=== PATIENT | female | born 1960 | race Caucasian/White ===

== ENCOUNTER → 2017-01-21 | Outpatient (CLI) | payer OTHER, BC ==
[~2017-01-21] MED LIST: ALPR1TAB3 PO; BUPR200T2 PO; CHOL1000 PO; DIME1CAP2 PO; ESCI1TAB10 PO; GABA800T PO; HYDR-4079 PO; LRS20 PO; MECL1TAB42 PO; MELO7.5T5 PO; METH4PAK PO; OXYC-106 PO; TOPI100T20 PO; VALA1TAB2 PO; ZNF/4 PO
[2017-01-21 10:14] LABS: BASO ABS # 0.04 K/uL (0-0.2); COMPLETE YES; EOS % 1.7 %; HEMATOCRIT 39.1 % (37-47); IG% 0.2 %; LYMPH % 22.1 %; LYMPH ABS # 0.89 K/uL (1.2-3.4); MEAN CELL VOLUME 90.1 fL (80-100); MEAN CORPUSCULAR HEMOGLOBIN 31.3 pg (25-34); MEAN CORPUSCULAR HGB CONC 34.8 g/dl (32-36); MEAN PLATELET VOLUME 8.8 fL (7.4-10.4); MONO % 17.2 %; NEUT % 57.8 %; PLATELET COUNT 318 K/uL (130-400); RED BLOOD COUNT 4.34 M/uL (4.2-5.4); WHITE BLOOD COUNT 4.02 K/uL (4.8-10.8)
[2017-01-21 10:42] LABS: ALT/SGPT 21 U/L (12-78); AST/SGOT 15 U/L (15-37); BLOOD UREA NITROGEN 5 mg/dl (7-18); BUN/CREATININE RATIO 7.4 (10-20); CALCIUM 9.2 mg/dl (8.5-10.1); CARBON DIOXIDE 27 mmol/L (21-32); CHLORIDE 97 mmol/L (98-107); CREATININE 0.62 mg/dl (0.60-1.20); GLUCOSE 75 mg/dl (70-99); POTASSIUM 3.6 mmol/L (3.5-5.1); SODIUM 130 mmol/L (136-145)
[2017-01-21 10:52] LABS: ALB/GLOB RATIO 1.1 (0.9-2); ALKALINE PHOSPHATASE 98 U/L (45-117)
[2017-01-21 11:26] LABS: LYME DISEASE AB IGG NEG (NEG); LYME DISEASE AB IGM NEG (NEG)
== END | disposition home or self-care (01) ==
LOC: C.LAB1850 09:21
PROVIDERS: ATTEND Physician Assistant
DX: G35 Multiple sclerosis (principal); E55.9 Vitamin D deficiency, unspecified

== ENCOUNTER → 2017-10-01 | Outpatient (CLI) | payer OTHER ==
[~2017-10-01] MED LIST changes: -DIME1CAP2 PO; -METH4PAK PO; -OXYC-106 PO; -VALA1TAB2 PO
[2017-10-01 13:15] LABS: ALBUMIN 3.7 gm/dl (3.4-5.0); ALT/SGPT 17 U/L (12-78); BLOOD UREA NITROGEN 6 mg/dl (7-18); CALCIUM 8.8 mg/dl (8.5-10.1); CARBON DIOXIDE 26 mmol/L (21-32); CREATININE 0.68 mg/dl (0.60-1.20); GLUCOSE 76 mg/dl (70-99); POTASSIUM 3.6 mmol/L (3.5-5.1); SODIUM 128 mmol/L (136-145)
[2017-10-01 13:18] LABS: BASO % 0.6 %; BASO ABS # 0.03 K/uL (0-0.2); EOS % 1.3 %; EOS ABS # 0.06 K/uL (0-0.5); HEMATOCRIT 39.2 % (37-47); HEMOGLOBIN 13.5 g/dL (12.0-16.0); IG# 0.02 K/uL (0.00-0.02); LYMPH % 20.8 %; LYMPH ABS # 0.97 K/uL (1.2-3.4); MEAN CELL VOLUME 92.5 fL (80-100); MEAN CORPUSCULAR HEMOGLOBIN 31.8 pg (25-34); MEAN CORPUSCULAR HGB CONC 34.4 g/dl (32-36); MEAN PLATELET VOLUME 9.4 fL (7.4-10.4); MONO % 12.4 %; MONO ABS # 0.58 K/uL (0.11-0.59); NEUT % 64.5 %; NEUT ABS # 3.01 K/uL (1.4-6.5); PLATELET COUNT 276 K/uL (130-400); RED CELL DISTRIBUTION WIDTH SD 44.1 fL (36.4-46.3); WHITE BLOOD COUNT 4.67 K/uL (4.8-10.8)
[2017-10-01 13:26] LABS: ALKALINE PHOSPHATASE 89 U/L (45-117); AST/SGOT 13 U/L (15-37)
[2017-10-02 00:58] LABS: RAPID PLASMA REAGIN REACTIVE (NONREACT)
[2017-10-02 00:59] LABS: RAPID PLASMA REAGIN TITRE 8 DILS (NR)
== END | disposition home or self-care (01) ==
LOC: C.LAB1850 10:07
PROVIDERS: ATTEND Psychiatry & Neurology Neurology
DX: G35 Multiple sclerosis (principal); E55.9 Vitamin D deficiency, unspecified; R53.83 Other fatigue; R41.89 Other symptoms and signs involving cognitive functions and awareness; H54.7 Unspecified visual loss

== ENCOUNTER → 2017-10-13 | Outpatient (CLI) | payer OTHER ==
[~2017-10-13] MED LIST changes: +ANAS1TAB19 PO; +GADAVIST IV PRN
--- NOTE | 2017-10-13 15:34 | DIAGNOSTIC IMAGING REPORT ---
MRI OF THE BRAIN COMBO CLINICAL HISTORY: Multiple sclerosis. Breast cancer. COMPARISON STUDY: CT of the brain dated 06/17/2016. MRI of the brain dated 01/29/2017. TECHNIQUE: MRI of the brain was performed utilizing various T1 and T2-weighted sequences in the axial, sagittal, and coronal planes. Contrast-enhanced sequences were acquired following the administration of 6.5 cc of Gadavist. The examination is performed using the multiple sclerosis protocol. FINDINGS: Brain parenchyma: There are numerous foci of T2 signal abnormality scattered throughout the subcortical and periventricular white matter. The appearance is consistent with the reported clinical history of multiple sclerosis. No abnormal enhancement is identified on the postcontrast sequences to suggest active demyelination. There is no hemorrhage or mass effect. There is no restricted diffusion to suggest acute ischemia. No enhancing mass lesion is identified on the postcontrast images. Noe-white matter differentiation is preserved. No extra-axial fluid collection is seen. The cerebellar tonsils are normal in configuration. Ventricles, sulci, and cisterns: Normal in configuration. Pituitary and sella: Unremarkable. Intracranial vasculature: Normal flow voids are maintained at the skull base. Orbits: The bony orbits are grossly intact. Orbital contents are normal in appearance. Sinuses and mastoids: The paranasal sinuses and mastoid air cells are clear. 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 Calvarium: Unremarkable. Cervical cord: Partially visualized cervical spinal cord is normal in morphology and signal intensity. IMPRESSION: 1. There is no hemorrhage, enhancing mass, or evidence of acute ischemia. 2. Numerous T2 hyperintense plaques identified throughout the subcortical and periventricular white matter consistent with the reported history of multiple sclerosis. This has not significantly changed from the 01/29/2017 examination when differences in technique are taken into consideration. 3. There is no abnormal enhancement to suggest active demyelination. Electronically signed by: Kishore Nolan M.D. 10/13/2017 3:32 PM Dictated Date/Time: 10/13/2017 3:24 PM
--- NOTE | 2017-10-13 15:46 | DIAGNOSTIC IMAGING REPORT ---
CERVICAL SPINE COMBO CLINICAL HISTORY: 57 years-old Female presenting with diagnosed with multiple sclerosis in 2001, history of breast cancer, now with increased gait difficulty and memory problems. TECHNIQUE: Multisequence, multiplanar MR imaging of the cervical spine was performed before and after the administration of intravenous contrast. IV contrast: 6.5 mL of Gadavist. COMPARISON: None. FINDINGS: Localizer images: Unremarkable. Normal cervical lordosis. Verbal bodies maintain normal height, alignment, and bone marrow signal intensity. Diffuse intervertebral disc desiccation without height loss. Mild disc osteophyte complex noted at C3-4 with left paracentral osteophytosis resulting in effacement of the left lateral recess and minimal contouring of the left anterior aspect of the spinal cord at this level (series 17 image 10). Mild ligamentum flavum thickening at C5 effaces the dorsal thecal sac. Similar findings noted at C6. No contouring of the spinal cord. No significant neural foraminal narrowing. Cervical spinal cord maintains normal morphology and signal intensity throughout apart from minimal contouring at C3-4 as mentioned above. Craniocervical junction is normal. Abnormal white matter signal intensity noted in the delisa and midbrain. This is a evaluated on separately dictated MR brain. Postcontrast imaging demonstrates no abnormal enhancement of the spinal cord or surrounding soft tissues. No epidural collection. IMPRESSION: 1. No abnormal spinal cord signal intensity to suggest demyelinating disease. No abnormal enhancement. 2. Mild degenerative changes as detailed above. Electronically signed by: Hector Baer M.D. 10/13/2017 3:45 PM Dictated Date/Time: 10/13/2017 3:40 PM
== END | disposition home or self-care (01) ==
LOC: C.MRI 13:31
PROVIDERS: ATTEND Psychiatry & Neurology Neurology
DX: G35 Multiple sclerosis (principal)

== ENCOUNTER → 2017-10-16 | Outpatient (CLI) | payer OTHER ==
[~2017-10-16] MED LIST changes: -GADAVIST IV PRN
[2017-10-16 09:00] VITALS: BP 108/70; PULSE 76; TEMP 36.7; O2SAT 96
--- NOTE | 2017-10-16 10:12 | Radiation Oncology Follow-Up ---
Radiation Oncology Follow-Up Date of Visit Oct 16, 2017. Reason For Visit One-month follow-up in cancer survivorship care plan Radiation Completion Date finished 08-21-2017 Diagnosis (1) Breast cancer of upper-inner quadrant of left female breast Status: Acute Onset Date: 05/12/2017 Histology Subtype: Ductal Stage: l (A) Permanent Comment: Abnormal left breast mammogram Status post ultrasound-guided core needle biopsy 05/12/2017 Invasive ductal carcinoma grade 2 Estrogen receptor positive, progesterone receptor positive and HER-2/elizabeth negative Status post lumpectomy and sentinel lymph node biopsy 06/17/2017 Stage pT1b [id number] Prosigna score 36 Status post completion of radiation therapy August 21, 2017. She received 5130 cGy utilizing hypo-fractionation Last Edited By: Leti Jarrett on Aug 28, 2017 09:13 History of Present Illness Ms. Hernandes has multiple sclerosis who recently presented with an abnormal mammogram on April 24 which revealed a 1.2 cm focal asymmetry in the left breast. The patient underwent a diagnostic left mammogram on 05/07/2017 with ultrasonography which confirmed a persistent nodule in the left breast at the 11 o'clock position measuring 10 mm in the greatest dimension. The patient underwent a ultrasound-guided core biopsy of the left breast mass on 05/12/2017 which revealed invasive ductal carcinoma that was grade 2 and was estrogen receptor positive, progesterone receptor weakly positive and HER-2 negative. The patient underwent a left breast lumpectomy and sentinel lymph node biopsy on 06/17/[address] Mariela Wheeler which revealed invasive ductal carcinoma that measure 10 mm in greatest dimension and was grade 2 with lymphovascular space invasion present. 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 The margins were negative for both DCIS and invasive carcinoma. 3 sentinel lymph nodes were excised and they were all negative for metastatic carcinoma. The patient was staged as pathologic [id number](sn), stage IA. The patient did have a Prosigna score sent for her pathology specimen which was 36 which placed in the low risk category. The patient was seen by Dr. Noe from medical oncology (complete note still pending ) and, according to the patient, she advised against chemotherapy and recommended hormonal therapy. We are now seeing the patient in consultation discuss the role of radiation therapy. She underwent a CT simulation and was found to be a candidate for hypo- fractionation. She completed radiation therapy August 21, 2017. She received 5130 cGy utilizing hypo-fractionation. Interim History She has been doing well over the past month. Skin irritation that occurred towards the end of treatment resolved. She denies any discomfort in her breast. She has noticed no swelling. She is noted no masses and no tenderness. She has noted no change of the axilla. She has no swelling of her arm. She has been seen in follow-up by medical oncology. She is now on antiestrogen therapy. She is tolerating this well. She denies any side effects. She has no complaints of joint pain or discomfort. She has had a follow-up visit and studies for her MS. Allergies Coded Allergies: Penicillins (Verified Allergy, Unknown, my mother told me I had anaphylactic reaction, 07/14/17) Sulfa Drugs (Verified Allergy, Unknown, my mother told me I had an anaphylactic reaction, 07/14/17) Home Medications Scheduled Alprazolam (Xanax), 1.5 MG PO TID Anastrozole (Arimidex), 1 TAB PO DAILY Baclofen (Baclofen), 20 MG PO TID Bupropion (Wellbutrin Sr), 200 MG PO BID Cholecalciferol (Vitamin D3), 5 TAB PO HS Escitalopram Oxalate (Lexapro), 10 MG PO DAILY Gabapentin (Neurontin), 800 MG PO TID Meloxicam (Mobic), 7.5 MG PO DAILY Tizanidine (Tizanidine HCl), 4 MG PO BID Topiramate (Topamax), 100 MG PO BID Scheduled PRN Hydrocodone/Acetaminophen 10MG/325MG ([place] 10MG/325MG), 1 TAB PO Q6 PRN for Pain Meclizine Hcl (Meclizine Hcl), 1 TAB PO TID PRN for Dizziness or Vertigo Review of Systems Gastrointestinal: Symptoms: WNL Oral: Symptoms: No Problems Respiratory: Symptoms: WNL Urinary: Symptoms: Nocturia, Frequency Comments: "nocturia times 2 , and urgency from her MS " Skin: Symptoms: No Problems Other Skin Symptoms: " dry " Breast: Right Upper Arm Measurement: 28.0 Right Mid Arm Measurement: 23.5 Right Wrist Measurement: 16.0 Left Upper Arm Measurement: 29.0 Left Mid Arm Measurement: 23.7 Left Wrist Measurement: 16.8 Arm Dominence: Right Patient Cosmetic Evaluation: Excellent Staff Cosmetic Evalaluation: Excellent Additional Notes: She completed a distress management report and answered "no" to all questions. Physical Exam Vital Signs Date Time Temp Pulse Resp B/P (MAP) Pulse Ox O2 Delivery O2 Flow Rate FiO2 10/16/17 09:00 36.7 76 16 108/70 96 ECOG Performance Status: 0 Fatigue: None General Appearance: no apparent distress Eyes: normal inspection, EOMI ENT: normal ENT inspection, hearing grossly normal Neck: no adenopathy, thyroid normal Respiratory/Chest: lungs clear, no respiratory distress, no accessory muscle use Breast: Breast examination reveals well-healed incisions of the left breast. There are no masses or tenderness and no axillary adenopathy. She has no skin retractions or nipple changes. Very minimal hyperpigmentation. Using the Baudette score cosmesis she has a good outcome. The right breast showed no masses or tenderness and no axillary adenopathy. Cardiovascular: regular rate, rhythm, no gallop, no murmur Extremities: no pedal edema Neurologic/Psychiatric: no motor/sensory deficits, alert, normal mood/affect Skin: warm/dry Pain Management Patient Reports Pain: No Side: Bilateral Patient Preferred Pain Scale: 0 - 10 Initial Pain Intensity: 0.0 Pain Management Plan She denies pain therefore requires no pain management. Laboratory Laboratory Results: not applicable Pathology Pathology Results: were reviewed, and pertinent findings noted in HPI Imaging Imaging Studies: were reviewed, and pertinent findings noted in HPI Assessment & Plan Plan: Continue follow-up with medical oncology. She will be seeing Dr. Noe February 11, 2018. She continues on the antiestrogen therapy. She is scheduled for mammography December 09, 2017. She has a follow-up appointment with Dr. Wheeler on December 15, 2017. We asked her to return to our office in 6 months. Today we completed a cancer survivorship care plan. A copy of the document was given to the patient. She was given a survivorship booklet. We again discussed smoke cessation. We have previously discussed weaning off of cigarettes. She was given literature about the available programs for smoke cessation. We also discussed today low-dose CT for lung cancer screening. She is over 55, she is a smoker greater than 30 packs year history. She currently continues to smoke 1 pack per day. She does have occupational exposure with dust in the past. Literature was given in regards to the program that is available. I have asked her to contact April D[place] if she is interested in participating in this program. She may call our office if she has any questions or concerns. Total Time In Follow-Up I spent 20 minutes speaking to the patient in performing examination. I spent 20 minutes reviewing information, preparing the survivorship document, and completing this note. Copy To Mariela Wheeler MD; Krystian Noe MD; Maria Shipman D.O. Problem Qualifiers (1) Breast cancer of upper-inner quadrant of left female breast: Estrogen receptor status: positive Qualified Codes: C50.212 - Malignant neoplasm of upper-inner quadrant of left female breast; Z17.0 - Estrogen receptor positive status [ER+]
== END | disposition home or self-care (01) ==
LOC: C.ONC 08:54
PROVIDERS: ATTEND Physician Assistant Medical
DX: Z08 Encounter for follow-up examination after completed treatment for malignant neoplasm (principal); Z92.3 Personal history of irradiation; Z85.3 Personal history of malignant neoplasm of breast

== ENCOUNTER 2021-04-29 09:42 | Inpatient (IN) ==
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
[2021-04-29] MEDS ORDERED: SODIUM CHLORIDE 0.9% 1000ML 1,000 ML IV STA (10:26)
[2021-04-29] MEDS ORDERED: SODIUM CHLORIDE 0.9% 1000ML 500 ML IV ONE (10:26)
[2021-04-29] MEDS ORDERED: ONDANSETRON INJ 2 MG/ML 2 ML VIAL IV STA (10:26)
[2021-04-29 10:30] LABS: Hematocrit (blood only) 36.5 % (37-47); Hemoglobin 12.6 g/dL (12.0-16.0); Mean Corpuscular Hemoglobin 30.1 pg (25-34); Mean Corpuscular Hgb Conc 34.5 g/dL (32-36); Mean Corpuscular Volume 87.3 fL (80-100); Mean Platelet Volume 8.5 fL (7.4-10.4); Platelet Count 453 K/uL (130-400); RDW Coefficient of Variation 12.8 % (11.5-14.5); RDW Standard Deviation 41.3 fL (36.4-46.3); Red Blood Count 4.18 M/uL (4.2-5.4); White Blood Count 8.01 K/uL (4.8-10.8)
[2021-04-29 10:48] LABS: Alanine Aminotransferase 12 U/L (12-78); Albumin Level 2.7 gm/dl (3.4-5.0); Aspartate Aminotransferase 40 U/L (15-37); BUN Creatinine Ratio 14.6 (10-20); Blood Urea Nitrogen 9 mg/dl (7-18); Calcium 9.7 mg/dl (8.5-10.1); Carbon Dioxide 22 mmol/L (21-32); Chloride 90 mmol/L (98-107); Est GFR (African American) 113.2 ml/min; Est GFR (Non-African American) 97.7 ml/min; Glucose 97 mg/dl (70-99); Lipase 74 U/L (73-393); Potassium 2.7 mmol/L (3.5-5.1); Sodium 130 mmol/L (136-145)
[2021-04-29 10:51] LABS: Albumin Globulin Ratio 0.6 (0.9-2); Alkaline Phosphatase 105 U/L (45-117); Bilirubin,Total 0.6 mg/dl (0.2-1); Globulin 4.4 gm/dl (2.5-4.0); Total Protein 7.1 gm/dl (6.4-8.2)
[2021-04-29 11:03] LABS: Basophils # (auto) 0.02 K/uL (0-0.2); Basophils % (auto) 0.2 %; Echinocytes 1+; Eosinophils # (auto) 0.01 K/uL (0-0.5); Eosinophils % (auto) 0.1 %; Immature Granulocytes # (auto) 0.02 K/uL (0.00-0.02); Immature Granulocytes % (auto) 0.2 %; Lymphocytes # (auto) 2.05 K/uL (1.2-3.4); Lymphocytes % (auto) 25.6 %; Monocytes # (auto) 0.85 K/uL (0.11-0.59); Monocytes % (auto) 10.6 %; Neutrophils # (auto) 5.06 K/uL (1.4-6.5); Neutrophils % (auto) 63.3 %; Polychromasia 1+
--- NOTE | 2021-04-29 11:41 | CT Scan Report ---
CT abd pelvis wo con CLINICAL HISTORY: nausea, right sided pain gas, diarrhea, loss of appetite TECHNIQUE: Helical axial images of the abdomen and pelvis were obtained. Automated dose lowering tech niques and/or adjustment according to patient size were utilized for this exam. This exam was perfor med without intravenous contrast. COMPARISON: None available at the time of this dictation. FINDINGS: Lower chest: There is a right pleural effusion. A 16 mm solid nodule is seen in the anterior right t horacic cavity. Liver: Focal fatty changes are noted about the falciform ligament. Gallbladder and biliary tree: Cholelithiasis is seen without evidence of cholecystitis. No intra- or extrahepatic biliary ductal dilation. Pancreas: Unremarkable, no focal lesions. Spleen: Unremarkable. Adrenals: Unremarkable. Kidneys and ureters: Nonobstructive nephrolithiasis is seen. Bladder: Diffuse bladder wall thickening is seen. Reproductive organs: Unremarkable. Bowel: Unremarkable. Lymph nodes Retroperitoneal: A large right retroperitoneal mass measures 66 x 41 mm. Additional smaller retroperi toneal lymph nodes are seen measuring up to 29 x 36 mm. A large mass with heterogeneous density is se en in the right upper quadrant measuring approximately 74 x 69 mm, with extension outside the abdomin al cavity. Additional smaller right upper quadrant nodules are seen to bridge the diaphragm. Mesenteric: Unremarkable. Pelvic: Unremarkable. Peritoneum: Normal Vessels: Atherosclerotic calcifications are seen. Abdominal wall: A fat-containing umbilical hernia is seen. There is a fat-containing right inguinal h ernia. Bones: Degenerative changes in the visualized spine. Posterior fixation hardware is seen spanning L4 S1. IMPRESSION: 1. Multiple large soft tissue masses in the retroperitoneum and right upper quadrant, with invasion of the chest wall and thoracic cavity. Right pleural effusion with partially visualized pleural-based nodule. These findings are suspicious for malignancy in this patient with history of loss of appetit e. 2. Cholelithiasis. 3. Bladder wall thickening is likely secondary to chronic obstruction in this patient prostatomegaly . 4. Additional findings as above. ACT 112: Negative or not required by law. Electronically signed by: Hua Lewis M.D. 04/29/2021 11:40 AM
[2021-04-29] MEDS ORDERED: POTASSIUM CHLORIDE / WTR 10 MEQ/100 ML PLCT IV ONE (12:26)
[2021-04-29] MEDS: POTASSIUM CHLORIDE CRTAB 20 MEQ TABCR PO SCH ×2 (14:33→20:24)
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
[2021-04-29 16:35] LABS: Magnesium 1.6 mg/dl (1.8-2.4); Thyroid Stimulating Hormone 2.05 uIu/ml (0.300-4.500)
[2021-04-29 16:52] LABS: Appearance Urine Clear (Clear); Bacteria Urine Automated 4+ (Negative); Bilirubin Urine Negative (Negative); Blood Urine 2+ (Negative); Color Urine Yellow; Epithelial Cell Urine Auto >30 /lpf (0-5); Glucose Urine UA Negative (Negative); Ketones Urine 4+ (Negative); Leukocyte Esterase Urine 1+ (Negative); Nitrite Urine Positive (Negative); Protein Urine 1+ (Negative); Specific Gravity Urine 1.016 (1.000-1.030); Urobilinogen Urine Negative (Negative); pH Urine 5.5 (4.5-7.5)
[2021-04-29] MEDS: MAGNESIUM SULFATE / D5W 1 GM/100 ML BAG IV SCH ×2 (17:48→19:57)
[2021-04-29] MEDS ORDERED: PROMETHAZINE HCL 12.5 MG/10 ML UDP PO PRN (17:57)
[2021-04-29] MEDS: SODIUM CHLORIDE 0.9% 1000ML 1,000 ML IV SCH (18:32)
[2021-04-29] MEDS: CIPROFLOXACIN / D5W 400 MG/200 ML BAG IV SCH (20:17)
[2021-04-29] MEDS: BACLOFEN 20 MG TAB PO SCH (20:19)
[2021-04-29] MEDS: ESCITALOPRAM OXALATE 10 MG TAB PO SCH (20:20)
[2021-04-29] MEDS: buPROPion SR 100 MG TABCR PO SCH (20:20)
[2021-04-29] MEDS: TOPIRAMATE 100 MG TAB PO SCH (20:21)
[2021-04-29] MEDS: GABAPENTIN 800 MG TAB PO SCH (20:21)
[2021-04-29] MEDS: ALPRAZolam 0.5 MG TABLET PO SCH (20:24)
[2021-04-29] MEDS ORDERED: MELATONIN 3 MG TAB PO PRN (23:36)
[2021-04-30] MEDS: SODIUM CHLORIDE 0.9% 1000ML 1,000 ML IV SCH ×2 (03:20→12:56)
[2021-04-30] MEDS: CIPROFLOXACIN / D5W 400 MG/200 ML BAG IV SCH ×2 (06:20→18:05)
[2021-04-30] MEDS ORDERED: MoRPHine SULFATE 4 MG/ML 1 ML CARP\\VIAL IV PRN (06:49)
[2021-04-30 07:37] LABS: Hematocrit (blood only) 32.1 % (37-47); Hemoglobin 10.8 g/dL (12.0-16.0); Mean Corpuscular Hemoglobin 29.7 pg (25-34); Mean Corpuscular Hgb Conc 33.6 g/dL (32-36); Mean Corpuscular Volume 88.2 fL (80-100); Mean Platelet Volume 8.6 fL (7.4-10.4); Platelet Count 432 K/uL (130-400); RDW Standard Deviation 42.1 fL (36.4-46.3); Red Blood Count 3.64 M/uL (4.2-5.4); White Blood Count 7.65 K/uL (4.8-10.8)
[2021-04-30 08:14] LABS: BUN Creatinine Ratio 13.5 (10-20); Calcium 8.3 mg/dl (8.5-10.1); Creatinine Clr Calc Pharmacy 102.9 ml/min; Est GFR (African American) 121.8 ml/min; Est GFR (Non-African American) 105.1 ml/min; Magnesium 1.9 mg/dl (1.8-2.4); Potassium 3.6 mmol/L (3.5-5.1)
[2021-04-30 09:14] LABS: INR 1.1 (0.9-1.1); Prothrombin Time 11.2 Seconds (9.0-12.0)
[2021-04-30] MEDS: NICOTINE 21 MG/24 HR TDSY TD SCH (10:10)
[2021-04-30] MEDS: GABAPENTIN 800 MG TAB PO SCH ×2 (10:11→20:27)
[2021-04-30] MEDS: BACLOFEN 20 MG TAB PO SCH ×2 (10:11→20:26)
[2021-04-30] MEDS: buPROPion SR 100 MG TABCR PO SCH ×2 (10:11→20:26)
[2021-04-30] MEDS: TOPIRAMATE 100 MG TAB PO SCH ×2 (10:11→20:28)
[2021-04-30] MEDS: ANASTROZOLE 1 MG TAB PO SCH (10:11)
[2021-04-30] MEDS: ESCITALOPRAM OXALATE 10 MG TAB PO SCH ×2 (10:11→20:27)
[2021-04-30] MEDS: MAGNESIUM OXIDE 400 MG TAB PO SCH ×2 (10:17→20:28)
[2021-04-30] MEDS: ALPRAZolam 0.5 MG TABLET PO SCH ×3 (10:17→20:26)
[2021-04-30] MEDS: GABAPENTIN 400 MG CAP PO SCH (12:56)
--- NOTE | 2021-04-30 14:13 | Ultrasound Report ---
ULTRASOUND GUIDED FINE NEEDLE ASPIRATION AND CORE BIOPSY OF RIGHT LATERAL ABDOMINAL MASS CLINICAL HISTORY: RUQ mass biopsy COMPARISON STUDY: CT of the abdomen and pelvis April 29, 2021. PROCEDURE: Sonography of the abdomen demonstrate multiple right abdominal wall masses. Index lesion w as targeted for biopsy. The procedure, risks and benefits were discussed with the patient and informe d written consent was obtained. The procedure was performed by Dr. Sousa following a timeout. Ski n of the right abdomen was prepped and draped in sterile fashion and local anesthesia was achieved wi th 1% lidocaine. Under direct ultrasound guidance, 2 22-gauge fine needle aspirations were performed utilizing Stewart needles. Samples were deemed preliminarily adequate. 2 18-gauge 2 cm core samples were then obtained. Patient tolerated the procedure well and no immediate complications were evident. IMPRESSION: Successful ultrasound guided core biopsy and fine-needle aspiration of right abdominal w all mass. ACT 112: Negative or not required by law. Electronically signed by: Mark Sousa M.D. 04/30/2021 2:11 PM
[2021-04-30] MEDS: ACETAMINOPHEN 325 MG TAB PO PRN (16:29)
[2021-04-30] MEDS ORDERED: tiZANidine HCL 4 MG TABLET PO PRN (19:04)
--- NOTE | 2021-04-30 19:06 | Hospitalist Progress Note ---
Date of Service April 30, 2021 Assessment & Plan (1) Intraabdominal mass: (2) History of breast cancer: Plan: 60-year-old female with PMH breast cancer s/p lumpectomy and radiation in 2018, tobacco abuse (since age 10, 1PPD), MS, anxiety, presented to ED 04/29 for evaluation of nausea and poor appetite. Per patient, her GI issues started with constipation transitioning to diarrhea from stool softener use, poor appetite but after eating cinnamon bun her nausea worsened that made her to come to the hospital. She is poor historian. No dark tarry stool or bright red blood in the stool. CTAP at presentation revealed multiple large soft tissue masses in the r etroperitoneum and right upper quadrant, with invasion of chest wall and thoracis cavity. Hematology oncology consulted, no further recommendation Patient found to have low sodium, mild hyponatremia, will follow up with labs, monitor BMP daily. We will put her on as needed nausea medication. #. Abdominal mass, right upper quadrant: -Patient presenting from home with reports of worsening nausea and poor appetite x 3 weeks. -Admitting CTAP - Multiple large soft tissue masses in the retroperitoneum and right upper quadrant, with invasion of the chest wall and thoracic cavity. Right pleural effusion with partially visualized pleural-based nodule. -US guided biopsy of the mass -Patient with history of breast cancer, follows with Dr. Solis Goetz. He has been notified of CT findings. No further recommendation. -For pleural eff a/w nodule, Pulm consulted. -Heparin Px, Reg diet, continue to monitor, might need discussion regarding palliative care once we have evidence of metastatic disease. #. UTI UA s/o UTI UCx - pending on Cipro 04/29 #. Hypokalemia: #. Hyponatremia: - Admitting K+ 2.7, Na+ 130 -Likely due to poor p.o. intake -Replace, follow BMP -Improving #. History of breast cancer: -In 2018, s/p radiation and lumpectomy -Continue anastrozole #. Multiple sclerosis: -Continue home meds #. Tobacco abuse: -Patient counseled regarding tobacco cessation -Nicotine patch ordered #. DVT prophylaxis: -SCDs, will put her on Hep Px. Admission and Anticipated Discharge Date Admission Date: April 29, 2021 Subjective Patient was lying in bed, on room air, NAD, looking sad. No acute events overnight. Patient reports improvement in her nausea and belly pain. Patient moving flatus but no bowel movement. Patient currently n.p.o. at bedside exam awaiting biopsy. Patient denies headache/dizziness/chest pain/palpitation/other review of symptoms. Physical Exam Physical Exam: GENERAL: Alert and oriented x3. NAD, on RA. Appears sad. HEENT: No pallor, no icterus. Pupils equal, round and reactive to light. Oral mucosa moist. NECK: No JVD, no neck masses. HEART: S1 and S2 heard. Regular rate and rhythm. Systolic murmur over aortic and pulmonic area, no gallop. RESPIRATORY SYSTEM: Normal AP diameter. No accessory muscle use. No wheezing, no crackles. Right greater than left basilar decreased breath sounds. ABDOMEN: Soft, bowel sounds present, nontender, no distention. CENTRAL NERVOUS SYSTEM: No facial droop. Speech is clear. Obeys simple commands. Moves extremities. EXTREMITIES: No edema, no erythema seen. Results & Data Results & Data ([facility]) Vital Signs (Past 12 Hours) Vital Signs Temp Pulse Resp BP Pulse Ox 04/30/21 13:59 37.0 C 87 18 124/74 90 04/30/21 07:02 37.1 C 83 18 131/76 90
[2021-04-30] MEDS: HEPARIN SOD 5,000 UNIT/0.5 ML VIAL SQ SCH (20:52)
[2021-05-01] MEDS: oxyCODONE HCL IR 5 MG TAB (IMMEDIATE RELEASE) PO PRN ×2 (03:16→11:01)
[2021-05-01 06:06] LABS: Hematocrit (blood only) 33.2 % (37-47); Mean Corpuscular Hemoglobin 29.4 pg (25-34); Mean Corpuscular Hgb Conc 33.1 g/dL (32-36); Mean Corpuscular Volume 88.8 fL (80-100); Mean Platelet Volume 8.4 fL (7.4-10.4); Platelet Count 355 K/uL (130-400); RDW Coefficient of Variation 13.3 % (11.5-14.5); RDW Standard Deviation 43.2 fL (36.4-46.3); Red Blood Count 3.74 M/uL (4.2-5.4); White Blood Count 6.89 K/uL (4.8-10.8)
[2021-05-01 06:47] LABS: BUN Creatinine Ratio 12.5 (10-20); Calcium 8.4 mg/dl (8.5-10.1); Creatinine Clr Calc Pharmacy 98.7 ml/min; Est GFR (African American) 120.2 ml/min; Est GFR (Non-African American) 103.7 ml/min; Potassium 3.2 mmol/L (3.5-5.1)
[2021-05-01] MEDS: CIPROFLOXACIN / D5W 400 MG/200 ML BAG IV SCH ×2 (08:37→18:09)
[2021-05-01] MEDS: NICOTINE 21 MG/24 HR TDSY TD SCH (08:42)
[2021-05-01] MEDS: ALPRAZolam 0.5 MG TABLET PO SCH ×3 (08:42→20:00)
[2021-05-01] MEDS: GABAPENTIN 800 MG TAB PO SCH ×2 (08:43→20:02)
[2021-05-01] MEDS: TOPIRAMATE 100 MG TAB PO SCH ×2 (08:43→20:03)
[2021-05-01] MEDS: MAGNESIUM OXIDE 400 MG TAB PO SCH ×2 (08:43→20:03)
[2021-05-01] MEDS: BACLOFEN 20 MG TAB PO SCH ×2 (08:43→20:01)
[2021-05-01] MEDS: buPROPion SR 100 MG TABCR PO SCH ×2 (08:43→20:01)
[2021-05-01] MEDS: ESCITALOPRAM OXALATE 10 MG TAB PO SCH ×2 (08:43→20:02)
[2021-05-01] MEDS: HEPARIN SOD 5,000 UNIT/0.5 ML VIAL SQ SCH ×2 (08:44→20:02)
[2021-05-01] MEDS: ANASTROZOLE 1 MG TAB PO SCH (08:44)
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
[2021-05-01] MEDS: GABAPENTIN 400 MG CAP PO SCH (11:03)
[2021-05-01] MEDS ORDERED: POTASSIUM CHLORIDE CRTAB 20 MEQ TABCR PO STA (14:11)
--- NOTE | 2021-05-01 14:12 | Hospitalist Progress Note ---
Date of Service May 01, 2021 Assessment & Plan (1) Intraabdominal mass: (2) History of breast cancer: Plan: 60-year-old female with PMH breast cancer s/p lumpectomy and radiation in 2018, tobacco abuse (since age 10, 1PPD), MS, anxiety, presented to ED 04/29 for evaluation of nausea and poor appetite. Per patient, her GI issues started with constipation transitioning to diarrhea from stool softener use, poor appetite but after eating cinnamon bun her nausea worsened that made her to come to the hospital. She is poor historian. No dark tarry stool or bright red blood in the stool. CTAP at presentation revealed multiple large soft tissue masses in the retroperitoneum and right upper quadrant, with invasion of chest wall and thoracis cavity. Hematology oncology consulted, no further recommendation Patient found to have low sodium, mild hyponatremia, will follow up with labs, monitor BMP daily. We will put her on as needed nausea medication. 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 Abdominal mass, right upper quadrant: -Patient presenting from home with reports of worsening nausea and poor appetite x 3 weeks. -Admitting CTAP - Multiple large soft tissue masses in the retroperitoneum and right upper quadrant, with invasion of the chest wall and thoracic cavity. Right pleural effusion with partially visualized pleural-based nodule. -US guided biopsy of the abdominal wall mass -Biopsy results - pending -Patient with history of breast cancer, follows with Dr. Solis Goetz. He has been notified of CT findings. No further recommendation. -For pleural effusion a/w nodule, Pulmonary consulted. -advance diet as tolerated, continue to monitor, might need discussion regarding palliative care once we have evidence of metastatic disease. #. UTI UA s/o UTI UCx - multiple bacteria ? skin walter, will repeat UA on Cipro 04/29 #. Hypokalemia: #. Hyponatremia: - Admitting K+ 2.7, Na+ 130 -Likely due to poor p.o. intake -Replace, follow BMP -Improving #. History of breast cancer: -In 2018, s/p radiation and lumpectomy -Continue anastrozole #. Multiple sclerosis: -Continue home meds #. Tobacco abuse: -Patient counseled regarding tobacco cessation -Nicotine patch ordered #. DVT prophylaxis: -SCDs, switch heparin to lovenox Admission and Anticipated Discharge Date Admission Date: May 01, 2021 Subjective Patient seen in follow-up of nausea vomiting, new abdominal mass, pleural effusion, concern for malignancy Currently patient is lying in bed, appears very fatigued, but she is able to answer questions appropriately Says that she was nauseous after trying to eat earlier Denies chest pain shortness of breath, fevers or chills, only mild abdominal discomfort noted Patient's at the bedside updated patient seen by pulmonary medicine today as well for pleural effusion Review of Systems Review of Systems: All systems reviewed & are unremarkable except as noted in Subjective Physical Exam Physical Exam: GENERAL: Alert and oriented x3. appe ars very fatigued but in NAD, on 2L HEENT: NC/AT, EOM I, PERRL NECK: No JVD, no neck mass es. HEART: S1 and S2 heard. Regula r rate and rhythm. +systolic murmur RESPIRATORY : No rmal AP diameter. No accessory musc le use. No wheezi ng. Right > left b asilar decreased b reath sounds. ABDO MEN: Soft, bowel sounds present, mi ldly tender to pal p at lower abdomen /suprapubic, no di stention. NEURO:A wake and alert how ever appears very fatigued, no facia l droop. Speech i s clear. Moves ext remities. EXTREMIT IES: No edema, no erythema seen. Results & Data Results & Data ([facility]) Vital Signs (Past 12 Hours) Vital Signs Temp Pulse Resp BP Pulse Ox 05/01/21 07:11 37.1 C 74 20 148/75 H 94 Laboratory Results 05/01/21 05/01/21 04/30/21 Range/Units 05:48 05:48 13:20 WBC 6.89 (4.8-10.8) K/uL RBC 3.74 L (4.2-5.4) M/uL Hgb 11.0 L (12.0-16.0) g/dL Hct 33.2 L (37-47) % MCV 88.8 (80-100) fL MCH 29.4 (25-34) pg MCHC 33.1 (32-36) g/dL RDW Std Deviation 43.2 (36.4-46.3) fL RDW Coeff of Lico 13.3 (11.5-14.5) % Plt Count 355 (130-400) K/uL MPV 8.4 (7.4-10.4) fL Sodium 132 L (136-145) mmol/L Potassium 3.2 L (3.5-5.1) mmol/L Chloride 98 (98-107) mmol/L Carbon Dioxide 26 (21-32) mmol/L Anion Gap 8.0 (3-11) BUN 6 L (7-18) mg/dl Creatinine 0.50 L (0.6-1.2) mg/dl Est Cr Clr Drug Dosing 98.7 ml/min Est GFR ( Amer) 120.2 ml/min Est GFR (Non-Af Amer) 103.7 ml/min BUN/Creatinine Ratio 12.5 (10-20) Glucose 113 H (70-99) mg/dl Calcium 8.4 L (8.5-10.1) mg/dl Flow Cytometry Comment Pending Medications Administered Current Inpatient Medications Acetaminophen (Acetaminophen 325 Mg Tab) 650 mg PO Q4H PRN PRN Reason: pain/fever Stop: 05/29/21 15:41 Last Admin: 04/30/21 16:29 Dose: 650 mg Documented by: Alprazolam (Alprazolam 0.5 Mg Tablet) 1 mg PO TID PENNIE Stop: 05/29/21 20:59 Last Admin: 05/01/21 08:42 Dose: 1 mg Documented by: Anastrozole (Anastrozole 1 Mg Tab) 1 mg PO DAILY PENNIE Stop: 05/30/21 08:59 Last Admin: 05/01/21 08:44 Dose: 1 mg Documented by: Baclofen (Baclofen 20 Mg Tab) 20 mg PO BID PENNIE Stop: 05/29/21 20:59 Last Admin: 05/01/21 08:43 Dose: 20 mg Documented by: Bupropion HCl (Bupropion Sr 100 Mg Tabcr) 200 mg PO BID PENNIE Stop: 05/29/21 20:59 Last Admin: 05/01/21 08:43 Dose: 200 mg Documented by: Escitalopram Oxalate (Escitalopram Oxalate 10 Mg Tab) 10 mg PO BID PENNIE Stop: 05/29/21 20:59 Last Admin: 05/01/21 08:43 Dose: 10 mg Documented by: Gabapentin (Gabapentin 800 Mg Tab) 800 mg PO BID PENNIE Stop: 05/29/21 20:59 Last Admin: 05/01/21 08:43 Dose: 800 mg Documented by: Gabapentin (Gabapentin 400 Mg Cap) 400 mg PO QDL [facility] Stop: 05/30/21 11:29 Last Admin: 05/01/21 11:03 Dose: 400 mg Documented by: Heparin Sodium (Porcine) (Heparin Sod 5,000 Unit/0.5 Ml Vial) 5,000 units SQ Q12 [facility] Stop: 05/30/21 20:59 Last Admin: 05/01/21 08:44 Dose: 5,000 units Documented by: Ciprofloxacin (Cipro / D5w) 400 mg in 200 mls @ 100 mls/hr IV Q12H [facility]; Protocol Stop: 05/04/21 18:59 Last Infusion: 05/01/21 10:57 Dose: Infused Documented by: Magnesium Oxide (Magnesium Oxide 400 Mg Tab) 400 mg PO BID [facility] Stop: 05/01/21 21:01 Last Admin: 05/01/21 08:43 Dose: 400 mg Documented by: Melatonin (Melatonin 3 Mg Tab) 3 mg PO HS PRN PRN Reason: Sleep Stop: 05/29/21 23:35 Miscellaneous (Remove Nicoderm Patch) 1 ea N/A DAILY@0859 [facility] Stop: 05/30/21 08:58 Last Admin: 05/01/21 08:42 Dose: Not Given Documented by: Morphine Sulfate (Morphine Sulfate 4 Mg/Ml 1 Ml Carp\Vial) 4 mg IV Q4H PRN PRN Reason: Pain Stop: 05/14/21 06:48 Nicotine (Nicotine 21 Mg/24 Hr Tdsy) 21 mg TD QAM [facility] Stop: 05/30/21 08:59 Last Admin: 05/01/21 08:42 Dose: Not Given Documented by: Oxycodone HCl (Oxycodone Hcl Ir 5 Mg Tab (Immediate Release)) 5 mg PO Q4H PRN PRN Reason: Pain Stop: 05/14/21 06:48 Last Admin: 05/01/21 11:01 Dose: 5 mg Documented by: Potassium Chloride (Potassium Chloride Crtab 20 Meq Tabcr) 40 meq PO NOW STA Stop: 05/01/21 14:12 Promethazine HCl (Promethazine Hcl 12.5 Mg/10 Ml Udp) 12.5 mg PO Q6H PRN PRN Reason: Nausea And Vomiting Stop: 05/29/21 17:56 Last Admin: 04/29/21 21:49 Dose: 12.5 mg Documented by: Tizanidine HCl (Tizanidine Hcl 4 Mg Tablet) 4 mg PO Q8H PRN PRN Reason: muscle spasticity Stop: 05/30/21 19:03 Topiramate (Topiramate 100 Mg Tab) 100 mg PO BID PENNIE Stop: 05/29/21 20:59 Last Admin: 05/01/21 08:43 Dose: 100 mg Documented by:
[2021-05-02 01:28] LABS: Appearance Urine Clear (Clear); Bilirubin Urine Negative (Negative); Blood Urine Negative (Negative); Color Urine Yellow; Glucose Urine UA Negative (Negative); Ketones Urine Negative (Negative); Leukocyte Esterase Urine Negative (Negative); Nitrite Urine Negative (Negative); Protein Urine Negative (Negative); Specific Gravity Urine 1.009 (1.000-1.030); Urobilinogen Urine Negative (Negative); pH Urine 7.5 (4.5-7.5)
[2021-05-02] MEDS: oxyCODONE HCL IR 5 MG TAB (IMMEDIATE RELEASE) PO PRN ×3 (01:53→17:42)
[2021-05-02] MEDS: CIPROFLOXACIN / D5W 400 MG/200 ML BAG IV SCH ×2 (06:06→19:18)
[2021-05-02 07:09] LABS: Hematocrit (blood only) 33.5 % (37-47); Hemoglobin 10.8 g/dL (12.0-16.0); Mean Corpuscular Hemoglobin 29.1 pg (25-34); Mean Corpuscular Hgb Conc 32.2 g/dL (32-36); Mean Corpuscular Volume 90.3 fL (80-100); Mean Platelet Volume 8.4 fL (7.4-10.4); Platelet Count 310 K/uL (130-400); RDW Coefficient of Variation 13.2 % (11.5-14.5); RDW Standard Deviation 43.4 fL (36.4-46.3); Red Blood Count 3.71 M/uL (4.2-5.4); White Blood Count 8.16 K/uL (4.8-10.8)
[2021-05-02 07:44] LABS: BUN Creatinine Ratio 15.4 (10-20); Calcium 8.4 mg/dl (8.5-10.1); Creatinine Clr Calc Pharmacy 107.3 ml/min; Est GFR (African American) 123.6 ml/min; Est GFR (Non-African American) 106.6 ml/min; Magnesium 1.8 mg/dl (1.8-2.4); Potassium 3.7 mmol/L (3.5-5.1)
[2021-05-02 07:58] LABS: Phosphorus 1.3 mg/dl (2.5-4.9)
[2021-05-02] MEDS ORDERED: SODIUM PHOSPHATE 3 MMOL/1 ML INFUSION IV STA (08:08)
[2021-05-02] MEDS ORDERED: SODIUM PHOSPHATE 21 MMOL in SODIUM CHLORIDE 0.9% 500 ML IV ONE (08:15)
--- NOTE | 2021-05-02 09:57 | Hospitalist Progress Note ---
Date of Service May 02, 2021 Assessment & Plan (1) Intraabdominal mass: (2) History of breast cancer: Plan: 60-year-old female with PMH breast cancer s/p lumpectomy and radiation in 2018, tobacco abuse (since age 10, 1PPD), MS, anxiety, presented to ED 04/29 for evaluation of nausea and poor appetite. Per patient, her GI issues started with constipation transitioning to diarrhea from stool softener use, poor appetite but after eating cinnamon bun her nausea worsened that made her to come to the hospital. She is poor historian. No dark tarry stool or bright red blood in the stool. CTAP at presentation revealed multiple large soft tissue masses in the retroperitoneum and right upper quadrant, with invasion of chest wall and thoracis cavity. Hematology oncology consulted, no further recommendation Patient found to have low sodium, mild hyponatremia, will follow up with labs, monitor BMP daily. We will put her on as needed nausea medication. 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 Abdominal mass, right upper quadrant: -Patient presenting from home with reports of worsening nausea and poor appetite x 3 weeks. -Admitting CTAP - Multiple large soft tissue masses in the retroperitoneum and right upper quadrant, with invasion of the chest wall and thoracic cavity. Right pleural effusion with partially visualized pleural-based nodule. -US guided biopsy of the abdominal wall mass -Biopsy results - final results pending However preliminary results consistent with aggressive B-cell lymphoma -Patient with history of breast cancer, follows with Dr. Solis Goetz. He has been notified of CT findings. Discussed this morning (05/02) with Dr. Goetz, and he would recommend likely inpatient treatment, and transfer to tertiary care center [facility] contacted, discussed with Dr. Dukes, who accepted the patient. A lso recommends to follow tumor lysis labs, uric acid, Phos, CMP twice a day, recommends allopurinol 300 daily, and obtaining echocardiogram and hepatitis panel, all of which were ordered -For pleural effusion a/w nodule, Pulmonary medicine consulted -for now no plans for thoracentesis -advance diet as tolerated, continue to monitor -might need discussion regarding palliative care in the future #. UTI UA s/o UTI UCx - multiple bacteria ? skin walter, will repeat UA on Cipro 04/29 #. Hypokalemia: #. Hyponatremia: - Admitting K+ 2.7, Na+ 130 -Likely due to poor p.o. intake -Replace, follow BMP -Improving #. History of breast cancer: -In 2018, s/p radiation and lumpectomy -Continue anastrozole #. Multiple sclerosis: -Continue home meds #. Tobacco abuse: -Patient counseled regarding tobacco cessation -Nicotine patch ordered #. DVT prophylaxis: -SCDs, lovenox Admission and Anticipated Discharge Date Admission Date: May 01, 2021 Subjective Patient seen in follow-up of nausea vomiting, new abdominal mass, pleural effusion, concern for malignancy Currently patient is sitting up in bed, in NAD, eating little bit of ice cream Denies chest pain shortness of breath, fevers or chills Has some abdominal discomfort Patient's updated over the phone at the bedside patient seen by pulmonary medicine yesterday as well for pleural effusion This morning discussed with Dr. Goetz, and pulmonary medicine, after talking with pathology that patient likely has B-cell lymphoma, Dr. Goetz would recommend to likely inpatient treatment and transfer to tertiary care center Review of Systems Review of Systems: All systems reviewed & are unremarkable except as noted in Subjective Physical Exam Physical Exam: GENERAL: Alert and oriented x3. in N AD, on NC HEENT: NC/AT, EOMI, PERRL NECK: No JVD, no neck masses. HEAR T: S1 and S2 hear d. Regular rate a nd rhythm. +systo lic murmur RESPIRA TORY : Normal AP diameter. No acce ssory muscle use. No wheezing. Righ t > left basilar d ecreased breath so unds. ABDOMEN: So ft, bowel sounds p resent, mildly ten kaylin to palp at low er abdomen/suprapu bic, no distention . NEURO:Awake and alert but appears fatigued, no faci al droop. Speech is clear. Moves ex tremities. EXTREMI TIES: No edema, n o erythema seen. Results & Data Results & Data ([facility]) Vital Signs (Past 12 Hours) Vital Signs Temp Pulse Pulse Resp BP Pulse Ox 05/02/21 07:44 36.9 C 89 20 151/72 H 95 05/01/21 23:07 37.2 C 05/01/21 22:30 37.8 C H 84 16 136/74 92 Laboratory Results 05/02/21 05/02/21 05/02/21 Range/Units 06:52 06:52 01:07 WBC 8.16 (4.8-10.8) K/uL RBC 3.71 L (4.2-5.4) M/uL Hgb 10.8 L (12.0-16.0) g/dL Hct 33.5 L (37-47) % MCV 90.3 (80-100) fL MCH 29.1 (25-34) pg MCHC 32.2 (32-36) g/dL RDW Std Deviation 43.4 (36.4-46.3) fL RDW Coeff of Lico 13.2 (11.5-14.5) % Plt Count 310 (130-400) K/uL MPV 8.4 (7.4-10.4) fL Sodium 129 L (136-145) mmol/L Potassium 3.7 D (3.5-5.1) mmol/L Chloride 96 L (98-107) mmol/L Carbon Dioxide 26 (21-32) mmol/L Anion Gap 7.0 (3-11) BUN 7 (7-18) mg/dl Creatinine 0.46 L (0.6-1.2) mg/dl Est Cr Clr Drug Dosing 107.3 ml/min Est GFR ( Amer) 123.6 ml/min Est GFR (Non-Af Amer) 106.6 ml/min BUN/Creatinine Ratio 15.4 (10-20) Glucose 104 H (70-99) mg/dl Calcium 8.4 L (8.5-10.1) mg/dl Phosphorus 1.3 L* (2.5-4.9) mg/dl Magnesium 1.8 (1.8-2.4) mg/dl Urine Color Yellow Urine Appearance Clear (Clear) Urine pH 7.5 (4.5-7.5) Ur Specific [place] 1.009 (1.000-1.030) Urine Protein Negative (Negative) Urine Glucose (UA) Negative (Negative) Urine Ketones Negative (Negative) Urine Blood Negative (Negative) Urine Nitrite Negative (Negative) Urine Bilirubin Negative (Negative) Urine Urobilinogen Negative (Negative) Ur Leukocyte Esterase Negative (Negative) Medications Administered Current Inpatient Medications Acetaminophen (Acetaminophen 325 Mg Tab) 650 mg PO Q4H PRN PRN Reason: pain/fever Stop: 05/29/21 15:41 Last Admin: 04/30/21 16:29 Dose: 650 mg Documented by: Alprazolam (Alprazolam 0.5 Mg Tablet) 1 mg PO TID PENNIE Stop: 05/29/21 20:59 Last Admin: 05/01/21 20:00 Dose: 1 mg Documented by: Anastrozole (Anastrozole 1 Mg Tab) 1 mg PO DAILY PENNIE Stop: 05/30/21 08:59 Last Admin: 05/01/21 08:44 Dose: 1 mg Documented by: Baclofen (Baclofen 20 Mg Tab) 20 mg PO BID PENNIE Stop: 05/29/21 20:59 Last Admin: 05/01/21 20:01 Dose: 20 mg Documented by: Bupropion HCl (Bupropion Sr 100 Mg Tabcr) 200 mg PO BID PENNIE Stop: 05/29/21 20:59 Last Admin: 05/01/21 20:01 Dose: 200 mg Documented by: Enoxaparin Sodium (Enoxaparin Inj 40 Mg/0.4 Ml Syr) 40 mg SQ QAM PENNIE Stop: 06/01/21 09:14 Escitalopram Oxalate (Escitalopram Oxalate 10 Mg Tab) 10 mg PO BID PENNIE Stop: 05/29/21 20:59 Last Admin: 05/01/21 20:02 Dose: 10 mg Documented by: Gabapentin (Gabapentin 800 Mg Tab) 800 mg PO BID [facility] Stop: 05/29/21 20:59 Last Admin: 05/01/21 20:02 Dose: 800 mg Documented by: Gabapentin (Gabapentin 400 Mg Cap) 400 mg PO QDL [facility] Stop: 05/30/21 11:29 Last Admin: 05/01/21 11:03 Dose: 400 mg Documented by: Ciprofloxacin (Cipro / D5w) 400 mg in 200 mls @ 100 mls/hr IV Q12H [facility]; Protocol Stop: 05/04/21 18:59 Last Admin: 05/02/21 06:06 Dose: 100 mls/hr Documented by: Sodium Phosphate 21 mmol/ (Sodium Chloride) 507 mls @ 88 mls/hr IV ONE ONE Stop: 05/02/21 14:00 Melatonin (Melatonin 3 Mg Tab) 3 mg PO HS PRN PRN Reason: Sleep Stop: 05/29/21 23:35 Miscellaneous (Remove Nicoderm Patch) 1 ea N/A DAILY@0859 [facility] Stop: 05/30/21 08:58 Last Admin: 05/01/21 08:42 Dose: Not Given Documented by: Morphine Sulfate (Morphine Sulfate 4 Mg/Ml 1 Ml Carp\Vial) 4 mg IV Q4H PRN PRN Reason: Pain Stop: 05/14/21 06:48 Nicotine (Nicotine 21 Mg/24 Hr Tdsy) 21 mg TD QAM [facility] Stop: 05/30/21 08:59 Last Admin: 05/01/21 08:42 Dose: Not Given Documented by: Oxycodone HCl (Oxycodone Hcl Ir 5 Mg Tab (Immediate Release)) 5 mg PO Q4H PRN PRN Reason: Pain Stop: 05/14/21 06:48 Last Admin: 05/02/21 01:53 Dose: 5 mg Documented by: Promethazine HCl (Promethazine Hcl 12.5 Mg/10 Ml Udp) 12.5 mg PO Q6H PRN PRN Reason: Nausea And Vomiting Stop: 05/29/21 17:56 Last Admin: 04/29/21 21:49 Dose: 12.5 mg Documented by: Tizanidine HCl (Tizanidine Hcl 4 Mg Tablet) 4 mg PO Q8H PRN PRN Reason: muscle spasticity Stop: 05/30/21 19:03 Topiramate (Topiramate 100 Mg Tab) 100 mg PO BID [facility] Stop: 05/29/21 20:59 Last Admin: 05/01/21 20:03 Dose: 100 mg Documented by:
[2021-05-02] MEDS: ENOXAPARIN INJ 40 MG/0.4 ML SYR SQ SCH (10:12)
[2021-05-02] MEDS: TOPIRAMATE 100 MG TAB PO SCH ×2 (10:12→20:19)
[2021-05-02] MEDS: ESCITALOPRAM OXALATE 10 MG TAB PO SCH ×2 (10:13→20:19)
[2021-05-02] MEDS: buPROPion SR 100 MG TABCR PO SCH ×2 (10:13→20:20)
[2021-05-02] MEDS: BACLOFEN 20 MG TAB PO SCH ×2 (10:13→20:19)
[2021-05-02] MEDS: GABAPENTIN 800 MG TAB PO SCH ×2 (10:14→20:20)
[2021-05-02] MEDS: ANASTROZOLE 1 MG TAB PO SCH (10:15)
[2021-05-02] MEDS: NICOTINE 21 MG/24 HR TDSY TD SCH (10:16)
[2021-05-02] MEDS: ALPRAZolam 0.5 MG TABLET PO SCH ×3 (10:24→20:20)
[2021-05-02] MEDS: GABAPENTIN 400 MG CAP PO SCH (12:53)
[2021-05-02] MEDS: HEPARIN SOD 5,000 UNIT/0.5 ML VIAL SQ SCH (12:53)
[2021-05-02 16:28] LABS: Albumin Level 1.9 gm/dl (3.4-5.0); BUN Creatinine Ratio 15.6 (10-20); Calcium 8.2 mg/dl (8.5-10.1); Creatinine Clr Calc Pharmacy 91.4 ml/min; Est GFR (African American) 117.2 ml/min; Est GFR (Non-African American) 101.1 ml/min; Potassium 3.4 mmol/L (3.5-5.1); Uric Acid 2.2 mg/dl (2.6-7.2)
[2021-05-02 16:56] LABS: Albumin Globulin Ratio 0.5 (0.9-2); Bilirubin,Total 0.4 mg/dl (0.2-1); Globulin 3.7 gm/dl (2.5-4.0); Hepatitis B Surf Ag Rflx Conf Neg (Neg); Total Protein 5.6 gm/dl (6.4-8.2)
[2021-05-02 17:00] LABS: Phosphorus 4.1 mg/dl (2.5-4.9)
[2021-05-02 17:24] LABS: Hepatitis C IgG 13Yrs+Old_Rflx Neg (Neg)
[2021-05-02] MEDS: allopurinoL 300 MG TAB PO SCH (17:28)
--- NOTE | 2021-05-02 18:14 | Pulmonology Progress Note ---
Date of Service May 02, 2021 Assessment & Plan (1) Pleural effusion: (2) Pulmonary nodule: (3) Intraabdominal mass: (4) History of breast cancer: (5) Tobacco abuse: (6) DVT prophylaxis: Plan: Attending: Dr. Davis Impression: This is a 60-year-old female with a history of breast cancer with ongoing treatment with Arimidex. She was admitted for abdominal pain and CT of the abdomen pelvis revealed right pleural effusion and pulmonary nodule that was pleural-based. We are being consulted for evaluation of fluid and question of appropriateness of thoracentesis. Please see HPI for previous diagnostic work-ups. Pathology from abdominal biopsy positive for B-cell lymphoma Recommendations: 1. Pleural effusion: No previous history of pleural effusion. This most likely is secondary to newly diagnosed B-cell lymphoma. Pleural-based nodules may be lymphogenic spread. Pleural fluid is most likely reactive to the lymphoma. At this time, we will not perform thoracentesis as the patient is comfortable and would not want to risk pneumothorax or other complication. Patient to be referred to tertiary care for further evaluation and treatment of her lymphoma. Will defer to them to address pleural nodules/invasive process and pleural fluid. Patient agreeable to this. 2. Pulmonary nodule: This again is most likely related to her multiple abdominal masses. Pathology from abdominal biopsy consistent with lymphoma. Further work-up by hematology/oncology. 3. Tobacco abuse: Patient currently smokes at least 1 pack of cigarettes per day. Discussed need for abstention. Patient has never had pulmonary work-up as an outpatient. Would recommend pulmonary function testing. No adventitious breath sounds at this time. Would suspect some level of COPD/emphysema with patient's long-term tobacco abuse. Thank you for including us in the care of this patient. Discussed with Dr. Vega of the primary hospital service as well as Dr. Davis. The pulmonary service will sign off at this time. Admission and Anticipated Discharge Date Admission Date: May 01, 2021 Subjective Attending: Dr. Davis Patient seen and examined at bedside. She has no respiratory distress. She continues to require supplemental oxygen 2 L/min via nasal cannula. She has no cough or sputum production. She has no hemoptysis. She denies any chest pain. She has no other acute complaints. Review of Systems Review of Systems: All systems reviewed & are unremarkable except as noted in Subjective Physical Exam Physical Exam: GENERAL : No acute distress EYES: No icterus, gaze conjugate NOSE: No evidence of epistaxis MOUTH: No lesions or candidiasis NECK: Supple LUNGS: Slightly decreased breath sounds on the right side. No bronchospasm. No rhonchi. HEART: Regular, rate controlled ABDOMEN: Soft, NT, ND, BS Present EXTREMITIES: No LE edema, pedal pulses intact and equal bilaterally. NEURO: A&OX3. 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 Results & Data Results & Data ([facility]) Vital Signs (Past 12 Hours) Vital Signs Temp Pulse Resp BP Pulse Ox 05/02/21 15:59 37.4 C 84 20 110/69 95 05/02/21 07:44 36.9 C 89 20 151/72 H 95 Laboratory Results 05/02/21 06:52 05/02/21 15:52 PG Care Time/CCT Total # of Minutes Spent Total Time Spent with Patient: Total time spent is greater than 50% in coordination of care (as documented) at patient's floor/unit and/or counseling patient: 30 minutes Coding Level of Care Code 23119 Subseq Hosp Care Lvl 2 Diagnoses Pleural effusion J90 Pulmonary nodule R91.1 Intraabdominal mass R19.00 History of breast cancer Z85.3 Tobacco abuse Z72.0 DVT prophylaxis Z29.9 Time Spent (min) 30
[2021-05-02] MEDS: ACETAMINOPHEN 325 MG TAB PO PRN (22:55)
[2021-05-03] MEDS: CIPROFLOXACIN / D5W 400 MG/200 ML BAG IV SCH (06:12)
[2021-05-03 06:58] LABS: Hematocrit (blood only) 32.4 % (37-47); Hemoglobin 10.9 g/dL (12.0-16.0); Mean Corpuscular Hemoglobin 29.6 pg (25-34); Mean Corpuscular Hgb Conc 33.6 g/dL (32-36); Mean Platelet Volume 8.6 fL (7.4-10.4); Platelet Count 309 K/uL (130-400); RDW Coefficient of Variation 13.3 % (11.5-14.5); RDW Standard Deviation 42.8 fL (36.4-46.3); Red Blood Count 3.68 M/uL (4.2-5.4); White Blood Count 10.19 K/uL (4.8-10.8)
[2021-05-03 07:31] LABS: BUN Creatinine Ratio 19.5 (10-20); Calcium 8.7 mg/dl (8.5-10.1); Est GFR (African American) 118.7 ml/min; Est GFR (Non-African American) 102.4 ml/min; Magnesium 1.7 mg/dl (1.8-2.4); Potassium 3.4 mmol/L (3.5-5.1); Uric Acid 1.6 mg/dl (2.6-7.2)
[2021-05-03 07:34] LABS: Albumin Globulin Ratio 0.5 (0.9-2); Bilirubin,Total 0.7 mg/dl (0.2-1); Globulin 3.9 gm/dl (2.5-4.0); Phosphorus 2.5 mg/dl (2.5-4.9); Total Protein 5.9 gm/dl (6.4-8.2)
[2021-05-03] MEDS: ENOXAPARIN INJ 40 MG/0.4 ML SYR SQ SCH (08:46)
[2021-05-03] MEDS: GABAPENTIN 800 MG TAB PO SCH (08:46)
[2021-05-03] MEDS: allopurinoL 300 MG TAB PO SCH (08:47)
[2021-05-03] MEDS: ANASTROZOLE 1 MG TAB PO SCH (08:47)
[2021-05-03] MEDS: buPROPion SR 100 MG TABCR PO SCH (08:48)
[2021-05-03] MEDS: ESCITALOPRAM OXALATE 10 MG TAB PO SCH (08:48)
[2021-05-03] MEDS: BACLOFEN 20 MG TAB PO SCH (08:48)
[2021-05-03] MEDS: NICOTINE 21 MG/24 HR TDSY TD SCH (08:49)
[2021-05-03] MEDS: TOPIRAMATE 100 MG TAB PO SCH (08:49)
[2021-05-03] MEDS: ALPRAZolam 0.5 MG TABLET PO SCH ×2 (09:05→13:57)
[2021-05-03] MEDS ORDERED: SODIUM CHLORIDE 0.9% 1000ML 1,000 ML IV SCH (11:30)
[2021-05-03] MEDS ORDERED: MAGNESIUM SULFATE / D5W 1 GM/100 ML BAG IV ONE (11:45)
[2021-05-03] MEDS: GABAPENTIN 400 MG CAP PO SCH (11:55)
[2021-05-03] MEDS: POTASSIUM CHLORIDE / WTR 10 MEQ/100 ML PLCT IV SCH ×3 (12:02→14:57)
--- NOTE | 2021-05-03 12:47 | Hospitalist Progress Note ---
Date of Service May 03, 2021 Assessment & Plan (1) Intraabdominal mass: (2) History of breast cancer: Plan: 60-year-old female with PMH breast cancer s/p lumpectomy and radiation in 2018, tobacco abuse (since age 10, 1PPD), MS, anxiety, presented to ED 04/29 for evaluation of nausea and poor appetite. Per patient, her GI issues started with constipation transitioning to diarrhea from stool softener use, poor appetite but after eating cinnamon bun her nausea worsened that made her to come to the hospital. She is poor historian. No dark tarry stool or bright red blood in the stool. CTAP at presentation revealed multiple large soft tissue masses in the retroperitoneum and right upper quadrant, with invasion of chest wall and thoracis cavity. Hematology oncology consulted, no further recommendation Patient found to have low sodium, mild hyponatremia, will follow up with labs, monitor BMP daily. We will put her on as needed nausea medication. 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 Abdominal mass, right upper quadrant: -Patient presenting from home with reports of worsening nausea and poor appetite x 3 weeks. -Admitting CTAP - Multiple large soft tissue masses in the retroperitoneum and right upper quadrant, with invasion of the chest wall and thoracic cavity. Right pleural effusion with partially visualized pleural-based nodule. -US guided biopsy of the abdominal wall mass -Biopsy results - final results pending However preliminary results consistent with aggressive B-cell lymphoma -Patient with history of breast cancer, follows with Dr. Solis Goetz. He has been notified of CT findings. Discussed yesterday morning (05/02) with Dr. Goetz, and he would recommend likely inpatient treatment, and transfer to tertiary care center [facility] contacted, discussed with Dr. Dukes, who accepted the patient. Also recommends to follow tumor lysis labs, uric acid, Phos, CMP twice a day, recommends allopurinol 300 daily, and obtaining echocardiogram and hepatitis panel, all of which were ordered Echocardiogram done, however results pending (will have it sent to [facility] as soon as available) Hep C Ab - negative Hep A IgM Ab - pending Hep BS Antigen - negative Hep B core IgM - pending -For pleural effusion a/w nodule, Pulmonary medicine consulted -for now no plans for thoracentesis -advance diet as tolerated, continue to monitor -may need discussion regarding palliative care in the future #. UTI UA s/o UTI w/ positive nitrites, leukoesterase, and multiple bacteria UCx - multiple bacteria ? skin walter, repeated UA negative on Cipro 04/29, finished Abx treatment #. Hypokalemia: #. Hyponatremia: - Admitting K+ 2.7, Na+ 130 -Likely due to poor p.o. intake -Replace and monitor #. History of breast cancer: -In 2018, s/p radiation and lumpectomy -Continue anastrozole #. Multiple sclerosis: -Continue home meds #. Tobacco abuse: -Patient counseled regarding tobacco cessation -Nicotine patch ordered #. DVT prophylaxis: -SCDs, lovenox Admission and Anticipated Discharge Date Admission Date: May 01, 2021 Subjective Patient seen in follow-up of nausea vomiting, new abdominal mass, pleural effusion, concern for malignancy Per preliminary pathology report, aggressive B-cell lymphoma Currently patient is sitting up in bed, in NAD,on 2L of O2 via NC Denies chest pain shortness of breath, fevers or chills Has some abdominal discomfort Patient's updated over the phone yesterday by me, and by pulmonary medicine at the bedside Patient seen by pulmonary medicine for pleural effusion Yesterday (05/02) discussed with Dr. Goetz, and pulmonary medicine, after talking with pathology that patient likely has B-cell lymphoma, Dr. Goetz would recommend to likely inpatient treatment and transfer to tertiary care center Patient was accepted to [facility] yesterday, and will be transferred today as bed is available now Review of Systems Review of Systems: All systems reviewed & are unremarkable except as noted in Subjective Physical Exam Physical Exam: GENERAL: Alert and oriented x3. in N AD, on NC HEENT: NC/AT, EOMI, PERRL , small scab over left eyelid w/ bobby e erythema (seems improved) NECK: N o JVD, no neck mas ses. HEART: S1 an d S2 heard. Regul ar rate and rhythm . +soft systolic murmur RESPIRATORY : Normal AP diam eter. No accessor y muscle use. No wheezing. Right > left basilar decre ased breath sounds . ABDOMEN: Soft, bowel sounds prese nt, mildly tender to palp at lower a bdomen/suprapubic, no distention. NE URO:Awake and jadyn rt but appears fat igued, Speech is c lear. Moves extrem ities. EXTREMITIES : No edema, no er ythema seen. Results & Data Results & Data ([facility]) Vital Signs (Past 12 Hours) Vital Signs Temp Pulse Resp BP Pulse Ox 05/03/21 07:30 37.1 C 104 H 18 134/80 90 Laboratory Results 05/03/21 05/03/21 05/03/21 Range/Units 06:40 06:40 06:40 WBC 10.19 (4.8-10.8) K/uL RBC 3.68 L (4.2-5.4) M/uL Hgb 10.9 L (12.0-16.0) g/dL Hct 32.4 L (37-47) % MCV 88.0 (80-100) fL MCH 29.6 (25-34) pg MCHC 33.6 (32-36) g/dL RDW Std Deviation 42.8 (36.4-46.3) fL RDW Coeff of Lico 13.3 (11.5-14.5) % Plt Count 309 (130-400) K/uL MPV 8.6 (7.4-10.4) fL Sodium 128 L (136-145) mmol/L Potassium 3.4 L (3.5-5.1) mmol/L Chloride 95 L (98-107) mmol/L Carbon Dioxide 23 (21-32) mmol/L Anion Gap 10.0 (3-11) BUN 10 (7-18) mg/dl Creatinine 0.52 L (0.6-1.2) mg/dl Est Cr Clr Drug Dosing 95.0 ml/min Est GFR ( Amer) 118.7 ml/min Est GFR (Non-Af Amer) 102.4 ml/min BUN/Creatinine Ratio 19.5 (10-20) Glucose 113 H (70-99) mg/dl Uric Acid 1.6 L (2.6-7.2) mg/dl Calcium 8.7 (8.5-10.1) mg/dl Phosphorus 2.5 D (2.5-4.9) mg/dl Magnesium 1.7 L (1.8-2.4) mg/dl Total Bilirubin 0.7 (0.2-1) mg/dl AST 54 H (15-37) U/L ALT 11 L (12-78) U/L Alkaline Phosphatase 98 (45-117) U/L Lactate Dehydrogenase 1221 H (84-246) U/L Total Protein 5.9 L (6.4-8.2) gm/dl Albumin 2.0 L (3.4-5.0) gm/dl Globulin 3.9 (2.5-4.0) gm/dl Albumin/Globulin Ratio 0.5 L (0.9-2) Burkitt Lymphoma Hepatitis A IgM Ab Hep Bs Antigen (Neg) Hep B Core IgM Ab Hepatitis C Antibody (Neg) High Grade B-Cell Lym Flow Cytometry Comment 05/02/21 05/02/21 05/02/21 Range/Units 15:52 15:52 15:52 WBC (4.8-10.8) K/uL RBC (4.2-5.4) M/uL Hgb (12.0-16.0) g/dL Hct (37-47) % MCV (80-100) fL MCH (25-34) pg MCHC (32-36) g/dL RDW Std Deviation (36.4-46.3) fL RDW Coeff of Lico (11.5-14.5) % Plt Count (130-400) K/uL MPV (7.4-10.4) fL Sodium 130 L (136-145) mmol/L Potassium 3.4 L (3.5-5.1) mmol/L Chloride 97 L (98-107) mmol/L Carbon Dioxide 24 (21-32) mmol/L Anion Gap 9.0 (3-11) BUN 8 (7-18) mg/dl Creatinine 0.54 L (0.6-1.2) mg/dl Est Cr Clr Drug Dosing 91.4 ml/min Est GFR ( Amer) 117.2 ml/min Est GFR (Non-Af Amer) 101.1 ml/min BUN/Creatinine Ratio 15.6 (10-20) Glucose 94 (70-99) mg/dl Uric Acid 2.2 L (2.6-7.2) mg/dl Calcium 8.2 L (8.5-10.1) mg/dl Phosphorus 4.1 D (2.5-4.9) mg/dl Magnesium (1.8-2.4) mg/dl Total Bilirubin 0.4 (0.2-1) mg/dl AST 57 H (15-37) U/L ALT 12 (12-78) U/L Alkaline Phosphatase 90 (45-117) U/L Lactate Dehydrogenase (84-246) U/L Total Protein 5.6 L (6.4-8.2) gm/dl Albumin 1.9 L (3.4-5.0) gm/dl Globulin 3.7 (2.5-4.0) gm/dl Albumin/Globulin Ratio 0.5 L (0.9-2) Burkitt Lymphoma Hepatitis A IgM Ab Pending Hep Bs Antigen Neg (Neg) Hep B Core IgM Ab Pending Hepatitis C Antibody Neg (Neg) High Grade B-Cell Lym Flow Cytometry Comment 04/30/21 04/30/21 Range/Units Unknown 13:20 WBC (4.8-10.8) K/uL RBC (4.2-5.4) M/uL Hgb (12.0-16.0) g/dL Hct (37-47) % MCV (80-100) fL MCH (25-34) pg MCHC (32-36) g/dL RDW Std Deviation (36.4-46.3) fL RDW Coeff of Lico (11.5-14.5) % Plt Count (130-400) K/uL MPV (7.4-10.4) fL Sodium (136-145) mmol/L Potassium (3.5-5.1) mmol/L Chloride (98-107) mmol/L Carbon Dioxide (21-32) mmol/L Anion Gap (3-11) BUN (7-18) mg/dl Creatinine (0.6-1.2) mg/dl Est Cr Clr Drug Dosing ml/min Est GFR ( Amer) ml/min Est GFR (Non-Af Amer) ml/min BUN/Creatinine Ratio (10-20) Glucose (70-99) mg/dl Uric Acid (2.6-7.2) mg/dl Calcium (8.5-10.1) mg/dl Phosphorus (2.5-4.9) mg/dl Magnesium (1.8-2.4) mg/dl Total Bilirubin (0.2-1) mg/dl AST (15-37) U/L ALT (12-78) U/L Alkaline Phosphatase (45-117) U/L Lactate Dehydrogenase (84-246) U/L Total Protein (6.4-8.2) gm/dl Albumin (3.4-5.0) gm/dl Globulin (2.5-4.0) gm/dl Albumin/Globulin Ratio (0.9-2) Burkitt Lymphoma Pending Hepatitis A IgM Ab Hep Bs Antigen (Neg) Hep B Core IgM Ab Hepatitis C Antibody (Neg) High Grade B-Cell Lym Pending Flow Cytometry Comment See Comment Medications Administered Current Inpatient Medications Acetaminophen (Acetaminophen 325 Mg Tab) 650 mg PO Q4H PRN PRN Reason: pain/fever Stop: 05/29/21 15:41 Last Admin: 05/02/21 22:55 Dose: 650 mg Documented by: Allopurinol (Allopurinol 300 Mg Tab) 300 mg PO QAM PENNIE Stop: 06/01/21 15:44 Last Admin: 05/03/21 08:47 Dose: 300 mg Documented by: Alprazolam (Alprazolam 0.5 Mg Tablet) 1 mg PO TID PENNIE Stop: 05/29/21 20:59 Last Admin: 05/03/21 13:57 Dose: 1 mg Documented by: Anastrozole (Anastrozole 1 Mg Tab) 1 mg PO DAILY PENNIE Stop: 05/30/21 08:59 Last Admin: 05/03/21 08:47 Dose: 1 mg Documented by: Baclofen (Baclofen 20 Mg Tab) 20 mg PO BID PENNIE Stop: 05/29/21 20:59 Last Admin: 05/03/21 08:48 Dose: 20 mg Documented by: Bupropion HCl (Bupropion Sr 100 Mg Tabcr) 200 mg PO BID PENNIE Stop: 05/29/21 20:59 Last Admin: 05/03/21 08:48 Dose: 200 mg Documented by: Enoxaparin Sodium (Enoxaparin Inj 40 Mg/0.4 Ml Syr) 40 mg SQ QAM PENNIE Stop: 06/01/21 09:14 Last Admin: 05/03/21 08:46 Dose: 40 mg Documented by: Escitalopram Oxalate (Escitalopram Oxalate 10 Mg Tab) 10 mg PO BID PENNIE Stop: 05/29/21 20:59 Last Admin: 05/03/21 08:48 Dose: 10 mg Documented by: Gabapentin (Gabapentin 800 Mg Tab) 800 mg PO BID PENNIE Stop: 05/29/21 20:59 Last Admin: 05/03/21 08:46 Dose: 800 mg Documented by: Gabapentin (Gabapentin 400 Mg Cap) 400 mg PO QDL [facility] Stop: 05/30/21 11:29 Last Admin: 05/03/21 11:55 Dose: 400 mg Documented by: Potassium Chloride (K Soham / Wtr) 10 meq in 100 mls @ 100 mls/hr IV Q1H [facility] Stop: 05/03/21 14:44 Last Admin: 05/03/21 13:22 Dose: 100 mls/hr Documented by: Sodium Chloride (Nss 1000ml) 1,000 mls @ 80 mls/hr IV .[id number] [facility] Stop: 06/02/21 11:29 Last Admin: 05/03/21 11:55 Dose: 80 mls/hr Documented by: Melatonin (Melatonin 3 Mg Tab) 3 mg PO HS PRN PRN Reason: Sleep Stop: 05/29/21 23:35 Miscellaneous (Remove Nicoderm Patch) 1 ea N/A DAILY@0859 [facility] Stop: 05/30/21 08:58 Last Admin: 05/03/21 08:47 Dose: Not Given Documented by: Morphine Sulfate (Morphine Sulfate 4 Mg/Ml 1 Ml Carp\Vial) 4 mg IV Q4H PRN PRN Reason: Pain Stop: 05/14/21 06:48 Nicotine (Nicotine 21 Mg/24 Hr Tdsy) 21 mg TD QAM [facility] Stop: 05/30/21 08:59 Last Admin: 05/03/21 08:49 Dose: Not Given Documented by: Oxycodone HCl (Oxycodone Hcl Ir 5 Mg Tab (Immediate Release)) 5 mg PO Q4H PRN PRN Reason: Pain Stop: 05/14/21 06:48 Last Admin: 05/02/21 17:42 Dose: 5 mg Documented by: Promethazine HCl (Promethazine Hcl 12.5 Mg/10 Ml Udp) 12.5 mg PO Q6H PRN PRN Reason: Nausea And Vomiting Stop: 05/29/21 17:56 Last Admin: 04/29/21 21:49 Dose: 12.5 mg Documented by: Tizanidine HCl (Tizanidine Hcl 4 Mg Tablet) 4 mg PO Q8H PRN PRN Reason: muscle spasticity Stop: 05/30/21 19:03 Topiramate (Topiramate 100 Mg Tab) 100 mg PO BID PENNIE Stop: 05/29/21 20:59 Last Admin: 05/03/21 08:49 Dose: 100 mg Documented by:
--- NOTE | 2021-05-03 14:15 | Discharge Summary ---
Date of Service May 03, 2021 Admission HPI Per Admitting Provider 60-year-old female with PMH breast cancer s/p lumpectomy and radiation in 2018, tobacco abuse, MS, anxiety, and other problems listed below who presents to the ED for evaluation of nausea and poor appetite. Patient is a poor historian. She reports that she fell about 3 weeks ago in her kitchen and "has not been right since". She reports worsening nausea and poor appetite. Reports after taking a couple bites of food, she feels extremely nauseous. She has not had any vomiting. Denies abdominal pain. Reports issues with constipation and then started taking a stool softener which caused diarrhea. She denies bright red bleeding per rectum or dark tarry stools. No weight loss. Denies lightheadedness, dizziness, diaphoresis, syncopal event. No chest pain or shortness of breath. Denies any other recent illnesses, fevers, chills. No urinary symptoms. In the ED, CT ABD/pelvis shows Multiple large soft tissue masses in the retroperitoneum and right upper quadrant, with invasion of the c hest wall and thoracic cavity. Right pleural effusion with partially visualized pleural-based nodule. Labs show Na+ 130, K+ 2.7. Patient was given IV Zofran, potassium replacement, IVF. Admission Exam Per Admitting Provider Constitutional: WD/WN, vitals as above Eyes: PERRL, conjunctivae normal, anicteric sclerae ENMT: external ear and nose normal, oropharynx normal Respiratory: normal respiratory effort, lungs clear to auscultation Cardiovascular: Rate/Rhythm: regular rate and regular rhythm Vessels: normal peripheral pulses Extremities: no edema Gastrointestinal (Abdomen): normal bowel sounds, soft, nontender, no hepatosplenomegaly Musculoskeletal: no cyanosis or clubbing, extremities motor strength 5/5 Skin: no rashes, warm and dry Neurologic: PERRL, EOMI, accommodation nl, no face palsy, no dysarthria Psychiatric: A+Ox3, euthymic affect Affect: + flat affect Principal Diagnosis Aggressive B-cell lymphoma Pleural effusion Discharge Exam GENERAL: Alert and oriented x3. in NAD, on NC HEENT: NC/AT, EOMI, PERRL, small scab over left eyelid w/ some erythema (seems improved) NECK: No JVD, no neck masses. HEART: S1 and S2 heard. Regular rate and rhythm. +soft systolic murmur RESPIRATORY : Normal AP diameter. No accessory muscle use. No wheezing. Right > left basilar decreased breath sounds. ABDOMEN: Soft, bowel sounds present, mildly tender to palp at lower abdomen/suprapubic, no distention. NEURO:Awake and alert but appears fatigued, Speech is clear. Moves extremities. EXTREMITIES: No edema, no erythema seen. Discharge Data Allergies Allergy/AdvReac Type Severity Reaction Status Date / Time Penicillins Allergy Unknown my mother Verified 04/29/21 11:00 told me I had anaphylactic reaction Sulfa (Sulfonamide Allergy Unknown my mother Verified 04/29/21 11:00 Antibiotics) told me I had an anaphylactic reaction Consultations 04/29/21 13:15 ED Decision to Admit Stat 04/30/21 19:01 Consult Pulmonology Routine 05/03/21 14:00 Burn CD for patient Stat Ordered Studies 04/29/21 10:26 CT abd pelvis wo con Stat ADDENDUM Chronic bladder outlet obstruction is seen. This female patient does not, however, have a prostate. Electronically signed by: Hua Lewis M.D. 04/30/2021 12:[address] abd pelvis wo con CLINICAL HISTORY: nausea, right sided pain gas, diarrhea, loss of appetite TECHNIQUE: Helical axial images of the abdomen and pelvis were obtained. Automated dose lowering techniques and/or adjustment according to patient size were utilized for this exam. This exam was performed without intravenous contrast. COMPARISON: None available at the time of this dictation. FINDINGS: Lower chest: There is a right pleural effusion. A 16 mm solid nodule is seen in the anterior right thoracic cavity. Liver: Focal fatty changes are noted about the falciform ligament. Gallbladder and biliary tree: Cholelithiasis is seen without evidence of cholecystitis. No intra- or extrahepatic biliary ductal dilation. Pancreas: Unremarkable, no focal lesions. Spleen: Unremarkable. Adrenals: Unremarkable. Kidneys and ureters: Nonobstructive nephrolithiasis is seen. Bladder: Diffuse bladder wall thickening is seen. Reproductive organs: Unremarkable. Bowel: Unremarkable. Lymph nodes Retroperitoneal: A large right retroperitoneal mass measures 66 x 41 mm. Additional smaller retroperitoneal lymph nodes are seen measuring up to 29 x 36 mm. A large mass with heterogeneous density is seen in the right upper quadrant measuring approximately 74 x 69 mm, with extension outside the abdominal cavity. Additional smaller right upper quadrant nodules are seen to bridge the diaphragm. Mesenteric: Unremarkable. Pelvic: Unremarkable. Peritoneum: Normal Vessels: Atherosclerotic calcifications are seen. Abdominal wall: A fat-containing umbilical hernia is seen. There is a fat- containing right inguinal hernia. Bones: Degenerative changes in the visualized spine. Posterior fixation hardware is seen spanning L4 S1. IMPRESSION: 1. Multiple large soft tissue masses in the retroperitoneum and right upper quadrant, with invasion of the chest wall and thoracic cavity. Right pleural effusion with partially visualized pleural-based nodule. These findings are suspicious for malignancy in this patient with history of loss of appetite. 2. Cholelithiasis. 3. Bladder wall thickening is likely secondary to chronic obstruction in this patient prostatomegaly. 4. Additional findings as above. ACT 112: Negative or not required by law. Electronically signed by: Hua Lewis M.D. 04/29/2021 11:40 AM 04/30/21 13:00 US biopsy softtiss mass/muscle Routine 04/30/21 13:47 US FNA w/img 1st lesion Routine IMPRESSION: Successful ultrasound guided core biopsy and fine-needle aspiration of right abdominal wall mass. Hospital Course (1) Intraabdominal mass: (2) History of breast cancer: 60-year-old female with PMH breast cancer s/p lumpectomy and radiation in 2018, tobacco abuse (since age 10, 1PPD), MS, anxiety, presented to ED 04/29 for evaluation of nausea and poor appetite. Per patient, her GI issues started with constipation transitioning to diarrhea from stool softener use, poor appetite but after eating cinnamon bun her nausea worsened that made her to come to the hospital. She is poor historian. No dark tarry stool or bright red blood in the stool. CTAP at presentation revealed multiple large soft tissue masses in the retroperitoneum and right upper quadrant, with invasion of chest wall and thoracis cavity. Hematology oncology consulted, no further recommendation Patient found to have low sodium, mild hyponatremia, will follow up with labs, monitor BMP daily. We will put her on as needed nausea medication. 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 Abdominal mass, right upper quadrant: -Patient presenting from home with reports of worsening nausea and poor appetite x 3 weeks. -Admitting CTAP - Multiple large soft tissue masses in the retroperitoneum and right upper quadrant, with invasion of the chest wall and thoracic cavity. Right pleural effusion with partially visualized pleural-based nodule. -US guided biopsy of the abdominal wall mass -Biopsy results - final results pending However preliminary results consistent with aggressive B-cell lymphoma -Patient with history of breast cancer, follows with Dr. Solis Goetz. He has been notified of CT findings. Discussed yesterday morning (05/02) with Dr. Goetz, and he would recommend likely inpatient treatment, and transfer to tertiary care center [facility] contacted, discussed with Dr. Dukes, who accepted the patient. Also recommends to follow tumor lysis labs, uric acid, Phos, CMP twice a day, recommends allopurinol 300 daily, and obtaining echocardiogram and hepatitis panel, all of which were ordered Echocardiogram done, however results pending (will have it sent to [place] as soon as available) Hep C Ab - negative Hep A IgM Ab - pending Hep BS Antigen - negative Hep B core IgM - pending -For pleural effusion a/w nodule, Pulmonary medicine consulted -for now no plans for thoracentesis -advance diet as tolerated, continue to monitor -may need discussion regarding palliative care in the future #. UTI UA s/o UTI w/ positive nitrites, leukoesterase, and multiple bacteria UCx - multiple bacteria ? skin walter, repeated UA negative on Cipro 04/29, finished Abx treatment #. Hypokalemia: #. Hyponatremia: - Admitting K+ 2.7, Na+ 130 -Likely due to poor p.o. intake -Replace and monitor #. History of breast cancer: -In 2018, s/p radiation and lumpectomy -Continue anastrozole #. Multiple sclerosis: -Continue home meds #. Tobacco abuse: -Patient counseled regarding tobacco cessation -Nicotine patch ordered #. DVT prophylaxis: -SCDs, lovenox Total Time Total Time Spent Total Time Spent (In Minutes): 40 Discharge Plan Discharge Items Patient Disposition: Transfer Acute Care Hospital Reason For Visit: RUQ MASS Discharge Diagnosis: Aggressive B-cell lymphoma Pleural effusion Activity: Per Instructions section Non-emergency contact: Primary Care Provider and Oncologist Call non-emergency contact if: you have any medication questions and your symptoms worsen Follow-up/Referrals: Maria Shipman, [Primary Care Provider] - (Date & Time 05/09/2021 11:10 AM Provider Maria Shipman DO Department [facility] ) Diet: Regular Addtl Attending Provider Instructions: Patient presents with likely aggressive B-cell lymphoma, after further discussion with oncologists, patient is to be transferred to [facility] in [place] for further evaluation and care, the accepting physician, Dr. Dukes. Pending Studies at Discharge: Yes Studies:: Final abdominal wall mass biopsy results Stand-Alone Forms: My [facility] Skilled Items Patient informed of condition?: Yes DNR: No Discharge Level of Care: Other Communicable Disease: No Discharge Prognosis: Other Lines: Peripheral IV Urinary Catheter: No Medications and DC Order Prescriptions: Continued escitalopram oxalate 20 mg tablet 10 mg PO BID 90 Days Qty: 90 RF: 1 bupropion HCl 200 mg tablet sustained-release 12 hr 200 mg PO BID 90 Days Qty: 180 RF: 1 meclizine 25 mg tablet 25 mg PO TID PRN (Reason: MULTIPLE SCLEROSIS) 90 Days Qty: 270 RF: 1 meloxicam 7.5 mg tablet 7.5 mg PO BID 90 Days Qty: 180 RF: 1 tizanidine 4 mg tablet 4 mg PO Q8H PRN (Reason: muscle spasticity) 90 Days Qty: 270 RF: 1 topiramate 100 mg tablet 100 mg PO BID 90 Days Qty: 180 RF: 1 cholecalciferol (vitamin D3) 5,000 unit tablet 5,000 units PO DAILY RF: 0 docusate sodium 100 mg capsule 100 mg PO BID PRN (Reason: Constipation) RF: 0 anastrozole 1 mg tablet 1 mg PO DAILY RF: 0 multivitamin [Daily Multi-Vitamin] tablet 1 tab PO DAILY RF: 0 gabapentin 800 mg tablet 400 mg PO QDL RF: 0 alprazolam 1 mg tablet 1 mg PO TID RF: 0 baclofen 20 mg tablet 20 mg PO BID RF: 0 gabapentin 800 mg tablet 800 mg PO BID RF: 0 Discharge Orders: Discharge Order (Routine); Ordered 05/03/21 Ordered By: Daljit Vega Admission Data Admit Date/Time: 05/01/21 07:49 Attending Provider: Daljit Vega Admit Provider: Indra Boyce Primary Care Provider: Maria Shipman Other Providers: Indra Boyce ; Vikash Davis ; Christine Aguilar I.
[2021-05-04 05:21] LABS: Hepatitis A Antibody IgM NON-REACTIVE (NON-REACTIVE); Hepatitis B Core Antibody IgM NON-REACTIVE (NON-REACTIVE)
== END 2021-05-03 17:40 | disposition short-term general hospital (02) | DRG 841 ==
LOC: 3N 09:42 → ED 09:42 → SUATTDRO 13:20 → 3N 15:00

== ENCOUNTER 2021-05-16 15:16 | Inpatient (IN) ==
--- NOTE | 2021-05-16 15:48 | Emergency Department Note ---
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 Deviation (36.4-46.3) fL RDW Coeff of Lico (11.5-14.5) % Plt Count (130-400) K/uL MPV (7.4-10.4) fL Immature Gran % (Auto) Neut % (Auto) Lymph % (Auto) Davidson % (Auto) Eos % (Auto) Baso % (Auto) Neut # (Auto) Lymph # (Auto) Davidson # (Auto) Eos # (Auto) Baso # (Auto) Immature Gran # (Auto) Neutrophils % (Manual) Band Neutrophils % Lymphocytes % (Manual) Prolymphocyte % Reactive Lymphs % (Man) Monocytes % (Manual) Eosinophils % (Manual) Basophils % (Manual) Metamyelocytes % (Man) Myelocytes % (Man) Promyelocytes % (Man) Blast Cells % (Manual) Plasma Cell % (Manual) Other Cells % Nucleated RBC % Neutrophils # (Manual) Band Neutrophils # Total Absolute Neuts Lymphocytes # (Manual) Prolymphocyte # Reactive Lymphs # Total Abs Lymphocytes Monocytes # (Manual) Eosinophils # (Manual) Basophils # (Manual) Metamyelocytes # (Man) Myelocytes # (Manual) Promyelocytes # (Man) Blast Cells # (Man) Plasma Cell # (Manual) Other Cells # Nucleated RBCs # (Man) Hypersegmented Neuts Hyposegmented Neuts Hypogranular Neuts Large Granular Lymphs # Lrg Granular Lymphs Hairy Cells Smudge Cells Toxic Granulation Toxic Vacuolation Dohle Bodies Keesha Rods Hypogranular Platelets Clumped Platelets Giant Platelets Platelet Satelliting RBC Morphology Polychromasia Hypochromasia Poikilocytosis Basophilic Stippling Anisocytosis Microcytosis Macrocytosis Spherocytes Pappenheimer Bodies Sickle Cells Target Cells Tear Drop Cells Ovalocytes Stomatocytes Diehl-[place] Bodies Echinocytes Acanthocytes (Spur) Rouleaux RBC Agglutinates Schistocytes RBC Morph Comment Sezary Cell PT (9.0-12.0) Seconds INR (0.9-1.1) VBG pH VBG pCO2 VBG pO2 VBG HCO3 VBG O2 Saturation VBG Base Excess Barometric Pressure Sodium (136-145) mmol/L Potassium (3.5-5.1) mmol/L Chloride (98-107) mmol/L Carbon Dioxide (21-32) mmol/L Anion Gap (3-11) BUN (7-18) mg/dl Creatinine (0.6-1.2) mg/dl Est Cr Clr Drug Dosing Est GFR ( Amer) ml/min Est GFR (Non-Af Amer) ml/min BUN/Creatinine Ratio (10-20) Glucose (70-99) mg/dl Lactate (0.4-2.0) mmol/L Uric Acid (2.6-7.2) mg/dl Calcium (8.5-10.1) mg/dl Magnesium (1.8-2.4) mg/dl Total Bilirubin (0.2-1) mg/dl AST (15-37) U/L ALT (12-78) U/L Alkaline Phosphatase (45-117) U/L Ammonia (11-32) umol/L Total Creatine Kinase (26-192) U/L Troponin I (0-0.045) ng/ml Total Protein (6.4-8.2) gm/dl Albumin (3.4-5.0) gm/dl Globulin (2.5-4.0) gm/dl Albumin/Globulin Ratio (0.9-2) Procalcitonin (0-0.5) ng/ml TSH (0.300-4.500) uIu/ml COVID-19 Eval Order SARS-CoV-2 (PCR) NEGATIVE (Negative) Blood Type Antibody Screen Crossmatch Administered Medications Discontinued Medications Fentanyl Citrate (Fentanyl Citrate 100 Mcg/2 Ml Vial) 25 mcg IV NOW STA Stop: 05/16/21 18:26 Last Admin: 05/16/21 18:39 Dose: 25 mcg Documented by: [id number] Acetaminophen (Ofirmev) 1,000 mg in 100 mls @ 400 mls/hr IV NOW STA Stop: 05/16/21 18:07 Last Infusion: 05/16/21 18:35 Dose: 0 mls/hr Documented by: [id number] Admin: 05/16/21 18:19 Dose: 400 mls/hr Documented by: [id number] Magnesium Sulfate/Dextrose (Magnesium Sulfate / D5w) 1 gm in 100 mls @ 100 mls/hr IV NOW STA Stop: 05/16/21 19:38 Last Admin: 05/16/21 19:42 Dose: 100 mls/hr Documented by: [id number] Ioversol (Optiray 320 125ml) 120 ml IV ONCE ONE Stop: 05/16/21 16:41 Last Admin: 05/16/21 16:41 Dose: 120 ml Documented by: [id number] Imaging Data Radiologist's Impression: Chest X-Ray 05/16/21 15:42 XR chest 1V portable HISTORY: 60 years-old Female weakness, hypoxia acute weakness with hypoxia COMPARISON: CTA chest same day, chest radiograph 06/17/2016 TECHNIQUE: Portable AP view of the chest FINDINGS: Cardiac silhouette is upper limits of normal in size. Right IJ Tuqcmw-x-Ntty catheter distal tip overlies the superior aspect of the right cavoatrial junction. No pneumothorax. Moderate pleural effusion with right lung base consolidation. Bilateral interstitial coarsening with pulmonary vascular harvey estion. Degenerative changes of the shoulders and spine. IMPRESSION: 1. Cardiomegaly with pulmonary vascular congestion and interstitial coarsening suggestive of interstitial pneumonitis. Superimposed pulmonary edema would be difficult to exclude. 2. Moderate right pleural effusion with right lung base consolidation. ACT 112: Negative or not required by law. The above report was generated using voice recognition software. It may contain grammatical, syntax or spelling errors. Electronically signed by: Jerad Cuevas M.D. 05/16/2021 5:14 PM Abdomen/Pelvis CT 05/16/21 15:44 CT angio chest PE protocol, CT abd pelvis IV con only CT DOSE: 1441.60 mGy.cm HISTORY: 60 years-old Female with PE, hypoxia, lethargic. Acute hypoxia with lethargy and recent diagnosis of lymphoma TECHNIQUE: Multiple CTA images of the chest were obtained after the intravenous administration of 120 ml Optiray. Coronal and sagittal MIPS were obtained from the axial data set and were submitted for review. All measurements were obtained according to NASCET criteria. CT abdomen pelvis with IV contrast only was obtained. A dose lowering technique was utilized adhering to the principles of ALARA. COMPARISON: CT abdomen and pelvis 04/29/2021, ultrasound guided biopsy 04/30/2021 FINDINGS: CTA: Moderate cardiomegaly. There is no pericardial effusion. Moderate coronary artery calcifications. Atherosclerotic plaque of the thoracic aorta without aneurysm or dissection. Atherosclerosis of the origin of the left subclavian artery results in at least mild stenosis. Unremarkable pulmonary artery. No filling defects identified to suggest thromboembolic disease. CT CHEST: No large thyroid nodule. There are a few prominent paratracheal lymph nodes wh ich measure up to 8 mm. Right IJ Rjtdkc-m-Xplt catheter distal tip terminates within the superior cavoatrial junction. Mild subcutaneous edema and air surrounding the core within the chest wall is an expected postprocedural finding. Internal mammary chain adenopathy redemonstrated with largest node measuring 1.8 x 1.2 cm on image 135 of series 6. Pathologic adenopathy of the right anterior diaphragmatic distribution on image 26 has decreased in size from comparison measuring 3.1 x 1.4 cm, previously 3.9 x 2.3 cm. Moderate size right pleural effusion has increased in size from comparison. Numerous right bibasilar pleural and subpleural nodules redemonstrated. Consolidation of the right lung b ase with air bronchograms. Scattered multifocal multilobar bilateral groundglass opacities are new from the 04/29/2021 exam. Decreased AP dimension of the trachea and bronchi may reflect tracheobronchial correlation. Mild bronchial wall thickening. Mild intralobular septal thickening. Unremarkable soft tissues otherwise. No acute fracture or suspicious bone lesions identified. Degenerative changes of the spine and shoulders. CT ABDOMEN/PELVIS: There is no pneumatosis or pneumoperitoneum. Limited study secondary to upper extremity positioning. The spleen is normal in size. Unremarkable pancreas and left adrenal gland. The right adrenal gland is partially obscured secondary to a right retroperitoneal mass measuring up to 5.8 x 2.1 cm, previously measuring only 6.7 x 4.1 cm. Distended gallbladder with cholelithiasis. No gallbladder wall thickening or pericholecystic fluid. Large and invasive mass of the right posterior lateral flank which previously measured over 7.5 x 7.0 cm now measures approximately 7.2 x 4.3 cm. There is invasion into the lateral abdominal wall musculature with mild adjacent osseous erosion of the right 11th rib. There are 2 calculi of the inferior pole left kidney measuring up to 5 mm. Moderately distended urinary bladder. No hydronephrosis. Hysterectomy. No adnexal mass lesions. Extensive atherosclerosis of the abdominal aorta without aneurysm. Small fat filled right inguinal hernia. Scattered air-fluid levels are noted throughout the large and small bowel. No transition point to suggest obstruction. No acute fracture. Posterior interbody maria t and screw fusion hardware redemonstrated at L4-S1 with associated discectomy changes. IMPRESSION: 1. No pulmonary emboli. 2. Multifocal multilobar bilateral groundglass opacities appear new from the 04/29/2021 exam suggestive of an infectious or inflammatory pneumonitis such as viral pneumonia. 3. Increased size of the moderate right pleural effusion with right basilar consolidation suggestive of compressive atelectasis. Numerous right-sided pleural and subpleural nodules are redemonstrated. 4. Decreased size of the pathologic adenopathy of the lower chest and upper abdo men with decreased size of the conglomerate right upper quadrant abdominal masses compatible with positive treatment response. 5. Distended gallbladder with cholelithiasis. No CT evidence of acute cholecystitis. 6. Scattered air-fluid levels throughout loops of large and small bowel are suggestive of ileus. 7. Nonobstructing left nephrolithiasis. 8. Additional findings as above. ACT 112: Negative or not required by law. The above report was generated using voice recognition software. It may contain grammatical, syntax or spelling errors. Electronically signed by: Jerad Cuevas M.D. 05/16/2021 5:06 PM Chest CTA 05/16/21 15:44 CT angio chest PE protocol, CT abd pelvis IV con only CT DOSE: 1441.60 mGy.cm HISTORY: 60 years-old Female with PE, hypoxia, lethargic. Acute hypoxia with lethargy and recent diagnosis of lymphoma TECHNIQUE: Multiple CTA images of the chest were obtained after the intravenous administration of 120 ml Optiray. Coronal and sagittal MIPS were obtained from the axial data set and were submitted for review. All measurements were obtained according to NASCET criteria. CT abdomen pelvis with IV contrast only was obtained. A dose lowering technique was utilized adhering to the principles of ALARA. COMPARISON: CT abdomen and pelvis 04/29/2021, ultrasound guided biopsy 04/30/2021 FINDINGS: CTA: Moderate cardiomegaly. There is no pericardial effusion. Moderate coronary artery calcifications. Atherosclerotic plaque of the thoracic aorta without aneurysm or dissection. Atherosclerosis of the origin of the left subclavian artery results in at least mild stenosis. Unremarkable pulmonary artery. No filling defects identified to suggest thromboembolic disease. CT CHEST: No large thyroid nodule. There are a few prominent paratracheal lymph nodes which measure up to 8 mm. Right IJ Enffhg-a-Ydar catheter distal tip terminates within the superior cavoatrial junction. Mild subcutaneous edema and air surrounding the core within the chest wall is an expected postprocedural finding. Internal mammary chain adenopathy redemonstrated with largest node measuring 1.8 x 1.2 cm on image 135 of series 6. Pathologic adenopathy of the right anterior diaphragmatic distribution on image 26 has decreased in size from comparison measuring 3.1 x 1.4 cm, previously 3.9 x 2.3 cm. Moderate size right pleural effusion has increased in size from comparison. Numerous right bibasilar pleural and subpleural nodules redemonstrated. Consolidation of the right lung base with air bronchograms. Scattered multifocal multilobar bilateral groundglass opacities are new from the 04/29/2021 exam. Decreased AP dimension of the trachea and bronchi may reflect tracheobronchial correlation. Mild bronchial wall thickening. Mild intralobular septal thickening. Unremarkable soft tissues otherwise. No acute fracture or suspicious bone lesions identified. Degenerative changes of the spine and shoulders. CT ABDOMEN/PELVIS: There is no pneumatosis or pneumoperitoneum. Limited study secondary to upper extremity positioning. The spleen is normal in size. Unremarkable pancreas and left adrenal gland. The right adrenal gland is partially obscured secondary to a right retroperitoneal mass measuring up to 5.8 x 2.1 cm, previously measuring only 6.7 x 4.1 cm. Distended gallbladder with cholelithiasis. No gallbladder wa ll thickening or pericholecystic fluid. Large and invasive mass of the right posterior lateral flank which previously measured over 7.5 x 7.0 cm now measures approximately 7.2 x 4.3 cm. There is invasion into the lateral abdominal wall musculature with mild adjacent osseous erosion of the right 11th rib. There are 2 calculi of the inferior pole left kidney measuring up to 5 mm. Moderately distended urinary bladder. No hydronephrosis. Hysterectomy. No adnexal mass lesions. Extensive atherosclerosis of the abdominal aorta without aneurysm. Small fat filled right inguinal hernia. Scattered air-fluid levels are noted throughout the large and small bowel. No transition point to suggest obstruction. No acute fracture. Posterior interbody maria t and screw fusion hardware redemonstrated at L4-S1 with associated discectomy changes. IMPRESSION: 1. No pulmonary emboli. 2. Multifocal multilobar bilateral groundglass opacities appear new from the 04/29/2021 exam suggestive of an infectious or inflammatory pneumonitis such as viral pneumonia. 3. Increased size of the moderate right pleural effusion with right basilar consolidation suggestive of compressive atelectasis. Numerous right-sided pleural and subpleural nodules are redemonstrated. 4. Decreased size of the pathologic adenopathy of the lower chest and upper abdomen with decreased size of the conglomerate right upper quadrant abdominal masses compatible with positive treatment response. 5. Distended gallbladder with cholelithiasis. No CT evidence of acute cholecystitis. 6. Scattered air-fluid levels throughout loops of large and small bowel are suggestive of ileus. 7. Nonobstructing left nephrolithiasis. 8. Additional findings as above. ACT 112: Negative or not required by law. The above report was generated using voice recognition software. It may contain grammatical, syntax or spelling errors. Electronically signed by: Jerad Cuevas M.D. 05/16/2021 5:[address] 05/16/21 15:44 CT head/brain wo con CLINICAL HISTORY: 60 years-old Female with lethargy. Acutely altered mental status with weakness and hypotension. History of lymphoma TECHNIQUE: Multiple axial CT images of the head were obtained without contrast. A dose lowering technique was utilized adhering to the principles of ALARA. COMPARISON: Head CT 06/17/2016 FINDINGS: No acute intracranial hemorrhage, midline shift, intracranial mass, hydrocephalus, territorial ischemia or abnormal extra-axial collection. Mild white matter hypodensities are similar to comparison and are suggestive of chronic microvascular ischemic disease. The calvarium is intact. The paranasal sinuses, mastoid air cells, and middle ear cavities are clear. IMPRESSION: No acute intracranial abnormality. ACT 112: Negative or not required by law. The above report was generated using voice recognition software. It may contain grammatical, syntax or spelling errors. Electronically signed by: Jerad Cuevas M.D. 05/16/2021 4:44 PM Discharge Plan Visit Data Chief Complaint: Lethargic Stated Complaint: LETHARGIC, HYPOTENSION ED Provider: Vini Appiah ED Midlevel Provider: Marques Proctor Discharge Problem: Pleural effusion, Acute anemia, Hypoxia, Hypomagnesemia, Fatigue Patient Disposition: Admitted As Inpatient Forms Stand Alone Forms: [facility] Prescriptions Prescriptions: No Action escitalopram oxalate 20 mg tablet 10 mg PO BID 90 Days Qty: 90 RF: 1 bupropion HCl 200 mg tablet sustained-release 12 hr 200 mg PO BID 90 Days Qty: 180 RF: 1 meclizine 25 mg tablet 25 mg PO TID PRN (Reason: MULTIPLE SCLEROSIS) 90 Days Qty: 270 RF: 1 meloxicam 7.5 mg tablet 7.5 mg PO BID 90 Days Qty: 180 RF: 1 tizanidine 4 mg tablet 4 mg PO Q8H PRN (Reason: muscle spasticity) 90 Days Qty: 270 RF: 1 topiramate 100 mg tablet 100 mg PO BID 90 Days Qty: 180 RF: 1 cholecalciferol (vitamin D3) 5,000 unit tablet 5,000 units PO DAILY RF: 0 docusate sodium 100 mg capsule 100 mg PO BID PRN (Reason: Constipation) RF: 0 anastrozole 1 mg tablet 1 mg PO DAILY RF: 0 multivitamin [Daily Multi-Vitamin] tablet 1 tab PO DAILY RF: 0 alprazolam 1 mg tablet 1 - 1.5 mg PO TID RF: 0 baclofen 20 mg tablet 20 mg PO BID RF: 0 gabapentin 800 mg tablet See Rx Instructions .ROUTE .COMPLEX RF: 0 valacyclovir 1 gram tablet 1,000 mg PO DAILY RF: 0 fluconazole 200 mg tablet 400 mg PO DAILY RF: 0 potassium chloride 10 mEq tablet extended release 10 meq PO DAILY RF: 0 heparin lock flush (porcine) [heparin lock flush] 10 unit/mL Solution 10 unit IV Q12H RF: 0 allopurinol 300 mg tablet 300 mg PO DAILY RF: 0 levofloxacin 500 mg tablet 500 mg PO DAILY RF: 0 oxycodone 5 mg tablet 5 mg PO Q4H PRN (Reason: Pain, Severe) RF: 0 Referrals Referrals: Maria Shipman DO [Primary Care Provider] - Discharge Problem: Fatigue Qualifiers: Fatigue type: unspecified Qualified Code(s): R53.83 - Other fatigue
--- NOTE | 2021-05-16 16:01 | Communication Note ---
Date of Service: May 16, 2021 I participated in the care and plan for this patient. For care plan, please refer to the attending provider's note. Resident Activity Tracking Resident Involvement: Resident Care Provided Care Provided: Adult ED
[2021-05-16 16:32] LABS: Hematocrit (blood only) 20.2 % (37-47); Hemoglobin 6.6 g/dL (12.0-16.0); Mean Corpuscular Hemoglobin 28.7 pg (25-34); Mean Corpuscular Hgb Conc 32.7 g/dL (32-36); Mean Corpuscular Volume 87.8 fL (80-100); Mean Platelet Volume 10.5 fL (7.4-10.4); Platelet Count 31 K/uL (130-400); RDW Coefficient of Variation 13.5 % (11.5-14.5); RDW Standard Deviation 43.8 fL (36.4-46.3); White Blood Count 0.24 K/uL (4.8-10.8)
[2021-05-16 16:36] LABS: Alanine Aminotransferase 10 U/L (12-78); Albumin Level 1.6 gm/dl (3.4-5.0); Aspartate Aminotransferase 15 U/L (15-37); BUN Creatinine Ratio 14.2 (10-20); Blood Urea Nitrogen 10 mg/dl (7-18); Calcium 9.2 mg/dl (8.5-10.1); Carbon Dioxide 28 mmol/L (21-32); Chloride 95 mmol/L (98-107); Est GFR (African American) 108.1 ml/min; Est GFR (Non-African American) 93.3 ml/min; Glucose 74 mg/dl (70-99); Magnesium 1.7 mg/dl (1.8-2.4); Potassium 3.3 mmol/L (3.5-5.1); Sodium 130 mmol/L (136-145)
[2021-05-16] MEDS ORDERED: OPTIRAY 320 125ml IV ONE (16:40)
[2021-05-16 16:44] LABS: INR 1.1 (0.9-1.1); Prothrombin Time 11.2 Seconds (9.0-12.0)
--- NOTE | 2021-05-16 16:46 | CT Scan Report ---
CT head/brain wo con CLINICAL HISTORY: 60 years-old Female with lethargy. Acutely altered mental status with weakness and hypotension. History of lymphoma TECHNIQUE: Multiple axial CT images of the head were obtained without contrast. A dose lowering tech nique was utilized adhering to the principles of ALARA. COMPARISON: Head CT 06/17/2016 FINDINGS: No acute intracranial hemorrhage, midline shift, intracranial mass, hydrocephalus, territorial ischem ia or abnormal extra-axial collection. Mild white matter hypodensities are similar to comparison and are suggestive of chronic microvascular ischemic disease. The calvarium is intact. The paranasal sinuses, mastoid air cells, and middle ear cavities are clear . IMPRESSION: No acute intracranial abnormality. ACT 112: Negative or not required by law. The above report was generated using voice recognition software. It may contain grammatical, syntax o r spelling errors. Electronically signed by: Jerad Cuevas M.D. 05/16/2021 4:44 PM
[2021-05-16 16:48] LABS: Albumin Globulin Ratio 0.5 (0.9-2); Alkaline Phosphatase 77 U/L (45-117); Bilirubin,Total 0.5 mg/dl (0.2-1); Creatine Kinase 37 U/L (26-192); Globulin 3.5 gm/dl (2.5-4.0); Total Protein 5.1 gm/dl (6.4-8.2); Troponin I < 0.015 ng/ml (0-0.045); Uric Acid 1.8 mg/dl (2.6-7.2)
--- NOTE | 2021-05-16 17:07 | CT Scan Report ---
CT angio chest PE protocol, CT abd pelvis IV con only CT DOSE: 1441.60 mGy.cm HISTORY: 60 years-old Female with PE, hypoxia, lethargic. Acute hypoxia with lethargy and recent di agnosis of lymphoma TECHNIQUE: Multiple CTA images of the chest were obtained after the intravenous administration of 120 ml Optiray. Coronal and sagittal MIPS were obtained from the axial data set and were submitted for review. All measurements were obtained according to NASCET criteria. CT abdomen pelvis with IV contr ast only was obtained. A dose lowering technique was utilized adhering to the principles of ALARA. COMPARISON: CT abdomen and pelvis 04/29/2021, ultrasound guided biopsy 04/30/2021 FINDINGS: CTA: Moderate cardiomegaly. There is no pericardial effusion. Moderate coronary artery calcifications. Ath erosclerotic plaque of the thoracic aorta without aneurysm or dissection. Atherosclerosis of the orig in of the left subclavian artery results in at least mild stenosis. Unremarkable pulmonary artery. No filling defects identified to suggest thromboembolic disease. CT CHEST: No large thyroid nodule. There are a few prominent paratracheal lymph nodes which measure up to 8 mm. Right IJ Prkaba-q-Mpea catheter distal tip terminates within the superior cavoatrial junction. Mild subcutaneous edema and air surrounding the core within the chest wall is an expected postprocedural f inding. Internal mammary chain adenopathy redemonstrated with largest node measuring 1.8 x 1.2 cm on image 135 of series 6. Pathologic adenopathy of the right anterior diaphragmatic distribution on imag e 26 has decreased in size from comparison measuring 3.1 x 1.4 cm, previously 3.9 x 2.3 cm. Moderate size right pleural effusion has increased in size from comparison. Numerous right bibasilar pleural a nd subpleural nodules redemonstrated. Consolidation of the right lung base with air bronchograms. Sca ttered multifocal multilobar bilateral groundglass opacities are new from the 04/29/2021 exam. Decrea sed AP dimension of the trachea and bronchi may reflect tracheobronchial correlation. Mild bronchial wall thickening. Mild intralobular septal thickening. Unremarkable soft tissues otherwise. No acute fracture or suspicious bone lesions identified. Degener ative changes of the spine and shoulders. CT ABDOMEN/PELVIS: There is no pneumatosis or pneumoperitoneum. Limited study secondary to upper extremity positioning. The spleen is normal in size. Unremarkable pancreas and left adrenal gland. The right adrenal gland i s partially obscured secondary to a right retroperitoneal mass measuring up to 5.8 x 2.1 cm, previous ly measuring only 6.7 x 4.1 cm. Distended gallbladder with cholelithiasis. No gallbladder wall thicke venkat or pericholecystic fluid. Large and invasive mass of the right posterior lateral flank which pre viously measured over 7.5 x 7.0 cm now measures approximately 7.2 x 4.3 cm. There is invasion into th e lateral abdominal wall musculature with mild adjacent osseous erosion of the right 11th rib. There are 2 calculi of the inferior pole left kidney measuring up to 5 mm. Moderately distended urina ry bladder. No hydronephrosis. Hysterectomy. No adnexal mass lesions. Extensive atherosclerosis of th e abdominal aorta without aneurysm. Small fat filled right inguinal hernia. Scattered air-fluid levels are noted throughout the large and small bowel. No transition point to suggest obstruction. No acute fracture. Posterior interbody maria t and screw fusion hardware redemonstrated at L4-S1 with associated discectomy changes. IMPRESSION: 1. No pulmonary emboli. 2. Multifocal multilobar bilateral groundglass opacities appear new from the 04/29/2021 exam suggesti ve of an infectious or inflammatory pneumonitis such as viral pneumonia. 3. Increased size of the moderate right pleural effusion with right basilar consolidation suggestive of compressive atelectasis. Numerous right-sided pleural and subpleural nodules are redemonstrated. 4. Decreased size of the pathologic adenopathy of the lower chest and upper abdomen with decreased si ze of the conglomerate right upper quadrant abdominal masses compatible with positive treatment respo nse. 5. Distended gallbladder with cholelithiasis. No CT evidence of acute cholecystitis. 6. Scattered air-fluid levels throughout loops of large and small bowel are suggestive of ileus. 7. Nonobstructing left nephrolithiasis. 8. Additional findings as above. ACT 112: Negative or not required by law. The above report was generated using voice recognition software. It may contain grammatical, syntax o r spelling errors. Electronically signed by: Jerad Cuevas M.D. 05/16/2021 5:06 PM
--- NOTE | 2021-05-16 17:16 | XRay Report ---
XR chest 1V portable HISTORY: 60 years-old Female weakness, hypoxia acute weakness with hypoxia COMPARISON: CTA chest same day, chest radiograph 06/17/2016 TECHNIQUE: Portable AP view of the chest FINDINGS: Cardiac silhouette is upper limits of normal in size. Right IJ Ymudeq-o-Xwht catheter distal tip over lies the superior aspect of the right cavoatrial junction. No pneumothorax. Moderate pleural effusion with right lung base consolidation. Bilateral interstitial coarsening with pulmonary vascular conges tion. Degenerative changes of the shoulders and spine. IMPRESSION: 1. Cardiomegaly with pulmonary vascular congestion and interstitial coarsening suggestive of intersti tial pneumonitis. Superimposed pulmonary edema would be difficult to exclude. 2. Moderate right pleural effusion with right lung base consolidation. ACT 112: Negative or not required by law. The above report was generated using voice recognition software. It may contain grammatical, syntax o r spelling errors. Electronically signed by: Jerad Cuevas M.D. 05/16/2021 5:14 PM
[2021-05-16] MEDS ORDERED: ACETAMINOPHEN 1,000 MG/100 ML VIAL IV STA (17:53)
[2021-05-16] MEDS ORDERED: SODIUM CHLORIDE 0.9% 250 ML IV PRN (18:24)
[2021-05-16] MEDS ORDERED: fentaNYL citrate 100 MCG/2 ML VIAL IV STA (18:25)
[2021-05-16] MEDS ORDERED: MAGNESIUM SULFATE / D5W 1 GM/100 ML BAG IV STA (18:39)
[2021-05-16] MEDS ORDERED: POTASSIUM CHLORIDE 20 MEQ/15 ML UDC PO STA (20:54)
[2021-05-16] MEDS ORDERED: ACETAMINOPHEN 325 MG TAB PO PRN (22:27)
[2021-05-16] MEDS ORDERED: NITROGLYCERIN SL 0.4 MG/TAB TAB SL PRN (22:27)
[2021-05-16] MEDS ORDERED: ONDANSETRON INJ 2 MG/ML 2 ML VIAL IV PRN (22:27)
--- NOTE | 2021-05-16 22:35 | History and Physical Report ---
DATE OF ADMISSION: 05/16/2021 CHIEF COMPLAINT: Weakness, hypotension, pancytopenia, pleural effusion. HISTORY OF PRESENT ILLNESS: A 60-year-old female with past medical history significant for MS, neoplasm of the left breast, status post lumpectomy, radiation in 2018, history of tobacco abuse, history of anxiety, history of hyponatremia, oral thrush, right pleural effusion, abdominal pain, recent diagnosis of diffuse large cell B-cell lymphoma. The patient was here in [facility] in April and transferred to [place] on 05/03 for inpatient treatment. During in [place], she also had right thoracentesis with 1.5 liters of fluid drained. She received chemotherapy as per daughter about week ago. Yesterday morning, she also saw her oncology and she was doing fine. Later when the home health nurse came and checked on her, she seemed to be somewhat hypoxic and low blood pressure and she was brought in here and she was somewhat sleepy. She has pancytopenia. WBC was 0.24, hemoglobin 6.6, platelets 31, potassium 3.3, sodium 130, uric acid 1.8, magnesium 1.7. COVID negative. Procalcitonin negative. TSH is 2.4. ER talked to oncology and they recommended 1 unit of irradiated PRBC, which the patient is getting now. The patient also received fentanyl in the ER. Currently, she was somewhat difficult to arouse, but when she woke up, she was able to answer simple questions appropriately, can tell her name, knows that she is in the hospital, knows the month and year. Daughter in the room helped with most of the history. No recent cough or fever. She has chronic back pain, is ambulating with a walker. No nausea or vomiting. No diarrhea. Has abdominal pain since the mass found. Denies any chest pain, no shortness of breath, no cough, no headache, no neck pain. Appetite is very poor. Not moving bowels much because not eating much. ALLERGIES: PENICILLIN, SULFA ANTIBIOTICS. PAST MEDICAL HISTORY: As mentioned above. PAST SURGICAL HISTORY: Breast lesion excision, carpal tunnel surgery, C- section, colonoscopy, lumbar spinal fusion surgery, left partial mastectomy, radiation therapy, tonsillectomy, adenoidectomy, sentinel lymph node biopsy, total hysterectomy. MEDICATIONS: The patient is on allopurinol 300 mg p.o. daily, alprazolam 1 to 1.5 mg p.o. t.i.d., anastrozole 1 mg p.o. daily, baclofen 20 mg p.o. b.i.d., bupropion 200 mg p.o. b.i.d., vitamin D 5000 units p.o. daily, Colace 100 mg p.o. b.i.d. p.r.n., Lexapro 10 mg p.o. b.i.d., fluconazole 400 mg p.o. daily, gabapentin as directed, heparin lock flush b.i.d., Levaquin 500 mg p.o. daily, meclizine 25 mg p.o. t.i.d. p.r.n., meloxicam 7.5 mg p.o. b.i.d., multivitamins 1 tablet p.o. daily, oxycodone 5 mg p.o. q.4 hours p.r.n., potassium chloride 10 mEq p.o. daily, tizanidine 4 mg p.o. q.8 hours p.r.n., topiramate 100 mg p.o. b.i.d., valacyclovir 1 g p.o. daily. FAMILY HISTORY: Significant for niece has breast cancer, mother has brain aneurysm, maternal aunt has lung cancer. SOCIAL HISTORY: . Smoked half-pack a day for 42 years. No alcohol use. No drug use. REVIEW OF SYSTEMS: As per HPI. Rest of the review of systems is negative. PHYSICAL EXAMINATION: GENERAL: The patient is frail, somewhat drowsy. VITAL SIGNS: Temperature 36.5, pulse 70, respiratory rate 20, blood pressure 117/43, oxygen 96% on 4 liters. HEENT: Pupils equal, round and reactive to light. Oral mucosa moist. NECK: No JVD or neck masses. CARDIOVASCULAR: S1 and S2 heard. Regular rate and rhythm. No murmur, no gallop. RESPIRATORY SYSTEM: Normal AP diameter. No accessory muscle use. Decreased breath sounds in bilateral lower lobes. No wheezing. ABDOMEN: Soft, bowel sounds present. Mild discomfort on the left side of the abdomen, no distention. CENTRAL NERVOUS SYSTEM: Cranial nerves II through XII are grossly intact, nonfocal. EXTREMITIES: Bilateral lower extremity edema present, no erythema seen. LABORATORY DATA: WBC 0.24, hemoglobin 6.6, hematocrit 20.2, platelets 31. PT 11.2, INR 1.1. Sodium 130, potassium 3.3, chloride 95, bicarbonate 28, BUN 10, creatinine 0.6, serum glucose 74. Lactate 0.9, uric acid 1.8, calcium 9.2, magnesium 1.7, total bilirubin 0.5, AST 15, ALT 10, alkaline phosphatase 77. Ammonia 22. Total creatine kinase 37. Troponin I less than 0.015. Procalcitonin less than 0.05. TSH is 2.4. SARS-CoV-2 PCR negative. IMAGING DATA: CT of the head without contrast: No acute intracranial abnormalities seen. CTA of the chest and CT abdomen and pelvis: No pulmonary emboli, multifocal multilobar bilateral ground glass opacities, appear new from 04/29/2021, infectious, inflammatory pneumonitis such as viral pneumonia. Increased size of the moderate right pleural effusion with right basilar consolidation suggestive of compressive atelectasis. Numerous right-sided pleural and subpleural nodes redemonstrated. Decreased size of the pathologic adenopathy in the lower chest and upper abdomen with decreased size of conglomerate right upper quadrant abdominal masses compatible with positive treatment response. Distended gallbladder with cholelithiasis. No CT evidence of acute cholecystitis. Scattered air-fluid levels loops of large and small bowel, suggestive of ileus. Nonobstructing left nephrolithiasis. Chest x-ray: Cardiomegaly with pulmonary vascular congestion and interstitial coarsening suggestive of interstitial pneumonitis, moderate right pleural effusion with right lung base consolidation. ELECTROCARDIOGRAM: Normal sinus rhythm with a rate of 60, nonspecific T-wave abnormalities. ASSESSMENT AND PLAN: A 60-year-old female who was brought in from home because of not feeling well and some hypoxia and hypotension. 1. Some lethargy, weakness, questionable hypoxia and low blood pressure. Currently, blood pressure is running okay. The patient recently found to have diffuse large cell B-cell lymphoma, status post chemotherapy and also status post right thoracocentesis with 1.5 liters of fluid taken out. The patient is afebrile. We will follow the urinalysis, but currently no obvious infection noted. Hemoglobin 6.6, platelets 31. No obvious bleeding. Hematology/oncology advised to give 1 unit of irradiated PRBC, which the patient is getting now. We will follow the repeat laboratories in the a.m. If any concern, consult hematology/oncology. For recurrent pleural effusion, will consult pulmonary in the a.m. We will closely monitor in the telemetry floor. 2. Hypoxia, could be from the pleural effusion. Pulmonary consulted. 3. Hyponatremia. Continue gentle fluids, monitor for volume overload. Follow the repeat laboratories in the a.m. 4. Hypokalemia. We will replace. 5. Ileus. Clear liquid diet. follow kub in am. 6. Hypomagnesemia. We will replace. 7. Diffuse large cell B-cell lymphoma, status post chemotherapy. Follow up with hematology/oncology. The patient is on fluconazole, Levaquin, and valacyclovir. We need to verify with hematology/oncology on how long to continue these antibiotics. 8. Anxiety, depression. Continue home medications. 9. History of breast cancer, status post radiation and lumpectomy in 2018. Continue anastrozole. 10. History of multiple sclerosis. Continue home medications. 11. Hx of Tobacco abuse. 12. Deep venous thrombosis prophylaxis: Sequential compression devices only because of thrombocytopenia. DISPOSITION: Closely monitor in tele floor. Level 1 full code as per my discussion with the daughter. PT, OT prior to discharge. Social service to help with discharge planning. Job ID: [id number] [facility]
[2021-05-16] MEDS: SODIUM CHLORIDE 0.9% 1000ML 1,000 ML IV SCH (23:09)
[2021-05-16] MEDS: buPROPion SR 100 MG TABCR PO SCH (23:44)
[2021-05-16] MEDS: ESCITALOPRAM OXALATE 10 MG TAB PO SCH (23:44)
[2021-05-16] MEDS: BACLOFEN 20 MG TAB PO SCH (23:45)
[2021-05-16] MEDS: GABAPENTIN 800 MG TAB PO SCH (23:45)
[2021-05-16] MEDS: TOPIRAMATE 100 MG TAB PO SCH (23:46)
[2021-05-17 06:18] LABS: BUN Creatinine Ratio 12.9 (10-20); Calcium 9.2 mg/dl (8.5-10.1); Creatinine Clr Calc Pharmacy 84.7 ml/min; Est GFR (Non-African American) 96.6 ml/min; Magnesium 1.9 mg/dl (1.8-2.4); Potassium 3.5 mmol/L (3.5-5.1)
[2021-05-17 06:21] LABS: Hematocrit (blood only) 26.9 % (37-47); Hemoglobin 8.9 g/dL (12.0-16.0); Mean Corpuscular Hemoglobin 28.7 pg (25-34); Mean Corpuscular Hgb Conc 33.1 g/dL (32-36); Mean Corpuscular Volume 86.8 fL (80-100); Mean Platelet Volume 11.9 fL (7.4-10.4); Platelet Count 49 K/uL (130-400); RDW Coefficient of Variation 13.4 % (11.5-14.5); RDW Standard Deviation 43.1 fL (36.4-46.3); White Blood Count 0.28 K/uL (4.8-10.8)
[2021-05-17 06:22] LABS: Platelet Estimate Decreased (Normal)
[2021-05-17] MEDS: allopurinoL 300 MG TAB PO SCH (09:25)
[2021-05-17] MEDS: ANASTROZOLE 1 MG TAB PO SCH (09:25)
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
[2021-05-17] MEDS: POTASSIUM CHLORIDE 10 MEQ TABCR PO SCH (09:26)
[2021-05-17] MEDS: BACLOFEN 20 MG TAB PO SCH ×2 (09:26→21:46)
[2021-05-17] MEDS: GABAPENTIN 800 MG TAB PO SCH ×2 (09:26→21:46)
[2021-05-17] MEDS: CHOLECALCIFEROL 1,000 UNITS 25 MCG TAB PO SCH (09:26)
[2021-05-17] MEDS: FLUCONAZOLE 100 MG TAB PO SCH (09:26)
[2021-05-17] MEDS: levoFLOXacin 500 MG TAB PO SCH (09:26)
[2021-05-17] MEDS: MULTIVITAMIN TAB PO SCH (09:26)
[2021-05-17] MEDS: buPROPion SR 100 MG TABCR PO SCH ×2 (09:26→21:46)
[2021-05-17] MEDS: ESCITALOPRAM OXALATE 10 MG TAB PO SCH ×2 (09:26→21:47)
[2021-05-17] MEDS: TOPIRAMATE 100 MG TAB PO SCH ×2 (09:27→21:46)
[2021-05-17] MEDS: valACYclovir HCL 500 MG TABLET PO SCH (09:27)
--- NOTE | 2021-05-17 09:55 | XRay Report ---
XR KUB/Abdomen 1 view CLINICAL HISTORY: Follow-up suspected ileus on CT. COMPARISON STUDY: CT abdomen and pelvis from 05/16/2021 TECHNIQUE: Single view of the abdomen. FINDINGS: There are few air-filled loops of both large and small bowel without evidence for disproportionate di latation or obstruction. No upright film was obtained no fluid levels can be evaluated. These finding s can be seen with a mild ileus. There is no evidence for organomegaly or gross intra-abdominal mass. No abnormal calcifications are seen along the course of the urinary tracts bilaterally. No acute oss eous pathology. The patient is status post internal fixation of the spine. IV contrast seen within th e bladder from previous CT. IMPRESSION: 1.A few air-filled loops of both large and small bowel without evidence for disproportionate dilatati on or obstruction. These findings can be seen with a mild ileus. ACT 112: Negative or not required by law. Electronically signed by: Neir Huang M.D. 05/17/2021 9:54 AM
[2021-05-17] MEDS: SODIUM CHLORIDE 0.9% 1000ML 1,000 ML IV SCH (11:29)
--- NOTE | 2021-05-17 12:59 | Hospitalist Progress Note ---
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 1. Some lethargy, weakness, questionable hypoxia and low blood pressure. Currently, blood pressure is running okay. The patient recently found to have diffuse large cell B-cell lymphoma, status post chemotherapy and also status post right thoracocentesis with 1.5 liters of fluid taken out (in [facility]). The patient is afebrile. We will follow the urinalysis, but currently no obvious infection noted. Blood cultx obtained - follow results Hemoglobin 6.6, platelets 31. No obvious bleeding. Hematology/oncology contacted overnight - advised to give 1 unit of irradiated PRBC, which the patient received.Hgb now improved (>8) For recurrent pleural effusion, pulmonary medicine was consulted - no plan for thoracentesis at this time. We will closely monitor in the telemetry floor. Dr. Goetz (oncology) contacted and updated - recommends to avoid IVF so not to worsen pl. effusion. 2. Hypoxia, could be from the pleural effusion. Pulmonary consulted. 3. Hyponatremia. Received gentle fluids, monitor for volume overload. Follow the repeat laboratories. 4. Hypokalemia. Likely d/t poor oral intake Replace and monitor 5. ? Ileus. Clear liquid diet. KUB obtained. Currently no increased abd. pain. Tolerates some PO intake. 6. Hypomagnesemia. replace and monitor. 7. Diffuse large cell B-cell lymphoma, status post chemotherapy. Follow up with hematology/oncology. The patient is on fluconazole, Levaquin, and valacyclovir. Per Dr. Goetz, continue current regimen. 8. Anxiety, depression. Continue home medications. 9. History of breast cancer, status post radiation and lumpectomy in 2018. Continue anastrozole. 10. History of multiple sclerosis. Continue home medications. 11. Hx of Tobacco abuse. DVT prophylaxis: SCDs only because of thrombocytopenia. DISPOSITION:monitor in tele floor.PT, OT prior to discharge. Social service to help with discharge planning. Code: full code as per admitting provider's discussion with the daughter. Admission and Anticipated Discharge Date Admission Date: May 16, 2021 Subjective Pt seen in follow up of hypotension, pancytopenia, hypoxia Currently sitting up in bed, in NAD, on NH. at the bedside. Pt is awake and able to answer questions appropriately however provides most of the history. Says that on Thursday he drove her to [facility] for port placement and she was doing well. Then next day, on she went to see Dr. Goetz and was exhausted. Currently denies any chest pain, increased shortness of breath, incr. abd. pain, She is able to have some PO intake. Denies any fever, chills. Received unit of pRBC on admission. Pulmonary consulted for pl. effusion - currently no plan for thoracentesis. Dr. Goetz contacted and updated - recommends no IVF d/t third spacing and worsening of pl. effusion. Review of Systems Review of Systems: All systems reviewed & are unremarkable except as noted in Subjective Physical Exam Physical Exam: GENERAL: The patient is frail, somewhat drowsy. HEENT: NC/AT. EOMI. Pupils equal, round and reactive to light. Oral mucosa moist. NECK: No JVD or neck masses. CARDIOVASCULAR: S1 and S2 heard. Regular rate and rhythm. No murmur, no gallop. RESPIRATORY: Normal AP diameter. No accessory muscle use. Decreased breath sounds in bilateral lower lobes. No wheezing. ABDOMEN: Soft, bowel sounds present. Mild discomfort on the left side of the abdomen, no distention. NEURO: awake and alert, able to anser questions appropriately, speech slow but fluent. Moves extremities. EXTREMITIES: Bilateral lower extremity edema present, no erythema seen. Results & Data Results & Data ([facility]) Vital Signs (Past 12 Hours) Vital Signs Temp Pulse Resp BP Pulse Ox 05/17/21 12:03 37 C 75 18 115/68 91 05/17/21 07:38 36.6 C 74 18 164/76 H 100 05/17/21 04:53 36.5 C 74 18 146/76 H 94 Laboratory Results 05/17/21 05/17/21 05/16/21 Range/Units 05:21 05:21 16:48 WBC 0.28 L* (4.8-10.8) K/uL RBC 3.10 L (4.2-5.4) M/uL Hgb 8.9 L (12.0-16.0) g/dL Hct 26.9 L (37-47) % MCV 86.8 (80-100) fL MCH 28.7 (25-34) pg MCHC 33.1 (32-36) g/dL RDW Std Deviation 43.1 (36.4-46.3) fL RDW Coeff of Lico 13.4 (11.5-14.5) % Plt Count 49 L D (130-400) K/uL MPV 11.9 H (7.4-10.4) fL Immature Gran % (Auto) Cancelled Neut % (Auto) Cancelled Lymph % (Auto) Cancelled Green % (Auto) Cancelled Eos % (Auto) Cancelled Baso % (Auto) Cancelled Neut # (Auto) Cancelled Lymph # (Auto) Cancelled Green # (Auto) Cancelled Eos # (Auto) Cancelled Baso # (Auto) Cancelled Immature Gran # (Auto) Cancelled Neutrophils % (Manual) Cancelled Band Neutrophils % Cancelled Lymphocytes % (Manual) Cancelled Prolymphocyte % Cancelled Reactive Lymphs % (Man) Cancelled Monocytes % (Manual) Cancelled Eosinophils % (Manual) Cancelled Basophils % (Manual) Cancelled Metamyelocytes % (Man) Cancelled Myelocytes % (Man) Cancelled Promyelocytes % (Man) Cancelled Blast Cells % (Manual) Cancelled Plasma Cell % (Manual) Cancelled Other Cells % Cancelled Nucleated RBC % Cancelled Neutrophils # (Manual) Cancelled Band Neutrophils # Cancelled Total Absolute Neuts Cancelled Lymphocytes # (Manual) Cancelled Prolymphocyte # Cancelled Reactive Lymphs # Cancelled Total Abs Lymphocytes Cancelled Monocytes # (Manual) Cancelled Eosinophils # (Manual) Cancelled Basophils # (Manual) Cancelled Metamyelocytes # (Man) Cancelled Myelocytes # (Manual) Cancelled Promyelocytes # (Man) Cancelled Blast Cells # (Man) Cancelled Plasma Cell # (Manual) Cancelled Other Cells # Cancelled Nucleated RBCs # (Man) Cancelled Hypersegmented Neuts Cancelled Hyposegmented Neuts Cancelled Hypogranular Neuts Cancelled Large Granular Lymphs Cancelled # Lrg Granular Lymphs Cancelled Hairy Cells Cancelled Smudge Cells Cancelled Toxic Granulation Cancelled Toxic Vacuolation Cancelled Dohle Bodies Cancelled Keesha Rods Cancelled Platelet Estimate Decreased L (Normal) Hypogranular Platelets Cancelled Clumped Platelets Cancelled Giant Platelets Cancelled Platelet Satelliting Cancelled RBC Morphology Cancelled Polychromasia Cancelled Hypochromasia Cancelled Poikilocytosis Cancelled Basophilic Stippling Cancelled Anisocytosis Cancelled Microcytosis Cancelled Macrocytosis Cancelled Spherocytes Cancelled Pappenheimer Bodies Cancelled Sickle Cells Cancelled Target Cells Cancelled Tear Drop Cells Cancelled Ovalocytes Cancelled Stomatocytes Cancelled [place] Bodies Cancelled Echinocytes Cancelled Acanthocytes (Spur) Cancelled Rouleaux Cancelled RBC Agglutinates Cancelled Schistocytes Cancelled RBC Morph Comment Cancelled Sezary Cell Cancelled PT (9.0-12.0) Seconds INR (0.9-1.1) VBG pH VBG pCO2 VBG pO2 VBG HCO3 VBG O2 Saturation VBG Base Excess Barometric Pressure Sodium 133 L (136-145) mmol/L Potassium 3.5 (3.5-5.1) mmol/L Chloride 100 (98-107) mmol/L Carbon Dioxide 27 (21-32) mmol/L Anion Gap 6.0 (3-11) BUN 8 (7-18) mg/dl Creatinine 0.62 (0.6-1.2) mg/dl Est Cr Clr Drug Dosing 84.7 Est GFR ( Amer) 112.0 ml/min Est GFR (Non-Af Amer) 96.6 ml/min BUN/Creatinine Ratio 12.9 (10-20) Glucose 84 (70-99) mg/dl Lactate (0.4-2.0) mmol/L Uric Acid (2.6-7.2) mg/dl Calcium 9.2 (8.5-10.1) mg/dl Magnesium 1.9 (1.8-2.4) mg/dl Total Bilirubin (0.2-1) mg/dl AST (15-37) U/L ALT (12-78) U/L Alkaline Phosphatase (45-117) U/L Ammonia (11-32) umol/L Total Creatine Kinase (26-192) U/L Troponin I (0-0.045) ng/ml Total Protein (6.4-8.2) gm/dl Albumin (3.4-5.0) gm/dl Globulin (2.5-4.0) gm/dl Albumin/Globulin Ratio (0.9-2) Procalcitonin (0-0.5) ng/ml TSH (0.300-4.500) uIu/ml COVID-19 Eval Order SARS-CoV-2 (PCR) NEGATIVE (Negative) Blood Type Antibody Screen Crossmatch 05/16/21 05/16/21 05/16/21 Range/Units 16:48 16:46 16:00 WBC (4.8-10.8) K/uL RBC (4.2-5.4) M/uL Hgb (12.0-16.0) g/dL Hct (37-47) % MCV (80-100) fL MCH (25-34) pg MCHC (32-36) g/dL RDW Std Deviation (36.4-46.3) fL RDW Coeff of Lico (11.5-14.5) % Plt Count (130-400) K/uL MPV (7.4-10.4) fL Immature Gran % (Auto) Neut % (Auto) Lymph % (Auto) Green % (Auto) Eos % (Auto) Baso % (Auto) Neut # (Auto) Lymph # (Auto) Green # (Auto) Eos # (Auto) Baso # (Auto) Immature Gran # (Auto) Neutrophils % (Manual) Band Neutrophils % Lymphocytes % (Manual) Prolymphocyte % Reactive Lymphs % (Man) Monocytes % (Manual) Eosinophils % (Manual) Basophils % (Manual) Metamyelocytes % (Man) Myelocytes % (Man) Promyelocytes % (Man) Blast Cells % (Manual) Plasma Cell % (Manual) Other Cells % Nucleated RBC % Neutrophils # (Manual) Band Neutrophils # Total Absolute Neuts Lymphocytes # (Manual) Prolymphocyte # Reactive Lymphs # Total Abs Lymphocytes Monocytes # (Manual) Eosinophils # (Manual) Basophils # (Manual) Metamyelocytes # (Man) Myelocytes # (Manual) Promyelocytes # (Man) Blast Cells # (Man) Plasma Cell # (Manual) Other Cells # Nucleated RBCs # (Man) Hypersegmented Neuts Hyposegmented Neuts Hypogranular Neuts Large Granular Lymphs # Lrg Granular Lymphs Hairy Cells Smudge Cells Toxic Granulation Toxic Vacuolation Dohle Bodies Keesha Rods Platelet Estimate (Normal) Hypogranular Platelets Clumped Platelets Giant Platelets Platelet Satelliting RBC Morphology Polychromasia Hypochromasia Poikilocytosis Basophilic Stippling Anisocytosis Microcytosis Macrocytosis Spherocytes Pappenheimer Bodies Sickle Cells Target Cells Tear Drop Cells Ovalocytes Stomatocytes Diehl-[place] Bodies Echinocytes Acanthocytes (Spur) Rouleaux RBC Agglutinates Schistocytes RBC Morph Comment Sezary Cell PT (9.0-12.0) Seconds INR (0.9-1.1) VBG pH VBG pCO2 VBG pO2 VBG HCO3 VBG O2 Saturation VBG Base Excess Barometric Pressure Sodium (136-145) mmol/L Potassium (3.5-5.1) mmol/L Chloride (98-107) mmol/L Carbon Dioxide (21-32) mmol/L Anion Gap (3-11) BUN (7-18) mg/dl Creatinine (0.6-1.2) mg/dl Est Cr Clr Drug Dosing Est GFR ( Amer) ml/min Est GFR (Non-Af Amer) ml/min BUN/Creatinine Ratio (10-20) Glucose (70-99) mg/dl Lactate (0.4-2.0) mmol/L Uric Acid (2.6-7.2) mg/dl Calcium (8.5-10.1) mg/dl Magnesium (1.8-2.4) mg/dl Total Bilirubin (0.2-1) mg/dl AST (15-37) U/L ALT (12-78) U/L Alkaline Phosphatase (45-117) U/L Ammonia 22.0 (11-32) umol/L Total Creatine Kinase (26-192) U/L Troponin I (0-0.045) ng/ml Total Protein (6.4-8.2) gm/dl Albumin (3.4-5.0) gm/dl Globulin (2.5-4.0) gm/dl Albumin/Globulin Ratio (0.9-2) Procalcitonin (0-0.5) ng/ml TSH (0.300-4.500) uIu/ml COVID-19 Eval Order Covid19 at [facility] SARS-CoV-2 (PCR) (Negative) Blood Type O Positive Antibody Screen NEGATIVE Crossmatch See Detail 05/16/21 05/16/21 05/16/21 Range/Units 16:00 16:00 16:00 WBC (4.8-10.8) K/uL RBC (4.2-5.4) M/uL Hgb (12.0-16.0) g/dL Hct (37-47) % MCV (80-100) fL MCH (25-34) pg MCHC (32-36) g/dL RDW Std Deviation (36.4-46.3) fL RDW Coeff of Lico (11.5-14.5) % Plt Count (130-400) K/uL MPV (7.4-10.4) fL Immature Gran % (Auto) Neut % (Auto) Lymph % (Auto) Green % (Auto) Eos % (Auto) Baso % (Auto) Neut # (Auto) Lymph # (Auto) Green # (Auto) Eos # (Auto) Baso # (Auto) Immature Gran # (Auto) Neutrophils % (Manual) Band Neutrophils % Lymphocytes % (Manual) Prolymphocyte % Reactive Lymphs % (Man) Monocytes % (Manual) Eosinophils % (Manual) Basophils % (Manual) Metamyelocytes % (Man) Myelocytes % (Man) Promyelocytes % (Man) Blast Cells % (Manual) Plasma Cell % (Manual) Other Cells % Nucleated RBC % Neutrophils # (Manual) Band Neutrophils # Total Absolute Neuts Lymphocytes # (Manual) Prolymphocyte # Reactive Lymphs # Total Abs Lymphocytes Monocytes # (Manual) Eosinophils # (Manual) Basophils # (Manual) Metamyelocytes # (Man) Myelocytes # (Manual) Promyelocytes # (Man) Blast Cells # (Man) Plasma Cell # (Manual) Other Cells # Nucleated RBCs # (Man) Hypersegmented Neuts Hyposegmented Neuts Hypogranular Neuts Large Granular Lymphs # Lrg Granular Lymphs Hairy Cells Smudge Cells Toxic Granulation Toxic Vacuolation Dohle Bodies Keesha Rods Platelet Estimate (Normal) Hypogranular Platelets Clumped Platelets Giant Platelets Platelet Satelliting RBC Morphology Polychromasia Hypochromasia Poikilocytosis Basophilic Stippling Anisocytosis Microcytosis Macrocytosis Spherocytes Pappenheimer Bodies Sickle Cells Target Cells Tear Drop Cells Ovalocytes Stomatocytes Diehl-[place] Bodies Echinocytes Acanthocytes (Spur) Rouleaux RBC Agglutinates Schistocytes RBC Morph Comment Sezary Cell PT (9.0-12.0) Seconds INR (0.9-1.1) VBG pH Cancelled VBG pCO2 Cancelled VBG pO2 Cancelled VBG HCO3 Cancelled VBG O2 Saturation Cancelled VBG Base Excess Cancelled Barometric Pressure Cancelled Sodium (136-145) mmol/L Potassium (3.5-5.1) mmol/L Chloride (98-107) mmol/L Carbon Dioxide (21-32) mmol/L Anion Gap (3-11) BUN (7-18) mg/dl Creatinine (0.6-1.2) mg/dl Est Cr Clr Drug Dosing Est GFR ( Amer) ml/min Est GFR (Non-Af Amer) ml/min BUN/Creatinine Ratio (10-20) Glucose (70-99) mg/dl Lactate 0.9 (0.4-2.0) mmol/L Uric Acid (2.6-7.2) mg/dl Calcium (8.5-10.1) mg/dl Magnesium (1.8-2.4) mg/dl Total Bilirubin (0.2-1) mg/dl AST (15-37) U/L ALT (12-78) U/L Alkaline Phosphatase (45-117) U/L Ammonia (11-32) umol/L Total Creatine Kinase (26-192) U/L Troponin I (0-0.045) ng/ml Total Protein (6.4-8.2) gm/dl Albumin (3.4-5.0) gm/dl Globulin (2.5-4.0) gm/dl Albumin/Globulin Ratio (0.9-2) Procalcitonin < 0.05 (0-0.5) ng/ml TSH (0.300-4.500) uIu/ml COVID-19 Eval Order SARS-CoV-2 (PCR) (Negative) Blood Type Antibody Screen Crossmatch 05/16/21 05/16/21 05/16/21 Range/Units 16:00 16:00 16:00 WBC 0.24 L* (4.8-10.8) K/uL RBC 2.30 L (4.2-5.4) M/uL Hgb 6.6 L* (12.0-16.0) g/dL Hct 20.2 L* (37-47) % MCV 87.8 (80-100) fL MCH 28.7 (25-34) pg MCHC 32.7 (32-36) g/dL RDW Std Deviation 43.8 (36.4-46.3) fL RDW Coeff of Lico 13.5 (11.5-14.5) % Plt Count 31 L (130-400) K/uL MPV 10.5 H (7.4-10.4) fL Immature Gran % (Auto) Cancelled Neut % (Auto) Cancelled Lymph % (Auto) Cancelled Green % (Auto) Cancelled Eos % (Auto) Cancelled Baso % (Auto) Cancelled Neut # (Auto) Cancelled Lymph # (Auto) Cancelled Green # (Auto) Cancelled Eos # (Auto) Cancelled Baso # (Auto) Cancelled Immature Gran # (Auto) Cancelled Neutrophils % (Manual) Cancelled Band Neutrophils % Cancelled Lymphocytes % (Manual) Cancelled Prolymphocyte % Cancelled Reactive Lymphs % (Man) Cancelled Monocytes % (Manual) Cancelled Eosinophils % (Manual) Cancelled Basophils % (Manual) Cancelled Metamyelocytes % (Man) Cancelled Myelocytes % (Man) Cancelled Promyelocytes % (Man) Cancelled Blast Cells % (Manual) Cancelled Plasma Cell % (Manual) Cancelled Other Cells % Cancelled Nucleated RBC % Cancelled Neutrophils # (Manual) Cancelled Band Neutrophils # Cancelled Total Absolute Neuts Cancelled Lymphocytes # (Manual) Cancelled Prolymphocyte # Cancelled Reactive Lymphs # Cancelled Total Abs Lymphocytes Cancelled Monocytes # (Manual) Cancelled Eosinophils # (Manual) Cancelled Basophils # (Manual) Cancelled Metamyelocytes # (Man) Cancelled Myelocytes # (Manual) Cancelled Promyelocytes # (Man) Cancelled Blast Cells # (Man) Cancelled Plasma Cell # (Manual) Cancelled Other Cells # Cancelled Nucleated RBCs # (Man) Cancelled Hypersegmented Neuts Cancelled Hyposegmented Neuts Cancelled Hypogranular Neuts Cancelled Large Granular Lymphs Cancelled # Lrg Granular Lymphs Cancelled Hairy Cells Cancelled Smudge Cells Cancelled Toxic Granulation Cancelled Toxic Vacuolation Cancelled Dohle Bodies Cancelled Keesha Rods Cancelled Platelet Estimate (Normal) Hypogranular Platelets Cancelled Clumped Platelets Cancelled Giant Platelets Cancelled Platelet Satelliting Cancelled RBC Morphology Cancelled Polychromasia Cancelled Hypochromasia Cancelled Poikilocytosis Cancelled Basophilic Stippling Cancelled Anisocytosis Cancelled Microcytosis Cancelled Macrocytosis Cancelled Spherocytes Cancelled Pappenheimer Bodies Cancelled Sickle Cells Cancelled Target Cells Cancelled Tear Drop Cells Cancelled Ovalocytes Cancelled Stomatocytes Cancelled Diehl-[place] Bodies Cancelled Echinocytes Cancelled Acanthocytes (Spur) Cancelled Rouleaux Cancelled RBC Agglutinates Cancelled Schistocytes Cancelled RBC Morph Comment Cancelled Sezary Cell Cancelled PT 11.2 (9.0-12.0) Seconds INR 1.1 (0.9-1.1) VBG pH VBG pCO2 VBG pO2 VBG HCO3 VBG O2 Saturation VBG Base Excess Barometric Pressure Sodium 130 L (136-145) mmol/L Potassium 3.3 L (3.5-5.1) mmol/L Chloride 95 L (98-107) mmol/L Carbon Dioxide 28 (21-32) mmol/L Anion Gap 7.0 (3-11) BUN 10 (7-18) mg/dl Creatinine 0.69 (0.6-1.2) mg/dl Est Cr Clr Drug Dosing Not Reportable Est GFR ( Amer) 108.1 ml/min Est GFR (Non-Af Amer) 93.3 ml/min BUN/Creatinine Ratio 14.2 (10-20) Glucose 74 (70-99) mg/dl Lactate (0.4-2.0) mmol/L Uric Acid 1.8 L (2.6-7.2) mg/dl Calcium 9.2 (8.5-10.1) mg/dl Magnesium 1.7 L (1.8-2.4) mg/dl Total Bilirubin 0.5 (0.2-1) mg/dl AST 15 (15-37) U/L ALT 10 L (12-78) U/L Alkaline Phosphatase 77 (45-117) U/L Ammonia (11-32) umol/L Total Creatine Kinase 37 (26-192) U/L Troponin I < 0.015 (0-0.045) ng/ml Total Protein 5.1 L (6.4-8.2) gm/dl Albumin 1.6 L (3.4-5.0) gm/dl Globulin 3.5 (2.5-4.0) gm/dl Albumin/Globulin Ratio 0.5 L (0.9-2) Procalcitonin (0-0.5) ng/ml TSH 2.450 (0.300-4.500) uIu/ml COVID-19 Eval Order SARS-CoV-2 (PCR) (Negative) Blood Type Antibody Screen Crossmatch Medications Administered Current Inpatient Medications Acetaminophen (Acetaminophen 325 Mg Tab) 650 mg PO Q4H PRN PRN Reason: Pain or Fever Stop: 06/15/21 22:26 Allopurinol (Allopurinol 300 Mg Tab) 300 mg PO DAILY PENNIE Stop: 06/16/21 08:59 Last Admin: 05/17/21 09:25 Dose: 300 mg Documented by: Anastrozole (Anastrozole 1 Mg Tab) 1 mg PO DAILY PENNIE Stop: 06/16/21 08:59 Last Admin: 05/17/21 09:25 Dose: 1 mg Documented by: Baclofen (Baclofen 20 Mg Tab) 20 mg PO BID PENNIE Stop: 06/15/21 22:26 Last Admin: 05/17/21 09:26 Dose: 20 mg Documented by: Bupropion HCl (Bupropion Sr 100 Mg Tabcr) 200 mg PO BID PENNIE Stop: 06/15/21 22:26 Last Admin: 05/17/21 09:26 Dose: 200 mg Documented by: Docusate Sodium (Docusate Sodium 100 Mg Cap) 100 mg PO BID PRN PRN Reason: Constipation Stop: 06/15/21 22:26 Escitalopram Oxalate (Escitalopram Oxalate 10 Mg Tab) 10 mg PO BID PENNIE Stop: 06/15/21 22:26 Last Admin: 05/17/21 09:26 Dose: 10 mg Documented by: Fluconazole (Fluconazole 100 Mg Tab) 400 mg PO DAILY PENNIE Stop: 06/16/21 08:59 Last Admin: 05/17/21 09:26 Dose: 400 mg Documented by: Gabapentin (Gabapentin 800 Mg Tab) 800 mg PO BID PENNIE Stop: 06/15/21 22:26 Last Admin: 05/17/21 09:26 Dose: 800 mg Documented by: Gabapentin (Gabapentin 400 Mg Cap) 400 mg PO 1400 PENNIE Stop: 06/16/21 13:59 Sodium Chloride (Nss 1000ml) 1,000 mls @ 75 mls/hr IV .[id number] PENNIE Stop: 06/15/21 22:26 Last Admin: 05/17/21 11:29 Dose: 75 mls/hr Documented by: Levofloxacin (Levofloxacin 500 Mg Tab) 500 mg PO DAILY PENNIE Stop: 06/16/21 08:59 Last Admin: 05/17/21 09:26 Dose: 500 mg Documented by: Meclizine HCl (Meclizine Hcl 25 Mg Tab) 25 mg PO TID PRN PRN Reason: MULTIPLE SCLEROSIS Stop: 06/15/21 22:42 Multivitamins (Multivitamin Tab) 1 tab PO DAILY PENNIE Stop: 06/16/21 08:59 Last Admin: 05/17/21 09:26 Dose: 1 tab Documented by: Nitroglycerin (Nitroglycerin Sl 0.4 Mg/Tab Tab) 0.4 mg SL UD PRN PRN Reason: Chest Pain Stop: 06/15/21 22:26 Ondansetron HCl (Ondansetron Inj 2 Mg/Ml 2 Ml Vial) 4 mg IV Q6H PRN PRN Reason: Nausea Stop: 06/15/21 22:26 Oxycodone HCl (Oxycodone Hcl Ir 5 Mg Tab (Immediate Release)) 5 mg PO Q4H PRN PRN Reason: Pain, Severe Stop: 05/30/21 22:26 Potassium Chloride (Potassium Chloride 10 Meq Tabcr) 10 meq PO DAILY PENNIE Stop: 06/16/21 08:59 Last Admin: 05/17/21 09:26 Dose: 10 meq Documented by: Tizanidine HCl (Tizanidine Hcl 4 Mg Tablet) 4 mg PO Q8H PRN PRN Reason: muscle spasticity Stop: 06/15/21 22:26 Topiramate (Topiramate 100 Mg Tab) 100 mg PO BID PENNIE Stop: 06/15/21 22:26 Last Admin: 05/17/21 09:27 Dose: 100 mg Documented by: Valacyclovir HCl (Valacyclovir Hcl 500 Mg Tablet) 1,000 mg PO DAILY PENNIE Stop: 06/16/21 08:59 Last Admin: 05/17/21 09:27 Dose: 1,000 mg Documented by: Vitamin D (Cholecalciferol 1,000 Units 25 Mcg Tab) 5,000 units PO DAILY PENNIE Stop: 06/16/21 08:59 Last Admin: 05/17/21 09:26 Dose: 5,000 units Documented by: (1) Fatigue Fatigue type: unspecified Qualified Code(s): R53.83 - Other fatigue
[2021-05-17] MEDS ORDERED: POTASSIUM CHLORIDE CRTAB 20 MEQ TABCR PO STA ×2 (13:02→15:40)
[2021-05-17] MEDS: GABAPENTIN 400 MG CAP PO SCH (13:30)
--- NOTE | 2021-05-17 13:36 | Electrocardiogram Report ---
Test Reason : Blood Pressure : / mmHG Vent. Rate : 068 BPM Atrial Rate : 068 BPM P-R Int : 140 ms QRS Dur : 074 ms QT Int : 410 ms P-R-T Axes : 004 056 082 degrees QTc Int : 435 ms Normal sinus rhythm Nonspecific T wave abnormality Abnormal ECG When compared with ECG of 09-DEC-2013 19:29, Nonspecific T wave abnormality now evident in Lateral leads Confirmed by Ameya Garcia ([id number]) on 05/17/2021 1:35:44 PM Referred By: REFERRED SELF Confirmed By:Ameya Garcia
[2021-05-17] MEDS ORDERED: FUROSEMIDE INJ 20 MG/2 ML VIAL IV ONE (15:39)
[2021-05-18 08:00] LABS: Hematocrit (blood only) 25.1 % (37-47); Hemoglobin 8.2 g/dL (12.0-16.0); Mean Corpuscular Hemoglobin 28.7 pg (25-34); Mean Corpuscular Hgb Conc 32.7 g/dL (32-36); Mean Corpuscular Volume 87.8 fL (80-100); Mean Platelet Volume 10.4 fL (7.4-10.4); Platelet Count 88 K/uL (130-400); RDW Coefficient of Variation 13.5 % (11.5-14.5); RDW Standard Deviation 43.5 fL (36.4-46.3); Red Blood Count 2.86 M/uL (4.2-5.4); White Blood Count 2.02 K/uL (4.8-10.8)
[2021-05-18 08:32] LABS: BUN Creatinine Ratio 8.3 (10-20); Calcium 8.2 mg/dl (8.5-10.1); Creatinine Clr Calc Pharmacy 116.6 ml/min; Est GFR (African American) 124.5 ml/min; Est GFR (Non-African American) 107.4 ml/min; Magnesium 1.4 mg/dl (1.8-2.4); Phosphorus 2.6 mg/dl (2.5-4.9); Potassium 3.1 mmol/L (3.5-5.1); Uric Acid 1.9 mg/dl (2.6-7.2)
[2021-05-18 08:36] LABS: ALC (manual) 0.57 K/uL (1.2-3.4); ANC (manual) 1.03 K/uL (1.4-6.5); Basophils # (manual) 0.04 K/uL (0-0.2); Eosinophils # (manual) 0.06 K/uL (0-0.5); Lymphocytes # (manual) 0.57 K/uL (1.2-3.4); Monocytes # (manual) 0.28 K/uL (0.11-0.59); Myelocytes # (manual) 0.04 K/uL (0-0); Neutrophils # (manual) 1.03 K/uL (1.4-6.5)
[2021-05-18] MEDS: valACYclovir HCL 500 MG TABLET PO SCH (08:39)
[2021-05-18] MEDS: FLUCONAZOLE 100 MG TAB PO SCH (08:40)
[2021-05-18] MEDS: CHOLECALCIFEROL 1,000 UNITS 25 MCG TAB PO SCH (08:40)
[2021-05-18] MEDS: GABAPENTIN 800 MG TAB PO SCH ×2 (08:40→20:02)
[2021-05-18] MEDS: POTASSIUM CHLORIDE 10 MEQ TABCR PO SCH (08:40)
[2021-05-18] MEDS: TOPIRAMATE 100 MG TAB PO SCH ×2 (08:40→20:04)
[2021-05-18] MEDS: levoFLOXacin 500 MG TAB PO SCH (08:40)
[2021-05-18] MEDS: MULTIVITAMIN TAB PO SCH (08:40)
[2021-05-18] MEDS: ESCITALOPRAM OXALATE 10 MG TAB PO SCH ×2 (08:40→20:02)
[2021-05-18] MEDS: BACLOFEN 20 MG TAB PO SCH ×2 (08:41→20:02)
[2021-05-18] MEDS: buPROPion SR 100 MG TABCR PO SCH ×2 (08:41→20:03)
[2021-05-18] MEDS: ANASTROZOLE 1 MG TAB PO SCH (08:41)
[2021-05-18] MEDS: allopurinoL 300 MG TAB PO SCH (08:41)
[2021-05-18] MEDS: POTASSIUM CHLORIDE 20 MEQ/15 ML UDC PO SCH ×2 (10:38→16:06)
[2021-05-18] MEDS: MAGNESIUM SULFATE / D5W 1 GM/100 ML BAG IV SCH ×2 (10:38→12:52)
[2021-05-18] MEDS: GABAPENTIN 400 MG CAP PO SCH (14:41)
--- NOTE | 2021-05-18 15:48 | Hospitalist Progress Note ---
Date of Service May 18, 2021 Assessment & Plan (1) Hypoxemia: Plan: Related to large left pleural effusion on CT chest performed on admission. Evaluated by pulmonology and no thoracentesis will be performed. Compressive atelectasis also present on imaging. Doubt pneumonia and also patient has no respiratory symptoms, procalcitonin negative. Cont current therapy. Consider PleurX catheter if needed in future. (2) Fatigue: Plan: Fatigue and hypotension severe post chemotherapy treatment in setting of underlying MS. She is improving with supportive care and blood transfusion for symptomatic anemia present on admisison. Hypotension has improved and afebrile. no evidence of infection at this point. Neutropenia has resolved. Blood cultures negative to date. Cont supportive care. PT/OT to evaluate for safety to return home. (3) Diffuse large B cell lymphoma: (4) Pancytopenia due to antineoplastic chemotherapy: Plan: DLBCL, double expressor significant dissease involving the abdomen and right lower chest region. received cyclophosphamide, adriamycin and etoposide between 05/04-05/08/2021. Received prophylactive pegfilgrastim on 05/13/2021 WBC improved to 2 today with resolution of neutropenia likely related to this and recovery from chemotherapy. No obvious infection present and she remains afebrile. Hypotension has improved since admission. She appears fatigued but also has underlying MS. Per daughter she believes admission fatigue was related to all the events prior to admission just being too much for her. She offers that typically getting out of the house to attend appointments is difficult. Symptomatic anemia present on admission with H/H 6.6/20.2. She received 1 unit of irradiated pRBCs with appropriate response. (5) Ileus: Plan: present on imaging studies, poor PO intake. Continues on a clear liquid diet. Cont supportive care. (6) Chronic pain: Plan: Chronic pain from post-operative back, not typically on narcotics. However, now on narcotics more regularly as a result of pain in her abdomen related to her cancer. She offers that this is controlled with the current pain regimen and she is having some diarrhea. (7) Pulmonary nodule: Plan: followup with outpatient imaging. (8) Herpes zoster ophthalmicus: Plan: completed with acyclovir (9) Multiple sclerosis: Plan: progressive, gait, bladder function and mental status affected somewhat by this. Not on treatment. (10) DVT prophylaxis: Plan: SCDs, no chemoprophylaxis in setting of pancytopenia Full Code Dispo-uncertain, she is ambulating with 1 assist in room. Will order PT/OT to ensure safety to return home when she clinically improves. DO Jose [facility] Hospitalist Admission and Anticipated Discharge Date Admission Date: May 16, 2021 Subjective 60 yo female with DLBCL recently started on chemotherapy also wtih progressive multiple sclerosis admitted for hypotension, pancytopenia, hypoxia Patient reports pain in her abdomen and chrnoic pain in her back is around a 4/10 Labs incl WBC improved to 2.0 today, no fevers and chills, GCSF injection a couple of days ago. Denies SOB Daughter at bedside and reports diarrhea Recent port placement. Review of Systems Review of Systems: All systems were reviewed and negative except as indicated in subjective. Physical Exam Physical Exam: CONSTITUTIONAL: WNWD, vitals as above, generally ill- appearing, NAD EYES: normal conjunctivae, no scleral icterus ENT: external ear and nose normal RESPIRATORY: clear to auscultation bilaterally, no crackles, rales or wheezes, normal respiratory effort CARDIOVASCULAR: regular rate and rhythm, S1 and 2 heard without murmurs, gallops or rubs, no JVD, no peripheral edema CHEST: port in right anterior chest. GASTROINTESTINAL: soft, nontender, ND, no guarding MUSCULOSKELETAL: strength 5/5 throughout, head is normocephalic and atraumatic, neck supple, normal palpation of chest wall without tenderness SKIN: warm and dry NEUROLOGIC: CN 2-12 grossly intact, no sensory deficit, normal cognition, normal speech, no tremor PSYCHIATRIC: alert cooperative and oriented to person, place and time. Results & Data Results & Data ([facility]) Vital Signs (Past 12 Hours) Vital Signs Temp Pulse Pulse Resp BP Pulse Ox 05/18/21 15:47 36.4 C L 77 16 115/70 100 05/18/21 13:16 36.7 C 80 18 107/68 98 05/18/21 08:42 36.6 C 78 18 121/57 L 93 05/18/21 07:17 77 05/18/21 04:52 36.6 C 68 18 124/74 100 Laboratory Results Short CBC 05/18/21 Range/Units 07:15 WBC 2.02 L (4.8-10.8) K/uL Hgb 8.2 L (12.0-16.0) g/dL Hct 25.1 L (37-47) % Plt Count 88 L D (130-400) K/uL BMP 05/18/21 07:15 Sodium 136 Potassium 3.1 L Chloride 100 Carbon Dioxide 26 BUN 4 L Creatinine 0.45 L Glucose 91 Calcium 8.2 L Medications Administered Current Inpatient Medications Acetaminophen (Acetaminophen 325 Mg Tab) 650 mg PO Q4H PRN PRN Reason: Pain or Fever Stop: 06/15/21 22:26 Last Admin: 05/18/21 02:45 Dose: 650 mg Documented by: Allopurinol (Allopurinol 300 Mg Tab) 300 mg PO DAILY PENNIE Stop: 06/16/21 08:59 Last Admin: 05/18/21 08:41 Dose: 300 mg Documented by: Anastrozole (Anastrozole 1 Mg Tab) 1 mg PO DAILY PENNIE Stop: 06/16/21 08:59 Last Admin: 05/18/21 08:41 Dose: 1 mg Documented by: Baclofen (Baclofen 20 Mg Tab) 20 mg PO BID PENNIE Stop: 06/15/21 22:26 Last Admin: 05/18/21 08:41 Dose: 20 mg Documented by: Bupropion HCl (Bupropion Sr 100 Mg Tabcr) 200 mg PO BID PENNIE Stop: 06/15/21 22:26 Last Admin: 05/18/21 08:41 Dose: 200 mg Documented by: Docusate Sodium (Docusate Sodium 100 Mg Cap) 100 mg PO BID PRN PRN Reason: Constipation Stop: 06/15/21 22:26 Escitalopram Oxalate (Escitalopram Oxalate 10 Mg Tab) 10 mg PO BID PENNIE Stop: 06/15/21 22:26 Last Admin: 05/18/21 08:40 Dose: 10 mg Documented by: Fluconazole (Fluconazole 100 Mg Tab) 400 mg PO DAILY PENNIE Stop: 06/16/21 08:59 Last Admin: 05/18/21 08:40 Dose: 400 mg Documented by: Gabapentin (Gabapentin 800 Mg Tab) 800 mg PO BID PENNIE Stop: 06/15/21 22:26 Last Admin: 05/18/21 08:40 Dose: 800 mg Documented by: Gabapentin (Gabapentin 400 Mg Cap) 400 mg PO 1400 PENNIE Stop: 06/16/21 13:59 Last Admin: 05/18/21 14:41 Dose: 400 mg Documented by: Levofloxacin (Levofloxacin 500 Mg Tab) 500 mg PO DAILY [facility] Stop: 06/16/21 08:59 Last Admin: 05/18/21 08:40 Dose: 500 mg Documented by: Meclizine HCl (Meclizine Hcl 25 Mg Tab) 25 mg PO TID PRN PRN Reason: MULTIPLE SCLEROSIS Stop: 06/15/21 22:42 Multivitamins (Multivitamin Tab) 1 tab PO DAILY PENNIE Stop: 06/16/21 08:59 Last Admin: 05/18/21 08:40 Dose: 1 tab Documented by: Nitroglycerin (Nitroglycerin Sl 0.4 Mg/Tab Tab) 0.4 mg SL UD PRN PRN Reason: Chest Pain Stop: 06/15/21 22:26 Ondansetron HCl (Ondansetron Inj 2 Mg/Ml 2 Ml Vial) 4 mg IV Q6H PRN PRN Reason: Nausea Stop: 06/15/21 22:26 Oxycodone HCl (Oxycodone Hcl Ir 5 Mg Tab (Immediate Release)) 5 mg PO Q4H PRN PRN Reason: Pain, Severe Stop: 05/30/21 22:26 Potassium Chloride (Potassium Chloride 10 Meq Tabcr) 10 meq PO DAILY PENNIE Stop: 06/16/21 08:59 Last Admin: 05/18/21 08:40 Dose: 10 meq Documented by: Potassium Chloride (Potassium Chloride 20 Meq/15 Ml Udc) 40 meq PO Q6H PENNIE Stop: 05/18/21 16:01 Last Admin: 05/18/21 10:38 Dose: 40 meq Documented by: Tizanidine HCl (Tizanidine Hcl 4 Mg Tablet) 4 mg PO Q8H PRN PRN Reason: muscle spasticity Stop: 06/15/21 22:26 Topiramate (Topiramate 100 Mg Tab) 100 mg PO BID [facility] Stop: 06/15/21 22:26 Last Admin: 05/18/21 08:40 Dose: 100 mg Documented by: Valacyclovir HCl (Valacyclovir Hcl 500 Mg Tablet) 1,000 mg PO DAILY [facility] Stop: 06/16/21 08:59 Last Admin: 05/18/21 08:39 Dose: 1,000 mg Documented by: Vitamin D (Cholecalciferol 1,000 Units 25 Mcg Tab) 5,000 units PO DAILY [facility] Stop: 06/16/21 08:59 Last Admin: 05/18/21 08:40 Dose: 5,000 units Documented by: (1) Fatigue Fatigue type: unspecified Qualified Code(s): R53.83 - Other fatigue
[2021-05-18] MEDS: oxyCODONE HCL IR 5 MG TAB (IMMEDIATE RELEASE) PO PRN (16:05)
[2021-05-19 07:10] LABS: BUN Creatinine Ratio 4.4 (10-20); Calcium 8.5 mg/dl (8.5-10.1); Creatinine Clr Calc Pharmacy 102.9 ml/min; Est GFR (African American) 119.4 ml/min; Est GFR (Non-African American) 103.1 ml/min; Magnesium 1.5 mg/dl (1.8-2.4); Phosphorus 2.1 mg/dl (2.5-4.9); Uric Acid 1.6 mg/dl (2.6-7.2)
[2021-05-19 07:17] LABS: ALC (manual) 1.02 K/uL (1.2-3.4); ANC (manual) 7.68 K/uL (1.4-6.5); Hematocrit (blood only) 26.9 % (37-47); Hemoglobin 8.7 g/dL (12.0-16.0); Lymphocytes # (manual) 1.02 K/uL (1.2-3.4); Mean Corpuscular Hgb Conc 32.3 g/dL (32-36); Mean Corpuscular Volume 89.7 fL (80-100); Mean Platelet Volume 9.9 fL (7.4-10.4); Monocytes # (manual) 1.54 K/uL (0.11-0.59); Neutrophils # (manual) 7.68 K/uL (1.4-6.5); Platelet Count 143 K/uL (130-400); RDW Coefficient of Variation 13.8 % (11.5-14.5); White Blood Count 10.24 K/uL (4.8-10.8)
--- NOTE | 2021-05-19 08:23 | Hospitalist Progress Note ---
Date of Service May 19, 2021 Assessment & Plan (1) Hypoxemia: Plan: Related to large left pleural effusion on CT chest performed on admission. Evaluated by pulmonology and no thoracentesis will be performed. Compressive atelectasis also present on imaging. Doubt pneumonia and also patient has no respiratory symptoms, procalcitonin negative. Cont current therapy. Consider PleurX catheter if needed in future. (2) Fatigue: Plan: Fatigue and hypotension - post chemotherapy treatment in setting of underlying MS. She is improving with supportive care and blood transfusion for symptomatic anemia present on admisison. Pt is afebrile. no evidence of infection at this point. Neutropenia has resolved. Blood cultures negative to date. Cont supportive care. PT/OT to evaluate for safety to return home. (3) Diffuse large B cell lymphoma: (4) Pancytopenia due to antineoplastic chemotherapy: Plan: DLBCL, double expressor significant dissease involving the abdomen and right lower chest region. received cyclophosphamide, adriamycin and etoposide between 05/04-05/08/2021. Received prophylactive pegfilgrastim on 05/13/2021 WBC now normalized No obvious infection present and she remains afebrile. She appears fatigued but also has underlying MS. Per daughter she believes admission fatigue was related to all the events prior to admission just being too much for her. She reports that typically getting out of the house to attend appointments is difficult. Symptomatic anemia present on admission with H/H 6.6/20.2. She received 1 unit of irradiated pRBCs with appropriate response. (5) Ileus: Plan: present on imaging studies, poor PO intake. Continues on a clear liquid diet. Cont supportive care. (6) Chronic pain: Plan: Chronic pain from post-operative back, not typically on narcotics. However, now on narcotics more regularly as a result of pain in her abdomen related to her cancer. She offers that this is controlled with the current pain regimen and she is having some diarrhea. (7) Pulmonary nodule: Plan: followup with outpatient imaging. (8) Herpes zoster ophthalmicus: Plan: completed with acyclovir (9) Multiple sclerosis: Plan: progressive, gait, bladder function and mental status affected somewhat by this. Not on treatment. (10) DVT prophylaxis: Plan: SCDs, lovenox Full Code Dispo-uncertain, she is ambulating with 1 assist in room. Will order PT/OT to ensure safety to return home when she clinically improves. Admission and Anticipated Discharge Date Admission Date: May 16, 2021 Subjective Pt seen in follow up of hypotension, pancytopenia, hypoxia Currently sitting up in bed, in NAD, on NC. Notified by nursing staff about elevated blood pressure, seems to be in the setting of pain medications Pt is awake and able to answer questions appropriately. Currently denies any chest pain, increased shortness of breath, incr. abd. pain, She is able to have some PO intake. Denies any fever, chills. Received unit of pRBC on admission. Pulmonary consulted for pl. effusion - currently no plan for thoracentesis. Dr. Goetz contacted and updated - recommends no IVF d/t third spacing and worsening of pl. effusion. Review of Systems Review of Systems: All systems reviewed & are unremarkable except as noted in Subjective Physical Exam Physical Exam: GENERAL: The patient is frail, drowsy F in NAD HEENT: NC/AT. EOMI. PERRL. Oral mucosa moist. NECK: No JVD or neck masses. CARDIOVASCULAR: S1 and S2 heard. Regular rate and rhythm. No murmur, no gallop. RESPIRATORY: Normal AP diameter. No accessory muscle use. Decreased breath sounds in bilateral lower lobes. No wheezing. ABDOMEN: Soft, bowel sounds present. Mild discomfort on the left side of the abdomen, no distention. NEURO: awake and alert, able to answer questions appropriately, speech slow but fluent. Moves extremities. EXTREMITIES: Bilateral lower extremity edema present, no erythema seen. Results & Data Results & Data ([facility]) Vital Signs (Past 12 Hours) Vital Signs Temp Pulse Pulse Resp BP Pulse Ox 05/19/21 03:21 36.7 C 75 16 95/53 L 97 05/18/21 22:20 76 05/18/21 22:00 36.7 C 77 20 100/65 94 Laboratory Results 05/19/21 05/19/21 05/19/21 Range/Units 06:10 06:10 06:10 WBC 10.24 (4.8-10.8) K/uL RBC 3.00 L (4.2-5.4) M/uL Hgb 8.7 L (12.0-16.0) g/dL Hct 26.9 L (37-47) % MCV 89.7 (80-100) fL MCH 29.0 (25-34) pg MCHC 32.3 (32-36) g/dL RDW Std Deviation 45.0 (36.4-46.3) fL RDW Coeff of Lico 13.8 (11.5-14.5) % Plt Count 143 D (130-400) K/uL MPV 9.9 (7.4-10.4) fL Neutrophils % (Manual) 75.0 % Lymphocytes % (Manual) 10.0 % Monocytes % (Manual) 15.0 % Eosinophils % (Manual) % Basophils % (Manual) % Myelocytes % (Man) % Neutrophils # (Manual) 7.68 H (1.4-6.5) K/uL Total Absolute Neuts 7.68 H (1.4-6.5) K/uL Lymphocytes # (Manual) 1.02 L (1.2-3.4) K/uL Total Abs Lymphocytes 1.02 L (1.2-3.4) K/uL Monocytes # (Manual) 1.54 H (0.11-0.59) K/uL Eosinophils # (Manual) (0-0.5) K/uL Basophils # (Manual) (0-0.2) K/uL Myelocytes # (Manual) (0-0) K/uL Sodium 133 L (136-145) mmol/L Potassium 4.0 D (3.5-5.1) mmol/L Chloride 100 (98-107) mmol/L Carbon Dioxide 27 (21-32) mmol/L Anion Gap 6.0 (3-11) BUN 2 L (7-18) mg/dl Creatinine 0.51 L (0.6-1.2) mg/dl Est Cr Clr Drug Dosing 102.9 ml/min Est GFR ( Amer) 119.4 ml/min Est GFR (Non-Af Amer) 103.1 ml/min BUN/Creatinine Ratio 4.4 L (10-20) Glucose 68 L (70-99) mg/dl Uric Acid 1.6 L (2.6-7.2) mg/dl Calcium 8.5 (8.5-10.1) mg/dl Phosphorus 2.1 L (2.5-4.9) mg/dl Magnesium 1.5 L (1.8-2.4) mg/dl Lactate Dehydrogenase 227 (84-246) U/L 05/18/21 05/18/21 05/18/21 Range/Units 07:15 07:15 07:15 WBC (4.8-10.8) K/uL RBC (4.2-5.4) M/uL Hgb (12.0-16.0) g/dL Hct (37-47) % MCV (80-100) fL MCH (25-34) pg MCHC (32-36) g/dL RDW Std Deviation (36.4-46.3) fL RDW Coeff of Lico (11.5-14.5) % Plt Count (130-400) K/uL MPV (7.4-10.4) fL Neutrophils % (Manual) 51.0 % Lymphocytes % (Manual) 28.0 % Monocytes % (Manual) 14.0 % Eosinophils % (Manual) 3.0 % Basophils % (Manual) 2.0 % Myelocytes % (Man) 2.0 % Neutrophils # (Manual) 1.03 L (1.4-6.5) K/uL Total Absolute Neuts 1.03 L (1.4-6.5) K/uL Lymphocytes # (Manual) 0.57 L (1.2-3.4) K/uL Total Abs Lymphocytes 0.57 L (1.2-3.4) K/uL Monocytes # (Manual) 0.28 (0.11-0.59) K/uL Eosinophils # (Manual) 0.06 (0-0.5) K/uL Basophils # (Manual) 0.04 (0-0.2) K/uL Myelocytes # (Manual) 0.04 H (0-0) K/uL Sodium 136 (136-145) mmol/L Potassium 3.1 L (3.5-5.1) mmol/L Chloride 100 (98-107) mmol/L Carbon Dioxide 26 (21-32) mmol/L Anion Gap 10.0 (3-11) BUN 4 L (7-18) mg/dl Creatinine 0.45 L (0.6-1.2) mg/dl Est Cr Clr Drug Dosing 116.6 ml/min Est GFR ( Amer) 124.5 ml/min Est GFR (Non-Af Amer) 107.4 ml/min BUN/Creatinine Ratio 8.3 L (10-20) Glucose 91 (70-99) mg/dl Uric Acid 1.9 L (2.6-7.2) mg/dl Calcium 8.2 L (8.5-10.1) mg/dl Phosphorus 2.6 (2.5-4.9) mg/dl Magnesium 1.4 L (1.8-2.4) mg/dl Lactate Dehydrogenase 211 (84-246) U/L Medications Administered Current Inpatient Medications Acetaminophen (Acetaminophen 325 Mg Tab) 650 mg PO Q4H PRN PRN Reason: Pain or Fever Stop: 06/15/21 22:26 Last Admin: 05/18/21 02:45 Dose: 650 mg Documented by: Allopurinol (Allopurinol 300 Mg Tab) 300 mg PO DAILY PENNIE Stop: 06/16/21 08:59 Last Admin: 05/18/21 08:41 Dose: 300 mg Documented by: Anastrozole (Anastrozole 1 Mg Tab) 1 mg PO DAILY PENNIE Stop: 06/16/21 08:59 Last Admin: 05/18/21 08:41 Dose: 1 mg Documented by: Baclofen (Baclofen 20 Mg Tab) 20 mg PO BID PENNIE Stop: 06/15/21 22:26 Last Admin: 05/18/21 20:02 Dose: 20 mg Documented by: Bupropion HCl (Bupropion Sr 100 Mg Tabcr) 200 mg PO BID PENNIE Stop: 06/15/21 22:26 Last Admin: 05/18/21 20:03 Dose: 200 mg Documented by: Docusate Sodium (Docusate Sodium 100 Mg Cap) 100 mg PO BID PRN PRN Reason: Constipation Stop: 06/15/21 22:26 Escitalopram Oxalate (Escitalopram Oxalate 10 Mg Tab) 10 mg PO BID PENNIE Stop: 06/15/21 22:26 Last Admin: 05/18/21 20:02 Dose: 10 mg Documented by: Fluconazole (Fluconazole 100 Mg Tab) 400 mg PO DAILY PENNIE Stop: 06/16/21 08:59 Last Admin: 05/18/21 08:40 Dose: 400 mg Documented by: Gabapentin (Gabapentin 800 Mg Tab) 800 mg PO BID PENNIE Stop: 06/15/21 22:26 Last Admin: 05/18/21 20:02 Dose: 800 mg Documented by: Gabapentin (Gabapentin 400 Mg Cap) 400 mg PO 1400 PENNIE Stop: 06/16/21 13:59 Last Admin: 05/18/21 14:41 Dose: 400 mg Documented by: Magnesium Sulfate/Dextrose (Magnesium Sulfate / D5w) 1 gm in 100 mls @ 50 mls/hr IV Q2H STA Stop: 05/19/21 10:18 Levofloxacin (Levofloxacin 500 Mg Tab) 500 mg PO DAILY [facility] Stop: 06/16/21 08:59 Last Admin: 05/18/21 08:40 Dose: 500 mg Documented by: Meclizine HCl (Meclizine Hcl 25 Mg Tab) 25 mg PO TID PRN PRN Reason: MULTIPLE SCLEROSIS Stop: 06/15/21 22:42 Multivitamins (Multivitamin Tab) 1 tab PO DAILY PENNIE Stop: 06/16/21 08:59 Last Admin: 05/18/21 08:40 Dose: 1 tab Documented by: Nitroglycerin (Nitroglycerin Sl 0.4 Mg/Tab Tab) 0.4 mg SL UD PRN PRN Reason: Chest Pain Stop: 06/15/21 22:26 Ondansetron HCl (Ondansetron Inj 2 Mg/Ml 2 Ml Vial) 4 mg IV Q6H PRN PRN Reason: Nausea Stop: 06/15/21 22:26 Oxycodone HCl (Oxycodone Hcl Ir 5 Mg Tab (Immediate Release)) 5 mg PO Q4H PRN PRN Reason: Pain, Severe Stop: 05/30/21 22:26 Last Admin: 05/18/21 16:05 Dose: 5 mg Documented by: Potassium Chloride (Potassium Chloride 10 Meq Tabcr) 10 meq PO DAILY [facility] Stop: 06/16/21 08:59 Last Admin: 05/18/21 08:40 Dose: 10 meq Documented by: Tizanidine HCl (Tizanidine Hcl 4 Mg Tablet) 4 mg PO Q8H PRN PRN Reason: muscle spasticity Stop: 06/15/21 22:26 Topiramate (Topiramate 100 Mg Tab) 100 mg PO BID PENNIE Stop: 06/15/21 22:26 Last Admin: 05/18/21 20:04 Dose: 100 mg Documented by: Valacyclovir HCl (Valacyclovir Hcl 500 Mg Tablet) 1,000 mg PO DAILY [facility] Stop: 06/16/21 08:59 Last Admin: 05/18/21 08:39 Dose: 1,000 mg Documented by: Vitamin D (Cholecalciferol 1,000 Units 25 Mcg Tab) 5,000 units PO DAILY PENNIE Stop: 06/16/21 08:59 Last Admin: 05/18/21 08:40 Dose: 5,000 units Documented by: (1) Fatigue Fatigue type: unspecified Qualified Code(s): R53.83 - Other fatigue
[2021-05-19] MEDS: TOPIRAMATE 100 MG TAB PO SCH ×2 (08:36→20:52)
[2021-05-19] MEDS: oxyCODONE HCL IR 5 MG TAB (IMMEDIATE RELEASE) PO PRN ×2 (08:36→16:37)
[2021-05-19] MEDS: BACLOFEN 20 MG TAB PO SCH ×2 (08:36→20:53)
[2021-05-19] MEDS: MECLIZINE HCL 25 MG TAB PO PRN (08:36)
[2021-05-19] MEDS: buPROPion SR 100 MG TABCR PO SCH ×2 (08:36→20:53)
[2021-05-19] MEDS: ESCITALOPRAM OXALATE 10 MG TAB PO SCH ×2 (08:36→20:53)
[2021-05-19] MEDS: MULTIVITAMIN TAB PO SCH (08:37)
[2021-05-19] MEDS: POTASSIUM CHLORIDE 10 MEQ TABCR PO SCH (08:37)
[2021-05-19] MEDS: levoFLOXacin 500 MG TAB PO SCH (08:37)
[2021-05-19] MEDS: valACYclovir HCL 500 MG TABLET PO SCH (08:37)
[2021-05-19] MEDS: CHOLECALCIFEROL 1,000 UNITS 25 MCG TAB PO SCH (08:37)
[2021-05-19] MEDS: GABAPENTIN 800 MG TAB PO SCH ×2 (08:37→20:54)
[2021-05-19] MEDS: tiZANidine HCL 4 MG TABLET PO PRN (08:37)
[2021-05-19] MEDS: allopurinoL 300 MG TAB PO SCH (08:37)
[2021-05-19] MEDS: ANASTROZOLE 1 MG TAB PO SCH (08:37)
[2021-05-19] MEDS: FLUCONAZOLE 100 MG TAB PO SCH (08:37)
[2021-05-19] MEDS: MAGNESIUM SULFATE / D5W 1 GM/100 ML BAG IV SCH ×2 (08:41→11:03)
[2021-05-19] MEDS: ALBUMIN 25% 100 mL 25 GM/100 ML VIAL IV SCH (12:49)
[2021-05-19] MEDS: GABAPENTIN 400 MG CAP PO SCH (13:22)
[2021-05-19] MEDS: ENOXAPARIN INJ 30 MG/0.3 ML SYR SQ SCH (16:36)
[2021-05-20 07:11] LABS: Hematocrit (blood only) 27.3 % (37-47); Hemoglobin 8.9 g/dL (12.0-16.0); Mean Corpuscular Hemoglobin 29.2 pg (25-34); Mean Corpuscular Hgb Conc 32.6 g/dL (32-36); Mean Corpuscular Volume 89.5 fL (80-100); Mean Platelet Volume 9.5 fL (7.4-10.4); Platelet Count 238 K/uL (130-400); RDW Coefficient of Variation 14.2 % (11.5-14.5); RDW Standard Deviation 45.7 fL (36.4-46.3); Red Blood Count 3.05 M/uL (4.2-5.4); White Blood Count 28.09 K/uL (4.8-10.8)
[2021-05-20 07:27] LABS: Dohle Bodies 1+; Toxic Granulation 1+; Toxic Vacuolation 1+
[2021-05-20 07:31] LABS: BUN Creatinine Ratio 3.2 (10-20); Calcium 8.9 mg/dl (8.5-10.1); Est GFR (African American) 107.6 ml/min; Est GFR (Non-African American) 92.9 ml/min; Magnesium 1.6 mg/dl (1.8-2.4); Potassium 3.6 mmol/L (3.5-5.1)
[2021-05-20 07:40] LABS: Metamyelocytes # (manual) 0.28 K/uL (0-0); Monocytes # (manual) 1.97 K/uL (0.11-0.59); Myelocytes # (manual) 0.84 K/uL (0-0)
[2021-05-20 07:44] LABS: Phosphorus 1.4 mg/dl (2.5-4.9)
[2021-05-20] MEDS ORDERED: POTASSIUM CHLORIDE CRTAB 20 MEQ TABCR PO STA (07:55)
--- NOTE | 2021-05-20 07:56 | Hospitalist Progress Note ---
Date of Service May 20, 2021 Assessment & Plan (1) Hypoxemia: Plan: Related to large left pleural effusion on CT chest performed on admission. Evaluated by pulmonology and no thoracentesis will be performed. Compressive atelectasis also present on imaging. Doubt pneumonia and also patient has no respiratory symptoms, procalcitonin negative. Cont current therapy. Consider PleurX catheter if needed in future. Pulmonary medicine consulted, considering possible thoracentesis versus Pleurx (2) Fatigue: Plan: Fatigue and hypotension - post chemotherapy treatment in setting of underlying MS. She is improving with supportive care and blood transfusion for symptomatic anemia present on admisison. Pt is afebrile. no evidence of infection at this point. Neutropenia has resolved. Blood cultures negative to date. Cont supportive care. PT/OT to evaluate for safety to return home. Patient hypotensive again, discussed with pulmonary/ICU. Obtain cortisol levels , random cortisol level, will start hydrocortisone. Blood pressure may have been lower due to medications as well/pain medications. Discussed with Dr. Goetz, concern for possible pericardial effusion after chemotherapy, obtained echocardiogram. (3) Diffuse large B cell lymphoma: (4) Pancytopenia due to antineoplastic chemotherapy: Plan: DLBCL, double expressor significant dissease involving the abdomen and right lower chest region. received cyclophosphamide, adriamycin and etoposide between 05/04-05/08/2021. Received prophylactive pegfilgrastim on 05/13/2021 WBC now normalized No obvious infection present and she remains afebrile. She appears fatigued but also has underlying MS. Per daughter she believes admission fatigue was related to all the events prior to admission just being too much for her. She reports that typically getting out of the house to attend appointments is difficult. Symptomatic anemia present on admission with H/H 6.6/20.2. She received 1 unit of irradiated pRBCs with appropriate response. Patient has been drowsy, possible worsening MS. Will discuss further with neurology. (5) Ileus: Plan: present on imaging studies, poor PO intake. Continues on a clear liquid diet. Cont supportive care. (6) Chronic pain: Plan: Chronic pain from post-operative back, not typically on narcotics. However, now on narcotics more regularly as a result of pain in her abdomen related to her cancer. She offers that this is controlled with the current pain regimen and she is having some diarrhea. (7) Pulmonary nodule: Plan: followup with outpatient imaging. (8) Herpes zoster ophthalmicus: Plan: completed with acyclovir (9) Multiple sclerosis: Plan: progressive, gait, bladder function and mental status affected somewhat by this. Not on treatment. (10) DVT prophylaxis: Plan: SCDs, lovenox Full Code -Palliative medicine consulted to address goals of care. Dispo-uncertain, she is ambulating with 1 assist in room. PT/OT Admission and Anticipated Discharge Date Admission Date: May 16, 2021 Subjective Pt seen in follow up of hypotension, pancytopenia, hypoxia Currently sitting up in bed, in NAD, on NC. Currently denies any chest pain, increased shortness of breath, incr. abd. pain, She is able to have some PO intake. Denies any fever, chills. Received unit of pRBC on admission. Blood pressure again on the lower side, oxygen requirement now at 4 L, will discuss further with pulmonary medicine Dr. Goetz, from oncology also updated, recommend to repeat echo Review of Systems Review of Systems: All systems reviewed & are unremarkable except as noted in Subjective Physical Exam Physical Exam: GENERAL: The patient is frail, drowsy F in NAD HEENT: NC/AT. EOMI. PERRL. Oral mucosa moist. NECK: No JVD or neck masses. CARDIOVASCULAR: S1 and S2 heard. Regular rate and rhythm. No murmur, no gallop. RESPIRATORY: Normal AP diameter. No accessory muscle use. Decreased breath sounds in bilateral lower lobes. No wheezing. ABDOMEN: Soft, bowel sounds present. Mild discomfort on the left side of the abdomen, no distention. NEURO:drowsy but able to answer questions appropriately, speech slow but fluent. Moves extremities. EXTREMITIES: Bilateral lower extremity edema present, no erythema seen. Results & Data Results & Data ([facility]) Vital Signs (Past 12 Hours) Vital Signs Temp Pulse Pulse Resp BP Pulse Ox 05/20/21 07:40 36.9 C 89 19 107/67 92 05/20/21 04:08 37.3 C 87 18 95/51 L 93 05/19/21 23:45 36.8 C 89 100/65 91 05/19/21 22:53 80 05/19/21 20:20 37 C 75 18 90/53 L 95 Laboratory Results 05/20/21 05/20/21 Range/Units 06:39 06:39 WBC 28.09 H (4.8-10.8) K/uL RBC 3.05 L (4.2-5.4) M/uL Hgb 8.9 L (12.0-16.0) g/dL Hct 27.3 L (37-47) % MCV 89.5 (80-100) fL MCH 29.2 (25-34) pg MCHC 32.6 (32-36) g/dL RDW Std Deviation 45.7 (36.4-46.3) fL RDW Coeff of Lico 14.2 (11.5-14.5) % Plt Count 238 D (130-400) K/uL MPV 9.5 (7.4-10.4) fL Neutrophils % (Manual) 89.0 % Monocytes % (Manual) 7.0 % Metamyelocytes % (Man) 1.0 % Myelocytes % (Man) 3.0 % Neutrophils # (Manual) 25.00 H (1.4-6.5) K/uL Total Absolute Neuts 25.00 H (1.4-6.5) K/uL Total Abs Lymphocytes 0.00 L (1.2-3.4) K/uL Monocytes # (Manual) 1.97 H (0.11-0.59) K/uL Metamyelocytes # (Man) 0.28 H (0-0) K/uL Myelocytes # (Manual) 0.84 H (0-0) K/uL Toxic Granulation 1+ Toxic Vacuolation 1+ Dohle Bodies 1+ Sodium 131 L (136-145) mmol/L Potassium 3.6 (3.5-5.1) mmol/L Chloride 99 (98-107) mmol/L Carbon Dioxide 26 (21-32) mmol/L Anion Gap 6.0 (3-11) BUN 2 L (7-18) mg/dl Creatinine 0.70 (0.6-1.2) mg/dl Est Cr Clr Drug Dosing 75.0 ml/min Est GFR ( Amer) 107.6 ml/min Est GFR (Non-Af Amer) 92.9 ml/min BUN/Creatinine Ratio 3.2 L (10-20) Glucose 90 (70-99) mg/dl Calcium 8.9 (8.5-10.1) mg/dl Phosphorus 1.4 L* (2.5-4.9) mg/dl Magnesium 1.6 L (1.8-2.4) mg/dl Medications Administered Current Inpatient Medications Acetaminophen (Acetaminophen 325 Mg Tab) 650 mg PO Q4H PRN PRN Reason: Pain or Fever Stop: 06/15/21 22:26 Last Admin: 05/18/21 02:45 Dose: 650 mg Documented by: Allopurinol (Allopurinol 300 Mg Tab) 300 mg PO DAILY PENNIE Stop: 06/16/21 08:59 Last Admin: 05/19/21 08:37 Dose: 300 mg Documented by: Anastrozole (Anastrozole 1 Mg Tab) 1 mg PO DAILY PENNIE Stop: 06/16/21 08:59 Last Admin: 05/19/21 08:37 Dose: 1 mg Documented by: Baclofen (Baclofen 20 Mg Tab) 20 mg PO BID PENNIE Stop: 06/15/21 22:26 Last Admin: 05/19/21 20:53 Dose: 20 mg Documented by: Bupropion HCl (Bupropion Sr 100 Mg Tabcr) 200 mg PO BID PENNIE Stop: 06/15/21 22:26 Last Admin: 05/19/21 20:53 Dose: 200 mg Documented by: Docusate Sodium (Docusate Sodium 100 Mg Cap) 100 mg PO BID PRN PRN Reason: Constipation Stop: 06/15/21 22:26 Enoxaparin Sodium (Enoxaparin Inj 30 Mg/0.3 Ml Syr) 30 mg SQ QAM PENNIE Stop: 06/18/21 15:59 Last Admin: 05/19/21 16:36 Dose: 30 mg Documented by: Escitalopram Oxalate (Escitalopram Oxalate 10 Mg Tab) 10 mg PO BID PENNIE Stop: 06/15/21 22:26 Last Admin: 05/19/21 20:53 Dose: 10 mg Documented by: Fluconazole (Fluconazole 100 Mg Tab) 400 mg PO DAILY PENNIE Stop: 06/16/21 08:59 Last Admin: 05/19/21 08:37 Dose: 400 mg Documented by: Gabapentin (Gabapentin 800 Mg Tab) 800 mg PO BID PENNIE Stop: 06/15/21 22:26 Last Admin: 05/19/21 20:54 Dose: 800 mg Documented by: Gabapentin (Gabapentin 400 Mg Cap) 400 mg PO 1400 PENNIE Stop: 06/16/21 13:59 Last Admin: 05/19/21 13:22 Dose: 400 mg Documented by: Albumin Human (Albumin 25% 100 Ml) 25 gm in 100 mls @ 50 mls/hr IV Q24H [facility] Stop: 05/22/21 12:14 Last Infusion: 05/19/21 14:14 Dose: Infused Documented by: Levofloxacin (Levofloxacin 500 Mg Tab) 500 mg PO DAILY [facility] Stop: 06/16/21 08:59 Last Admin: 05/19/21 08:37 Dose: 500 mg Documented by: Magnesium Oxide (Magnesium Oxide 400 Mg Tab) 400 mg PO BID [facility] Stop: 06/19/21 08:59 Meclizine HCl (Meclizine Hcl 25 Mg Tab) 25 mg PO TID PRN PRN Reason: MULTIPLE SCLEROSIS Stop: 06/15/21 22:42 Last Admin: 05/19/21 08:36 Dose: 25 mg Documented by: Multivitamins (Multivitamin Tab) 1 tab PO DAILY [facility] Stop: 06/16/21 08:59 Last Admin: 05/19/21 08:37 Dose: 1 tab Documented by: Nitroglycerin (Nitroglycerin Sl 0.4 Mg/Tab Tab) 0.4 mg SL UD PRN PRN Reason: Chest Pain Stop: 06/15/21 22:26 Ondansetron HCl (Ondansetron Inj 2 Mg/Ml 2 Ml Vial) 4 mg IV Q6H PRN PRN Reason: Nausea Stop: 06/15/21 22:26 Oxycodone HCl (Oxycodone Hcl Ir 5 Mg Tab (Immediate Release)) 2.5 mg PO Q4H PRN PRN Reason: Pain, Severe Stop: 05/30/21 22:26 Potassium Chloride (Potassium Chloride 10 Meq Tabcr) 10 meq PO DAILY [facility] Stop: 06/16/21 08:59 Last Admin: 05/19/21 08:37 Dose: 10 meq Documented by: Potassium Phosphate (Pot Phosphate Monobasic W/ Sod Tab) 2 tab PO TID [facility] Stop: 06/19/21 08:59 Tizanidine HCl (Tizanidine Hcl 4 Mg Tablet) 4 mg PO Q8H PRN PRN Reason: muscle spasticity Stop: 06/15/21 22:26 Last Admin: 05/19/21 08:37 Dose: 4 mg Documented by: Topiramate (Topiramate 100 Mg Tab) 100 mg PO BID [facility] Stop: 06/15/21 22:26 Last Admin: 05/19/21 20:52 Dose: 100 mg Documented by: Valacyclovir HCl (Valacyclovir Hcl 500 Mg Tablet) 1,000 mg PO DAILY PENNIE Stop: 06/16/21 08:59 Last Admin: 05/19/21 08:37 Dose: 1,000 mg Documented by: Vitamin D (Cholecalciferol 1,000 Units 25 Mcg Tab) 5,000 units PO DAILY PENNIE Stop: 06/16/21 08:59 Last Admin: 05/19/21 08:37 Dose: 5,000 units Documented by: (1) Fatigue Fatigue type: unspecified Qualified Code(s): R53.83 - Other fatigue
[2021-05-20] MEDS: POT PHOSPHATE MONOBASIC W/ SOD TAB PO SCH ×3 (08:14→19:57)
[2021-05-20] MEDS: MAGNESIUM OXIDE 400 MG TAB PO SCH ×2 (08:14→19:59)
[2021-05-20] MEDS: BACLOFEN 20 MG TAB PO SCH ×2 (08:15→19:58)
[2021-05-20] MEDS: CHOLECALCIFEROL 1,000 UNITS 25 MCG TAB PO SCH (08:15)
[2021-05-20] MEDS: TOPIRAMATE 100 MG TAB PO SCH ×2 (08:15→19:57)
[2021-05-20] MEDS: buPROPion SR 100 MG TABCR PO SCH ×2 (08:17→19:56)
[2021-05-20] MEDS: FLUCONAZOLE 100 MG TAB PO SCH (08:17)
[2021-05-20] MEDS: ANASTROZOLE 1 MG TAB PO SCH (08:17)
[2021-05-20] MEDS: ENOXAPARIN INJ 30 MG/0.3 ML SYR SQ SCH (08:18)
[2021-05-20] MEDS: ESCITALOPRAM OXALATE 10 MG TAB PO SCH ×2 (08:18→19:58)
[2021-05-20] MEDS: GABAPENTIN 800 MG TAB PO SCH ×2 (08:18→19:58)
[2021-05-20] MEDS: levoFLOXacin 500 MG TAB PO SCH (08:18)
[2021-05-20] MEDS: MULTIVITAMIN TAB PO SCH (08:19)
[2021-05-20] MEDS: valACYclovir HCL 500 MG TABLET PO SCH (08:19)
[2021-05-20] MEDS: POTASSIUM CHLORIDE 10 MEQ TABCR PO SCH (08:19)
[2021-05-20] MEDS: allopurinoL 300 MG TAB PO SCH (08:20)
[2021-05-20] MEDS: ALBUMIN 25% 100 mL 25 GM/100 ML VIAL IV SCH (11:57)
--- NOTE | 2021-05-20 13:13 | XRay Report ---
XR chest 1V portable CLINICAL HISTORY: f/u TECHNIQUE: Single frontal radiograph of the chest was obtained. Comparison: Comparison is made to chest one view 07/16/2020 FINDINGS: Right portacatheter is unchanged. Calcified aortic knob is seen. Interval increase in right pleural e ffusion. Right lower lung airspace opacity is also increase in prominence. IMPRESSION: Interval increase in right pleural effusion which is now moderate in size. Right lower lung airspace opacity likely represents atelectasis, pneumonia, and/or aspiration. ACT 112: Negative or not required by law. Electronically signed by: Hua Lewis M.D. 05/20/2021 1:12 PM
[2021-05-20] MEDS: GABAPENTIN 400 MG CAP PO SCH (14:37)
--- NOTE | 2021-05-20 17:44 | Pulmonology Progress Note ---
Date of Service May 20, 2021 Assessment & Plan (1) Pleural effusion: (2) Hypoxemia: (3) Pulmonary nodule: Plan: Impression: 60-year-old female with history of breast cancer and lymphoma currently on chemotherapy. She is admitted with fatigue and CT scan showed ileus as well as a pleural effusion. --Right side pleural effusion Patient apparently had a thoracentesis done at [place] prior to presentation when she was discharged on room air Patient does have moderate amount of right-sided pleural effusion She has been needing 4 L oxygen since coming to the hospital She is not in any acute respiratory distress --Acute hypoxic respiratory failure Likely secondary to pleural effusion --History of lymphoma On chemotherapy --History of progress MS Not on any medication Plan: Pulmonary consulted again as patient is requiring 4 L now of oxygen Her platelets have improved from before likely from filgrastim that she got Thoracentesis could be thought off but I do not think patient hypotension episodes are from the pleural effusion Patient might get more hypotensive if we take the fluid out The pleural effusion was tapped once already in the past. Could be from lymphoma. There is a high possibility Consideration for Pleurx catheter versus thoracentesis Patient's hypotensive episodes could be from opioids which the patient is getting Her random cortisol is also on the lower side. Starting the patient on hydrocortisone could be thought off Her mental status at the time of examination was lethargic. As per the was also bedside she has had episode like this in the past because of her MS but never as severe Neurology consultation might be beneficial to get the point of view Hold Lovenox for possible thoracentesis tomorrow Case was discussed with Dr. Vega Please note the above document was generated using voice recognition software. It may contain grammatical, syntax or spelling errors.Any formal questions or concerns about the content, text or information contained within the body of this dictation should be directly addressed to the provider for clarification. Admission and Anticipated Discharge Date Admission Date: May 16, 2021 Subjective Patient seen and examined at bedside. Patient was confused Patient is also in the room She denied any chest pain Denied any shortness of breath No cough. She was maintaining her saturation on oxygen Review of Systems Review of Systems: Unobtainable due to mental health condition Physical Exam Physical Exam: Constitutional: No acute distress HEENT: EOMI, PERRLA Respiratory system: Decreased air entry on the right side, no wheeze, rhonchi, positive crackles right lower lobe CVS: S1-S2 positive, no murmurs or gallops, right-sided Port-A-Cath Abdomen: Soft, nontender, nondistended, positive bowel sounds x4, obese Extremities: +2 pulses bilaterally radialis/ dorsalis pedis, no cyanosis, no edema Neuro: Awake alert oriented only to self Psych: Unable to assess G/U: No Goldman Skin: no rashes, warm and dry Lymphatic: no cervical or axillary lymphadenopathy Results & Data Results & Data ([facility]) Vital Signs (Past 12 Hours) Vital Signs Temp Pulse Resp BP Pulse Ox 05/20/21 15:58 37.1 C 91 H 18 120/70 93 05/20/21 11:28 37.3 C 88 17 94/53 L 93 05/20/21 10:59 80/52 L 05/20/21 07:40 36.9 C 89 19 107/67 92 05/20/21 06:39 05/20/21 06:39 PG Care Time/CCT Total # of Minutes Spent Total Time Spent with Patient: Total time spent is greater than 50% in coordination of care (as documented) at patient's floor/unit and/or counseling patient: Coding Level of Care Code 90126 Subseq Hosp Care Lvl 3 Diagnoses Pleural effusion J90 Hypoxemia R09.02 Pulmonary nodule R91.1
[2021-05-20] MEDS ORDERED: HYDROCORTISONE SOD 100 MG in SYRINGE 0 ML IV ONE (19:00)
[2021-05-21] MEDS: HYDROCORTISONE SOD 50 MG in SYRINGE 0 ML IV SCH ×3 (04:48→19:45)
[2021-05-21 06:48] LABS: Hematocrit (blood only) 25.2 % (37-47); Hemoglobin 8.5 g/dL (12.0-16.0); Mean Corpuscular Hemoglobin 29.5 pg (25-34); Mean Corpuscular Hgb Conc 33.7 g/dL (32-36); Mean Corpuscular Volume 87.5 fL (80-100); Mean Platelet Volume 9.2 fL (7.4-10.4); Platelet Count 278 K/uL (130-400); RDW Coefficient of Variation 14.4 % (11.5-14.5); RDW Standard Deviation 44.3 fL (36.4-46.3); Red Blood Count 2.88 M/uL (4.2-5.4); White Blood Count 41.27 K/uL (4.8-10.8)
[2021-05-21 07:22] LABS: BUN Creatinine Ratio 8.5 (10-20); Calcium 8.7 mg/dl (8.5-10.1); Creatinine Clr Calc Pharmacy 119.3 ml/min; Est GFR (African American) 125.4 ml/min; Est GFR (Non-African American) 108.2 ml/min; Magnesium 1.5 mg/dl (1.8-2.4); Phosphorus 3.4 mg/dl (2.5-4.9); Potassium 2.7 mmol/L (3.5-5.1)
[2021-05-21] MEDS ORDERED: MAGNESIUM SULFATE / D5W 1 GM/100 ML BAG IV ONE (08:39)
[2021-05-21] MEDS ORDERED: POTASSIUM CHLORIDE CRTAB 20 MEQ TABCR PO STA (08:39)
--- NOTE | 2021-05-21 08:39 | Hospitalist Progress Note ---
Date of Service May 21, 2021 Assessment & Plan (1) Hypoxemia: Plan: Related to large left pleural effusion on CT chest performed on admission. Evaluated by pulmonology and no thoracentesis will be performed. Compressive atelectasis also present on imaging. Doubt pneumonia and also patient has no respiratory symptoms, procalcitonin negative. Cont current therapy. Consider PleurX catheter if needed in future. Pulmonary medicine consulted, considering possible thoracentesis versus Pleurx (2) Fatigue: Plan: Fatigue and hypotension - post chemotherapy treatment in setting of underlying MS. She is improving with supportive care and blood transfusion for symptomatic anemia present on admisison. Pt is afebrile. no evidence of infection at this point. Neutropenia has resolved. Blood cultures negative to date. Cont supportive care. PT/OT to evaluate for safety to return home. Patient hypotensive again (05/20), discussed with pulmonary/machine assembler. Obta ined cortisol levels, random cortisol level low, started hydrocortisone. Now BP much improved 155/66 Blood pressure may have been lower due to medications as well/pain medications. Discussed with Dr. Goetz, concern for possible pericardial effusion after chemotherapy, obtained echocardiogram. Echo -LV is normal in size. There is normal LV wall thickness. LV wall motion is normal. EF 60 to 65%. There is no significant valvular disease. There is no pericardial effusion. Moderate size right pleural effusion. Normal inferior vena cava diameter and respiratory variation suggesting normal central venous pressure. Electrolyte abnormalities -Multiple electrolyte abnormalities noted likely secondary to poor p.o. intake, and underlying disease (3) Diffuse large B cell lymphoma: (4) Pancytopenia due to antineoplastic chemotherapy: Plan: DLBCL, double expressor significant dissease involving the abdomen and right lower chest region. received cyclophosphamide, adriamycin and etoposide between 05/04-05/08/2021. Received prophylactive pegfilgrastim on 05/13/2021 WBC now normalized No obvious infection present and she remains afebrile. She appears fatigued but also has underlying MS. Per daughter she believes a dmission fatigue was related to all the events prior to admission just being too much for her. She reports that typically getting out of the house to attend appointments is difficult. Symptomatic anemia present on admission with H/H 6.6/20.2. She received 1 unit of irradiated pRBCs with appropriate response. Patient has been drowsy, possible worsening MS. Will discuss further with neurology. (5) Ileus: Plan: present on imaging studies, poor PO intake. Continues on a clear liquid diet. Cont supportive care. (6) Chronic pain: Plan: Chronic pain from post-operative back, not typically on narcotics. However, now on narcotics more regularly as a result of pain in her abdomen related to her cancer. She offers that this is controlled with the current pain regimen and she is having some diarrhea. (7) Pulmonary nodule: Plan: followup with outpatient imaging. (8) Herpes zoster ophthalmicus: Plan: completed with acyclovir (9) Multiple sclerosis: Plan: progressive, gait, bladder function and mental status affected somewhat by this. Not on treatment. (10) DVT prophylaxis: Plan: SCDs, lovenox Full Code -Palliative medicine consulted to address goals of care. Dispo-uncertain, she is ambulating with 1 assist in room. PT/OT Admission and Anticipated Discharge Date Admission Date: May 16, 2021 Subjective Pt seen in follow up of hypotension, pancytopenia, hypoxia Currently sitting up in bed, in NAD, on NC. Patient is drowsy however able to answer simple questions appropriately. Currently denies any chest pain, increased shortness of breath, incr. abd. pain, She is able to have some PO intake. Denies any fever, chills. Received unit of pRBC on admission. BP on the lower side yesterday, started on hydrocortisone after discussing with pulmonary/machine assembler, BP now much improved Dr. Goetz, from oncology updated yesterday, recommended to repeat echo Review of Systems Review of Systems: All systems reviewed & are unremarkable except as noted in Subjective Physical Exam Physical Exam: GENERAL: The patient is frail, drowsy F in NAD HEENT: NC/AT. EOMI. PERRL. Oral mucosa moist. NECK: No JVD or neck masses. CARDIOVASCULAR: S1 and S2 heard. Regular rate and rhythm. No murmur, no gallop. RESPIRATORY: Normal AP diameter. No accessory muscle use. Decreased breath sounds in bilateral lower lobes. No wheezing. ABDOMEN: Soft, bowel sounds present. Mild discomfort on the left side of the abdomen, no distention. NEURO:drowsy but able to answer questions appropriately, speech slow but fluent. Moves extremities. EXTREMITIES: Bilateral lower extremity edema present, no erythema seen. Results & Data Results & Data ([facility]) Vital Signs (Past 12 Hours) Vital Signs Temp Pulse Pulse Resp BP Pulse Ox 05/21/21 08:12 36.6 C 86 19 155/66 H 92 05/21/21 04:00 37.5 C 88 18 126/67 93 05/20/21 23:23 37.0 C 88 18 132/80 91 05/20/21 23:00 89 Laboratory Results 05/21/21 05/21/21 05/21/21 Range/Units 06:15 06:15 06:15 WBC 41.27 H* D (4.8-10.8) K/uL RBC 2.88 L (4.2-5.4) M/uL Hgb 8.5 L (12.0-16.0) g/dL Hct 25.2 L (37-47) % MCV 87.5 (80-100) fL MCH 29.5 (25-34) pg MCHC 33.7 (32-36) g/dL RDW Std Deviation 44.3 (36.4-46.3) fL RDW Coeff of Lico 14.4 (11.5-14.5) % Plt Count 278 (130-400) K/uL MPV 9.2 (7.4-10.4) fL Sodium 132 L (136-145) mmol/L Potassium 2.7 L D (3.5-5.1) mmol/L Chloride 97 L (98-107) mmol/L Carbon Dioxide 24 (21-32) mmol/L Anion Gap 11.0 (3-11) BUN 4 L (7-18) mg/dl Creatinine 0.44 L (0.6-1.2) mg/dl Est Cr Clr Drug Dosing 119.3 ml/min Est GFR ( Amer) 125.4 ml/min Est GFR (Non-Af Amer) 108.2 ml/min BUN/Creatinine Ratio 8.5 L (10-20) Glucose 114 H (70-99) mg/dl Calcium 8.7 (8.5-10.1) mg/dl Phosphorus 3.4 D (2.5-4.9) mg/dl Magnesium 1.5 L (1.8-2.4) mg/dl NT-Pro-B Natriuret Pep (0-900) pg/ml Random Cortisol mcg/dl Cortisol AM Sample Pending 05/20/21 05/20/21 Range/Units 06:43 06:39 WBC (4.8-10.8) K/uL RBC (4.2-5.4) M/uL Hgb (12.0-16.0) g/dL Hct (37-47) % MCV (80-100) fL MCH (25-34) pg MCHC (32-36) g/dL RDW Std Deviation (36.4-46.3) fL RDW Coeff of Lico (11.5-14.5) % Plt Count (130-400) K/uL MPV (7.4-10.4) fL Sodium (136-145) mmol/L Potassium (3.5-5.1) mmol/L Chloride (98-107) mmol/L Carbon Dioxide (21-32) mmol/L Anion Gap (3-11) BUN (7-18) mg/dl Creatinine (0.6-1.2) mg/dl Est Cr Clr Drug Dosing ml/min Est GFR ( Amer) ml/min Est GFR (Non-Af Amer) ml/min BUN/Creatinine Ratio (10-20) Glucose (70-99) mg/dl Calcium (8.5-10.1) mg/dl Phosphorus (2.5-4.9) mg/dl Magnesium (1.8-2.4) mg/dl NT-Pro-B Natriuret Pep 1357 H (0-900) pg/ml Random Cortisol 19.94 mcg/dl Cortisol AM Sample Medications Administered Current Inpatient Medications Acetaminophen (Acetaminophen 325 Mg Tab) 650 mg PO Q4H PRN PRN Reason: Pain or Fever Stop: 06/15/21 22:26 Last Admin: 05/18/21 02:45 Dose: 650 mg Documented by: Allopurinol (Allopurinol 300 Mg Tab) 300 mg PO DAILY [facility] Stop: 06/16/21 08:59 Last Admin: 05/20/21 08:20 Dose: 300 mg Documented by: Anastrozole (Anastrozole 1 Mg Tab) 1 mg PO DAILY [facility] Stop: 06/16/21 08:59 Last Admin: 05/20/21 08:17 Dose: 1 mg Documented by: Baclofen (Baclofen 20 Mg Tab) 20 mg PO BID [facility] Stop: 06/15/21 22:26 Last Admin: 05/20/21 19:58 Dose: 20 mg Documented by: Bupropion HCl (Bupropion Sr 100 Mg Tabcr) 200 mg PO BID PENNIE Stop: 06/15/21 22:26 Last Admin: 05/20/21 19:56 Dose: 200 mg Documented by: Docusate Sodium (Docusate Sodium 100 Mg Cap) 100 mg PO BID PRN PRN Reason: Constipation Stop: 06/15/21 22:26 Enoxaparin Sodium (Enoxaparin Inj 30 Mg/0.3 Ml Syr) 30 mg SQ QAM PENNIE Stop: 06/18/21 15:59 Last Admin: 05/20/21 08:18 Dose: 30 mg Documented by: Escitalopram Oxalate (Escitalopram Oxalate 10 Mg Tab) 10 mg PO BID PENNIE Stop: 06/15/21 22:26 Last Admin: 05/20/21 19:58 Dose: 10 mg Documented by: Fluconazole (Fluconazole 100 Mg Tab) 400 mg PO DAILY [facility] Stop: 06/16/21 08:59 Last Admin: 05/20/21 08:17 Dose: 400 mg Documented by: Gabapentin (Gabapentin 800 Mg Tab) 800 mg PO BID PENNIE Stop: 06/15/21 22:26 Last Admin: 05/20/21 19:58 Dose: 800 mg Documented by: Gabapentin (Gabapentin 400 Mg Cap) 400 mg PO 1400 PENNIE Stop: 06/16/21 13:59 Last Admin: 05/20/21 14:37 Dose: 400 mg Documented by: Albumin Human (Albumin 25% 100 Ml) 25 gm in 100 mls @ 50 mls/hr IV Q24H PENNIE Stop: 05/22/21 12:14 Last Infusion: 05/20/21 15:08 Dose: Infused Documented by: Hydrocortisone Sodium (Succinate 50 mg/ Syringe) 1 mls @ 4 mls/min IV Q8H [facility]ENNIE Stop: 06/20/21 03:59 Last Admin: 05/21/21 04:48 Dose: 4 mls/min Documented by: Magnesium Sulfate/Dextrose (Magnesium Sulfate / D5w) 1 gm in 100 mls @ 50 mls/hr IV ONE ONE Stop: 05/21/21 10:38 Levofloxacin (Levofloxacin 500 Mg Tab) 500 mg PO DAILY [facility] Stop: 06/16/21 08:59 Last Admin: 05/20/21 08:18 Dose: 500 mg Documented by: Magnesium Oxide (Magnesium Oxide 400 Mg Tab) 400 mg PO BID PENNIE Stop: 06/19/21 08:59 Last Admin: 05/20/21 19:59 Dose: 400 mg Documented by: Meclizine HCl (Meclizine Hcl 25 Mg Tab) 25 mg PO TID PRN PRN Reason: MULTIPLE SCLEROSIS Stop: 06/15/21 22:42 Last Admin: 05/19/21 08:36 Dose: 25 mg Documented by: Multivitamins (Multivitamin Tab) 1 tab PO DAILY [facility] Stop: 06/16/21 08:59 Last Admin: 05/20/21 08:19 Dose: 1 tab Documented by: Nitroglycerin (Nitroglycerin Sl 0.4 Mg/Tab Tab) 0.4 mg SL UD PRN PRN Reason: Chest Pain Stop: 06/15/21 22:26 Ondansetron HCl (Ondansetron Inj 2 Mg/Ml 2 Ml Vial) 4 mg IV Q6H PRN PRN Reason: Nausea Stop: 06/15/21 22:26 Oxycodone HCl (Oxycodone Hcl Ir 5 Mg Tab (Immediate Release)) 2.5 mg PO Q4H PRN PRN Reason: Pain, Severe Stop: 05/30/21 22:26 Potassium Chloride (Potassium Chloride 10 Meq Tabcr) 10 meq PO DAILY [facility] Stop: 06/16/21 08:59 Last Admin: 05/20/21 08:19 Dose: 10 meq Documented by: Potassium Phosphate (Pot Phosphate Monobasic W/ Sod Tab) 2 tab PO TID PENNIE Stop: 06/19/21 08:59 Last Admin: 05/20/21 19:57 Dose: 2 tab Documented by: Tizanidine HCl (Tizanidine Hcl 4 Mg Tablet) 4 mg PO Q8H PRN PRN Reason: muscle spasticity Stop: 06/15/21 22:26 Last Admin: 05/19/21 08:37 Dose: 4 mg Documented by: Topiramate (Topiramate 100 Mg Tab) 100 mg PO BID PENNIE Stop: 06/15/21 22:26 Last Admin: 05/20/21 19:57 Dose: 100 mg Documented by: Valacyclovir HCl (Valacyclovir Hcl 500 Mg Tablet) 1,000 mg PO DAILY [facility] Stop: 06/16/21 08:59 Last Admin: 05/20/21 08:19 Dose: 1,000 mg Documented by: Vitamin D (Cholecalciferol 1,000 Units 25 Mcg Tab) 5,000 units PO DAILY [facility] Stop: 06/16/21 08:59 Last Admin: 05/20/21 08:15 Dose: 5,000 units Documented by: (1) Fatigue Fatigue type: unspecified Qualified Code(s): R53.83 - Other fatigue
[2021-05-21] MEDS: DOCUSATE SODIUM 100 MG CAP PO PRN (09:51)
[2021-05-21] MEDS: POTASSIUM CHLORIDE 10 MEQ TABCR PO SCH (09:52)
[2021-05-21] MEDS: valACYclovir HCL 500 MG TABLET PO SCH (09:52)
[2021-05-21] MEDS: ANASTROZOLE 1 MG TAB PO SCH (09:53)
[2021-05-21] MEDS: CHOLECALCIFEROL 1,000 UNITS 25 MCG TAB PO SCH (09:53)
[2021-05-21] MEDS: FLUCONAZOLE 100 MG TAB PO SCH (09:53)
[2021-05-21] MEDS: allopurinoL 300 MG TAB PO SCH (09:53)
[2021-05-21] MEDS: ESCITALOPRAM OXALATE 10 MG TAB PO SCH ×2 (09:54→19:50)
[2021-05-21] MEDS: levoFLOXacin 500 MG TAB PO SCH (09:54)
[2021-05-21] MEDS: BACLOFEN 20 MG TAB PO SCH ×2 (09:54→19:51)
[2021-05-21] MEDS: MAGNESIUM OXIDE 400 MG TAB PO SCH ×2 (09:54→19:49)
[2021-05-21] MEDS: GABAPENTIN 800 MG TAB PO SCH ×2 (09:54→19:48)
[2021-05-21] MEDS: buPROPion SR 100 MG TABCR PO SCH ×2 (09:55→19:48)
[2021-05-21] MEDS: POT PHOSPHATE MONOBASIC W/ SOD TAB PO SCH ×3 (09:55→19:49)
[2021-05-21] MEDS: MULTIVITAMIN TAB PO SCH (09:55)
[2021-05-21] MEDS: TOPIRAMATE 100 MG TAB PO SCH ×2 (09:55→19:48)
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
[2021-05-21] MEDS: ALBUMIN 25% 100 mL 25 GM/100 ML VIAL IV SCH (13:13)
[2021-05-21 14:43] LABS: Glucose Pleural Fluid 123 mg/dl
[2021-05-21 14:50] LABS: LDH Pleural Fluid 146 U/L; Total Protein Pleural Fluid 2.9 g/dl
[2021-05-21] MEDS: GABAPENTIN 400 MG CAP PO SCH (14:50)
[2021-05-21] MEDS: THIAMINE HCL 100 MG TAB PO SCH ×2 (14:51→19:52)
--- NOTE | 2021-05-21 14:56 | Procedure Note ---
Procedure Note Date of Service May 21, 2021 Note INDICATION: Right pleural effusion most likely secondary to lymphoma PROCEDURE: Right-sided thoracentesis with ultrasound guidance DATE: 05/21/2021 TIME: 1400 PROVIDER: Kishore Brandon PA-C CONSENT: Was obtained prior to the procedure by Kishore Brandon PA-C at the direction of Dr. Cullen and placed on the chart PROCEDURE SUMMARY: Bedside ultra sound was performed to identify an appropriate puncture site. Images were saved to the [employer] system. A time out was performed. The patient was prepped and draped in a sterile manner using chlorhexidine scrub after the appropriate level was confirmed by ultrasound. 2 mL of 1% lidocaine was used to numb the region. A finder needle was then used under negative pressure to locate fluid and instill an additional 6 mL of lidocaine into the pleural space. A small incision was made with a #10 scalpel. A needle with overlying catheter was advanced using negative pressure on the syringe until a pleural flash was obtained. The thoracentesis catheter was then threaded without difficulty and without any bleeding. The patient had 1400mL of dark orange fluid removed. The incision site was then covered with two Band-Aids with no evidence of bleeding. No immediate complications were noted during the procedure. Dr. Cullen and Dr. Vega were contacted after the procedure with results. A post-procedure chest x-ray was completed and reviewed at bedside by this provider and no pneumothorax was identified. The patient tolerated the procedure well with no shortness of breath, no hypotension, no increase in heart rate, and no other acute symptoms. Coding CPT Codes Pulmonary/Thoracic - Pulmonary and Thoracic: 70875 Thoracentesis w imaging ([id number]) Pulmonary/Thoracic - Pulmonary and Thoracic: 79552 US, Chest, real time with imaging documentation ([id number]) [facility] [place] Procedure Codes (Charges) Pulmonary/Thoracic Procedure 1: Pulmonary and Thoracic: 17353 Thoracentesis w imaging Procedure 2: Pulmonary and Thoracic: 69494 US, Chest, real time with imaging documentat ion
--- NOTE | 2021-05-21 14:56 | XRay Report ---
XR chest 1V portable HISTORY: Right pleural effusion. S/P Thoracentesis COMPARISON: Chest 05/20/2021. FINDINGS: Small right pleural effusion which has significantly decreased in size status post thoracen tesis. A few bibasilar linear densities favor residual atelectasis. Progressive patchy airspace opaci ties within the left lower lung zone and progressive interstitial thickening. The heart is mildly enl arged. Scattered pulmonary nodules are better present on the prior chest CT. IMPRESSION: 1. Significant decrease in size in the small right pleural effusion status post thoracentesis. No def inite pneumothorax. 2. Patchy airspace opacities within the left lower lung zone have progressed. This likely represents a pneumonia. ACT 112: Negative or not required by law. Electronically signed by: Red Arreaga M.D. 05/21/2021 2:55 PM
[2021-05-21 15:15] LABS: Appearance Pleural Fluid CLOUDY; Color Pleural Fluid AMBER; RBC Pleural Fluid (A) 8000 /uL; Source Pleural Fluid RIGHT LUNG; WBC Pleural Fluid (A) 322 /uL
[2021-05-21 16:33] LABS: Lymphocytes, Fluid 20 %; Mono,Macrophage,Mesothelial 24 %; Neutrophils, Fluid 56 %
--- NOTE | 2021-05-21 17:00 | Pulmonology Progress Note ---
Date of Service May 21, 2021 Assessment & Plan (1) Pleural effusion: (2) Hypoxemia: (3) Pulmonary nodule: Plan: Impression: 60-year-old female with history of breast cancer and lymphoma currently on chemotherapy. She is admitted with fatigue and CT scan showed ileus as well as a pleural effusion. --Right side pleural effusion Patient apparently had a thoracentesis done at [facility] prior to presentation when she was discharged on room air Patient does have moderate amount of right-sided pleural effusion She has been needing 4 L oxygen since coming to the hospital She is not in any acute respiratory distress --Acute hypoxic respiratory failure Likely secondary to pleural effusion --History of lymphoma On chemotherapy --History of progress MS Not on any medication Plan: Plan would be to have thoracentesis done today Case was discussed with Dr. Vega Please note the above document was generated using voice recognition software. It may contain grammatical, syntax or spelling errors.Any formal questions or concerns about the content, text or information contained within the body of this dictation should be directly addressed to the provider for clarification. Admission and Anticipated Discharge Date Admission Date: May 16, 2021 Subjective Patient seen and examined at bedside. No acute distress, no adverse events overnight Patient seems to be more alert today compared to when I saw her yesterday She is answering simple questions Denies any chest pain She is agreeable to have thoracentesis done with right-sided pleural effusion Blood pressure has been fairly controlled Review of Systems Review of Systems: All systems reviewed & are unremarkable except as noted in Subjective Physical Exam Physical Exam: Constitutional: No acute distress HEENT: EOMI, PERRLA Respiratory system: Decreased air entry on the right side, no wheeze, rhonchi, positive crackles right lower lobe CVS: S1-S2 positive, no murmurs or gallops, right-sided Port-A-Cath Abdomen: Soft, nontender, nondistended, positive bowel sounds x4, obese Extremities: +2 pulses bilaterally radialis/ dorsalis pedis, no cyanosis, no edema Neuro: Awake alert oriented only to self Psych: Normal mood and affect G/U: No Goldman Skin: no rashes, warm and dry Lymphatic: no cervical or axillary lymphadenopathy Results & Data Results & Data ([facility]) Vital Signs (Past 12 Hours) Vital Signs Temp Pulse Pulse Resp BP Pulse Ox 05/21/21 15:26 37.1 C 75 20 134/73 96 05/21/21 11:52 37.0 C 65 20 133/66 96 05/21/21 08:12 36.6 C 86 19 155/66 H 92 05/21/21 08:00 78 05/21/21 06:15 05/21/21 06:15 PG Care Time/CCT Total # of Minutes Spent Total Time Spent with Patient: Total time spent is greater than 50% in coordination of care (as documented) at patient's floor/unit and/or counseling patient: Coding Level of Care Code 34668 Subseq Hosp Care Lvl 2 Diagnoses Pleural effusion J90 Hypoxemia R09.02 Pulmonary nodule R91.1
[2021-05-21] MEDS ORDERED: GADOBUTROL 65ML VIAL IV ONE (17:20)
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
--- NOTE | 2021-05-21 18:55 | Magnetic Resonance Report ---
Brain MRI WITH AND WITHOUT CONTRAST HISTORY: Multiple sclerosis, change in mental status TECHNIQUE: Multiplanar multisequence MRI of the brain was performed both before and after the intrave nous administration of contrast. COMPARISON STUDY: Brain MRI 09/16/2019. FINDINGS: No areas restricted diffusion to suggest acute infarction. The midline structures are intac t. The orbits are unremarkable. The paranasal sinuses and left mastoid air cells are clear. There is a trace right mastoid effusion. The major vascular flow-voids at the skull base are well-maintained. The ventricles and sulci are within normal limits. There is no mass, hematoma, midline shift. There a re are again noted multiple scattered foci of T2 hyperintensity seen within the periventricular subco rtical white matter predominantly within the supratentorial brain. T2 hyperintensity seen within the delisa and periventricular white matter of the cerebellum are also unchanged. These findings most likel y represent white matter plaques in the setting of multiple sclerosis. No abnormal enhancement to sug gest active demyelination. IMPRESSION: 1. No significant change in the multiple scattered white matter plaques consistent with the patient's history of multiple sclerosis. 2. No abnormal enhancement to suggest active demyelination. 3. No acute infarct or intracranial hemorrhage identified. ACT 112: Negative or not required by law. Electronically signed by: Red Arreaga M.D. 05/21/2021 6:54 PM
[2021-05-21] MEDS: tiZANidine HCL 4 MG TABLET PO PRN (23:16)
[2021-05-21] MEDS: MECLIZINE HCL 25 MG TAB PO PRN (23:18)
[2021-05-22] MEDS: HYDROCORTISONE SOD 50 MG in SYRINGE 0 ML IV SCH ×3 (05:20→22:01)
[2021-05-22 06:26] LABS: Hematocrit (blood only) 24.1 % (37-47); Hemoglobin 8.1 g/dL (12.0-16.0); Mean Corpuscular Hemoglobin 28.9 pg (25-34); Mean Corpuscular Hgb Conc 33.6 g/dL (32-36); Mean Corpuscular Volume 86.1 fL (80-100); Mean Platelet Volume 9.4 fL (7.4-10.4); Platelet Count 388 K/uL (130-400); RDW Coefficient of Variation 14.5 % (11.5-14.5); RDW Standard Deviation 44.5 fL (36.4-46.3)
[2021-05-22 07:09] LABS: BUN Creatinine Ratio 14.2 (10-20); Calcium 8.1 mg/dl (8.5-10.1); Creatinine Clr Calc Pharmacy 116.6 ml/min; Est GFR (African American) 124.5 ml/min; Est GFR (Non-African American) 107.4 ml/min; Magnesium 1.6 mg/dl (1.8-2.4); Phosphorus 2.5 mg/dl (2.5-4.9); Potassium 2.4 mmol/L (3.5-5.1)
[2021-05-22] MEDS: allopurinoL 300 MG TAB PO SCH (08:44)
[2021-05-22] MEDS: CHOLECALCIFEROL 1,000 UNITS 25 MCG TAB PO SCH (08:45)
[2021-05-22] MEDS ORDERED: Nursing to Pharmacy Communication SCH (08:45)
[2021-05-22] MEDS: POT PHOSPHATE MONOBASIC W/ SOD TAB PO SCH ×3 (08:46→21:51)
[2021-05-22] MEDS: THIAMINE HCL 100 MG TAB PO SCH ×2 (08:46→21:52)
[2021-05-22] MEDS: BACLOFEN 20 MG TAB PO SCH ×2 (08:47→21:51)
[2021-05-22] MEDS: buPROPion SR 100 MG TABCR PO SCH ×2 (08:47→21:51)
[2021-05-22] MEDS: MULTIVITAMIN TAB PO SCH (08:47)
[2021-05-22] MEDS: levoFLOXacin 500 MG TAB PO SCH (08:48)
[2021-05-22] MEDS: MAGNESIUM OXIDE 400 MG TAB PO SCH ×2 (08:48→21:51)
[2021-05-22] MEDS: GABAPENTIN 800 MG TAB PO SCH ×2 (08:48→21:51)
[2021-05-22] MEDS: POTASSIUM CHLORIDE 10 MEQ TABCR PO SCH (08:49)
[2021-05-22] MEDS: FLUCONAZOLE 100 MG TAB PO SCH (08:49)
[2021-05-22] MEDS: valACYclovir HCL 500 MG TABLET PO SCH (08:49)
[2021-05-22] MEDS: ESCITALOPRAM OXALATE 10 MG TAB PO SCH ×2 (08:49→21:51)
[2021-05-22] MEDS: ANASTROZOLE 1 MG TAB PO SCH (08:50)
[2021-05-22] MEDS: TOPIRAMATE 100 MG TAB PO SCH ×2 (08:50→21:57)
[2021-05-22] MEDS ORDERED: POTASSIUM CHLORIDE 20 MEQ/15 ML UDC PO STA (08:51)
[2021-05-22] MEDS ORDERED: MAGNESIUM SULFATE / D5W 1 GM/100 ML BAG IV ONE (09:00)
[2021-05-22] MEDS: POTASSIUM CHLORIDE / WTR 10 MEQ/100 ML PLCT IV SCH ×3 (09:43→11:42)
--- NOTE | 2021-05-22 11:30 | XRay Report ---
KUB HISTORY: Abdominal distention. Ileus COMPARISON: KUB 05/17/2021. FINDINGS: L4-S1 posterior fusion hardware again noted. No renal calculi. No ureteral calculi. Calcif ications in the deep pelvis likely represent phleboliths. These remain unchanged. Borderline dilated gas-filled colon is again noted. This is similar to the prior study. Gas is seen within the rectum. T herefore, no evidence for a bowel obstruction. There are few mildly dilated gas-filled loops of small bowel within the left side the abdomen. Patchy airspace opacities seen within the lung bases and a s mall right pleural effusion. No pneumoperitoneum or pneumatosis. IMPRESSION: 1. No change in the mildly dilated gas-filled loops of large and small bowel. This favors an ileus. 2. Bibasilar airspace opacities and a small right pleural effusion are again noted. ACT 112: Negative or not required by law. Electronically signed by: Red Arreaga M.D. 05/22/2021 11:29 AM
[2021-05-22] MEDS: GABAPENTIN 400 MG CAP PO SCH (12:54)
[2021-05-22] MEDS: oxyCODONE HCL IR 5 MG TAB (IMMEDIATE RELEASE) PO PRN (15:45)
[2021-05-22] MEDS ORDERED: POTASSIUM CHLORIDE CRTAB 20 MEQ TABCR PO SCH (16:00)
[2021-05-22] MEDS ORDERED: POTASSIUM CHLORIDE 20 MEQ/15 ML UDC PO ONE (16:00)
--- NOTE | 2021-05-22 19:01 | Hospitalist Progress Note ---
Date of Service May 22, 2021 Assessment & Plan (1) Hypoxemia: Plan: Hypoxia Secondary to large left pleural effusion, Atelectasis Right Pleural Effusion S/P thoracentesis Appreciate pulmonary input Wean off of supplemental oxygen as able Consider PleurX catheter if needed in future. (2) Fatigue: Plan: Fatigue and hypotension In setting of Post chemotherapy treatment and underlying MS, symptomatic anemia S/P 1 unit PRBCs Neutropenia has resolved. Blood cultures negative to date. Follow-up pleural fluid cultures PT/OT Patient hypotensive again (05/20), discussed with pulmonary/blade changer. Obtained cortisol levels, random cortisol level low, started hydrocortisone. BP improved As per prior hospitalist:Discussed with Dr. Goetz, concern for possible pericard ial effusion after chemotherapy, obtained echocardiogram. Echo -LV is normal in size. There is normal LV wall thickness. LV wall motion is normal. EF 60 to 65%. There is no significant valvular disease. There is no pericardial effusion. Moderate size right pleural effusion. Normal inferior vena cava diameter and respiratory variation suggesting normal central venous pressure. Wean off of hydrocortisone as able Electrolyte abnormalities Hypokalemia Hypomagnesemia Replace electrolytes as needed Poor oral intake (3) Diffuse large B cell lymphoma: (4) Pancytopenia due to antineoplastic chemotherapy: Plan: DLBCL, double expressor significant dissease involving the abdomen and right lower chest region. Received cyclophosphamide, adriamycin and etoposide between 05/04-05/08/2021. Received prophylactive pegfilgrastim on 05/13/2021 Neutropenia resolved Physical deconditioning Secondary to comorbidities In setting of diffuse large B-cell lymphoma, MS Possible worsening MS Neurology on board (5) Ileus: Plan: Monitor with daily KUB Clear liquid diet for now (6) Chronic pain: Plan: Chronic pain from post-operative back, not typically on narcotics. However, now on narcotics more regularly as a result of pain in her abdomen related to her cancer. (7) Pulmonary nodule: Plan: follow up as outpatient (8) Herpes zoster ophthalmicus: Plan: completed with acyclovir (9) Multiple sclerosis: Plan: progressive, gait, bladder function and mental status affected somewhat by this. Not on treatment Neurology on board (10) DVT prophylaxis: Plan: SCDs Code Status Full Code Palliative medicine consulted to address goals of care Admission and Anticipated Discharge Date Admission Date: May 16, 2021 Subjective Patient is seen and examined at bedside Had loose bowel movement today States having minimal abdominal discomfort Confusion runoff as per RN Refuses some of oral meds Sleeps most of the time Seemed to have no motivation Review of Systems Review of Systems: All systems reviewed & are unremarkable except as noted in Subjective Physical Exam Physical Exam: Physical Exam: Vitals signs as noted above General Appearance: Thin, frail, chronically appearing, no apparent distress Head: normocephalic, Atraumatic Eyes: normal inspection, EOMI Neck: supple, Trachea midline Respiratory/Chest: Decreased breath sounds, CTA, + Port Cardiovascular: S1, S2, No murmur Abdomen/GI:Soft, Non tender, Bowel sounds decreased Extremities/Musculoskeletal:normal inspection, no edema Neurologic/Psych:AAOX1, grossly no focal neurological deficits Skin: normal color, warm Results & Data Results & Data ([facility]) Vital Signs (Past 12 Hours) Vital Signs Temp Pulse Resp BP Pulse Ox 05/22/21 14:55 36.6 C 85 18 130/76 91 05/22/21 11:36 37.0 C 78 18 131/72 91 05/22/21 07:46 36.9 C 78 18 149/76 H 97 Laboratory Results Short CBC 05/22/21 Range/Units 05:58 WBC 36.00 H* (4.8-10.8) K/uL Hgb 8.1 L (12.0-16.0) g/dL Hct 24.1 L (37-47) % Plt Count 388 (130-400) K/uL BMP 05/22/21 05:58 Sodium 132 L Potassium 2.4 L* Chloride 98 Carbon Dioxide 23 BUN 6 L Creatinine 0.45 L Glucose 104 H Calcium 8.1 L (1) Fatigue Fatigue type: unspecified Qualified Code(s): R53.83 - Other fatigue
[2021-05-22] MEDS ORDERED: ACETAMINOPHEN 1000 MG/100 ML IV IV PRN (22:20)
--- NOTE | 2021-05-22 22:25 | Communication Note ---
Date of Service: May 22, 2021 I received notification via [facility] [employer] that the patients and daughter were in the room requesting to speak with me. The patient's since left the hospital and stated that I was able to communicate with the patients daughter, Rukhsana. I called her at [phone]. We talked at length and reviewed her hospital stay. She recognizes her decline, but became more increasingly resistant as we discussed hospice and its details. I did ask her what she feels would be most important to her mother if she knew her time was limited. She said that she would want her to be at home. 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 Throughout our conversation, she became more receptive to discussing hospice and what that looks like. Ultimately, their goal is for her to stabilize for additional and future chemotherapy. We discussed her fragile state overall. She would like to hear form Dr. Goetz what his idea is regarding prognosis and I feel that information will help We did discuss the rigorous nature of [facility] and the unlikely benefit and inability to tolerate that level of therapy. SNF a likely better fit should the family continue to want to seek aggressive treatment. We discussed code status and the details of what it entails. I did advise that should she suffer a cardiac or respiratory arrest that it is unlikely she would survive CPR and intubation with a meaningful outcome. She does understand this, but does think that her and Damian would want her to receive cardioversion. For now, remain a full code. She will talk to Damian in the morning regarding code status. Palliative will follow. Total time spent 40 minutes on the phone communicating with the patients family regarding goals of care.
[2021-05-23] MEDS: MoRPHine SULFATE 2 MG/ML CARP IV PRN ×2 (01:34→10:34)
[2021-05-23] MEDS: HYDROCORTISONE SOD 50 MG in SYRINGE 0 ML IV SCH ×3 (04:56→22:58)
[2021-05-23 06:35] LABS: Hematocrit (blood only) 27.4 % (37-47); Hemoglobin 9.1 g/dL (12.0-16.0); Mean Corpuscular Hemoglobin 29.2 pg (25-34); Mean Corpuscular Hgb Conc 33.2 g/dL (32-36); Mean Corpuscular Volume 87.8 fL (80-100); Platelet Count 469 K/uL (130-400); RDW Coefficient of Variation 14.8 % (11.5-14.5); RDW Standard Deviation 45.3 fL (36.4-46.3); Red Blood Count 3.12 M/uL (4.2-5.4); White Blood Count 45.17 K/uL (4.8-10.8)
[2021-05-23 06:53] LABS: BUN Creatinine Ratio 16.2 (10-20); Calcium 7.9 mg/dl (8.5-10.1); Creatinine Clr Calc Pharmacy 122.1 ml/min; Est GFR (African American) 126.3 ml/min; Magnesium 1.8 mg/dl (1.8-2.4); Potassium 3.3 mmol/L (3.5-5.1)
[2021-05-23 07:34] LABS: ANC (manual) 41.65 K/uL (1.4-6.5); Dohle Bodies 1+; Monocytes # (manual) 2.35 K/uL (0.11-0.59); Monocytes % (manual) 5.2 %; Myelocytes # (manual) 1.17 K/uL (0-0); Myelocytes % (manual) 2.6 %; Neutrophils # (manual) 41.65 K/uL (1.4-6.5); Neutrophils % (manual) 92.2 %; Toxic Granulation 1+
[2021-05-23] MEDS: ANASTROZOLE 1 MG TAB PO SCH (09:47)
[2021-05-23] MEDS: buPROPion SR 100 MG TABCR PO SCH ×2 (09:49→20:59)
[2021-05-23] MEDS: GABAPENTIN 800 MG TAB PO SCH ×2 (09:49→21:00)
[2021-05-23] MEDS: CHOLECALCIFEROL 1,000 UNITS 25 MCG TAB PO SCH (09:49)
[2021-05-23] MEDS: levoFLOXacin 500 MG TAB PO SCH (09:49)
[2021-05-23] MEDS: MULTIVITAMIN TAB PO SCH (09:49)
[2021-05-23] MEDS: MAGNESIUM OXIDE 400 MG TAB PO SCH (09:49)
[2021-05-23] MEDS: BACLOFEN 20 MG TAB PO SCH ×2 (09:49→21:05)
[2021-05-23] MEDS: allopurinoL 300 MG TAB PO SCH (09:49)
[2021-05-23] MEDS: FLUCONAZOLE 100 MG TAB PO SCH (09:49)
[2021-05-23] MEDS: TOPIRAMATE 100 MG TAB PO SCH ×2 (09:50→21:04)
[2021-05-23] MEDS: POT PHOSPHATE MONOBASIC W/ SOD TAB PO SCH ×3 (09:50→21:06)
[2021-05-23] MEDS: ESCITALOPRAM OXALATE 10 MG TAB PO SCH ×2 (09:50→20:59)
[2021-05-23] MEDS: POTASSIUM CHLORIDE 10 MEQ TABCR PO SCH (09:50)
[2021-05-23] MEDS: THIAMINE HCL 100 MG TAB PO SCH ×2 (09:50→21:07)
[2021-05-23] MEDS: valACYclovir HCL 500 MG TABLET PO SCH (09:50)
[2021-05-23] MEDS ORDERED: POTASSIUM CHLORIDE 20 MEQ/15 ML UDC PO ONE (10:00)
--- NOTE | 2021-05-23 10:01 | XRay Report ---
XR KUB/Abdomen 1 view CLINICAL HISTORY: Ileus TECHNIQUE: 1 view of the abdomen was obtained. Comparison: None available at the time of this dictation. FINDINGS: Lung bases are unremarkable. The osseous structures are grossly unremarkable. The bowel gas pattern i s nonobstructive. Cast is distention of the large bowel is again seen, no small bowel distention is s een. IMPRESSION: Interval improvement in previously noted gaseous distention of the small bowel. Gas dilated loops of large bowel are seen. Findings suggest improving ileus. ACT 112: Negative or not required by law. Electronically signed by: Hua Lewis M.D. 05/23/2021 10:00 AM
[2021-05-23] MEDS ORDERED: bisacodyL 5 MG TABEC PO ONE (10:09)
[2021-05-23] MEDS: DOCUSATE SODIUM 100 MG CAP PO PRN (11:36)
[2021-05-23] MEDS: GABAPENTIN 400 MG CAP PO SCH (14:21)
--- NOTE | 2021-05-23 20:18 | Hospitalist Progress Note ---
Date of Service May 23, 2021 Assessment & Plan (1) Hypoxemia: Plan: Hypoxia Secondary to large left pleural effusion, Atelectasis Right Pleural Effusion S/P thoracentesis Appreciate pulmonary input Wean off of supplemental oxygen as able Consider PleurX catheter if needed in future. May need 2 step prior to discharge (2) Fatigue: Plan: Fatigue and hypotension In setting of Post chemotherapy treatment and underlying MS, symptomatic anemia S/P 1 unit PRBCs Neutropenia has resolved. Blood cultures negative to date. Follow-up pleural fluid cultures PT/OT Patient hypotensive again (05/20), discussed with pulmonary/regulatory affairs associate. Obtained cortisol levels, random cortisol level low, started hydrocortisone. BP improved As per prior hospitalist:Discussed with Dr. Goetz, concern for possible pericardial effusion after chemotherapy, obtained echocardiogram. Echo -LV is normal in size. There is normal LV wall thickness. LV wall motion is normal. EF 60 to 65%. There is no significant valvular disease. There is no pericardial effusion. Moderate size right pleural effusion. Normal inferior vena cava diameter and respiratory variation suggesting normal central venous pressure. --Decrease hydrocortisone to BID Electrolyte abnormalities Hypokalemia Hypomagnesemia Replace electrolytes as needed Poor oral intake (3) Diffuse large B cell lymphoma: (4) Pancytopenia due to antineoplastic chemotherapy: Plan: DLBCL, double expressor significant dissease involving the abdomen and right lower chest region. Received cyclophosphamide, adriamycin and etoposide between 05/04-05/08/2021. Received prophylactive pegfilgrastim on 05/13/2021 Neutropenia resolved Discussed with Dr. Goetz on 05/23/21 Poor prognosis as per oncology Leukocytosis secondary to filgrastim Physical deconditioning Secondary to comorbidities In setting of diffuse large B-cell lymphoma, MS Possible worsening MS Neurology on board (5) Ileus: Plan: Monitor with daily KUB Clear liquid diet for now Slowly Improving Monitor Advance diet as able (6) Chronic pain: Plan: Chronic pain from post-operative back, not typically on narcotics. However, now on narcotics more regularly as a result of pain in her abdomen related to her cancer. (7) Pulmonary nodule: Plan: follow up as outpatient (8) Herpes zoster ophthalmicus: Plan: completed with acyclovir (9) Multiple sclerosis: Plan: progressive, gait, bladder function and mental status affected somewhat by this. Not on treatment Neurology on board (10) DVT prophylaxis: Plan: SCDs Code Status Full Code Palliative medicine consulted to address goals of care Admission and Anticipated Discharge Date Admission Date: May 16, 2021 Subjective Patient is seen and examined at bedside More alert, awake, oriented today States having abdominal discomfort and chronic back pain Discussed with oncology and patient's family over the phone KUB showed improving ileus Denies any chest pain, dyspnea, dizziness Review of Systems Review of Systems: All systems reviewed & are unremarkable except as noted in Subjective Physical Exam Physical Exam: Physical Exam: Vitals signs as noted above General Appearance: Thin, frail, chronically appearing, no apparent distress Head: normocephalic, Atraumatic Eyes: normal inspection, EOMI Neck: supple, Trachea midline Respiratory/Chest: Decreased breath sounds, CTA, + Port Cardiovascular: S1, S2, No murmur Abdomen/GI:Soft, Non tender, Bowel sounds decreased Extremities/Musculoskeletal:normal inspection, no edema Neurologic/Psych:AAOX1, grossly no focal neurological deficits Skin: normal color, warm Results & Data Results & Data ([facility]) Vital Signs (Past 12 Hours) Vital Signs Temp Pulse Resp BP Pulse Ox 05/23/21 19:41 37.1 C 87 18 160/82 H 90 05/23/21 15:33 37.0 C 92 H 20 148/80 H 93 05/23/21 11:43 37.0 C 87 18 153/83 H 94 Laboratory Results Short CBC 05/23/21 Range/Units 06:03 WBC 45.17 H* (4.8-10.8) K/uL Hgb 9.1 L (12.0-16.0) g/dL Hct 27.4 L (37-47) % Plt Count 469 H (130-400) K/uL BMP 05/23/21 06:03 Sodium 135 L Potassium 3.3 L D Chloride 101 Carbon Dioxide 23 BUN 7 Creatinine 0.43 L Glucose 103 H Calcium 7.9 L (1) Fatigue Fatigue type: unspecified Qualified Code(s): R53.83 - Other fatigue
[2021-05-23] MEDS: oxyCODONE HCL IR 5 MG TAB (IMMEDIATE RELEASE) PO PRN (20:58)
[2021-05-23] MEDS: MAGNESIUM CHLORIDE 64MG DELAYED REL TAB PO SCH (21:02)
[2021-05-24] MEDS: HYDROCORTISONE SOD 50 MG in SYRINGE 0 ML IV SCH ×2 (00:06→11:47)
[2021-05-24 02:39] LABS: Hematocrit (blood only) 28.1 % (37-47); Hemoglobin 9.3 g/dL (12.0-16.0); Mean Corpuscular Hemoglobin 29.5 pg (25-34); Mean Corpuscular Hgb Conc 33.1 g/dL (32-36); Mean Corpuscular Volume 89.2 fL (80-100); Mean Platelet Volume 8.9 fL (7.4-10.4); Nucleated RBC # (auto) 0.05 K/uL (0-0); Nucleated RBC % (auto) 0.1 %; Platelet Count 593 K/uL (130-400); RDW Standard Deviation 46.4 fL (36.4-46.3); Red Blood Count 3.15 M/uL (4.2-5.4); White Blood Count 44.93 K/uL (4.8-10.8)
[2021-05-24 02:54] LABS: Albumin Level 2.5 gm/dl (3.4-5.0); BUN Creatinine Ratio 17.8 (10-20); Calcium 8.2 mg/dl (8.5-10.1); Creatinine Clr Calc Pharmacy 119.3 ml/min; Est GFR (African American) 125.4 ml/min; Est GFR (Non-African American) 108.2 ml/min; Magnesium 1.5 mg/dl (1.8-2.4)
[2021-05-24 02:57] LABS: Albumin Globulin Ratio 0.8 (0.9-2); Bilirubin,Total 0.4 mg/dl (0.2-1); Globulin 3.3 gm/dl (2.5-4.0); Total Protein 5.8 gm/dl (6.4-8.2)
[2021-05-24 03:00] LABS: ANC (manual) 40.26 K/uL (1.4-6.5); Metamyelocytes % (manual) 0.9 %; Monocytes % (manual) 7.8 %; Myelocytes # (manual) 0.76 K/uL (0-0); Myelocytes % (manual) 1.7 %; Neutrophils # (manual) 40.26 K/uL (1.4-6.5); Neutrophils % (manual) 89.6 %; Polychromasia 1+; Toxic Granulation 1+
[2021-05-24] MEDS: MAGNESIUM SULFATE / D5W 1 GM/100 ML BAG IV SCH ×2 (03:44→06:12)
[2021-05-24] MEDS: POTASSIUM CHLORIDE / WTR 10 MEQ/100 ML PLCT IV SCH ×4 (03:44→11:01)
[2021-05-24 05:42] LABS: Appearance Urine Clear (Clear); Bacteria Urine Automated Negative (Negative); Bilirubin Urine Negative (Negative); Blood Urine Negative (Negative); Color Urine Yellow; Epithelial Cell Urine Auto >30 /lpf (0-5); Glucose Urine UA Negative (Negative); Ketones Urine Trace (Negative); Leukocyte Esterase Urine Negative (Negative); Nitrite Urine Negative (Negative); Protein Urine Trace (Negative); Specific Gravity Urine 1.015 (1.000-1.030); Urobilinogen Urine Negative (Negative)
[2021-05-24 05:57] LABS: RBC Urine Automated 0-4 /hpf (0-4)
--- NOTE | 2021-05-24 09:55 | XRay Report ---
KUB HISTORY: Abdominal distention. Follow-up Ileus COMPARISON: KUB 05/23/2021. FINDINGS: Continued improvement in the gas-filled loops of large and small bowel. The previously iden tified ileus has almost resolved in the interval. Lumbar spinal fusion hardware again noted. No tarah l calculi. No ureteral calculi. Calcifications in the deep pelvis likely represent phleboliths. These remain stable. No pneumoperitoneum or pneumatosis. IMPRESSION: Near complete resolution of the ileus seen on the prior studies. No evidence for bowel obstruction. ACT 112: Negative or not required by law. Electronically signed by: Red Arreaga M.D. 05/24/2021 9:54 AM
[2021-05-24] MEDS: ANASTROZOLE 1 MG TAB PO SCH (11:02)
[2021-05-24] MEDS: allopurinoL 300 MG TAB PO SCH (11:02)
[2021-05-24] MEDS: BACLOFEN 20 MG TAB PO SCH (11:02)
[2021-05-24] MEDS: FLUCONAZOLE 100 MG TAB PO SCH (11:03)
[2021-05-24] MEDS: ENOXAPARIN INJ 30 MG/0.3 ML SYR SQ SCH (11:03)
[2021-05-24] MEDS: MAGNESIUM CHLORIDE 64MG DELAYED REL TAB PO SCH (11:03)
[2021-05-24] MEDS: levoFLOXacin 500 MG TAB PO SCH (11:03)
[2021-05-24] MEDS: buPROPion SR 100 MG TABCR PO SCH (11:03)
[2021-05-24] MEDS: ESCITALOPRAM OXALATE 10 MG TAB PO SCH (11:03)
[2021-05-24] MEDS: GABAPENTIN 800 MG TAB PO SCH (11:03)
[2021-05-24] MEDS: CHOLECALCIFEROL 1,000 UNITS 25 MCG TAB PO SCH (11:03)
[2021-05-24] MEDS: MULTIVITAMIN TAB PO SCH (11:04)
[2021-05-24] MEDS: valACYclovir HCL 500 MG TABLET PO SCH (11:04)
[2021-05-24] MEDS: TOPIRAMATE 100 MG TAB PO SCH (11:04)
[2021-05-24] MEDS: POT PHOSPHATE MONOBASIC W/ SOD TAB PO SCH (11:04)
[2021-05-24] MEDS: POTASSIUM CHLORIDE 10 MEQ TABCR PO SCH (11:04)
[2021-05-24] MEDS: THIAMINE HCL 100 MG TAB PO SCH (11:04)
--- NOTE | 2021-05-24 16:28 | Hospitalist Progress Note ---
Date of Service May 24, 2021 Assessment & Plan (1) Hypoxemia: Plan: Hypoxia Secondary to large left pleural effusion, Atelectasis Right Pleural Effusion S/P thoracentesis Appreciate pulmonary input Wean off of supplemental oxygen as able Consider PleurX catheter if needed in future. Saturating low 90s on room air (2) Fatigue: Plan: Fatigue and hypotension In setting of Post chemotherapy treatment and underlying MS, symptomatic anemia S/P 1 unit PRBCs Neutropenia has resolved. Blood cultures negative to date. Follow-up pleural fluid cultures PT/OT Patient hypotensive again (05/20), discussed with pulmonary/activities director scouting. Obtained cortisol levels, random cortisol level low, started hydrocortisone. BP improved As per prior hospitalist:Discussed with Dr. Goetz, concern for possible pericardial effusion after chemotherapy, obtained echocardiogram. Echo -LV is normal in size. There is normal LV wall thickness. LV wall motion is normal. EF 60 to 65%. There is no significant valvular disease. There is no pericardial effusion. Moderate size right pleural effusion. Normal inferior vena cava diameter and respiratory variation suggesting normal central venous pressure. --Decrease hydrocortisone to BID Electrolyte abnormalities Hypokalemia Hypomagnesemia Replace electrolytes as needed Poor oral intake (3) Diffuse large B cell lymphoma: (4) Pancytopenia due to antineoplastic chemotherapy: Plan: DLBCL, double expressor significant dissease involving the abdomen and right lower chest region. Received cyclophosphamide, adriamycin and etoposide between 05/04-05/08/2021. Received prophylactive pegfilgrastim on 05/13/2021 Neutropenia resolved Discussed with Dr. Goetz on 05/23/21 Poor prognosis as per oncology Leukocytosis secondary to filgrastim Physical deconditioning Secondary to comorbidities In setting of diffuse large B-cell lymphoma, MS Possible worsening MS Neurology on board (5) Ileus: Plan: Monitor with daily KUB Repeat KUB :Near complete resolution of the ileus seen on the prior studies. No evidence for bowel obstruction. Advance diet today (6) Chronic pain: Plan: Chronic pain from post-operative back, not typically on narcotics. However, now on narcotics more regularly as a result of pain in her abdomen related to her cancer. (7) Pulmonary nodule: Plan: follow up as outpatient (8) Herpes zoster ophthalmicus: Plan: completed with acyclovir (9) Multiple sclerosis: Plan: progressive, gait, bladder function and mental status affected somewhat by this. Not on treatment Neurology on board (10) DVT prophylaxis: Plan: SCDs Code Status Full Code Palliative medicine consulted to address goals of care Disposition: Patient refuses further management and prefers to sign out AGAINST MEDICAL ADVICE despite explaining the risks and complications of being untreated. Family aware of patient's condition and agrees with patient's patients. Admission and Anticipated Discharge Date Admission Date: May 16, 2021 Subjective Patient is seen and examined at bedside Patient prefers to be discharged and refuses further care. KUB today showed resolving ileus Discussed with patient's family at bedside who prefers to sign out AMA Denies any chest pain, dyspnea, dizziness Patient refuses to explain reasons for AMA Review of Systems Review of Systems: All systems reviewed & are unremarkable except as noted in Subjective Physical Exam Physical Exam: Physical Exam: Vitals signs as noted above General Appearance: Thin, frail, chronically appearing, no apparent distress Head: normocephalic, Atraumatic Eyes: normal inspection, EOMI Neck: supple, Trachea midline Respiratory/Chest: Decreased breath sounds, CTA, + Port Cardiovascular: S1, S2, No murmur Abdomen/GI:Soft, Non tender, Bowel sounds decreased Extremities/Musculoskeletal:normal inspection, no edema Neurologic/Psych:AAOX1, grossly no focal neurological deficits Skin: normal color, warm Results & Data Results & Data ([facility]) Vital Signs (Past 12 Hours) Vital Signs Temp Pulse Pulse Resp BP Pulse Ox 05/24/21 14:44 37.3 C 93 H 19 175/94 H 92 05/24/21 13:04 90 05/24/21 11:33 37.3 C 93 H 19 175/94 H 92 05/24/21 07:55 36.7 C 90 20 157/81 H 93 Laboratory Results Short CBC 05/24/21 Range/Units 02:30 WBC 44.93 H* (4.8-10.8) K/uL Hgb 9.3 L (12.0-16.0) g/dL Hct 28.1 L (37-47) % Plt Count 593 H (130-400) K/uL BMP 05/24/21 02:30 Sodium 136 Potassium 3.0 L Chloride 103 Carbon Dioxide 28 BUN 8 Creatinine 0.44 L Glucose 102 H Calcium 8.2 L Liver Function 05/24/21 Range/Units 02:30 Total Bilirubin 0.4 (0.2-1) mg/dl AST 33 (15-37) U/L ALT 21 (12-78) U/L Alkaline Phosphatase 175 H (45-117) U/L Albumin 2.5 L (3.4-5.0) gm/dl Urine 05/24/21 Range/Units 05:25 Urine Color Yellow Urine Appearance Clear (Clear) Urine pH 7.0 (4.5-7.5) Ur Specific Clarence 1.015 (1.000-1.030) Urine Protein Trace H (Negative) Urine Glucose (UA) Negative (Negative) (1) Fatigue Fatigue type: unspecified Qualified Code(s): R53.83 - Other fatigue
--- NOTE | 2021-05-24 16:30 | Discharge Summary ---
Date of Service May 24, 2021 Admission HPI Per Admitting Provider CHIEF COMPLAINT: Weakness, hypotension, pancytopenia, pleural effusion. HISTORY OF PRESENT ILLNESS: A 60-year-old female with past medical history significant for MS, neoplasm of the left breast, status post lumpectomy, radiation in 2018, history of tobacco abuse, history of anxiety, history of hyponatremia, oral thrush, right pleural effusion, abdominal pain, recent diagnosis of diffuse large cell B-cell lymphoma. The patient was here in [facility] in April and transferred to [place] on 05/03 for inpatient treatment. During in [place], she also had right thoracentesis with 1.5 liters of fluid drained. She received chemotherapy as per daughter about week ago. Yesterday morning, she also saw her oncology and she was doing fine. Later when the home health nurse came and checked on her, she seemed to be somewhat hypoxic and low blood pressure and she was brought in here and she was somewhat sleepy. She has pancytopenia. WBC was 0.24, hemoglobin 6.6, platelets 31, potassium 3.3, sodium 130, uric acid 1.8, magnesium 1.7. COVID negative. Procalcitonin negative. TSH is 2.4. ER talked to oncology and they recommended 1 unit of irradiated PRBC, which the patient is getting now. The patient also received fentanyl in the ER. Currently, she was somewhat difficult to arouse, but when she woke up, she was able to answer simple questions appropriately, can tell her name, knows that she is in the hospital, knows the month and year. Daughter in the room helped with most of the history. No recent cough or fever. She has chronic back pain, is ambulating with a walker. No nausea or vomiting. No diarrhea. Has abdominal pain since the mass found. Denies any chest pain, no shortness of breath, no cough, no headache, no neck pain. Appetite is very poor. Not moving bowels much because not eating much. Admission Exam Per Admitting Provider PHYSICAL EXAMINATION: GENERAL: The patient is frail, somewhat drowsy. VITAL SIGNS: Temperature 36.5, pulse 70, respiratory rate 20, blood pressure 117/43, oxygen 96% on 4 liters. HEENT: Pupils equal, round and reactive to light. Oral mucosa moist. NECK: No JVD or neck masses. CARDIOVASCULAR: S1 and S2 heard. Regular rate and rhythm. No murmur, no gallop. RESPIRATORY SYSTEM: Normal AP diameter. No accessory muscle use. Decreased breath sounds in bilateral lower lobes. No wheezing. ABDOMEN: Soft, bowel sounds present. Mild discomfort on the left side of the abdomen, no distention. CENTRAL NERVOUS SYSTEM: Cranial nerves II through XII are grossly intact, nonfocal. EXTREMITIES: Bilateral lower extremity edema present, no erythema seen. Principal Diagnosis Left pleural effusion Pleural fluid abnormality Ileus Diffuse large B cell lymphoma Discharge Data Allergies Allergy/AdvReac Type Severity Reaction Status Date / Time Penicillins Allergy Severe my mother Verified 05/16/21 16:20 told me I had anaphylactic reaction Sulfa (Sulfonamide Allergy Severe my mother Verified 05/16/21 16:20 Antibiotics) told me I had an anaphylactic reaction Consultations 05/16/21 18:38 ED Decision to Admit Stat 05/17/21 08:00 Consult Pulmonology Routine 05/20/21 18:14 Consult Palliative Care Routine 05/21/21 07:59 Consult Neurology Routine Ordered Studies 05/16/21 15:44 CT abd pelvis IV con only Stat CT angio chest PE protocol Stat CT head/brain wo con Stat 05/21/21 10:53 MR brain MS wo/w con Routine 05/21/21 13:15 US point of care ultrasound Routine Hospital Course (1) Hypoxemia: Hypoxia Secondary to large left pleural effusion, Atelectasis Right Pleural Effusion S/P thoracentesis Appreciate pulmonary input Wean off of supplemental oxygen as able Consider PleurX catheter if needed in future. Saturating low 90s on room air (2) Fatigue: Fatigue and hypotension In setting of Post chemotherapy treatment and underlying MS, symptomatic anemia S/P 1 unit PRBCs Neutropenia has resolved. Blood cultures negative to date. Follow-up pleural fluid cultures PT/OT Patient hypotensive again (05/20), discussed with pulmonary/customer engagement representative. Obtained cortisol levels, random cortisol level low, started hydrocortisone. BP improved As per prior hospitalist:Discussed with Dr. Goetz, concern for possible pericardial effusion after chemotherapy, obtained echocardiogram. Echo -LV is normal in size. There is normal LV wall thickness. LV wall motion is normal. EF 60 to 65%. There is no significant valvular disease. There is no pericardial effusion. Moderate size right pleural effusion. Normal inferior vena cava diameter and respiratory variation suggesting normal central venous pressure. --Decrease hydrocortisone to BID Electrolyte abnormalities Hypokalemia Hypomagnesemia Replace electrolytes as needed Poor oral intake (3) Diffuse large B cell lymphoma: (4) Pancytopenia due to antineoplastic chemotherapy: DLBCL, double expressor significant dissease involving the abdomen and right lower chest region. Received cyclophosphamide, adriamycin and etoposide between 05/04-05/08/2021. Received prophylactive pegfilgrastim on 05/13/2021 Neutropenia resolved Discussed with Dr. Goetz on 05/23/21 Poor prognosis as per oncology Leukocytosis secondary to filgrastim Physical deconditioning Secondary to comorbidities In setting of diffuse large B-cell lymphoma, MS Possible worsening MS Neurology on board (5) Ileus: Monitor with daily KUB Repeat KUB :Near complete resolution of the ileus seen on the prior studies. No evidence for bowel obstruction. Advance diet today (6) Chronic pain: Chronic pain from post-operative back, not typically on narcotics. However, now on narcotics more regularly as a result of pain in her abdomen related to her cancer. (7) Pulmonary nodule: follow up as outpatient (8) Herpes zoster ophthalmicus: completed with acyclovir (9) Multiple sclerosis: progressive, gait, bladder function and mental status affected somewhat by this. Not on treatment Neurology on board (10) DVT prophylaxis: SCDs Code Status Full Code Palliative medicine consulted to address goals of care Disposition: Patient refuses further management and prefers to sign out AGAINST MEDICAL ADVICE despite explaining the risks and complications of being untreated. Family aware of patient's condition and agrees with patient's patients. Total Time Total Time Spent Total Time Spent (In Minutes): 55 minutes Discharge Plan Discharge Items Patient Disposition: Against Medical Advice Reason For Visit: HYPOTENSION Activity: Per Instructions section Non-emergency contact: Primary Care Provider and Oncologist Follow-up/Referrals: Maria Shipman DO [Primary Care Provider] - (Date & Time 05/29/2021 11:00 AM Provider Parrish Velazco MD [facility] ) Addtl Paunch Trimmer Provider Instructions: Follow-up with your primary care physician Dr. Maria Shipman in 1 week Follow-up with your oncologist Dr. Goetz in 1 week Seek immediate medical attention if your symptoms reoccur or worsen Please take all medications as instructed on discharge list below. Please call if you have any questions or problems. You can reach a [facility] hospitalist on duty at [facility] 24 hours a day by calling [phone] Pending Studies at Discharge: No Stand-Alone Forms: My [facility] Health, Smoking Cessation Medications and DC Order Prescriptions: New thiamine HCl (vitamin B1) [Vitamin B-1] 100 mg Tablet 100 mg PO DAILY Qty: 30 RF: 0 magnesium chloride [Mag 64] 64 mg Tablet,Delayed Release (Dr/Ec) 64 mg PO TID Qty: 30 RF: 0 Continued escitalopram oxalate 20 mg tablet 10 mg PO BID 90 Days Qty: 90 RF: 1 bupropion HCl 200 mg tablet sustained-release 12 hr 200 mg PO BID 90 Days Qty: 180 RF: 1 meclizine 25 mg tablet 25 mg PO TID PRN (Reason: MULTIPLE SCLEROSIS) 90 Days Qty: 270 RF: 1 meloxicam 7.5 mg tablet 7.5 mg PO BID 90 Days Qty: 180 RF: 1 tizanidine 4 mg tablet 4 mg PO Q8H PRN (Reason: muscle spasticity) 90 Days Qty: 270 RF: 1 topiramate 100 mg tablet 100 mg PO BID 90 Days Qty: 180 RF: 1 cholecalciferol (vitamin D3) 5,000 unit tablet 5,000 units PO DAILY RF: 0 docusate sodium 100 mg capsule 100 mg PO BID PRN (Reason: Constipation) RF: 0 anastrozole 1 mg tablet 1 mg PO DAILY RF: 0 multivitamin [Daily Multi-Vitamin] tablet 1 tab PO DAILY RF: 0 alprazolam 1 mg tablet 1 - 1.5 mg PO TID RF: 0 baclofen 20 mg tablet 20 mg PO BID RF: 0 gabapentin 800 mg tablet See Rx Instructions .ROUTE .COMPLEX RF: 0 valacyclovir 1 gram tablet 1,000 mg PO DAILY RF: 0 fluconazole 200 mg tablet 400 mg PO DAILY RF: 0 heparin lock flush (porcine) 10 unit/mL Solution 10 unit IV Q12H RF: 0 allopurinol 300 mg tablet 300 mg PO DAILY RF: 0 levofloxacin 500 mg tablet 500 mg PO DAILY RF: 0 oxycodone 5 mg tablet 5 mg PO Q4H PRN (Reason: Pain, Severe) RF: 0 Changed potassium chloride 10 mEq tablet extended release 40 meq PO DAILY 7 Days Qty: 28 RF: 0 Discharge Orders: Left Against Medical Advice (Routine); Ordered 05/24/21 Ordered By: Reginald Lira Admission Data Admit Date/Time: 05/16/21 20:22 Attending Provider: Reginald Lira Admit Provider: Pascual Mendoza Primary Care Provider: Maria Shipman Other Providers: Miriam Werner ; Fidencio Torres ; Li Kim ; Alaina Dobbins ; Miguel Pinedo ; [facility] ; [place] ; [facility] Other Interventions: Discharge Summary Assessment (RN) Last Done: 05/24/21 14:44
--- NOTE | 2021-05-31 09:47 | Coding Query ---
CODING QUERY To promote full compliance with coding requirements relating to patient care, provider participation is requested in all cases of glass unloading equipment tender uncertainty. Please assist us with the question(s) below: Coding Question(s): Patient admitted with hypoxia. New diagnosis of lymhoma. History of Breast CA. DS states hypoxia due to pleural effusion. During this IP stay thoracentesis done, benign pathology. Please document, if known or suspected, the etiology of the Pleural Effusion. Thanks for your help! Gigi Jacobs [facility] Physician's Response(s): Pleural Effusion likely secondary to lymphoma Principal Diagnosis: "that condition established after study, to be chiefly responsible for occasioning the admission of the patient to the hospital for care." Co-Existing Principal Diagnosis: "when two or more diagnoses equally meet the criteria for principal diagnosis as determined by the circumstances of admission, diagnostic work up, and/or therapy provided, and the Alphabetic Index, Tabular List, or another coding guideline does not provide sequencing direction, any one of the diagnoses may be sequenced first." "When the physician has documented what appears to be a current diagnosis in the body of the record, but has not included the diagnosis in the final diagnostic statement, the physician should be asked whether the diagnosis should be added." (Source Coding [facility] 2 QTR90. p3-4) S[place]
== END 2021-05-24 14:47 | disposition left against medical advice (07) | DRG 840 ==
LOC: ED 15:16 → SUATTDRO 20:22 → 2S 20:22

== ENCOUNTER 2023-07-10 13:18 | Inpatient (IN) ==
--- NOTE | 2023-07-10 13:31 | ED Triage Note ---
Date of Service July 10, 2023 Provider in Triage Author: Pushpa Browne History of Present Illness This patient was briefly evaluated while in triage. An abbreviated physical exam was performed. This patient is a 62-year-old Female who presents to the ED for evaluation of dyspnea. reports symptoms started 1 day ago. He notes she is confused and lethargic. Notes history of breast CA and B cell lymphoma, h/o MS. Denies recent sick contacts or cold like symptoms. No obvious stroke like symptoms. Denies chest pain. Physical Exam Constitutional: alert and awake. Lethargic, mildly confused. ill appearing. HEENT: normocephalic, atraumatic. normal conjunctiva.PERRLA. EOM's grossly intact. Respiratory: equal chest rise. normal respiratory effort, no accessory muscle use. Cardiovascular: regular rate MSK: moves all 4 extremities spontaneously Psych:appropriate mood and affect. Initial orders for labs and / or imaging were placed and patient was taken immediately to a treatment room for formal evaluation. Please see further documentation for the full ED course.
--- NOTE | 2023-07-10 13:51 | XRay Report ---
SINGLE VIEW CHEST CLINICAL HISTORY: Dyspnea FINDINGS: An AP, portable, upright chest radiograph is compared to study dated 11/25/2021 and correlat ed with chest CT dated 05/16/2021. A right subclavian central venous infusion port has been removed. The heart is enlarged noting atherosclerotic calcification of the thoracic aorta. The pulmonary vascu lature is nondistended congested. Chronic interstitial thickening is similar to previous. Scarring/at electasis is noted at the lung bases. No airspace consolidation or large pleural effusion is identifi ed. No pneumothorax is seen. The skeletal structures are osteopenic. The bony thorax is grossly intac t. IMPRESSION: 1. Cardiomegaly without radiographic evidence of congestive failure. 2. No airspace consolidation or pleural effusion is identified. ACT 112: Negative or not required by law. Electronically signed by: Kishore Nolan M.D. 07/10/2023 1:49 PM
[2023-07-10 14:16] LABS: Hematocrit (blood only) 34.8 % (37.0-47.0); Hemoglobin 12.1 g/dl (12.0-16.0); Mean Corpuscular Hemoglobin 35.6 pg (25.0-34.0); Mean Corpuscular Hgb Conc 34.8 g/dL (32.0-36.0); Mean Corpuscular Volume 102.4 fL (80.0-100.0); Platelet Count 148 K/uL (130-400); RDW Standard Deviation 48.6 fL (36.4-46.3); White Blood Count 13.66 K/ul (4.8-10.8)
[2023-07-10 14:27] LABS: Base Excess VBG -4.4 mEq/L; HCO3 VBG 22 mmol/L; Oxygen Saturation VBG 60.1 %; PCO2 VBG 45 mmHg (38-50); PO2 VBG 36 mmHg
[2023-07-10 14:28] LABS: Albumin Globulin Ratio 1.3 (0.9-2); Albumin Level 3.5 gm/dl (3.4-5.0); BUN Creatinine Ratio 22.6 (10-20); Bilirubin,Total 0.7 mg/dl (0.2-1.0); Calcium 9.3 mg/dl (8.6-10.3); Creatinine Clr Calc Pharmacy 45.4 ml/min; Est GFR (African American) 53.2 ml/min; Est GFR (Non-African American) 45.9 ml/min; Globulin 2.8 gm/dl (2.5-4.0); Magnesium 1.6 mg/dl (1.7-2.4); Potassium 3.6 mmol/L (3.5-5.1); Total Protein 6.3 gm/dl (6.0-8.3)
[2023-07-10 14:34] LABS: Partial Thromboplastin Time 29 Seconds (21-31); Prothrombin Time 11.3 Seconds (9.0-12.0)
[2023-07-10] MEDS ORDERED: SODIUM CHLORIDE 0.9% 1,000 ML IV ONE (14:37)
[2023-07-10] MEDS ORDERED: CEFEPIME 2,000 MG/20 ML VIAL IV STA (14:37)
[2023-07-10 14:38] LABS: Troponin I High Sensitivity 74.2 pg/ml (0-14)
[2023-07-10 14:40] LABS: Basophils # (auto) 0.04 K/uL (0.00-0.20); Basophils % (auto) 0.3 %; Dohle Bodies 1+; Echinocytes 1+; Eosinophils # (auto) 0.01 K/uL (0.00-0.50); Eosinophils % (auto) 0.1 %; Immature Granulocytes # (auto) 0.09 K/uL (0.01-0.20); Immature Granulocytes % (auto) 0.7 %; Lymphocytes # (auto) 0.25 K/uL (1.20-3.40); Lymphocytes % (auto) 1.8 %; Monocytes # (auto) 1.56 K/uL (0.11-0.59); Monocytes % (auto) 11.4 %; Neutrophils # (auto) 11.71 K/uL (1.40-6.50); Neutrophils % (auto) 85.7 %; Ovalocytes 1+; Polychromasia 1+; Tear Drop Cells 1+; Toxic Vacuolation 1+
[2023-07-10 14:56] LABS: Adenovirus PCR Not Detected (NotDetected); Bordetella parapertussis PCR Not Detected (NotDetected); Bordetella pertussis PCR Not Detected (NotDetected); Chlamydia pneumoniae PCR Not Detected (NotDetected); Coronavirus 229E PCR Not Detected (NotDetected); Coronavirus CoV-2 (COVID19)PCR Not Detected (NotDetected); Coronavirus HKU1 PCR Not Detected (NotDetected); Coronavirus NL63 PCR Not Detected (NotDetected); Coronavirus OC43PCR Not Detected (NotDetected); Human Metapneumovirus PCR Not Detected (NotDetected); Influenza A PCR Not Detected (NotDetected); Influenza B PCR Not Detected (NotDetected); Mycoplasma pneumoniae PCR Not Detected (NotDetected); Parainfluenza Virus 1 PCR Not Detected (NotDetected); Parainfluenza Virus 2 PCR Not Detected (NotDetected); Parainfluenza Virus 3 PCR Not Detected (NotDetected); Parainfluenza Virus 4 PCR Not Detected (NotDetected); Respiratory Syncytial VirusPCR Not Detected (NotDetected); Rhinovirus/Enterovirus PCR Not Detected (NotDetected)
[2023-07-10] MEDS ORDERED: metroNIDAZOLE 500 MG/100 ML BAG IV STA (14:59)
[2023-07-10] MEDS ORDERED: STAT IV Infusion **Titration per Protocol STA (15:35)
--- NOTE | 2023-07-10 15:39 | Electrocardiogram Report ---
Test Reason : Blood Pressure : / mmHG Vent. Rate : 087 BPM Atrial Rate : 087 BPM P-R Int : 134 ms QRS Dur : 070 ms QT Int : 348 ms P-R-T Axes : 027 055 051 degrees QTc Int : 418 ms Normal sinus rhythm Nonspecific ST abnormality Abnormal ECG When compared with ECG of 25-NOV-2021 09:25, Vent. rate has increased BY 29 BPM Confirmed by Ameya Garcia ([id number]) on 07/10/2023 3:38:48 PM Referred By: Confirmed By:Ameya Garcia
[2023-07-10] MEDS ORDERED: NOREPINEPHRINE/D5W 4 MG/250 ML PLCT IV SCH (15:45)
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
--- NOTE | 2023-07-10 16:32 | CT Scan Report ---
CT SCAN OF THE CHEST WITHOUT IV CONTRAST CLINICAL HISTORY: Dyspnea COMPARISON STUDY: Chest CT dated 05/16/2021. Chest x-ray dated 07/10/2023. TECHNIQUE: CT scan of the thorax was performed from the thoracic inlet to the upper abdomen. Images are reviewed in the axial, sagittal, and coronal planes. IV contrast was not administered for this ex amination as per the referring clinician. A dose lowering technique was utilized adhering to the [facility]. The examination is modestly degraded by motion artifact. CT DOSE: 392.7 mGy.cm FINDINGS: Thyroid: Normal in size and heterogeneous in attenuation. Thoracic aorta: There is advanced atherosclerotic calcification of the thoracic aorta, which is gwyn l in caliber and demonstrates standard 3-vessel arch anatomy. Heart: The heart is enlarged and without pericardial effusion. The coronary arteries are densely calc ified. Lungs and pleural spaces: There is mild emphysematous change. No airspace consolidation typical for p neumonia or pleural effusion is identified. There is bibasilar scarring/atelectasis. Moderate lobular septal thickening is observed. The trachea and central airways are clear. Mediastinum: There is no mediastinal lymphadenopathy. Shelbie: Not well assessed without IV contrast. Axillae: There is no axillary lymphadenopathy. Upper abdomen: There is a small hiatal hernia. Partially visualized upper abdominal viscera is within normal limits. Skeletal structures: The skeletal structures are osteopenic. Degenerative change and hyperkyphosis is noted in the thoracic spine. No lytic or blastic bony lesions are seen. IMPRESSION: 1. Cardiomegaly and mild emphysema. 2. No airspace consolidation typical for pneumonia or pleural effusion is identified. 3. Mild intralobular septal thickening suggests fluid overload/congestive change. Correlate clinicall y. 4. Advanced coronary artery atherosclerosis. 5. Additional findings as above. ACT 112: Negative or not required by law. Electronically signed by: Kishore Nolan M.D. 07/10/2023 4:31 PM
[2023-07-10] MEDS ORDERED: MAGNESIUM HYDROXIDE SUSP 30 ML UDC PO PRN (17:10)
[2023-07-10] MEDS ORDERED: ONDANSETRON INJ 2 MG/ML 2 ML VIAL IV PRN (17:10)
[2023-07-10] MEDS ORDERED: POLYETHYLENE (MIRALAX) 17 GM PACK PO PRN (17:10)
[2023-07-10] MEDS ORDERED: ALUMINUM/MAGNESIUM SUSP 30 ML UDC PO PRN (17:10)
[2023-07-10] MEDS: MAGNESIUM SULFATE / D5W 1 GM/100 ML BAG IV SCH ×2 (17:52→18:55)
[2023-07-10] MEDS: SODIUM CHLORIDE 0.9% 1,000 ML IV SCH (17:52)
[2023-07-10 19:21] LABS: Troponin I High Sensitivity 81.9 pg/ml (0-14)
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
[2023-07-10] MEDS: cefTRIAXone SODIUM 2,000 MG in DEXTROSE 5 % MINI-B 50 ML IV SCH (20:47)
[2023-07-10] MEDS ORDERED: oxyCODONE HCL IR 5 MG TAB (IMMEDIATE RELEASE) PO STA (20:52)
[2023-07-10] MEDS: busPIRone 5 MG TAB PO SCH (21:27)
[2023-07-10] MEDS: GABAPENTIN 400 MG CAP PO SCH (21:28)
[2023-07-10 21:43] LABS: BUN Creatinine Ratio 24.3 (10-20); Calcium 7.9 mg/dl (8.6-10.3); Creatinine Clr Calc Pharmacy 54.7 ml/min; Est GFR (African American) 66.5 ml/min; Est GFR (Non-African American) 57.4 ml/min; Potassium 3.3 mmol/L (3.5-5.1)
[2023-07-10] MEDS: ACETAMINOPHEN 325 MG TAB PO PRN (22:21)
[2023-07-11 01:58] LABS: A calco-baum cmplx NotReported Not Detected (NotDetected); Bact fragilis Not Reported Not Detected (NotDetected); Blood Culture Id Panel See PCR Comment (NotDetected); C auris Not Reported Not Detected (NotDetected); CTX-M Resistant Gene Not Detected (NotDetected); Calbicans Not Reported Not Detected (NotDetected); Candida glabrata Not Reported Not Detected (NotDetected); Candida krusei Not Reported Not Detected (NotDetected); Cneoformans/gatti Not Reported Not Detected (NotDetected); Cparapsilosis Not Reported Not Detected (NotDetected); E cloacae compx Not Reported Not Detected (NotDetected); Efaecalis Not Reported Not Detected (NotDetected); Efaecium Not Reported Not Detected (NotDetected); Enterobacterales DETECTED (NotDetected); Enterobacterales Not Reported DETECTED (NotDetected); Escherichia coli Not Reported DETECTED (NotDetected); H influenzae Not Reported Not Detected (NotDetected); IMP Resistant Gene Not Detected (NotDetected); K aerogenes Not Reported Not Detected (NotDetected); KPC Resistant Gene Not Detected (NotDetected); Koxytoca Not Reported Not Detected (NotDetected); Kpneumoniae grp Not Reported Not Detected (NotDetected); Lmonocyt Not Reported Not Detected (NotDetected); N meningitidis Not Reported Not Detected (NotDetected); NDM Resistant Gene Not Detected (NotDetected); OXA 48 Like Resistant Gene Not Detected (NotDetected); P aeruginosa Not Reported Not Detected (NotDetected); Proteus spp Not Reported Not Detected (NotDetected); Salmonella spp Not Reported Not Detected (NotDetected); Smarcescens Not Reported Not Detected (NotDetected); Staph lugdunensis Not Reported Not Detected (NotDetected); Staph spp. Not Reported Not Detected (NotDetected); Staphaureus Not Reported Not Detected (NotDetected); Staphepi Not Reported Not Detected (NotDetected); Stenmaltophilia Not Reported Not Detected (NotDetected); Strep agal(GrpB) Not Reported Not Detected (NotDetected); Strep pneum Not Reported Not Detected (NotDetected); Strep pyog (GrpA) Not Reported Not Detected (NotDetected); Strep spp Not Reported Not Detected (NotDetected); VIM Resistant Gene Not Detected (NotDetected); mcr-1 Colistin Resistant Gene Not Detected (NotDetected)
[2023-07-11 03:09] LABS: Appearance Urine Cloudy (Clear); Bacteria Urine Automated Negative (Negative); Bilirubin Urine Negative (Negative); Blood Urine 1+ (Negative); Cast Urine Automated 0 /lpf (0-5); Color Urine Yellow; Epithelial Cell Urine Auto 0-5 /lpf (0-5); Glucose Urine UA Negative (Negative); Ketones Urine Negative (Negative); Leukocyte Esterase Urine 3+ (Negative); Nitrite Urine Positive (Negative); Protein Urine 1+ (Negative); Specific Gravity Urine 1.012 (1.000-1.030); Urobilinogen Urine Negative (Negative); WBC Urine Automated >30 /hpf (0-5); pH Urine 5.5 (4.5-7.5)
[2023-07-11] MEDS: SODIUM CHLORIDE 0.9% 1,000 ML IV SCH (06:04)
[2023-07-11] MEDS: ACETAMINOPHEN 325 MG TAB PO PRN ×2 (06:04→15:53)
--- OUTSIDE RECORDS SUMMARY | 2023-07-11 06:07 | External Medical Summary | Summary of Care ---
Author Name Unknown Organization [facility] Address [address] [place] [address] Phone [phone] Care Team Providers Care Reconciliation Coordinator Name Role Phone Maria Shipman DO Primary Care Provider + [phone] Reason for Visit * Reason Onset Date Comments Follow Up Pt present for y early follow up. Medication Administration 04/29/2023 Flu an d/or Pneumo Inj Encounter Details Date Type Department Care Team (Late st Contact Info) Description 04/29/2023 3:20 PM EDT Office Visit [facility] [address] [place] [address] Carla Jimenez PA-C [address] [place] [address] Screening mammogram for breast cancer*; Secondary progressive multiple sclerosis (HCC); History of ductal carcinoma in situ (DCIS) of breast; Vitamin D deficiency; Osteoporosis, unspecified osteoporosis type, unspecified pathological fracture presence; Lipid screening; Colonoscopy refused; Need for prophylactic vaccination and inoculation against influenza Allergies Active Allergy Reactions Criticality Noted Date Comments Penicillins Anaphylaxis High 11/02/2002 As a child Sulfonylureas Anaphylaxis High 11/02/2002 As a child documented as of this encounter (statuses as of 04/29/2023) Medications Medication Sig Dispensed Refills Start Date End Date Status MELOXICAM 7.5 MG PO TABS Take 1 Tablet by mouth in the morning. 30 Tab 5 03/22/2010 Active TOPAMAX 100 MG PO TABS Take 1 Tablet by mouth in the morning. 60 Tab 5 03/22/2010 Active MEDI-MECLIZINE 25 MG PO TABS Take 1 Tablet by mouth 3 times a day as needed. 30 Tab 1 03/22/2010 Active VITAMIN D 1000 UNIT PO CAPSIndications:V itamin D deficiency Take 5 Capsules by mouth in the morning. 30 Cap 11 03/22/2010 Active Multivitamin Adult Oral Tablet Take 1 Tab by mouth daily. 0 Active Ondansetron HCl 8 MG Oral Tablet (Zofran)Indicatio ns:Diffuse large B-cell lymphoma of intra-abdominal lymph nodes (HCC) Take 1 Tablet by mouth every 8 hours as needed for Nausea. 30 Tablet 2 06/05/2021 Active Additional Information Patient not taking.Reported on 08/21/2022 tiZANidine HCl 4 MG Oral Tablet (Zanaflex) Take 1 Tablet by mouth every 8 hours as needed for Muscle spasms. 0 Active Thiamine HCl 100 MG Oral Tablet (vitamin B-1) Take 1 Tablet by mouth in the morning. 0 Active Acetaminophen 325 MG Oral Tablet (Tylenol) Take 2 Tablets by mouth every 4 hours as needed for Pain, Mild. 30 Tablet 0 06/17/2021 Active Allopurinol 300 MG Oral Tablet (Zyloprim)Indicat ions:Diffuse large B-cell lymphoma of intra-abdominal lymph nodes (HCC) Take 1 Tablet by mouth daily. 90 Tablet 1 07/02/2021 Active Gabapentin 400 MG Oral Capsule (Neurontin)Indica tions:Migraine without aura and without status migrainosus, not intractable Take 1 Capsule by mouth in the morning and 1 Capsule before bedtime. 60 Capsule 5 07/03/2021 Active Escitalopram Oxalate 20 MG Oral TabletIndications :ROBIN (generalized anxiety disorder) Take 1 Tablet by mouth in the morning. 30 Tablet 5 08/12/2021 Active ALPRAZolam 1 MG Oral Tablet (xaNAX) 0 03/07/2022 Active Anastrozole 1 MG Oral Tablet (Arimidex)Indicat ions:Malignant neoplasm of upper-inner quadrant of left breast in female, estrogen receptor positive Take 1 Tablet by mouth in the morning. 90 Tablet 3 08/05/2022 Active risperiDONE 0.25 MG Oral Tablet (RisperDAL)Indica tions:Anxiety TAKE 1 TABLET BY MOUTH AT BEDTIME 30 Tablet 5 02/27/2023 Active busPIRone HCl 10 MG Oral Tablet (Buspar)Indicatio ns:ROBIN (generalized anxiety disorder) TAKE ONE TABLET BY MOUTH IN THE MORNING AND ONE BEFORE BEDTIME 180 Tablet 0 03/04/2023 Active oxyCODONE HCl 5 MG Oral Tablet (Oxy IR)Indications:Di ffuse large B-cell lymphoma of intra-abdominal lymph nodes (HCC) Take 1 Tablet by mouth every 4 hours as needed for Pain, Moderate. 60 Tablet 0 04/13/2023 Active valACYclovir HCl 1 GM Oral Tablet (Valtrex)Indicati ons:Diffuse large B-cell lymphoma of intra-abdominal lymph nodes (HCC),Herpes zoster ophthalmicus of left eye TAKE 1 TABLET IN THE MORNING 90 Tablet 3 04/29/2023 Active Cyanocobalamin 500 MCG Oral Tablet Take 1 Tablet by mouth in the morning. 0 08/22/2022 Active Prochlorperazine Maleate 10 MG Oral Tablet (Compazine)Indica tions:Diffuse large B-cell lymphoma of intra-abdominal lymph nodes (HCC) Take 1 Tablet by mouth every 6 hours as needed for Nausea. 30 Tablet 2 06/05/2021 04/29/20 Discontinued Potassium Chloride ER 10 MEQ Oral Tablet Extended ReleaseIndication s:Hypokalemia,Dif fuse large B-cell lymphoma of intra-abdominal lymph nodes (HCC) TAKE 1 TABLET DAILY 90 Tablet 3 12/11/2021 04/29/20 23 Discontinued Nicotine 7 MG/24HR Transdermal Patch 24 Hour (Nicoderm CQ) Place topically on the skin 1 Patch in the morning. On upper body/outer arm, change once a day for two weeks.. 14 Patch 0 03/28/2022 04/29/20 23 Discontinued documented as of this encounter (statuses as of 04/29/2023) Active Problems Problem Noted Date Diagnosed Date Orthostatic hypotension 07/11/2021 Delirium due to general medical condition 2020 Diffuse large B-cell lymphom a of intra-abdominal lymph nodes 05/29/2021 Encounter for antineoplastic chemotherapy 2020 Diffuse large B cell lymphoma 05/03/2021 Abdominal pain 05/03/2021 Nausea 05/03/2021 Hyponatremia 05/03/2021 Hypokalemia 05/03/2021 Oral thrush 05/03/2021 Pleural effusion 05/03/2021 Hypoxia 05/03/2021 Senile osteoporosis 11/01/2018 Malignant neoplasm of upper- inner quadrant of left breast in female, estrogen receptor positive 07/02/2017 Cancer Staging:Pathologic stage from 06/17/2017:Stage IA(T1b, N0, cM0) - Unsigned Ductal carcinoma in situ (DCIS) of left breast 1 08/03/2016 Bronchitis, complicated 03/22/2013 Secondary progressive multiple sclerosis 013 Microcalcifications of the breast 01/07/2013 Tobacco use disorder 10/15/2012 Vitamin D deficiency 03/22/2010 Anxiety state 03/22/2010 Neuropathy documented as of this encounter (statuses as of 04/29/2023) Resolved Problems Problem Noted Date Diagnosed Date Resolved Date Acute respiratory failure wi th hypoxia and hypercapnia 06/09/2021 04/29/2023 Septic shock 06/09/2021 04/29/2023 COPD exacerbation 03/22/2013 04/29/2023 Multiple sclerosis 07/14/2008 3 documented as of this encounter (statuses as of 04/29/2023) Immunizations Name Administration Dates Next Due COVID-19 mRNA, LNP-s, No Pre serve, 2-Dose Series (Myla) 07/27/2021,10/25/2020,10/04/2020 Pneumococcal Conjugate Vacci ne, 20-valent ([id number]) 12/06/2021 Pneumococcal Polysaccharide PPV23 (Pneumovax) 09/02/2019 SEASONAL INFLUENZA, PF, 6 M & Above, IM , (FLULAVAL or FLUZONE) 04/29/2023,04/24/2022,06/17/2021,09/02,06/03/2017 Seasonal Influenza, Split, I IV3, With Preserve, Inj 02/28/2015,04/13/2014,04/13/2013,04/09,03/22/2010 TDAP (age 10 and older)(Boostrix) 03/28/2014 documented as of this encounter Social History Tobacco Use Types Packs/Day Years Used Date Smoking Tobacco: Former Cigarettes 0.5 42 Smokeless Tobacco: Never Comments:began at age 10 Alcohol Use Standard Drinks/Week Comments No 0 (1 standard drink = 0.6 oz pur e alcohol) PHQ-2 Answer Date Recorded PHQ-2 Score 0 05/09/2018 Sex and Gender Information Value Date Recorded Sex Assigned at Not on file Gender Identity Not on file Sexual Orientation Not on file Job Start Date Occupation Industry Not on file Not on file Not on file documented as of this encounter Last Filed Vital Signs Vital Sign Reading Time Taken Comments Blood Pressure 124/70 04/29/2023 3:11 PM EDT Pulse 82 04/29/2023 3:11 PM EDT Temperature 36.3 C (97.3 F) 04/29/2023 3:11 PM ED T Respiratory Rate 16 04/29/2023 3:11 PM EDT Oxygen Saturation - - Inhaled Oxygen Concentration - - Weight 70.5 kg (155 lb 6.4 oz) 04/29/2023 3:11 P M EDT Height - - Body Mass Index 27.53 12/06/2021 11:24 AM EDT documented in this encounter Functional Status Functional Status Response Date of Assess ment Are you deaf or do you have serious difficulty h earing? No 07/11/2021 Are you blind or do you have serious difficulty seeing, even when wearing glasses? No 07/11/2021 Do you have serious difficul ty walking or climbing stairs? (5 years old or older) Yes 07/11/2021 Do you have difficulty dress ing or bathing? (5 years old or older) No 07/11/2021 Because of a physical, menta l, or emotional condition, do you have difficulty doing errands alone such as visiting a doctor s office or shopping? (15 years old or older) No 07/11/19 Cognitive Status Response Date of Assessm ent Because of a physical, menta l, or emotional condition, do you have serious difficulty concentrating, remembering, or making decisions? (5 years old or older No 07/11/2021 documented as of this encounter Patient Instructions * Patient Instructions* Susan Cavanaugh LPN - 04/29/2023 3:34 PM EDT ~~PATIENT INSTRUCTIONS FOR FLU SHOT~~ Possible side effects of influenza vaccine, (flu shot), are usually mild and include: 1. Soreness or redness at injection site 2. Low grade fever 3. Body aches You may use Tylenol/Acetaminophen as needed for these symptoms. LET YOUR DOCTOR KNOW IMMEDIATELY IF YOU HAVE DIFFICULTY BREATHING OR SWALLOWING, EXPERIENCE ITCHINGOF FEET OR HANDS, HAVE SWELLING OF EYES, FACE OR INSIDE OF NOSE. documented in this encounter Progress Notes * Susan Cavanaugh LPN - 04/29/2023 3:33 PM EDT PRE - ADMINISTRATION DOCUMENTATION Are you experiencing any cold symptoms or fever? No Have you had Guillain-Freeport Syndrome (an illness that causes paralysis) within the last 6 weeks? No Have you had the flu shot in the past? YES Have you ever had a reaction to the flu shot? No Susan Cavanaugh LPN, 04/29/2023 3:33 PM Immunization Administration Documentation Time Out Procedure Performed: Yes Patient Identified (Ask Name/Date of ): Yes Does the patient have a fever greater than 101 degrees today? No Patient allergic to latex? No VFC Stock: No Immunization(s) verified: Yes, Immunization Name: Flu, VIS Sheet(s) given: Yes Verified Side and Site: Yes Verified Shot(s) with Parent(s)/Patient: Yes * Carla Jimenez PA-C - 04/29/2023 3:15 PM EDT Images from the original note were not included. History of Present Illness Elizabeth Hernandes is a 62 year old female that presents for Follow Up (Pt present for yearly follow up./) Here for regular return. 1 year old female with hx of MS, hx of Diffuse Large B cell Lymphoma involving her chest and abdomen, Hx of COPD, hypotension, and hx of DCIS as well. Current with neurology Reports neuropathy is worse - they relate this to her MS> Heme onc appt tomorrow Past Medical History: Diagnosis Date ANXIETY STATE NOS 03/22/2010 Breast cancer (HCC) 2017 invasive ductal carcinoma Multiple sclerosis (HCC) diagnosed in 2003, sees Dr Laura for this Neuropathy Personal history of radiation therapy 2018 S/P lumbar spinal fusion Shingles 08, 10 x 2 Tobacco use disorder 10/15/2012 Extensive ROS Constitutional (f/c/wt/vision/hearing): Negative and wear s glasses, - eye exam is due Resp (cough/sob/barkley): Negative CV (cp/palp/fluttering/diaphoresis/barkley/pnd):Negative GI (n/v/d/hrtburn): Negative Endo (hair/cold or heat intol/ 3 p's): Negative Neuro (shaking/weak/fatigu/parasthesi/): Negative Skin (rash/easy bruis/xerosis): Negative Psy (si/hi/halluc/): Negative (nocturia/hesit/drib/sexual review): Negative Lymph (swollen glands/b sx's/: Negative Physical Exam Vitals: 04/29/23 1511 Temp: 36.3 C (97.3 F) Pulse: 82 Resp: 16 BP: 124/70 BP Readings from Last 3 Encounters: 04/29/23 124/70 12/12/22 150/71 10/23/22 102/71 Wt Readings from Last 3 Encounters: 04/29/23 70.5 kg (155 lb 6.4 oz) 10/23/22 72.3 kg (159 lb 8 oz) 04/24/22 74.8 kg (164 lb 14.4 oz) BMI Readings from Last 3 Encounters: 04/29/23 27.53 kg/m 10/23/22 28.25 kg/m 04/24/22 29.21 kg/m Ht Readings from Last 3 Encounters: 12/06/21 1.6 m (5' 3") 07/11/21 (!) 1.6 m (5' 3") 06/09/21 (!) 1.6 m (5' 3") General: alert, healthy, and no distress Head: Normocephalic, No masses, lesions, tenderness or abnormalities Eye Exam: PERRLA, extraocular movements intact, conjunctiva are pink and non- injected, sclera clear Ears: External ears normal, Canals clear, TM's Normal Nose: no mucosal erythema, no mucosal edema, no purulent discharge Oropharynx: no exudate, no erythema, lips, buccal mucosa, and tongue normal, and mucous membranes are moist Neck: supple, no adenopathy, no bruits, thyroid normal size, non-tender, without nodularity Heart: regular rate & rhythm, no murmur, and no gallops Lungs: chest symmetric with normal AP diameter, no chest deformities noted, no chest wall tenderness, lungs clear to auscultation Pulses: carotid=2/4 w/o bruits Back: back symmetric, no curvature, no costovertebral angle tenderness, range of motion is normal Extremities: less than 2 second capillary refill, no joint deformities, effusion, or inflammation Skin: skin color, texture, turgor are normal, no rashes or significant lesions Assessment and Plan Screening mammogram for breast cancer (Primary) - MAMMOGRAM SCREENING MARY BILATERAL; Future; Expected date: 10/10/2023 Secondary progressive multiple sclerosis (HCC) - current with neurology History of ductal carcinoma in situ (DCIS) of breast - MAMMOGRAM SCREENING MARY BILATERAL; Future; Expected date: 10/10/2023 Vitamin D deficiency - 25-HYDROXY VITAMIN D; Future; Expected date: 04/29/2023 - PTH; Future; Expected date: 04/29/2023 Osteoporosis, unspecified osteoporosis type, unspecified pathological fracture presence - 25-HYDROXY VITAMIN D; Future; Expected date: 04/29/2023 - PTH; Future; Expected date: 04/29/2023 Lipid screening - LIPID PANEL WITH DIRECT LDL IF TG IS HIGH; Future; Expected date: 04/29/2023 Colonoscopy refused She defers, done with these. Wrap-Up Time: I spent a total of 20-29 minutes (exact time 29 mins) on the date of service in preparation, delivery, and documentation of the care provided to Elizabeth Hernandes excluding any time spent in the performance of separately billed services. Carla Jimenez PA-C 04/29/2023 3:30 PM documented in this encounter Nursing Notes * ELLIOT Sandhu - 04/29/2023 3:11 PM EDT The patient has been properly identified by confirmation of name and date of . Chief Complaint Patient presents with Follow Up Pt present for yearly follow up. documented in this encounter Plan of Treatment Upcoming Encounters Date Type Department Care Team (Late st Contact Info) Description 04/30/2023 3:15 PM EDT Office Visit Hematology/Oncology [facility] [place] [address] [facility] [place] [address] Solis Goetz MD [address] [facility] [address] 09/24/2023 3:40 PM EDT Office Visit Dermatology, [place] [address] [facility] [place] [address] Sharmaine Yo PA-C [address] [place] [address] [place] [id number] 10/29/2023 11:20 AM EDT Office Visit Family Practice, [place] [address] [place] [address] Carla Jimenez PA-C [address] [place] [address] Scheduled Orders Name Type Priority Associated Diagnoses Orde r Schedule MAMMOGRAM SCREENING MARY BILATERAL Medical Imaging Routine Screening mammogram for breast cancer History of ductal carcinoma in situ (DCIS) of breast Expected: 10/10/2023, Expires: 05/30/2024 25-HYDROXY VITAMIN D Lab Routine Vitamin D deficiency Osteoporosis, unspecified osteoporosis type, unspecified pathological fracture presence Expected: 04/29/2023 (Approximate), Expires: 04/28/2024 PTH Lab Routine Vitamin D deficiency Osteoporosis, unspecified osteoporosis type, unspecified pathological fracture presence Expected: 04/29/2023 (Approximate), Expires: 04/28/2024 LIPID PANEL WITH DIRECT LDL IF TG IS HIGH Lab Routine Lipid screening Expected: 04/29/2023, Expires: 04/29/2024 Health Maintenance Due Date Last Done Comments Zoster Vaccines (1 of 2) 1977 Cologuard 2003 Fecal Occult Blood Test 2003 Sigmoidoscopy 2003 *COPD SEVERITY VERIFIED BY PFT 07/11/2014 Lipid Panel 03/17/2016 03/17/2011 Depression Screening 06/03/2018 06/03/2017 Colonoscopy 01/12/2022 01/13/2012, 01/13/2012 Colorectal Cancer Screening 01/12/2022 COVID-19 Vaccine ( season) 2023 07/27/2021, 10/25/2020, 10/04/2020 *BISPHONATE OR OTHER ACCEPTABLE MEDICATION NEEDED FOR OSTEOPOROSIS (REFER TO SMARTSET #1146) 04/01/2023 Mammogram 10/09/2023 10/08/2022, 04/0 10/2021, 09/12/2020, Additional history exists DTaP,Tdap,and Td Vaccines (2 - Td or Tdap) 03/28/2024 03/28/2014 DXA Scan 02/19/2025 02/19/2023, 02/03, 11/17/2018, Additional history exists Diabetes Screening 10/08/2025 10/08/2022, 1 , 03/20/2022, Additional history exists Hepatitis C Screening Completed 05/03/2021 Pneumococcal Vaccine: Pediatrics (0 to 5 Years) and At-Risk Patients (6 to 64 Years) Completed 12/06/2021, 09/02/2019 VITAMIN D LEVEL ONCE IN A LIFETIME-USE SMARTSET# [id number] Completed 03/20/2022, 07/10/2021, 10/20/2018, Additional history exists Influenza Vaccine (FLU shot) Completed , 04/24/2022, 06/17/2021, Additional history exists GARDASIL-HPV IMMUNIZATION SERIES Aged Out No longer eligible based on patient's age to complete this topic Hepatitis B Aged Out No longer eligi ble based on patient's age to complete this topic MENINGOCOCCAL (MENACTRA/MENVEO) Aged Out No longer eligible based on patient's age to complete this topic documented as of this encounter Medical Devices Implanted Type Area Concrete Pipe Plant Supervisor Device Identifier Shelf Expiration Date Model / Serial / Lot Power Port 8fr Sngl Lumen Plas - [id number] Implanted:Qty : 1 on 05/15/2021 by Parrish Bishop, at OR [facility] Right: Chest CR BARD : [employer] [id number] 06/04/2022 [id number] / / [id number] documented as of this encounter Visit Diagnoses Diagnosis Screening mammogram for breast cancer- Primary Secondary progressive multiple sclerosis (HCC) Multiple sclerosis History of ductal carcinoma in situ (DCIS) of breast Vitamin D deficiency Unspecified vitamin D deficiency Osteoporosis, unspecified osteoporosis type, unspecified pathological fracture presence Lipid screening Screening for lipoid disorders Colonoscopy refused Surgical or other procedure not carried out because of patient's decision Need for prophylactic vaccination and inoculation against influenza documented in this encounter Advance Directives Latest Code Status on File Code Status Date Activated Date Inactivated Comments Full Code 07/11/2021 2:47 PM 07/12/2021 8:03 PM This or kaylin reflects the patients wishes and were consensually agreed upon. Question Answer Comments Discussion of Advance Directives occurred with: Patient Does the patient have a Living Will? No Does the patient have Health Care Power of Design Teacher? No Code Status History Code Status Date Activated Date Inactivated Comments Limited Code 06/09/2021 5:53 PM 06/17/2021 9:32 PM This order reflects the patients wishes and were consensually agreed upon. Question Answer Comments Discussion of Advance Directives occurred with: Patient Does the patient have a Living Will? No Does the patient have Health Care Power of Design Teacher? No Bag Valve Device? Yes Intubation? Yes Cardiac Compressions? No Defibrillation? No Synchronized Cardioversion? No External Pacemaker? No Cardiac Drugs? Yes Full Code 06/09/2021 5:22 PM 06/09/2021 5:53 PM This order reflects the patients wishes and were consensually agreed upon. Question Answer Comments Discussion of Advance Directives occurred with: Family Does the patient have a Living Will? No Does the patient have Health Care Power of Design Teacher? No Full Code 05/03/2021 8:40 PM 05/11/2021 2:23 PM This order reflects the patients wishes and were consensually agreed upon. Question Answer Comments Discussion of Advance Directives occurred with: Patient Does the patient have a Living Will? No Does the patient have Health Care Power of Design Teacher? No Care Teams Reconciliation Coordinator Relationship Specialty Start Date End Date Maria Shipman DO [address] [place] [address] PCP - General 03/22/10 documented as of this encounter
--- OUTSIDE RECORDS SUMMARY | 2023-07-11 06:07 | External Medical Summary | Summary of Care ---
Author Name Unknown Organization [facility] Address [address] [place] [address] Phone [phone] Care Team Providers Care Strategic Business Development Name Role Phone RenukaMaria amato Priti BRADY Primary Care Provider [phone] Reason for Visit * Reason Onset Date Comments Medication Refill 06/12/2023 Encounter Details Date Type Department Care Team (Late st Contact Info) Description 06/12/2023 Refill Hematology/Oncology [facility] [place] [facility] [place] [address] Solis Goetz MD [facility] [address] Diffuse large B-cell lymphoma of intra-abdominal lymph nodes (HCC) Allergies Active Allergy Reactions Criticality Noted Date Comments Penicillins Anaphylaxis High 11/02/2002 As a child Sulfonylureas Anaphylaxis High 11/02/2002 As a child documented as of this encounter (statuses as of 06/12/2023) Medications Medication Sig Dispensed Refills Start Date [...] 03/22/2010 Active VITAMIN D 1000 UNIT PO CAPSIndications:Vi tamin D deficiency Take 5 Capsules by mouth in the morning. 30 Cap 11 03/22/2010 Active Multivitamin Adult Oral Tablet Take 1 Tab by mouth daily. 0 Active Ondansetron HCl 8 MG Oral Tablet (Zofran)Indication s:Diffuse large B-cell lymphoma of intra-abdominal lymph nodes [...] 06/17/2021 Active Allopurinol 300 MG Oral Tablet (Zyloprim)Indicati ons:Diffuse large B-cell lymphoma of intra-abdominal lymph nodes (HCC) Take 1 Tablet by mouth daily. 90 Tablet 1 07/02/2021 Active Gabapentin 400 MG Oral Capsule (Neurontin)Indicat ions:Migraine without aura and without status migrainosus, not intractable Take 1 Capsule by mouth in the morning and 1 Capsule before bedtime. 60 Capsule 5 07/03/2021 Active Escitalopram Oxalate 20 MG Oral TabletIndications: ROBIN (generalized anxiety disorder) Take 1 Tablet by mouth in the morning. 30 Tablet 5 08/12/2021 Active ALPRAZolam 1 MG Oral Tablet (xaNAX) 0 03/07/2022 Active risperiDONE 0.25 MG Oral Tablet (RisperDAL)Indicat ions:Anxiety TAKE 1 TABLET BY MOUTH AT BEDTIME 30 Tablet 5 02/27/2023 Active valACYclovir HCl 1 GM Oral Tablet (Valtrex)Indicatio ns:Diffuse large B-cell lymphoma of intra-abdominal lymph nodes (HCC),Herpes zoster ophthalmicus of left eye TAKE 1 TABLET IN THE MORNING 90 Tablet 3 04/29/2023 Active Cyanocobalamin 500 MCG Oral Tablet Take 1 Tablet by mouth in the morning. 0 08/22/2022 Active busPIRone HCl 10 MG Oral Tablet (Buspar)Indication s:ROBIN (generalized anxiety disorder) Take 1 tablet by mouth in the morning and 1 tablet before bedtime 180 Tablet 0 06/04/2023 Active oxyCODONE HCl 5 MG Oral Tablet (Oxy IR)Indications:Dif fuse large B-cell lymphoma of intra-abdominal lymph nodes (HCC) Take 1 Tablet by mouth every 4 hours as needed for Pain, Moderate. 60 Tablet 0 06/12/2023 Active oxyCODONE HCl 5 MG Oral Tablet (Oxy IR)Indications:Dif fuse large B-cell lymphoma of intra-abdominal lymph nodes (HCC) Take 1 Tablet by mouth every 4 hours as needed for Pain, Moderate. 60 Tablet 0 05/13/2023 3 Discontinue d(Refill) documented as of this encounter (statuses as of 06/12/2023) Active Problems Problem Noted Date Diagnosed Date [...] as of this encounter (statuses as of 06/12/2023) Resolved Problems Problem Noted Date Diagnosed Date Resolved Date Acute respiratory failure wi th hypoxia and hypercapnia 06/09/2021 04/29/2023 Septic shock 06/09/2021 04/29/2023 COPD exacerbation 03/22/2013 04/29/2023 Multiple sclerosis 07/14/2008 3 documented as of this encounter (statuses as of 06/12/2023) Immunizations Name Administration Dates Next Due COVID-19 mRNA, LNP-s, No Pre serve, 2-Dose Series (Pfizer) 07/27/2021,10/25/2020,10/04/2020 Pneumococcal Conjugate Vacci ne, 20-valent ([id number]) 12/06/2021 Pneumococcal Polysaccharide PPV23 (Pneumovax) 09/02/2019 SEASONAL [...] on file documented as of this encounter Functional Status Functional Status Response [...] or making decisions? (5 years old or older) No 07/11/2021 documented as of this encounter Miscellaneous Notes * Telephone Encounter - Solis Goetz MD - 06/12/2023 3:32 PM EST E-prescribed oxycodone. * Telephone Encounter - Shazia Morrow RN - 06/12/2023 2:06 PM ESTPending Prescriptions: Disp Refills oxyCODONE HCl 5 MG Oral Tablet (Oxy IR) 60 Tab*0 Sig: Take 1 Tablet by mouth every 4 hours as needed for Pain, Moderate. * Telephone Encounter - Shazia Morrow RN - 06/12/2023 2:05 PM EST PDMP reviewed. Oxycodone filled 05/13/23 for 60 tabs. Patient also received xanax 05/13/23 for 60 tabs, written by neurologist. No concerns. * Telephone Encounter - Dejah Smith CPhT - 06/12/2023 8:52 AM EST Did you pend patient's preferred pharmacy and medication before forwarding?yes Pharmacy: [id number] Pending Prescriptions: Disp Refills oxyCODONE HCl 5 MG Oral Tablet (Oxy IR) 60 Tab*0 Sig: Take 1 Tablet by mouth every 4 hours as needed for Pain, Moderate. Last Visit: 04/30/2023 (in office), Visit date not found (telemedicine) Next Visit: 11/04/2023 If no future appointments scheduled, and last appointment is greater than a year ago, please schedule patient for a follow-up appointment Last date the medication was ordered: 05/13/2023 Is this request for a controlled substance?Yes, What was the last refill date 05/13/23 w/ quantity 60 tablets and dosage 1 tab q4h prn and Urine Drug Screen Not completed Urine Drug Screen: Results for orders placed or performed during the hospital encounter of 06/09/21 TOXICOLOGY, URINE SCREEN Result Value Amphetamine Negative Benzodiazepines Positive (A) Cannabinoids Negative Cocaine Metabolite Negative Hydrocodone / Hydromorphone Negative Methadone Metabolite Negative Morphine / Codeine Negative Oxycodone / Oxymorphone Positive (A) Narrative Cutoff Concentrations: Drug Level Amphetamines 500 ng/mL Benzodiazepines 100 ng/mL Cannabinoids 50 ng/mL Cocaine Metabolite 150 ng/mL Hydrocodone / Hydromorphone 300 ng/mL Methadone Metabolite 100 ng/mL Morphine / Codeine 300 ng/mL Oxycodone / Oxymorphone 100 ng/mL Screening results are presumptive and can only be used for medical purposes. Confirmatory testing is available upon request. Results for orders placed or performed in visit on 06/03/17 TOX SCREEN, URINE, W/ CONFIRMATION Result Value Amphetamine NEGATIVE Barbiturates NEGATIVE Benzodiazepines POSITIVE (A) Cannabinoids NEGATIVE Cocaine Metabolite NEGATIVE Morphine / Codeine NEGATIVE METHADONE METABOLITE NEGATIVE OXYCODONE NEGATIVE TOX COMMENT THE ABOVE SCREENING RESULTS ARE PRESUMPTIVE AND CAN ONLY BE USED FOR MEDICAL PURPOSES. POSITIVE RESULTS REFLEX TO CONFIRMATORY TESTING. Cutoff Concentration Patient Phone Numbers Labs: Lab Results Component Value Date/Time CREAT 0.8 10/08/2022 10:06 AM CREAT 0.80 12/03/2019 12:00 AM CREAT 0.8 08/07/2017 12:49 PM POTASSIUM 4.0 10/08/2022 10:06 AM POTASSIUM 3.7 10/20/2018 12:00 AM POTASSIUM 4.1 05/26/2017 11:08 AM TSH 2.540 10/20/2018 12:00 AM TSH 2.61 08/07/2017 12:49 PM LDLCALC 142 (H) 03/17/2011 08:56 AM ALT 22 10/08/2022 10:06 AM ALT 19 06/17/2016 12:00 AM ALT 11 12/19/2011 01:52 PM documented in this encounter Plan of Treatment Upcoming Encounters Date Type Department Care Team (Late st Contact Info) Description 09/24/2023 3:40 PM EDT Office Visit Dermatology, [place] [address] [place] [address] Sharmaine Yo PA-C [address] [place] [address] [place] [address] 10/28/2023 4:30 PM EDT Laboratory Laboratory, [facility] [address] [facility] [place] [phone] [facility] [address] [facility] [place] [address] 10/29/2023 11:20 AM EDT Office [facility] [place] [address] [facility] [phone] Carla Jimenez [facility]-C [address] [facility] [address] 10/30/2023 9:00 AM EDT Imaging Radiology [facility]st [facility] [address] [facility] [place] [address] 11/04/2023 1:15 PM EDT Office Visit Hematology/Oncology [facility] [place] [address] [place] [address] Solis Goetz MD [address] [place] [address] Health Maintenance Due Date Last Done Comments Zoster Vaccines (1 of 2) 1977 Cologuard 2003 Fecal Occult Blood Test 2003 Sigmoidoscopy 2003 Lipid Panel 03/17/2016 03/17/2011 Depression Screening 06/03/2018 06/03/2017 Colonoscopy 01/12/2022 01/13/2012, 01/13/2012 Colorectal Cancer Screening 01/12/2022 COVID-19 Vaccine ( season) 2023 07/27/2021, 10/25/2020, 10/04/2020 *BISPHONATE OR OTHER ACCEPTABLE MEDICATION NEEDED FOR OSTEOPOROSIS (REFER TO SMARTSET #1146) 04/01/2023 Mammogram 10/09/2023 10/08/2022, 04/0 10/2021, 09/12/2020, Additional history exists DTaP,Tdap,and Td Vaccines (2 - Td or Tdap) 03/28/2024 03/28/2014 DXA Scan 02/19/2025 02/19/2023, 02/03, 02/12/2021, Additional history exists Diabetes Screening 10/08/2025 10/08/2022, 1 , 03/20/2022, Additional history exists Hepatitis C Screening Completed 05/03/2021 Pneumococcal Vaccine: Pediatrics (0 to 5 Years) and At-Risk Patients (6 to 64 Years) Completed 12/06/2021, 09/02/2019 VITAMIN D LEVEL ONCE IN A LIFETIME-USE SMARTSET# 08677 Completed 03/20/2022, 07/10/2021, 10/20/2018, Additional history exists [...] this encounter Medical Devices Implanted Type Area Drama Critic Device Identifier Shelf Expiration Date Model / Serial / Lot Power Port 8fr Sngl Lumen Plas - [id number] Implanted:Qty : 1 on 05/15/2021 by Parrish Bishop, DO at OR [facility] Right: Chest CR BARD : PERIPHERAL VASCULAR [id number] 06/04/2022 [id number] / / [id number] documented as of this encounter Visit Diagnoses Diagnosis Diffuse large B-cell lymphoma of intra-abdominal lymph nodes (HCC) Other malignant lymphomas of intra-abdominal lymph nodes documented in this encounter Advance Directives Latest [...] the patient have Health Care Power of Developmental Psychologist? No Code Status History Code Status Date Activated Date Inactivated Comments Limited Code 06/09/2021 5:53 PM 06/17/2021 9:32 PM This order reflects the patients wishes and were consensually agreed upon. Question Answer Comments Discussion of Advance Directives occurred with: Patient Does the patient have a Living Will? No Does the patient have Health Care Power of Developmental Psychologist? No Bag Valve Device? Yes Intubation? Yes [...] the patient have Health Care Power of Developmental Psychologist? No Full Code 05/03/2021 8:40 PM 05/11/2021 2:23 PM This order reflects the patients wishes and were consensually agreed upon. Question Answer Comments Discussion of Advance Directives occurred with: Patient Does the patient have a Living Will? No Does the patient have Health Care Power of Developmental Psychologist? No Care Teams Strategic Business Development Relationship Specialty Start Date End Date Maria Shipman DO [address] [place] [address] PCP - General 03/22/10 documented as of this encounter
--- OUTSIDE RECORDS SUMMARY | 2023-07-11 06:07 | External Medical Summary | Summary of Care ---
Author Name Unknown Organization [facility] Address [address] [place] [address] Phone [phone] Care Team Providers Care Vascular Ultrasound Technologist Name Role Phone Maria Shipman DO Primary Care Provider [phone] Encounter Details Date Type Department Care Team Description 01/05/2023 Telephone Radiology [facility]st [facility] [address] [facility] [address] Chanel Mason RT Allergies Active Allergy Reactions Severity Noted Date Comments Penicillins Anaphylaxis High 11/02/2002 As a child Sulfonylureas Anaphylaxis High 11/02/2002 As a child documented as of this encounter (statuses as of 04/06/2023) Medications Medication Sig Dispensed Refills Start Date End Date Status MELOXICAM 7.5 MG PO TABS Take 1 Tablet by mouth in the morning. 30 Tab 5 0 Active TOPAMAX 100 MG PO TABS Take 1 Tablet by mouth in the morning. 60 Tab 5 0 Active MEDI-MECLIZINE 25 MG PO TABS Take 1 Tablet by mouth 3 times a day as needed. 30 Tab 1 0 Active VITAMIN D 1000 UNIT PO CAPSIndications: Vitamin D deficiency Take 5 Capsules by mouth in the morning. 30 Cap 11 0 Active Multivitamin Adult Oral Tablet Take 1 Tab by mouth daily. 0 Active Ondansetron HCl 8 MG Oral Tablet (Zofran)Indicati ons:Diffuse large B-cell lymphoma of intra-abdominal lymph nodes (HCC) Take 1 Tablet by mouth every 8 hours as needed for Nausea. 30 Tablet 2 1 Active Additional Information Patient not taking.Reported on 08/21/2022 Prochlorperazine Maleate 10 MG Oral Tablet (Compazine)Indic ations:Diffuse large B-cell lymphoma of intra-abdominal lymph nodes (HCC) Take 1 Tablet by mouth every 6 hours as needed for Nausea. 30 Tablet 2 1 Active Additional Information Patient not taking.Reported on [...] needed for Pain, Mild. 30 Tablet 0 1 Active Allopurinol 300 MG Oral Tablet (Zyloprim)Indica tions:Diffuse large B-cell lymphoma of intra-abdominal lymph nodes (HCC) Take 1 Tablet by mouth daily. 90 Tablet 1 1 Active Gabapentin 400 MG Oral Capsule (Neurontin)Indic ations:Migraine without aura and without status migrainosus, not intractable Take 1 Capsule by mouth in the morning and 1 Capsule before bedtime. 60 Capsule 5 1 Active Escitalopram Oxalate 20 MG Oral TabletIndication s:ROBIN (generalized anxiety disorder) Take 1 Tablet by mouth in the morning. 30 Tablet 5 2 Active Potassium Chloride ER 10 MEQ Oral Tablet Extended ReleaseIndicatio ns:Hypokalemia,D iffuse large B-cell lymphoma of intra-abdominal lymph nodes (HCC) TAKE 1 TABLET DAILY 90 Tablet 3 2 Active ALPRAZolam 1 MG Oral Tablet (xaNAX) 0 2 Active Nicotine 7 MG/24HR Transdermal Patch 24 Hour (Nicoderm CQ) Place topically on the skin 1 Patch in the morning. On upper body/outer arm, change once a day for two weeks.. 14 Patch 0 2 Active Additional Information Patient not taking.Reported on 08/21/2022 valACYclovir HCl 1 GM Oral Tablet (Valtrex)Indicat ions:Diffuse large B-cell lymphoma of intra-abdominal lymph nodes (HCC),Herpes zoster ophthalmicus of left eye TAKE 1 TABLET IN THE MORNING 90 Tablet 3 2 Active Anastrozole 1 MG Oral Tablet (Arimidex)Indica tions:Malignant neoplasm of upper-inner quadrant of left breast in female, estrogen receptor positive Take 1 Tablet by mouth in the morning. 90 Tablet 3 3 Active busPIRone HCl 10 MG Oral Tablet (Buspar)Indicati ons:ROBIN (generalized anxiety disorder) TAKE 1 TABLET BY MOUTH EVERY MORNING AND 1 TABLET BEFORE BEDTIME 180 Tablet 0 3 03/04/20 23 Discontinued oxyCODONE HCl 10 MG Oral Tablet (Roxicodone)Kacy cations:Diffuse large B-cell lymphoma of intra-abdominal lymph nodes (HCC) Take 0.5 Tablets by mouth every 4 hours as needed for Pain, Moderate. 30 Tablet 0 3 01/15/20 23 Discontinued(Med ication/Dose Changed) risperiDONE 0.25 MG Oral Tablet (RisperDAL)Indic ations:Anxiety TAKE 1 TABLET BY MOUTH EVERY NIGHT AT BEDTIME 30 Tablet 0 3 02/03/20 23 Discontinued documented as of this encounter (statuses as of 04/06/2023) Active Problems Problem Noted Date Orthostatic hypotension 07/11/2021 Delirium due to general medical conditio n 06/17/2021 Acute respiratory failure with hypoxia a nd hypercapnia 06/09/2021 Septic shock 06/09/2021 Diffuse large B-cell lymphoma of intra-a bdominal lymph nodes 05/29/2021 Encounter for antineoplastic chemotherap y 05/04/2021 Diffuse large B cell lymphoma 05/03/2021 Abdominal pain 05/03/2021 Nausea 05/03/2021 Hyponatremia 05/03/2021 Hypokalemia 05/03/2021 Oral thrush 05/03/2021 Pleural effusion 05/03/2021 Hypoxia 05/03/2021 Senile osteoporosis 11/01/2018 Malignant neoplasm of upper- inner quadrant of left breast in female, estrogen receptor positive 07/02/2017 Cancer Staging:Pathologic stage from 06/17/2017:Stage IA(T1b, N0, cM0) - Unsigned 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 COPD exacerbation 03/22/2013 Bronchitis, complicated 03/22/2013 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 Microcalcifications of the breast 2012 Tobacco use disorder 10/15/2012 Vitamin D deficiency 03/22/2010 Anxiety state 03/22/2010 Neuropathy documented as of this encounter (statuses as of 04/06/2023) Resolved Problems Problem Noted Date Resolved Date Multiple sclerosis 07/14/2008 03/22/2013 documented as of this encounter (statuses as of 04/06/2023) Immunizations Name Administration Dates Next Due COVID-19 mRNA, LNP-s, No Pre serve, 2-Dose Series (Pfizer) 07/27/2021,10/25/2020,10/04/2020 Pneumococcal Conjugate Vacci ne, 20-valent ([id number]) 12/06/2021 Pneumococcal Polysaccharide PPV23 (Pneumovax) 09/02/2019 SEASONAL INFLUENZA, PF, 6 M & Above, IM , (FLULAVAL or FLUZONE) 04/24/2022,06/17/2021,09/02/2019,06/03 Seasonal Influenza, Split, I IV3, With Preserve, Inj 02/28/2015,04/13/2014,04/13/2013,04/09,03/22/2010 TDAP (age 10 and older)(Boostrix) 03/28/2014 documented as of this encounter Social History Tobacco Use Types Packs/Day Years Used Date Smoking Tobacco: Former Cigarettes 0.5 42 Smokeless Tobacco: Never Comments:began at age 10 Alcohol Use Standard Drinks/Week Comments No 0 (1 standard drink = 0.6 oz pur e alcohol) Sex Assigned at Date Recorded Not on file Job Start Date Occupation [...] (15 years old or older) No 07/11/19 22 Cognitive Status Response Date of Assessm ent Because of a physical, menta l, or emotional condition, do you have serious difficulty concentrating, remembering, or making decisions? (5 years old or older No 07/11/2021 documented as of this encounter Miscellaneous Notes * Telephone Encounter - RT Lucie - 01/05/2023 12:23 PM EDT Elizabeth Roque is scheduled for a Dexa scan on 01/22/23. The scans are usually covered by insurance every twoyears and her last one was done on 02/12/21 which puts her a little early. Could we see if the patient would like to be rescheduled to after 02/12 or if they would like to call their insurance to see if they would cover the scan if it was done early? Just don't want the patient to possibly get a surprise bill if we did her scan her early. Thanks in advance! Chanel documented in this encounter Plan of Treatment Upcoming Encounters Date Type Specialty Care Team Description 04/29/2023 Office Visit Family Medicine Carla Jimenez PA-C [address] [place] [address] 04/30/2023 Office Visit Hematology Oncology Solis Goetz MD [address] [place] [address] [place] [address] 09/24/2023 Office Visit Dermatology Sharmaine Yo PA-C [address] [place] [address] [place] [address] Health Maintenance Due Date Last Done Comments Alpha-1 Antitrypsin 1976 Zoster Vaccines (1 of 2) 1977 Cologuard 2003 Fecal Occult Blood Test 2003 Sigmoidoscopy 2003 *COPD SEVERITY VERIFIED BY PFT 07/11/2014 Lipid Panel 03/17/2016 03/17/2011 Depression Screening 06/03/2018 06/03/2017 COVID-19 Vaccine (4 - Pfizer risk series) 09/21/2021 07/27/2021, 10/25/2020, 10/04/2020 Colonoscopy 01/12/2022 01/13/2012, 01/13/2012 Colorectal Cancer Screening 01/12/2022 Influenza Vaccine (FLU shot) (#1) 2023 04/24/2022, 06/17/2021, 09/02/2019, Additional history exists Mammogram 10/09/2023 10/08/2022, 10/2021, 09/12/2020, Additional history exists O2 ASSESSMENT COMPLETED IN PAST YEAR FOR COPD 12/13/2023 12/12/2022 DTaP,Tdap,and Td Vaccines (2 - Td or Tdap) 03/28/2024 03/28/2014 DXA Scan 02/19/2025 02/19/2023, 02/03, 11/17/2018, Additional history exists Diabetes Screening 10/08/2025 10/08/2022, 1 , 03/20/2022, Additional history exists Pneumococcal Vaccine: Pediatrics (0 to 5 Years) and At-Risk Patients (6 to 64 Years) Completed 12/06/2021, 09/02/2019 VITAMIN D LEVEL ONCE IN A LIFETIME-USE SMARTSET# [id number] Completed 03/20/2022, 07/10/2021, 10/20/2018, Additional history exists GARDASIL-HPV IMMUNIZATION SERIES Aged Out No longer eligible based on patient's age to complete this topic Hepatitis B Aged Out No longer eligi ble based on patient's age to complete this topic MENINGOCOCCAL (MENACTRA/MENVEO) Aged Out No longer eligible based on patient's age to complete this topic documented as of this encounter Medical Devices Implanted Type Area Production Cloth Cutter Device Identifier Shelf Expiration Date Model / Serial / Lot Power Port 8fr Sngl Lumen Plas - [id number] Implanted:Qty : 1 on 05/15/2021 by Parrish Bishop, DO at OR [facility] Right: Chest CR BARD : PERIPHERAL VASCULAR [id number] 06/04/2022 [id number] / / [id number] documented as of this encounter Advance Directives Latest Code Status on File Code Status Date Activated Date Inactivated Comments Full Code 07/11/2021 2:47 PM 07/12/2021 8:03 PM This or kaylin reflects the patients wishes and were consensually agreed upon. Question Answer Comments Discussion of Advance Directives occurred with: Patient Does the patient have a Living Will? No Does the patient have Health Care Power of Counter Weigher? No Code Status History Code Status Date Activated Date Inactivated Comments Limited Code 06/09/2021 5:53 PM 06/17/2021 9:32 PM This order reflects the patients wishes and were consensually agreed upon. Question Answer Comments Discussion of Advance Directives occurred with: Patient Does the patient have a Living Will? No Does the patient have Health Care Power of Counter Weigher? No Bag Valve Device? Yes Intubation? Yes [...] the patient have Health Care Power of Counter Weigher? No Full Code 05/03/2021 8:40 PM 05/11/2021 2:23 PM This order reflects the patients wishes and were consensually agreed upon. Question Answer Comments Discussion of Advance Directives occurred with: Patient Does the patient have a Living Will? No Does the patient have Health Care Power of Counter Weigher? No Care Teams Vascular Ultrasound Technologist Relationship Specialty Start Date End Date Maria Shipman, [address] [place] [address] PCP - General 03/22/10 documented as of this encounter
--- OUTSIDE RECORDS SUMMARY | 2023-07-11 06:07 | External Medical Summary | Summary of Care ---
Author Name Unknown Organization [facility] Address [address] [place] [address] Phone [phone] Care Team Providers Care Chairman & Ceo Name Role Phone Maria Shipman DO Primary Care Provider + [phone] Reason for Visit * Reason Onset Date Comments Medication Refill 04/13/2023 Encounter Details Date Type Department Care Team Description 04/13/2023 Refill Hematology/Oncology [facility] [place] [address] [place] [address] Solis Goetz MD [address] [place] [address] Diffuse large B-cell lymphoma of intra-abdominal lymph nodes (HCC) Allergies Active Allergy Reactions Severity Noted Date Comments Penicillins Anaphylaxis High 11/02/2002 As a child Sulfonylureas Anaphylaxis High 11/02/2002 As a child documented as of this encounter (statuses as of 04/13/2023) Medications Medication Sig Dispensed Refills Start Date [...] 08/21/2022 Prochlorperazine Maleate 10 MG Oral Tablet (Compazine)Indicat ions:Diffuse large B-cell lymphoma of intra-abdominal lymph [...] the morning. 30 Tablet 5 08/12/2021 Active Potassium Chloride ER 10 MEQ Oral Tablet Extended ReleaseIndications :Hypokalemia,Diffu se large B-cell lymphoma of intra-abdominal lymph nodes (HCC) TAKE 1 TABLET DAILY 90 Tablet 3 12/11/2021 Active ALPRAZolam 1 MG Oral Tablet (xaNAX) 0 03/07/2022 Active Nicotine 7 MG/24HR Transdermal Patch 24 Hour (Nicoderm CQ) Place topically on the skin 1 Patch in the morning. On upper body/outer arm, change once a day for two weeks.. 14 Patch 0 03/28/2022 Active Additional Information Patient not taking.Reported on 08/21/2022 valACYclovir HCl 1 GM Oral Tablet (Valtrex)Indicatio ns:Diffuse large B-cell lymphoma of intra-abdominal lymph nodes (HCC),Herpes zoster ophthalmicus of left eye TAKE 1 TABLET IN THE MORNING 90 Tablet 3 05/02/2022 Active Anastrozole 1 MG Oral Tablet (Arimidex)Indicati ons:Malignant neoplasm of upper-inner quadrant of left breast in female, estrogen receptor positive Take 1 Tablet by mouth in the morning. 90 Tablet 3 08/05/2022 Active risperiDONE 0.25 MG Oral Tablet (RisperDAL)Indicat ions:Anxiety TAKE 1 TABLET BY MOUTH AT BEDTIME 30 Tablet 5 02/27/2023 Active busPIRone HCl 10 MG Oral Tablet (Buspar)Indication s:ROBIN (generalized anxiety disorder) TAKE ONE TABLET BY MOUTH IN THE MORNING AND ONE BEFORE BEDTIME 180 Tablet 0 03/04/2023 Active oxyCODONE HCl 5 MG Oral Tablet (Oxy IR)Indications:Dif fuse large B-cell lymphoma of intra-abdominal lymph nodes (HCC) Take 1 Tablet by mouth every 4 hours as needed for Pain, Moderate. 60 Tablet 0 04/13/2023 Active oxyCODONE HCl 5 MG Oral Tablet (Oxy IR)Indications:Dif fuse large B-cell lymphoma of intra-abdominal lymph nodes (HCC) Take 1 Tablet by mouth every 4 hours as needed for Pain, Moderate. 60 Tablet 0 03/17/2023 3 Discontinue d(Refill) documented as of this encounter (statuses as of 04/13/2023) Active Problems Problem Noted Date Orthostatic hypotension [...] as of this encounter (statuses as of 04/13/2023) Resolved Problems Problem Noted Date Resolved Date Multiple sclerosis 07/14/2008 03/22/2013 documented as of this encounter (statuses as of 04/13/2023) Immunizations Name Administration Dates Next Due COVID-19 mRNA, LNP-s, No Pre serve, 2-Dose Series ([employer]) 07/27/2021,10/25/2020,10/04/2020 Pneumococcal Conjugate Vacci ne, 20-valent ([id number]) 12/06/2021 Pneumococcal Polysaccharide PPV23 (Pneumovax) 09/02/2019 SEASONAL [...] Telephone Encounter - Solis Goetz MD - 04/13/2023 11:22 AM EDT E-prescribed oxycodone. Solis Goetz MD Hem/Onc * Telephone Encounter - Judy Frey LPN - 04/13/2023 10:08 AM EDTPending Prescriptions: Disp Refills oxyCODONE HCl 5 MG Oral Tablet (Oxy IR) 60 Tab*0 Sig: Take 1 Tablet by mouth every 4 hours as needed for Pain, Moderate. * Telephone Encounter - Judy Frey LPN - 04/13/2023 10:07 AM EDT PDMP reviewed, no concerns. Oxycodone 5mg last filled on 03/17/23. For 60 tablets, 10 days. Script pended by pharmacy. * Telephone Encounter - Luisa Barroso, residential real estate appraiser - 04/13/2023 9:43 AM EDT Did you pend patient's preferred pharmacy and medication before forwarding?yes Pharmacy: [id number] Pending Prescriptions: Disp Refills oxyCODONE HCl 5 MG Oral Tablet (Oxy IR) 60 Tab*0 Sig: Take 1 Tablet by mouth every 4 hours as needed for Pain, Moderate. Last Visit: Visit date not found (in office), Visit date not found (telemedicine) Next Visit: 04/30/2023 If no future appointments scheduled, and last appointment is greater than a year ago, please schedule patient for a follow-up appointment Last date the medication was ordered: 03/17/23 Is this request for a controlled substance?Yes, What was the last refill date 03/17/23 w/ quantity 60 and dosage 1Q4H and Urine Drug Screen Not completed Urine [...] Office Visit Family Medicine Carla Jimenez PA-C [address] [place] [address] 04/30/2023 Office Visit Hematology Oncology Solis Goetz MD [address] [place] [address] 09/24/2023 Office Visit Dermatology Sharmaine Yo PA-C [address] [place] [address] [place] [address] Health Maintenance Due Date Last Done Comments Alpha-1 Antitrypsin 1976 Zoster Vaccines (1 of 2) 1977 Cologuard 2003 Fecal Occult Blood Test 2003 Sigmoidoscopy 2003 *COPD SEVERITY VERIFIED BY PFT 07/11/2014 Lipid Panel 03/17/2016 03/17/2011 Depression Screening 06/03/2018 06/03/2017 Colonoscopy 01/12/2022 01/13/2012, 01/13/2012 Colorectal Cancer Screening 01/12/2022 COVID-19 Vaccine ( season) 2023 07/27/2021, 10/25/2020, 10/04/2020 Influenza Vaccine (FLU shot) (#1) 2023 04/24/2022, 06/17/2021, 09/02/2019, Additional history exists *BISPHONATE OR OTHER ACCEPTABLE MEDICATION NEEDED FOR OSTEOPOROSIS (REFER TO SMARTSET #1146) 04/01/2023 Mammogram 10/09/2023 10/08/2022, 04/0 10/2021, 09/12/2020, Additional history exists O2 ASSESSMENT [...] D LEVEL ONCE IN A LIFETIME-USE SMARTSET# 23323 Completed 03/20/2022, 07/10/2021, 10/20/2018, Additional history exists [...] this encounter Medical Devices Implanted Type Area Specialty Department Supervisor Device Identifier Shelf Expiration Date Model / Serial / Lot Power Port 8fr Sngl Lumen Plas - [id number] Implanted:Qty : 1 on 05/15/2021 by Parrish Bishop, DO at OR [facility] Right: Chest CR BARD : PERIPHERAL VASCULAR [id number] 06/04/2022 [id number] / / [id number] documented as of this encounter Visit Diagnoses [...] the patient have Health Care Power of Oncology Admin? No Code Status History Code Status Date Activated Date Inactivated Comments Limited Code 06/09/2021 5:53 PM 06/17/2021 9:32 PM This order reflects the patients wishes and were consensually agreed upon. Question Answer Comments Discussion of Advance Directives occurred with: Patient Does the patient have a Living Will? No Does the patient have Health Care Power of Oncology Admin? No Bag Valve Device? Yes Intubation? Yes [...] the patient have Health Care Power of Oncology Admin? No Full Code 05/03/2021 8:40 PM 05/11/2021 2:23 PM This order reflects the patients wishes and were consensually agreed upon. Question Answer Comments Discussion of Advance Directives occurred with: Patient Does the patient have a Living Will? No Does the patient have Health Care Power of Oncology Admin? No Care Teams Chairman & Ceo Relationship Specialty Start Date End Date Maria Shipman, [address] [place] [address] PCP - General 03/22/10 documented as of this encounter
--- OUTSIDE RECORDS SUMMARY | 2023-07-11 06:07 | External Medical Summary | Summary of Care ---
Author Name Unknown Organization [facility] Address [address] [place] [address] Phone [phone] Care Team Providers Care Air Pumper Name Role Phone RenukaMaria amato Priti BRADY Primary Care Provider Reason for Visit * Reason Onset Date Comments Medication Refill 05/13/2023 Encounter Details Date Type Department Care Team (Late st Contact Info) Description 05/13/2023 Refill Hematology/Oncology [facility] [place] [address] [facility] [place] [address] [facility] [address] [facility] [address] Diffuse large B-cell lymphoma of intra-abdominal lymph nodes (HCC) Allergies Active Allergy Reactions Criticality Noted Date Comments Penicillins Anaphylaxis High 11/02/2002 As a child Sulfonylureas Anaphylaxis High 11/02/2002 As a child documented as of this encounter (statuses as of 05/13/2023) Medications Medication Sig Dispensed Refills Start Date [...] BEFORE BEDTIME 180 Tablet 0 03/04/2023 Active valACYclovir HCl 1 GM Oral Tablet (Valtrex)Indicatio ns:Diffuse large B-cell lymphoma of intra-abdominal lymph nodes (HCC),Herpes zoster ophthalmicus of left eye TAKE 1 TABLET IN THE MORNING 90 Tablet 3 04/29/2023 Active Cyanocobalamin 500 MCG Oral Tablet Take 1 Tablet by mouth in the morning. 0 08/22/2022 Active oxyCODONE HCl 5 MG Oral Tablet (Oxy IR)Indications:Dif fuse large B-cell lymphoma of intra-abdominal lymph nodes (HCC) Take 1 Tablet by mouth every 4 hours as needed for Pain, Moderate. 60 Tablet 0 05/13/2023 Active oxyCODONE HCl 5 MG Oral Tablet (Oxy IR)Indications:Dif fuse large B-cell lymphoma of intra-abdominal lymph nodes (HCC) Take 1 Tablet by mouth every 4 hours as needed for Pain, Moderate. 60 Tablet 0 04/13/2023 3 Discontinue d(Refill) documented as of this encounter (statuses as of 05/13/2023) Active Problems Problem Noted Date Diagnosed Date [...] as of this encounter (statuses as of 05/13/2023) Resolved Problems Problem Noted Date Diagnosed Date Resolved Date Acute respiratory failure wi th hypoxia and hypercapnia 06/09/2021 04/29/2023 Septic shock 06/09/2021 04/29/2023 COPD exacerbation 03/22/2013 04/29/2023 Multiple sclerosis 07/14/2008 3 documented as of this encounter (statuses as of 05/13/2023) Immunizations Name Administration Dates Next Due COVID-19 mRNA, LNP-s, No Pre serve, 2-Dose Series ([employer]) 07/27/2021,10/25/2020,10/04/2020 Pneumococcal Conjugate Vacci ne, 20-valent ([id number]) 12/06/2021 Pneumococcal Polysaccharide PPV23 (Pneumovax) 09/02/2019 SEASONAL [...] Telephone Encounter - Solis Goetz MD - 05/13/2023 1:19 PM EST E-prescribed oxycodone. * Telephone Encounter - Shazia Morrow RN - 05/13/2023 12:25 PM ESTPending Prescriptions: Disp Refills oxyCODONE HCl 5 MG Oral Tablet (Oxy IR) 60 Tab*0 Sig: Take 1 Tablet by mouth every 4 hours as needed for Pain, Moderate. * Telephone Encounter - Shazia Morrow RN - 05/13/2023 12:24 PM EST PDMP reviewed. Oxycodone filled 04/13/23 for 60 tabs. Patient also gets xanax through another provider- last filled 04/13/23 for 60 tabs. No concerns. * Telephone Encounter - Luisa Barroso, [employer] group leader - 05/13/2023 12:03 PM EST Did you pend patient's preferred pharmacy and medication before forwarding?yes Pharmacy: [facility] [id number] Pending Prescriptions: Disp Refills oxyCODONE HCl [...] appointment Last date the medication was ordered: 04/13/23 Is this request for a controlled substance?Yes, What was the last refill date 04/13/23 w/ quantity 60 and dosage 1Q4H and [...] 09/24/2023 3:40 PM EDT Office Visit Dermatology, [place] [address] [place] [address] Sharmaine Yo PA-C [address] [place] [address] [place] [address] 10/28/2023 4:30 PM EDT [facility] [address] [facility] [place] [id number] [facility] [address] [facility] [place] [address] 10/29/2023 11:20 AM EDT Office Visit [facility], [place] [address] [facility] [id number] Carla Jimenez PA-C [address] [place] [address] 10/30/2023 9:00 AM EDT Imaging Radiology [facility] [address] [facility] [place] [address] 11/04/2023 1:15 PM EDT Office Visit Hematology/Oncology [facility] [place] [address] [place] [address] Solis Goetz MD [address] [place] [address] Health Maintenance Due Date Last Done Comments Zoster Vaccines (1 of 2) 1977 Cologuard 2003 Fecal Occult Blood Test 2003 Sigmoidoscopy 2003 Lipid Panel 03/17/2016 03/17/2011 Depression Screening 06/03/2018 06/03/2017 Colonoscopy 01/12/2022 01/13/2012, 01/13/2012 Colorectal Cancer Screening 01/12/2022 COVID-19 Vaccine ( season) 2023 07/27/2021, 10/25/2020, 10/04/2020 *BISPHONATE OR OTHER ACCEPTABLE MEDICATION NEEDED FOR OSTEOPOROSIS (REFER TO SMARTSET #1146) 04/01/2023 Mammogram 10/09/2023 10/08/2022, 0410/2021, 09/12/2020, Additional history exists DTaP,Tdap,and Td Vaccines (2 - Td or Tdap) 03/28/2024 03/28/2014 DXA Scan 02/19/2025 02/19/2023, 02/03, 11/17/2018, Additional history exists Diabetes Screening 10/08/2025 10/08/2022, 1 , 03/20/2022, Additional history exists Hepatitis C Screening Completed 05/03/2021 Pneumococcal Vaccine: Pediatrics (0 to 5 Years) and At-Risk Patients (6 to 64 Years) Completed 12/06/2021, 09/02/2019 VITAMIN D LEVEL ONCE IN A LIFETIME-USE SMARTSET# [id number] Completed 03/20/2022, 07/10/2021, 10/20/2018, Additional history exists [...] this encounter Medical Devices Implanted Type Area Gym Attendant Device Identifier Shelf Expiration Date Model / Serial / Lot Power Port 8fr Sngl Lumen Plas - [id number] Implanted:Qty : 1 on 05/15/2021 by Parrish Bishop, at OR [facility] Right: Chest CR BARD : PERIPHERAL VASCULAR [id number] 06/04/2022 [id number] / / [id number] documented as of this encounter Visit Diagnoses [...] the patient have Health Care Power of Marker Assembler? No Code Status History Code Status Date Activated Date Inactivated Comments Limited Code 06/09/2021 5:53 PM 06/17/2021 9:32 PM This order reflects the patients wishes and were consensually agreed upon. Question Answer Comments Discussion of Advance Directives occurred with: Patient Does the patient have a Living Will? No Does the patient have Health Care Power of Marker Assembler? No Bag Valve Device? Yes Intubation? Yes [...] the patient have Health Care Power of Marker Assembler? No Full Code 05/03/2021 8:40 PM 05/11/2021 2:23 PM This order reflects the patients wishes and were consensually agreed upon. Question Answer Comments Discussion of Advance Directives occurred with: Patient Does the patient have a Living Will? No Does the patient have Health Care Power of Marker Assembler? No Care Teams Air Pumper Relationship Specialty Start Date End Date Maria Shipman DO [address] [facility] [place] [address] PCP - General 03/22/10 documented as of this encounter
--- OUTSIDE RECORDS SUMMARY | 2023-07-11 06:07 | External Medical Summary | Summary of Care ---
Author Name Unknown Organization [facility] Address [address] [place] [address] Phone [phone] Care Team Providers Care Patrol Officer Name Role Phone Marcialhardeep Maria Priti BRADY Primary Care Provider Reason for Referral * Precert (Within 10 days (routine)) - Pending Review Specialty Diagnoses / Procedures Referred By George sun Referred To Contact Radiology Diagnoses History of B-cell lymphoma Procedures CT CHEST/ABDOMEN/PELVIS WITH IV CONTRAST WITH ORAL CONTRAST Solis Goetz MD [address] [facility] [place] [address] Referral ID Status Reason Start Date Expiration Date V isits Requested Visits Authorized [id number] Pending Review 10/30/2023 999 999 Reason for Visit * Reason Comments Follow Up 6m Encounter Details Date Type Department Care Team (Late st Contact Info) Description 04/30/2023 3:15 PM EDT Office Visit Hematology/Oncology State Maria Del Rosario Hawkins [address] [place] [address] Solis Goetz MD 200 [facility] [place] [address] Malignant neoplasm of upper-inner quadrant of left breast in female, estrogen receptor positive *; History of B-cell lymphoma Allergies Active Allergy Reactions Criticality Noted Date Comments Penicillins Anaphylaxis High 11/02/2002 As a child Sulfonylureas Anaphylaxis High 11/02/2002 As a child documented as of this encounter (statuses as of 04/30/2023) Medications Medication Sig Dispensed Refills Start Date [...] mouth in the morning. 0 08/22/2022 Active Anastrozole 1 MG Oral Tablet (Arimidex)Indicati ons:Malignant neoplasm of upper-inner quadrant of left breast in female, estrogen receptor positive Take 1 Tablet by mouth in the morning. 90 Tablet 3 08/05/2022 3 Discontinue d(End of Procedure) documented as of this encounter (statuses as of 04/30/2023) Active Problems Problem Noted Date Diagnosed Date [...] as of this encounter (statuses as of 04/30/2023) Resolved Problems Problem Noted Date Diagnosed Date Resolved Date Acute respiratory failure wi th hypoxia and hypercapnia 06/09/2021 04/29/2023 Septic shock 06/09/2021 04/29/2023 COPD exacerbation 03/22/2013 04/29/2023 Multiple sclerosis 07/14/2008 3 documented as of this encounter (statuses as of 04/30/2023) Immunizations Name Administration Dates Next Due COVID-19 mRNA, LNP-s, No Pre serve, 2-Dose Series (Pfizer) 07/27/2021,10/25/2020,10/04/2020 Pneumococcal Conjugate Vacci ne, 20-valent (Kesguzl22) 12/06/2021 Pneumococcal Polysaccharide PPV23 (Pneumovax) 09/02/2019 SEASONAL INFLUENZA, PF, 6 M & Above, IM , (FLULAVAL or FLUZONE) 04/29/2023,04/24/2022,06/17/2021,09/02,06/03/2017 Seasonal Influenza, Split, I IV3, With Preserve, Inj 02/28/2015,04/13/2014,04/13/2013,04/09,03/22/2010 TDAP (age 10 and older)(Boostrix) 03/28/2014 documented as of this encounter Social History Tobacco Use Types Packs/Day Years Used Date Smoking Tobacco: Former Cigarettes 0.5 42 Smokeless Tobacco: Never Tobacco Cessation:Counseling Given: Not Answered Comments:began at age 10 Alcohol Use Standard [...] Sign Reading Time Taken Comments Blood Pressure 139/76 04/30/2023 3:01 PM EDT Pulse 82 04/30/2023 3:01 PM EDT Temperature - - Respiratory Rate 16 04/30/2023 3:01 PM EDT Oxygen Saturation 93% 04/30/2023 3:01 PM EDT Inhaled Oxygen Concentration - - Weight 70.8 kg (156 lb) 04/30/2023 3:01 PM EDT Height 164.5 cm (5' 4.75") 04/30/2023 3:01 PM ED T Body Mass Index 26.16 04/30/2023 3:01 PM EDT documented in this encounter Functional Status [...] No 07/11/2021 documented as of this encounter Progress Notes * Solis Goetz MD - 04/30/2023 3:15 PM EDT Hematology/Oncology Outpatient Clinic note [facility] [address] [place] [address] Name: Elizabeth Hernandes Date: 12/26/2021 CHIEF COMPLAINT: Elizabeth Hernandes is a 62 year old female patient here today for f/u visit. DIAGNOSIS: Diffuse large B-cell lymphoma, double expressor significant disease involving the abdomen and rightlower chest region. Herpes zoster ophthalmicus. Breast cancer. Current treatment: -observation for lymphoma diagnosis. Anastrozole for the breast cancer diagnosis. PREVIOUS TREATMENT for DLBCL: R-CHOP 07/10/2021 w/ Pegfilgrastim support. 07/10/2021-10/03/2021 Ziextenzo support on D2 of each cycle. She received cyclophosphamide, Adriamycin and etoposide at [facility] in [place] 05/04/2021-05/08/2021. She received prophylactic Pegfilgrastim on 05/13/2021. She has underlying multiple sclerosis. CURRENT TREATMENT for BREAST CANCER: Hx of stage 1A left invasive ductal carcinoma ER+, CA+, Her2 elizabeth negative diagnosed Aug 2017- she is s/p lumpectomy, RT (completed 08/21/2017), and currently continued on anastrazole (started 09/2017). DIAGNOSTIC WORKUP: She presented to [facility] on 04/29/21 with nausea and right sided abdominal pain with poor appetite- no po intake x 3 days and decreasing appetite and intake x [address] imagingwhich showed a large right retroperitoneal mass measuring 66 x 41 mm along with additional smaller lymph nodes. It also showed a large RUQ mass 74 x 69 mm with extension outside of the abdominal cavity invading the chest wall and thoracic cavity along with smaller RUQ nodules. There is also evidence of right pleural effusion with a pleural based nodule. Abdominal wall, right lateral, ultrasound guided core biopsy: The staining pattern is consistent with an Activated B Cell type diffuse large B-cell lymphoma. Theoverall findings are consistent with a diffuse large B cell lymphoma with double expression of MYC and BCL2. Ki-67: Proliferation index ~100%. P53: 5% (weak intensity) BCL2: 100% MYC: 80% BCL6 rearrangement: Not Detected MYC rearrangement: Not Detected MYC amplification: Not Detected BCL2 rearrangement: Not Detected t(8;14): Not Detected She was transferred to [facility] on 05/03/2021 for further work up and management of new onset diffuse large B cell lymphoma. She had a thoracentesis with 1.5L drained by IR and cytology was negative for malignancy. She was started on EPOCH with rituxan held and vincristine held due to AMS, h/o MS neuropathy, and recent zoster opthalimcus. - spinal fluid analysis --> negative for lymphoma. US BREAST LIMITED LEFT 10/07/2021 The breast tissue has a heterogeneous background echotexture. Targeted ultrasound demonstrates no focal mass in the region of palpable lump as indicated by patient and marked with a skin marker /triangle at the time of mammogram. Bilat Mammogram 10/07/2021 Impression Bilateral No mammographic evidence of malignancy. BI-RADS Category: 2 - Benign. Recommendation follow-up bilateral 3D mammogram is advised in 1 year or sooner if warranted Echocardiogram Results for ELIZABETH HERNANDES ( ) Ref. Range 05/04/2021 12:05 LEFT VENTRICULAR EJECTION FRACTION Latest Units: % [address] on 09/21/2021 IMPRESSION No FDG-avid disease. HISTORY OF PRESENT ILLNESS: She has come the clinic for the follow-up, she came to clinic accompanied by her in the office. Overall she is doing well, has gained but now It has remained stable around 156 lb,, no nausea, no vomiting, no increasing headache, chronic back pain, she is on Anastrozole for breast cancer diagnosis, no fever, no leg edema, has chronic numbness of the lower extremities, Ambulates slowly by herself, ECOG PS 1. Some balancing issue related underlying multiple sclerosis. Not using cane. She is not driving. No leg edema. . Past Medical History: Diagnosis Date ANXIETY STATE NOS 03/22/2010 Breast cancer (HCC) 2017 invasive ductal carcinoma Multiple sclerosis (HCC) diagnosed in 2003, sees Dr Laura for this Neuropathy Personal history of radiation therapy 2018 S/P lumbar spinal fusion Shingles 08, 10 x 2 Tobacco use disorder 10/15/2012 Social History Socioeconomic History Marital status: Spouse name: Not on file Number of children: Not on file Years of education: Not on file Highest education level: Not on file Occupational History Occupation: housewife Tobacco Use Smoking status: Former Packs/day: 0.50 Years: 42.00 Additional pack years: 0.00 Total pack years: 21.00 Types: Cigarettes Smokeless tobacco: Never Tobacco comments: began at age 10 Vaping Use Vaping Use: Never used Substance and Sexual Activity Alcohol use: No Drug use: No Sexual activity: Not Currently control/protection: Surgical Other Topics Concern Service Not Asked Blood Transfusions Not Asked Caffeine Concern Not Asked Occupational Exposure Not Asked Hobby Hazards Not Asked Sleep Concern Not Asked Stress Concern Not Asked Weight Concern Not Asked Special Diet Not Asked Back Care Not Asked Exercise Yes Comment: CV daily Bike Helmet Not Asked Seat Belt Not Asked Self-Exams Yes Comment: breast Social History Narrative Lives with , and 1 son Not working currently Pets: 1 dog, 1 cat and 1 bird Floors: 1 No thick heavy carpets Smoker, no drinking Social Determinants of Health Financial Resource Strain: Not on file Food Insecurity: Not on file Transportation Needs: Not on file Physical Activity: Not on file Stress: Not on file Social Connections: Not on file Intimate Partner Violence: Not on file Housing Stability: Not on file Past Surgical History: Procedure Laterality Date BX LYMPH NODE DEEP AXIL Left 06/17/2017 BIOPSY LYMPH NODE DEEP AXILLARY OPEN performed by Mariela Wheeler MD at OR [facility] CARPAL TUNNEL SYNDROME EDU. 2000 DELIVERY 1992 Delivery Only COLONOSCOPY, DIAGNOSTIC (RECTUM) 01/13/2012 COLONOSCOPY FLEXIBLE PROXIMAL DIAGNOSTIC performed by Sofia Wheeler DO at ENDOSCOPY [facility] IDENTIFY SENTINEL NODE, RADIOACTIVE TRACER Left 06/17/2017 INJECTION PROCEDURE FOR IDENTIFICATION SENTINEL NODE performed by Mariela Wheeler MD at OR [facility] INSER TUNN ACC DEV;5 YRS/OLDER Right 05/15/2021 INSERT TUNNELED CENTRAL VENOUS ACCESS WITH SUBQ PORT performed by Parrish Bishop DO at OR [facility] IR VENOUS ACCESS MEDIPORT 12/12/2022 LUMBAR SPINE FUSION, POST INTERBODY 2004 lower lumbar and S1, fusion, Dr Remy MAMMOGRAM BREAST NEEDLE BIOPSY CORE LEFT Left 2013 Benign MASTECTOMY, PARTIAL Left 06/17/2017 06/17/2017 left partial mastectomy / slnb - Noe;'s Reis with DR. Mariela Wheeler MASTECTOMY, PARTIAL Left 06/17/2017 MASTECTOMY PARTIAL performed by Mariela Wheeler MD at OR [facility] RADIATION THERAPY Left 2017 REMOVE TONSILS & ADENOIDS, AGE 12+ SENTINEL LYMPH NODE BIOPSY PERFORMED Left 06/17/2017 benign STEREOTAXIC BIOPSY/SURGERY 06/08/2012 06/08/2012 stereotactic - left breast - bareast tissue with prominent stromal hyalinized bibrosis and calcifications - GW's - TOTAL HYSTERECTOMY 1994 ovaries present, fibroids US GUIDED BREAST BIOPSY LEFT Left 05/12/2017 Invasive Ductal Carcinoma, Grade 2 Family History Problem Relation Age of Onset Brain Aneurysm Mother Sudden Father hit by car, was a pediastrian No Known Problems Brother Sudden Sister burned in house fire Breast Cancer Niece 43 Stage IV to liver (sister's daughter); genetic testing per patient was negative Lung cancer Aunt (Maternal) smoker Review of patient's allergies indicates: Allergen Reactions Penicillins Anaphylaxis As a child Sulfonylureas Anaphylaxis As a child Current Outpatient Medications Medication Sig Dispense Refill MELOXICAM 7.5 MG PO TABS Take 1 Tablet by mouth in the morning. 30 Tab 5 TOPAMAX 100 MG PO TABS Take 1 Tablet by mouth in the morning. 60 Tab 5 MEDI-MECLIZINE 25 MG PO TABS Take 1 Tablet by mouth 3 times a day as needed. 30 Tab 1 VITAMIN D 1000 UNIT PO CAPS Take 5 Capsules by mouth in the morning. 30 Cap 11 Multivitamin Adult Oral Tablet Take 1 Tab by mouth daily. Ondansetron HCl 8 MG Oral Tablet (Zofran) Take 1 Tablet by mouth every 8 hours as needed for Nausea. (Patient not taking: Reported on 08/21/2022) 30 Tablet 2 Prochlorperazine Maleate 10 MG Oral Tablet (Compazine) Take 1 Tablet by mouth every 6 hours as needed for Nausea. (Patient not taking: Reported on 12/06/2021) 30 Tablet 2 tiZANidine HCl 4 MG Oral Tablet (Zanaflex) Take 1 Tablet by mouth every 8 hours as needed for Muscle spasms. Thiamine HCl 100 MG Oral Tablet (vitamin B-1) Take 1 Tablet by mouth in the morning. Acetaminophen 325 MG Oral Tablet (Tylenol) Take 2 Tablets by mouth every 4 hours as needed for Pain, Mild. 30 Tablet 0 Allopurinol 300 MG Oral Tablet (Zyloprim) Take 1 Tablet by mouth daily. 90 Tablet 1 Gabapentin 400 MG Oral Capsule (Neurontin) Take 1 Capsule by mouth in the morning and 1 Capsule before bedtime. 60 Capsule 5 Escitalopram Oxalate 20 MG Oral Tablet Take 1 Tablet by mouth in the morning. 30 Tablet 5 Potassium Chloride ER 10 MEQ Oral Tablet Extended Release TAKE 1 TABLET DAILY 90 Tablet 3 ALPRAZolam 1 MG Oral Tablet (xaNAX) Nicotine 7 MG/24HR Transdermal Patch 24 Hour (Nicoderm CQ) Place topically on the skin 1 Patch in the morning. On upper body/outer arm, change once a day for two weeks.. (Patient not taking: Reportedon 08/21/2022) 14 Patch 0 valACYclovir HCl 1 GM Oral Tablet (Valtrex) TAKE 1 TABLET IN THE MORNING 90 Tablet 3 Anastrozole 1 MG Oral Tablet (Arimidex) Take 1 Tablet by mouth in the morning. 90 Tablet 3 risperiDONE 0.25 MG Oral Tablet (RisperDAL) TAKE 1 TABLET BY MOUTH AT BEDTIME 30 Tablet 5 busPIRone HCl 10 MG Oral Tablet (Buspar) TAKE ONE TABLET BY MOUTH IN THE MORNING AND ONE BEFORE BEDTIME 180 Tablet 0 oxyCODONE HCl 5 MG Oral Tablet (Oxy IR) Take 1 Tablet by mouth every 4 hours as needed for Pain, Moderate. 60 Tablet 0 No current facility-administered medications for this visit. OBJECTIVE: BP 139/76 (BP Site: Left Arm, BP Position: Sitting, BP Cuff Size: Regular) | Pulse 82 | Resp 16 | Ht 1.645 m (5' 4.75") | Wt 70.8 kg (156 lb) | SpO2 93% | BMI 26.16 kg/m | BSA 1.8 m PHYSICAL EXAM: General Appearance: Normal - Healthy appearing patient in no acute distress Skin: Normal- No rashes, lesions or petechiae. HEENT: Normal - No oral or pharyngeal masses, ulceration or thrush noted, no sinus tenderness Lymph Nodes: Normal - No palpable lymph nodes in the neck or supraclavicular areas Lungs/Thorax: Normal - Clear to auscultation Heart: Normal - Regular rate and rhythm, normal S1, S2, no appreciable murmurs, rubs, gallops Pulses/Extremities: Normal - 2+ throughout and symmetrical, no edema b/l Abdomen: Normal - Soft, nontender, bowel sounds present, no appreciable hepatosplenomegaly, no palpable masses Musculoskeletal: Normal - No pain on palpation over bony prominence, no joint or bony deformity Neurologic: Normal - Grossly intact Psyche: No vegetative signs of depression. No palpable lymphadenopathy in the axilla LABS: Blood workup done on 03/20/2022: -Uric acid --> 1.7 -LDH --> 76 -BUN/Creat: 14/0.8, Calcium 9.2 -normal liver function test -WBC 3300, H&H of 10.7/31.6, Platelet 182,000. -vitamin-D level --> 27 Blood workup done on 10/08/2022: -WBC 4200, H&H of 13.4/39, Platelet count 175620 -BUN/Creat: 11/0.8, Calcium 9.6, normal liver function test. -LDH --> 134 DEXA 02/12/2021 1. The fracture risk is HIGH (remains HIGH) Bone density done on 02/19/2023: - T-score at lumbar spine -2.5 and at left femoral neck -2.6. PET-CT scan (04/08/2022). No FDG PET-CT evidence for recurrence of lymphoma. CT scan of chest, abdomen pelvis (10/15/2022: -no new suspicious findings noted. Bilateral breast Mammogram (10/08/2022 ) --> negative. 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 Her functional status is good. She is ambulating independently but she also has underlying multiplesclerosis which limits her mobility. Somewhat unsteady when she walks for long distance Weight gain by about 40 lb, current weight around 156 lb. I reviewed her blood workup done in October 2022. She also had a imaging study in October 2022, no evidence of recurrent disease noted anywhere else. Now she is completed 5 years of Anastrozole, I would like to discontinue Anastrozole. Latest bilateral breast mammogram done in October 2022 was unremarkable. She will continue vitamin-D and Calcium supplementation I am planning for [facility] comprehensive metabolic panel, LDH M0 6 months, also planning for CT scan ofthe chest, abdomen pelvis in about 6 months and then will see her back in the clinic Port has been removed. Dr. Solis Goetz Hem/Onc (This note was completed using the dictation program Fluency Direct. As such, there may be misspellings word substitutions, or other variations that should not change the essence of the clinical content of this encounter note. If there is need for further clarification, please direct questions to the provider listed above.) documented in this encounter Nursing Notes * Fernanda Gandara CMA - 04/30/2023 3:01 PM EDT Patient identifed by name and birthdate Do you have any concerns about pain management for today's visit? No Living Will or Advance Directive for Health Care as noted on the problem list. [facility] is a way you can talk to your provider on line through e-mail. Would you like to sign up? I can activate it for you? NO Filed Vitals: 04/30/23 1501 BP: 139/76 Pulse: 82 Resp: 16 SpO2: 93% Weight: 70.8 kg (156 lb) Height: 1.645 m (5' 4.75") Patient was instructed to not get up on the exam table/exam chair until directed and assisted by their provider; patient is to remain seated in the chair/ wheelchair/ exam table/ exam chair for fall prevention and safety reasons. Patient is aware to have assistance to step down off exam table/exam chair with personnel. Patient voiced full comprehension of instructions. documented in this encounter Plan of Treatment Upcoming Encounters Date Type Department Care Team (Late st Contact Info) Description 09/24/2023 3:40 PM EDT Office Visit Dermatology, [place] [address] [place] [address] Sharmaine Yo PA-C [address] [place] [address] [place] [address] 10/28/2023 4:30 PM EDT [facility], [facility] [address] [facility] [id number] [facility] [address] [facility] [address] 10/29/2023 11:20 AM EDT Office Visit Family Practice, [place] [address] [facility] [place], [place] [id number] Carla Jimenez PA-C [address] [place] [address] 10/30/2023 9:00 AM EDT Imaging Radiology [facility] [facility] [address] [facility] [address] 11/04/2023 1:15 PM EDT Office Visit Hematology/Oncology [facility] [address] [facility] [place] [address] Solis Goetz MD [address] [facility] [place] [address] Scheduled Orders Name Type Priority Associated Diagnoses Orde r Schedule CBC WITH WBC DIFFERENTIAL Lab STAT History of B-cell lymphoma Expected: 10/30/2023, Expires: 04/30/2024 COMPREHENSIVE METABOLIC PANEL Lab STAT History of B-cell lymphoma Expected: 10/30/2023, Expires: 04/30/2024 LD Lab STAT History of B-cell lymphoma Expected: 10/30/2023, Expires: 04/30/2024 CT CHEST/ABDOMEN/PELVIS WITH IV CONTRAST WITH ORAL CONTRAST Medical Imaging Routine History of B-cell lymphoma Expected: 10/30/2023, Expires: 04/30/2024 Health Maintenance Due Date Last Done Comments [...] D LEVEL ONCE IN A LIFETIME-USE SMARTSET# [id number] Completed 03/20/2022, 07/10/2021, 10/20/2018, Additional history exists [...] this encounter Medical Devices Implanted Type Area Media Manager Device Identifier Shelf Expiration Date Model / Serial / Lot Power Port 8fr Sngl Lumen Plas - [id number] Implanted:Qty : 1 on 05/15/2021 by Parrish Bishop DO at OR [facility] Right: Chest CR BARD : PERIPHERAL VASCULAR [id number] 06/04/2022 [id number] / / [id number] documented as of this encounter Visit Diagnoses Diagnosis Malignant neoplasm of upper-inner quadrant of left breast in female, estrogen receptor positive- Primary History of B-cell lymphoma documented in this encounter Advance Directives Latest [...] the patient have Health Care Power of Molder Setter? No Code Status History Code Status Date Activated Date Inactivated Comments Limited Code 06/09/2021 5:53 PM 06/17/2021 9:32 PM This order reflects the patients wishes and were consensually agreed upon. Question Answer Comments Discussion of Advance Directives occurred with: Patient Does the patient have a Living Will? No Does the patient have Health Care Power of Molder Setter? No Bag Valve Device? Yes Intubation? Yes [...] the patient have Health Care Power of Molder Setter? No Full Code 05/03/2021 8:40 PM 05/11/2021 2:23 PM This order reflects the patients wishes and were consensually agreed upon. Question Answer Comments Discussion of Advance Directives occurred with: Patient Does the patient have a Living Will? No Does the patient have Health Care Power of Molder Setter? No Care Teams Patrol Officer Relationship Specialty Start Date End Date Maria Shipman DO [address] [place] [address] PCP - General 03/22/10 documented as of this encounter
--- OUTSIDE RECORDS SUMMARY | 2023-07-11 06:07 | External Medical Summary | Summary of Care ---
Author Name Unknown Organization [facility] Address [address] [place] [address] Phone [phone] Care Team Providers Care Machine Heel Sprayer Name Role Phone Maria Shipman DO Primary Care Provider + [phone] Reason for Visit * Reason Comments eRx-Medication Refill Encounter Details Date Type Department Care Team (Late st Contact Info) Description 04/29/2023 Refill Hematology/Oncology [facility] [place] [address] [place] [address] Solis Goetz MD [address] [place] [address] Diffuse large B-cell lymphoma of intra-abdominal lymph nodes (HCC); Herpes zoster ophthalmicus of left eye Allergies Active Allergy Reactions Criticality Noted Date [...] 08/21/2022 Prochlorperazine Maleate 10 MG Oral Tablet (Compazine)Indica [...] Additional Information Patient not taking.Reported on 08/21/2022 Anastrozole 1 MG Oral Tablet (Arimidex)Indicat ions:Malignant [...] THE MORNING 90 Tablet 3 04/29/2023 Active valACYclovir HCl 1 GM Oral Tablet (Valtrex)Indicati ons:Diffuse large B-cell lymphoma of intra-abdominal lymph nodes (HCC),Herpes zoster ophthalmicus of left eye TAKE 1 TABLET IN THE MORNING 90 Tablet 3 05/02/2022 04/29/20 23 Discontinued documented as of this encounter (statuses as of 04/29/2023) Active Problems Problem Noted Date Diagnosed Date Orthostatic hypotension 07/11/2021 Delirium due to general medical condition 2020 Acute respiratory failure with hypoxia and hyper capnia 06/09/2021 Septic shock 06/09/2021 Diffuse large B-cell lymphom a of intra-abdominal [...] situ (DCIS) of left breast 1 08/03/2016 COPD exacerbation 03/22/2013 Bronchitis, complicated 03/22/2013 Secondary progressive multiple sclerosis 013 Microcalcifications of the breast 01/07/2013 Tobacco use disorder 10/15/2012 Vitamin D deficiency 03/22/2010 Anxiety state 03/22/2010 Neuropathy documented as of this encounter (statuses as of 04/29/2023) Resolved Problems Problem Noted Date Diagnosed Date Resolved Date Multiple sclerosis 07/14/2008 3 documented as of this encounter (statuses as of 04/29/2023) Immunizations Name Administration Dates Next Due COVID-19 mRNA, LNP-s, No Pre serve, 2-Dose Series ([employer]) 07/27/2021,10/25/2020,10/04/2020 Pneumococcal Conjugate Vacci ne, 20-valent ([id number]) 12/06/2021 Pneumococcal Polysaccharide PPV23 (Pneumovax) 09/02/2019 SEASONAL [...] Telephone Encounter - Solis Goetz MD - 04/29/2023 10:04 AM EDT E-prescribed Solis Goetz MD Hem/Onc * Telephone Encounter - Judy Frey LPN - 04/29/2023 8:14 AM EDTPending Prescriptions: Disp Refills valACYclovir HCl 1 GM Oral Tablet [Pharmac*90 Tab*3 Sig: TAKE 1 TABLET IN THE MORNING * Telephone Encounter - Judy Frey LPN - 04/29/2023 8:10 AM EDT Valtrex refill request from pharmacy, patient no longer on R-chop, ok to discontinue? Patient on observation per 10/23/22 OV, on anastrozole. documented in this encounter Plan of Treatment Upcoming Encounters Date Type Department Care Team (Late st Contact Info) Description 04/29/2023 3:20 PM EDT Office Visit Family [facility], [place] [address] [facility], [place] [phone] Carla Jimenez PA-C [address] [facility] [place] [address] 04/30/2023 3:15 PM EDT Office Visit Hematology/Oncology [facility] [address] [facility] [place] [address] Solis Goetz MD [address] [place] [address] 09/24/2023 3:40 PM EDT Office Visit Dermatology, [place] [address] [place] [facility] [place] [address] Sharmaine Yo PA-C [address] [place] [address] [place] [address] Health Maintenance Due Date Last Done Comments [...] D LEVEL ONCE IN A LIFETIME-USE SMARTSET# [id number] Completed 03/20/2022, 07/10/2021, 10/20/2018, Additional history exists [...] this encounter Medical Devices Implanted Type Area Review Manager Device Identifier Shelf Expiration Date Model / Serial / Lot Power Port 8fr Sngl Lumen Plas - [id number] Implanted:Qty : 1 on 05/15/2021 by Parrish Bishop, at OR [facility] Right: Chest CR BARD : PERIPHERAL VASCULAR [id number] 06/04/2022 [id number] / / [id number] documented as of this encounter Visit Diagnoses Diagnosis Diffuse large B-cell lymphoma of intra-abdominal lymph nodes (HCC) Other malignant lymphomas of intra-abdominal lymph nodes Herpes zoster ophthalmicus of left eye documented in this encounter Advance Directives Latest [...] the patient have Health Care Power of Building Certifier? No Code Status History Code Status Date Activated Date Inactivated Comments Limited Code 06/09/2021 5:53 PM 06/17/2021 9:32 PM This order reflects the patients wishes and were consensually agreed upon. Question Answer Comments Discussion of Advance Directives occurred with: Patient Does the patient have a Living Will? No Does the patient have Health Care Power of Building Certifier? No Bag Valve Device? Yes Intubation? Yes [...] the patient have Health Care Power of Building Certifier? No Full Code 05/03/2021 8:40 PM 05/11/2021 2:23 PM This order reflects the patients wishes and were consensually agreed upon. Question Answer Comments Discussion of Advance Directives occurred with: Patient Does the patient have a Living Will? No Does the patient have Health Care Power of Building Certifier? No Care Teams Machine Heel Sprayer Relationship Specialty Start Date End Date Maria Shipman DO [address] [place] [address] PCP - General 03/22/10 documented as of this encounter
--- OUTSIDE RECORDS SUMMARY | 2023-07-11 06:07 | External Medical Summary | Summary of Care ---
Author Name Unknown Organization [facility] Address [address] [place] [address] Phone [phone] Care Team Providers Care Wastewater Superintendent Name Role Phone Shruthi Welch DO Primary Care Provider Reason for Visit * Reason Comments eRx-Medication Refill Encounter Details Date Type Department Care Team (Late st Contact Info) Description 06/03/2023 Refill [place] [address] [place] [address] Shruthi Welch DO [address] [place] [address] ROBIN (generalized anxiety disorder) Allergies Active Allergy Reactions Criticality Noted Date Comments Penicillins Anaphylaxis High 11/02/2002 As a child Sulfonylureas Anaphylaxis High 11/02/2002 As a child documented as of this encounter (statuses as of 06/04/2023) Medications Medication Sig Dispensed Refills Start Date [...] 03/07/2022 Active risperiDONE 0.25 MG Oral Tablet (RisperDAL)Indica [...] Pain, Moderate. 60 Tablet 0 05/13/2023 Active busPIRone HCl 10 MG Oral Tablet (Buspar)Indicatio ns:ROBIN (generalized anxiety disorder) Take 1 tablet by mouth in the morning and 1 tablet before bedtime 180 Tablet 0 06/04/2023 Active busPIRone HCl 10 MG Oral Tablet (Buspar)Indicatio ns:ROBIN (generalized anxiety disorder) TAKE ONE TABLET BY MOUTH IN THE MORNING AND ONE BEFORE BEDTIME 180 Tablet 0 03/04/2023 06/04/20 23 Discontinued documented as of this encounter (statuses as of 06/04/2023) Active Problems Problem Noted Date Diagnosed Date [...] as of this encounter (statuses as of 06/04/2023) Resolved Problems Problem Noted Date Diagnosed Date Resolved Date Acute respiratory failure wi th hypoxia and hypercapnia 06/09/2021 04/29/2023 Septic shock 06/09/2021 04/29/2023 COPD exacerbation 03/22/2013 04/29/2023 Multiple sclerosis 07/14/2008 3 documented as of this encounter (statuses as of 06/04/2023) Immunizations Name Administration Dates Next Due COVID-19 mRNA, LNP-s, No Pre serve, 2-Dose Series (Pfizer) 07/27/2021,10/25/2020,10/04/2020 Pneumococcal Conjugate Vacci ne, 20-valent ([id number]) 12/06/2021 Pneumococcal Polysaccharide PPV23 (Pneumovax) 09/02/2019 SEASONAL [...] encounter Miscellaneous Notes * Telephone Encounter - Shruthi Welch DO - 06/04/2023 8:59 AM ESTSigned Prescriptions: Disp Refills busPIRone HCl 10 MG Oral Tablet (Buspar) 180 Ta*0 Sig: Take 1 tablet by mouth in the morning and 1 tablet before bedtime Authorizing Provider: SHRUTHI WELCH * Telephone Encounter - Bud Kwon [facility] - 06/03/2023 4:24 PM EST Pending Prescriptions: Disp Refills busPIRone HCl 10 MG Oral Tablet [Pharmacy *180 Ta*0 Sig: Take 1 tablet by mouth in the morning and 1 tablet before bedtime * Telephone Encounter - Bud Kwon [facility] - 06/03/2023 4:24 PM EST [facility] is currently not authorized to approve refills for the pended medication(s) per refill protocol. Please approve if appropriate. Thank you, Wang Kwon, PharmD Clinical Pharmacist [facility] ([facility]) 06/03/23 4:24 PM [phone] documented in this encounter Plan of Treatment Upcoming Encounters Date Type Department Care Team (Late st Contact Info) Description 09/24/2023 3:40 PM EDT Office Visit Dermatology, [place] [address] [place] [address] Sharmaine Yo PA-C [address] [place] [address] [place] [address] 10/28/2023 4:30 PM EDT Laboratory [facility], [facility] [address] [facility] [phone] [facility] [address] [facility] [address] 10/29/2023 11:20 AM EDT Office Visit Family Practice, [place] [address] [place] [facility] [place] [phone] Carla Jimenez PA-C [address] [place] [address] 10/30/2023 9:00 AM EDT [facility] [address] [facility] [place] [address] 11/04/2023 1:15 PM EDT Office Visit Hematology/Oncology [facility] [address] [facility] [place] [address] Solis Goetz MD [address] [facility] [place] [address] Health Maintenance Due Date Last Done Comments [...] D LEVEL ONCE IN A LIFETIME-USE SMARTSET# [id number] Completed 03/20/2022, 07/10/2021, 10/20/2018, Additional history exists [...] this encounter Medical Devices Implanted Type Area Ice Rink Attendant Device Identifier Shelf Expiration Date Model / Serial / Lot Power Port 8fr Sngl Lumen Plas - [id number] Implanted:Qty : 1 on 05/15/2021 by Parrish Bishop DO at OR [facility] Right: Chest CR BARD : PERIPHERAL VASCULAR [id number] 06/04/2022 [id number] / / [id number] documented as of this encounter Visit Diagnoses Diagnosis ROBIN (generalized anxiety disorder) Generalized anxiety disorder documented in this encounter Advance Directives Latest [...] the patient have Health Care Power of Costumer? No Code Status History Code Status Date Activated Date Inactivated Comments Limited Code 06/09/2021 5:53 PM 06/17/2021 9:32 PM This order reflects the patients wishes and were consensually agreed upon. Question Answer Comments Discussion of Advance Directives occurred with: Patient Does the patient have a Living Will? No Does the patient have Health Care Power of Costumer? No Bag Valve Device? Yes Intubation? Yes [...] the patient have Health Care Power of Costumer? No Full Code 05/03/2021 8:40 PM 05/11/2021 2:23 PM This order reflects the patients wishes and were consensually agreed upon. Question Answer Comments Discussion of Advance Directives occurred with: Patient Does the patient have a Living Will? No Does the patient have Health Care Power of Costumer? No Care Teams Wastewater Superintendent Relationship Specialty Start Date End Date Shruthi Welch DO [address] [place] [address] PCP - General 03/22/10 documented as of this encounter
--- OUTSIDE RECORDS SUMMARY | 2023-07-11 06:08 | External Medical Summary | Summary of Care ---
Author Name Unknown Organization [facility] Address [address] [place] [address] Phone [phone] Care Team Providers Care Solar Thermal Installer Name Role Phone Maria Shipman DO Primary Care Provider + [phone] Reason for Visit * Reason Onset Date Comments Medication Refill 03/16/2023 Encounter Details Date Type Department Care Team Description 03/16/2023 Refill Hematology/Oncology [facility] [place] [address] [place] [address] Solis Goetz MD [address] [place] [address] Diffuse large B-cell lymphoma of intra-abdominal lymph nodes (HCC) Allergies Active Allergy Reactions Severity Noted Date Comments Penicillins Anaphylaxis High 11/02/2002 As a child Sulfonylureas Anaphylaxis High 11/02/2002 As a child documented as of this encounter (statuses as of 03/16/2023) Medications Medication Sig Dispensed Refills Start Date [...] left breast in female, estrogen receptor positive (HCC) Take 1 Tablet by mouth in the [...] needed for Pain, Moderate. 60 Tablet 0 03/16/2023 Active oxyCODONE HCl 5 MG Oral Tablet (Oxy IR)Indications:Dif fuse large B-cell lymphoma of intra-abdominal lymph nodes (HCC) Take 1 Tablet by mouth every 4 hours as needed for Pain, Moderate. 60 Tablet 0 02/13/2023 3 Discontinue d(Refill) documented as of this encounter (statuses as of 03/16/2023) Active Problems Problem Noted Date Orthostatic hypotension [...] as of this encounter (statuses as of 03/16/2023) Resolved Problems Problem Noted Date Resolved Date Multiple sclerosis 07/14/2008 03/22/2013 documented as of this encounter (statuses as of 03/16/2023) Immunizations Name Administration Dates Next Due COVID-19 mRNA, LNP-s, No Pre serve, 2-Dose Series (Pfizer) 07/27/2021,10/25/2020,10/04/2020 Pneumococcal Conjugate Vacci ne, 20-valent ([id number]) 12/06/2021 Pneumococcal Polysaccharide PPV23 (Pneumovax) 09/02/2019 Seasonal Influenza, PF, 6 mo ns & Above, IM , (Flulaval) 04/24/2022,06/17/2021,09/02/2019,06/03 Seasonal Influenza, Split, I IV3, With [...] Telephone Encounter - Solis Goetz MD - 03/16/2023 10:26 AM EDT E-prescribed Solis Goetz MD Hem/Onc * Telephone Encounter - Judy Frey LPN - 03/16/2023 10:16 AM EDTPending Prescriptions: Disp Refills oxyCODONE HCl 5 MG Oral Tablet (Oxy IR) 60 Tab*0 Sig: Take 1 Tablet by mouth every 4 hours as needed for Pain, Moderate. * Telephone Encounter - Judy Frey LPN - 03/16/2023 10:15 AM EDT PDMP reviewed, no concerns. Last filled 02/13/23 for 60 tablets 10 days. * Telephone Encounter - Malena Boyd CPhT - 03/16/2023 8:34 AM EDT Did you pend patient's preferred pharmacy and medication before forwarding?yes Pharmacy: [id number] Pending Prescriptions: Disp Refills oxyCODONE HCl [...] appointment Last date the medication was ordered: 02.13.23 Is this request for a controlled substance?Yes, What was the last refill date 02.13.23 w/ quantity 60 and dosage 1q4 prn and Urine Drug Screen Not completed [...] Encounters Date Type Specialty Care Team Description 03/18/2023 Telemedicine Rheumatology Belgica Rajput, DO [address] [place] [address] 04/29/2023 Office Visit Family Medicine Carla Jimenez PAArlineC [address] [place] [address] 04/30/2023 Office Visit Hematology Oncology Solis Goetz MD [address] [place] [address] 09/24/2023 Office Visit Dermatology Sharmaine Yo PA-C [address] [place] [address] [place] [address] Health Maintenance Due Date Last Done Comments [...] 09/02/2019, Additional history exists Mammogram 10/09/2023 10/08/2022, 04/0 10/2021, 09/12/2020, Additional [...] D LEVEL ONCE IN A LIFETIME-USE SMARTSET# [id number] Completed 03/20/2022, 07/10/2021, 10/20/2018, Additional history exists [...] this encounter Medical Devices Implanted Type Area Press Writer Device Identifier Shelf Expiration Date Model / Serial / Lot Power Port 8fr Sngl Lumen Plas - [id number] Implanted:Qty : 1 on 05/15/2021 by Parrish Bishop, at OR [facility] Right: Chest CR BARD : PERIPHERAL VASCULAR [id number] 06/04/2022 [id number] / / [id number] documented as of this encounter Visit Diagnoses [...] the patient have Health Care Power of Rig Welder? No Code Status History Code Status Date Activated Date Inactivated Comments Limited Code 06/09/2021 5:53 PM 06/17/2021 9:32 PM This order reflects the patients wishes and were consensually agreed upon. Question Answer Comments Discussion of Advance Directives occurred with: Patient Does the patient have a Living Will? No Does the patient have Health Care Power of Rig Welder? No Bag Valve Device? Yes Intubation? Yes [...] the patient have Health Care Power of Rig Welder? No Full Code 05/03/2021 8:40 PM 05/11/2021 2:23 PM This order reflects the patients wishes and were consensually agreed upon. Question Answer Comments Discussion of Advance Directives occurred with: Patient Does the patient have a Living Will? No Does the patient have Health Care Power of Rig Welder? No Care Teams Solar Thermal Installer Relationship Specialty Start Date End Date Maria Shipman DO [address] [place] [address] PCP - General 03/22/10 documented as of this encounter
--- OUTSIDE RECORDS SUMMARY | 2023-07-11 06:08 | External Medical Summary | Summary of Care ---
Author Name Unknown Organization [facility] Address [address] [place] [address] Phone [phone] Care Team Providers Care Inweaver Name Role Phone Maria Shipman DO Primary Care Provider + [phone] Reason for Visit * Reason Onset Date Comments Medication Refill 03/18/2023 Encounter Details Date Type Department Care Team Description 03/17/2023 Refill Hematology/Oncology Treatment, [place] [address] [place] [phone] Estrella Goetz MD [address] [place] [address] Diffuse large B-cell lymphoma of intra-abdominal lymph nodes (HCC) Allergies Active Allergy Reactions Severity Noted Date Comments Penicillins Anaphylaxis High 11/02/2002 As a child Sulfonylureas Anaphylaxis High 11/02/2002 As a child documented as of this encounter (statuses as of 03/18/2023) Medications Medication Sig Dispensed Refills Start Date [...] for Pain, Moderate. 60 Tablet 0 03/17/2023 Active oxyCODONE HCl 5 MG Oral Tablet (Oxy IR)Indications:Dif fuse large B-cell lymphoma of intra-abdominal lymph nodes (HCC) Take 1 Tablet by mouth every 4 hours as needed for Pain, Moderate. 60 Tablet 0 03/17/2023 3 Discontinue d(Refill) documented as of this encounter (statuses as of 03/18/2023) Active Problems Problem Noted Date Orthostatic hypotension [...] as of this encounter (statuses as of 03/18/2023) Resolved Problems Problem Noted Date Resolved Date Multiple sclerosis 07/14/2008 03/22/2013 documented as of this encounter (statuses as of 03/18/2023) Immunizations Name Administration Dates Next Due COVID-19 mRNA, LNP-s, No Pre serve, 2-Dose Series (Pfizer) 07/27/2021,10/25/2020,10/04/2020 Pneumococcal Conjugate Vacci ne, 20-valent ([id number]) 12/06/2021 Pneumococcal Polysaccharide PPV23 (Pneumovax) 09/02/2019 Seasonal [...] encounter Miscellaneous Notes * Telephone Encounter - Salma Dickerson RN - 03/17/2023 12:11 PM EDTSigned Prescriptions: Disp Refills oxyCODONE HCl 5 MG Oral Tablet (Oxy IR) 60 Tab*0 Sig: Take 1 Tablet by mouth every 4 hours as needed for Pain, Moderate.Authorizing Provider: ESTRELLA GOETZ-------- * Telephone Encounter - Salma Dickerson RN - 03/17/2023 12:11 PM EDT LMOM for patient stating that medication should be available for berry picker today. * Telephone Encounter - Estrella Goetz MD - 03/17/2023 11:34 AM EDT E-prescribed oxycodone. * Telephone Encounter - Salma Dickerson RN - 03/17/2023 11:21 AM EDT Repending script. documented in this encounter Plan of Treatment Upcoming Encounters Date Type Specialty Care Team Description 03/18/2023 Telemedicine Rheumatology Belgica Rajput, DO [address] [place] [address] 04/29/2023 Office Visit Family Medicine Carla Jimenez PAArlineC [address] [place] [address] 04/30/2023 Office Visit Hematology Oncology Estrella Goetz MD [address] [place] [address] 09/24/2023 Office Visit Dermatology Sharmaine Yo PA-C [address] [place] [address] [place] [address] Health Maintenance Due Date Last Done Comments [...] 09/02/2019, Additional history exists Mammogram 10/09/2023 10/08/2022, 040 10/2021, 09/12/2020, Additional history exists O2 ASSESSMENT [...] D LEVEL ONCE IN A LIFETIME-USE SMARTSET# [id number] Completed 03/20/2022, 07/10/2021, 10/20/2018, Additional history exists [...] this encounter Medical Devices Implanted Type Area Audograph Operator Device Identifier Shelf Expiration Date Model / Serial / Lot Power Port 8fr Sngl Lumen Plas - [id number] Implanted:Qty : 1 on 05/15/2021 by Parrish Bishop, at OR [facility] Right: Chest CR BARD : PERIPHERAL VASCULAR [id number] 06/04/2022 [id number] / / [id number] documented as of this encounter Visit Diagnoses [...] the patient have Health Care Power of Retention Manager? No Code Status History Code Status Date Activated Date Inactivated Comments Limited Code 06/09/2021 5:53 PM 06/17/2021 9:32 PM This order reflects the patients wishes and were consensually agreed upon. Question Answer Comments Discussion of Advance Directives occurred with: Patient Does the patient have a Living Will? No Does the patient have Health Care Power of Retention Manager? No Bag Valve Device? Yes Intubation? Yes [...] the patient have Health Care Power of Retention Manager? No Full Code 05/03/2021 8:40 PM 05/11/2021 2:23 PM This order reflects the patients wishes and were consensually agreed upon. Question Answer Comments Discussion of Advance Directives occurred with: Patient Does the patient have a Living Will? No Does the patient have Health Care Power of Retention Manager? No Care Teams Inweaver Relationship Specialty Start Date End Date Maria Shipman DO [address] [place] [address] PCP - General 03/22/10 documented as of this encounter
--- OUTSIDE RECORDS SUMMARY | 2023-07-11 06:08 | External Medical Summary | Summary of Care ---
Author Name Unknown Organization [facility] Address [address] [place] [address] Phone [phone] Care Team Providers Care Bindery Production Manager Name Role Phone Maria Shipman DO Primary Care Provider [phone] Reason for Visit * Reason Onset Date Comments Medication Refill 03/16/2023 Encounter Details Date Type Department Care Team Description 03/16/2023 Refill Hematology/Oncology [facility] Jennifer [place] [address] [place] [address] Estrella Goetz MD [address] [place] [address] Diffuse large B-cell lymphoma of intra-abdominal lymph nodes (HCC) Allergies Active Allergy Reactions Severity Noted Date Comments Penicillins Anaphylaxis High 11/02/2002 As a child Sulfonylureas Anaphylaxis High 11/02/2002 As a child documented as of this encounter (statuses as of 03/17/2023) Medications Medication Sig Dispensed Refills Start Date [...] 60 Tablet 0 02/13/2023 3 Discontinue d(Refill) oxyCODONE HCl 5 MG Oral Tablet (Oxy IR)Indications:Dif fuse large B-cell lymphoma of intra-abdominal lymph nodes (HCC) Take 1 Tablet by mouth every 4 hours as needed for Pain, Moderate. 60 Tablet 0 03/16/2023 3 Discontinue d(Refill) documented as of this encounter (statuses as of 03/17/2023) Active Problems Problem Noted Date Orthostatic hypotension [...] as of this encounter (statuses as of 03/17/2023) Resolved Problems Problem Noted Date Resolved Date Multiple sclerosis 07/14/2008 03/22/2013 documented as of this encounter (statuses as of 03/17/2023) Immunizations Name Administration Dates Next Due COVID-19 mRNA, LNP-s, No Pre serve, 2-Dose Series (Umbel) 07/27/2021,10/25/2020,10/04/2020 Pneumococcal Conjugate Vacci ne, 20-valent ([id number]) 12/06/2021 Pneumococcal Polysaccharide PPV23 (Pneumovax) 09/02/2019 Seasonal [...] encounter Miscellaneous Notes * Telephone Encounter - Jose Elias Dickerson RN - 03/17/2023 11:21 AM EDTSigned Prescriptions: Disp Refills oxyCODONE HCl 5 MG Oral Tablet (Oxy IR) 60 Tab*0 Sig: Take 1 Tablet by mouth every 4 hours as needed for Pain, Moderate.Authorizing Provider: ESTRELLA GOETZ-------- * Telephone Encounter - Jose Elias Dickerson RN - 03/17/2023 11:20 AM EDT Spoke with Sindy at [facility]. They did not receive script. Starting new encounter and re-pending. * Telephone Encounter - Estrella Goetz MD - 03/17/2023 11:04 AM EDT E-prescribed Estrella Goetz MD Hem/Onc * Addendum Note - Jose Elias Dickerson RN - 03/17/2023 10:36 AM EDTAddended by: JOS EELIAS DICKERSON on: 03/17/2023 10:36 AM Modules accepted: Orders * Telephone Encounter - Jose Elias Dickerson RN - 03/17/2023 10:[address] Goetz: Script for patient did not get sent, called and spoke with pharmacy. They have no pendingprescriptions for patient. Resent script for signature. * Telephone Encounter - Luisa Barroso structural steel erector - 03/17/2023 10:23 AM EDT Patient calling on status of script. Looks like it was pended on 03/16/23. Spoke with Marie at pharmacy stating they do not have script yet. Please advise. Thank you, Luisa Barroso Grapple Yarder Operator 03/17/2023,10:23 AM * Telephone Encounter - Judy Frey LPN - 03/16/2023 11:19 AM EDTSigned Prescriptions: Disp Refills oxyCODONE HCl 5 MG Oral Tablet (Oxy IR) 60 Tab*0 Sig: Take 1 Tablet by mouth every 4 hours as needed for Pain, Moderate.Authorizing Provider: ESTRELLA GOETZ-------- * Telephone Encounter - Estrella Goetz MD - 03/16/2023 10:26 AM EDT E-prescribed Estrella Goetz MD Hem/Onc * Telephone Encounter - [...] pharmacy and medication before forwarding?yes Pharmacy: [facility] [id number] Pending Prescriptions: Disp Refills oxyCODONE HCl [...] Telemedicine Rheumatology Belgica Rajput, DO [address] [place] [address] 04/29/2023 Office Visit Family Medicine Carla Jimenez PAArlineC [address] [place] [address] 04/30/2023 Office Visit Hematology Oncology Estrella Goetz MD [address] [facility] [place] [address] 09/24/2023 Office Visit Dermatology Sharmaine Yo PA-C [address] [place] [address] [place] [address] Health Maintenance Due Date Last Done Comments [...] D LEVEL ONCE IN A LIFETIME-USE SMARTSET# [id number] Completed 03/20/2022, 07/10/2021, 10/20/2018, Additional history exists [...] this encounter Medical Devices Implanted Type Area Radiology Transporter Device Identifier Shelf Expiration Date Model / Serial / Lot Power Port 8fr Sngl Lumen Plas - [id number] Implanted:Qty : 1 on 05/15/2021 by Parrish Bishop, DO at OR [facility] Right: Chest CR BARD : PERIPHERAL VASCULAR [id number] 06/04/2022 [id number] / / [id number] documented as of this encounter Visit Diagnoses [...] the patient have Health Care Power of Chemical Process Operator? No Code Status History Code Status Date Activated Date Inactivated Comments Limited Code 06/09/2021 5:53 PM 06/17/2021 9:32 PM This order reflects the patients wishes and were consensually agreed upon. Question Answer Comments Discussion of Advance Directives occurred with: Patient Does the patient have a Living Will? No Does the patient have Health Care Power of Chemical Process Operator? No Bag Valve Device? Yes Intubation? Yes [...] the patient have Health Care Power of Chemical Process Operator? No Full Code 05/03/2021 8:40 PM 05/11/2021 2:23 PM This order reflects the patients wishes and were consensually agreed upon. Question Answer Comments Discussion of Advance Directives occurred with: Patient Does the patient have a Living Will? No Does the patient have Health Care Power of Chemical Process Operator? No Care Teams Bindery Production Manager Relationship Specialty Start Date End Date Maria Shipman, [address] [place] [address] PCP - General 03/22/10 documented as of this encounter
--- OUTSIDE RECORDS SUMMARY | 2023-07-11 06:08 | External Medical Summary | Summary of Care ---
Author Name Unknown Organization [facility] Address [address] [place] [address] Phone [phone] Care Team Providers Care Assembler Utility Buildings Name Role Phone Maria Shipman DO Primary Care Provider [phone] Reason for Visit * Reason Onset Date Comments Medication Refill 03/16/2023 Encounter Details Date Type Department Care Team Description 03/16/2023 Refill Hematology/Oncology [facility] Jennifer [place] [address] [place] [address] Estrella Goetz MD [address] [place] [address] Diffuse large B-cell lymphoma of intra-abdominal lymph [...] (Pfizer) 07/27/2021,10/25/2020,10/04/2020 Pneumococcal Conjugate Vacci ne, 20-valent ([id number]) 12/06/2021 Pneumococcal Polysaccharide PPV23 (Pneumovax) 09/02/2019 Seasonal [...] encounter Miscellaneous Notes * Telephone Encounter - Luisa Barroso pulp press tender - 03/17/2023 10:23 AM EDT Patient calling on status of script. Looks like it was pended on 03/16/23. Spoke with Marie at pharmacy stating they do not have script yet. Please advise. Thank you, Liusa Barroso Military Equipment Specialist 03/17/2023,10:23 AM * Telephone Encounter - Judy [...] medication before forwarding?yes Pharmacy: [facility] [id number] Pending Prescriptions: Disp Refills oxyCODONE HCl [...] Care Team Description 03/18/2023 Telemedicine Rheumatology Belgica Rajput DO [address] [place] [address] 04/29/2023 Office Visit Family Medicine Carla Jimenez PA-C [address] [place] [address] 04/30/2023 Office Visit Hematology Oncology Estrella Goetz MD [address] [facility] [place] [address] 09/24/2023 Office Visit Dermatology Sharmaine Yo PA-C [address] [place] [address] [place] [address] Health Maintenance Due Date Last Done Comments [...] D LEVEL ONCE IN A LIFETIME-USE SMARTSET# [id number] Completed 03/20/2022, 07/10/2021, 10/20/2018, Additional history exists [...] this encounter Medical Devices Implanted Type Area Hide Washer Device Identifier Shelf Expiration Date Model / Serial / Lot Power Port 8fr Sngl Lumen Plas - [id number] Implanted:Qty : 1 on 05/15/2021 by Parrish Bishop, DO at OR [facility] Right: Chest CR BARD : PERIPHERAL VASCULAR [id number] 06/04/2022 [id number] / / [id number] documented as of this encounter Visit Diagnoses [...] the patient have Health Care Power of Test Director? No Code Status History Code Status Date Activated Date Inactivated Comments Limited Code 06/09/2021 5:53 PM 06/17/2021 9:32 PM This order reflects the patients wishes and were consensually agreed upon. Question Answer Comments Discussion of Advance Directives occurred with: Patient Does the patient have a Living Will? No Does the patient have Health Care Power of Test Director? No Bag Valve Device? Yes Intubation? Yes [...] the patient have Health Care Power of Test Director? No Full Code 05/03/2021 8:40 PM 05/11/2021 2:23 PM This order reflects the patients wishes and were consensually agreed upon. Question Answer Comments Discussion of Advance Directives occurred with: Patient Does the patient have a Living Will? No Does the patient have Health Care Power of Test Director? No Care Teams Assembler Utility Buildings Relationship Specialty Start Date End Date Maria Shipman, [address] [place] [address] PCP - General 03/22/10 documented as of this encounter
--- OUTSIDE RECORDS SUMMARY | 2023-07-11 06:08 | External Medical Summary | Summary of Care ---
Author Name Unknown Organization [facility] Address [address] [place] [address] Phone [phone] Care Team Providers Care Inker And Opaquer Name Role Phone Maria Shipman DO Primary Care Provider [phone] Encounter Details Date Type Department Care Team Description 03/17/2023 Refill Hematology/Oncology Treatment, [place] [address] [place] [address] Solis Goetz MD [address] [place] [address] Diffuse large B-cell lymphoma of intra-abdominal lymph [...] (Pfizer) 07/27/2021,10/25/2020,10/04/2020 Pneumococcal Conjugate Vacci ne, 20-valent ([id number]) 12/06/2021 Pneumococcal Polysaccharide PPV23 (Pneumovax) 09/02/2019 Seasonal [...] Telephone Encounter - Solis Goetz MD - 03/17/2023 11:34 AM EDT E-prescribed oxycodone. * Telephone Encounter - Salma Dickerson RN - 03/17/2023 11:21 AM EDT Repending script. documented in this encounter Plan of Treatment Upcoming Encounters Date Type Specialty Care Team Description 03/18/2023 Telemedicine Rheumatology Belgica Rajput DO [address] [place] [address] 04/29/2023 Office Visit Family Medicine Carla Jimenez PAChanel [address] [place] [address] 04/30/2023 Office Visit Hematology Oncology Solis Goetz MD [address] [place] [address] [place] [address] 09/24/2023 Office Visit Dermatology Sharmaine Yo PA-C [address] [place] [address] [place] [address] Health Maintenance Due Date Last Done Comments [...] Tdap) 03/28/2024 03/28/2014 DXA Scan 02/19/2025 02/19/2023, 08, 11/17/2018, Additional history exists Diabetes Screening 10/08/2025 10/08/2022, 1 , 03/20/2022, Additional history exists Pneumococcal Vaccine: Pediatrics (0 to 5 Years) and At-Risk Patients (6 to 64 Years) Completed 12/06/2021, 09/02/2019 VITAMIN D LEVEL ONCE IN A LIFETIME-USE SMARTSET# [id number] Completed 03/20/2022, 07/10/2021, 10/20/2018, Additional history exists [...] this encounter Medical Devices Implanted Type Area Optometric Aide Device Identifier Shelf Expiration Date Model / Serial / Lot Power Port 8fr Sngl Lumen Plas - [id number] Implanted:Qty : 1 on 05/15/2021 by Parrish Bishop DO at OR [facility] Right: Chest CR BARD : PERIPHERAL VASCULAR [id number] 06/04/2022 [id number] / / [id number] documented as of this encounter Visit Diagnoses [...] the patient have Health Care Power of Paper Hanger? No Code Status History Code Status Date Activated Date Inactivated Comments Limited Code 06/09/2021 5:53 PM 06/17/2021 9:32 PM This order reflects the patients wishes and were consensually agreed upon. Question Answer Comments Discussion of Advance Directives occurred with: Patient Does the patient have a Living Will? No Does the patient have Health Care Power of Paper Hanger? No Bag Valve Device? Yes Intubation? Yes [...] the patient have Health Care Power of Paper Hanger? No Full Code 05/03/2021 8:40 PM 05/11/2021 2:23 PM This order reflects the patients wishes and were consensually agreed upon. Question Answer Comments Discussion of Advance Directives occurred with: Patient Does the patient have a Living Will? No Does the patient have Health Care Power of Paper Hanger? No Care Teams Inker And Opaquer Relationship Specialty Start Date End Date Maria Shipman DO [address] [place] [address] PCP - General 03/22/10 documented as of this encounter
--- OUTSIDE RECORDS SUMMARY | 2023-07-11 06:08 | External Medical Summary | Summary of Care ---
Author Name Unknown Organization [facility] Address [address] [place] [address] Phone [phone] Care Team Providers Care Manager Fixed Income Name Role Phone Shruthi Welch DO Primary Care Provider [phone] Reason for Visit * Reason Comments eRx-Medication Refill Encounter Details Date Type Department Care Team Description 03/03/[address] [address] Shruthi Welch DO [address] [place] [address] ROBIN (generalized anxiety disorder) Allergies Active Allergy Reactions Severity Noted Date Comments Penicillins Anaphylaxis High 11/02/2002 As a child Sulfonylureas Anaphylaxis High 11/02/2002 As a child documented as of this encounter (statuses as of 03/04/2023) Medications Medication Sig Dispensed Refills Start Date [...] 08/21/2022 valACYclovir HCl 1 GM Oral Tablet (Valtrex)Indicati ons:Diffuse large B-cell lymphoma of intra-abdominal lymph nodes (HCC),Herpes zoster ophthalmicus of left eye TAKE 1 TABLET IN THE MORNING 90 Tablet 3 05/02/2022 Active Anastrozole 1 MG Oral Tablet (Arimidex)Indicat ions:Malignant neoplasm of upper-inner quadrant of left breast in female, estrogen receptor positive (HCC) Take 1 Tablet by mouth in the morning. 90 Tablet 3 08/05/2022 Active oxyCODONE HCl 5 MG Oral Tablet (Oxy IR)Indications:Di ffuse large B-cell lymphoma of intra-abdominal lymph nodes (HCC) Take 1 Tablet by mouth every 4 hours as needed for Pain, Moderate. 60 Tablet 0 02/13/2023 Active risperiDONE 0.25 MG Oral Tablet (RisperDAL)Indica tions:Anxiety TAKE 1 TABLET BY MOUTH AT BEDTIME 30 Tablet 5 02/27/2023 Active busPIRone HCl 10 MG Oral Tablet (Buspar)Indicatio ns:ROBIN (generalized anxiety disorder) TAKE ONE TABLET BY MOUTH IN THE MORNING AND ONE BEFORE BEDTIME 180 Tablet 0 03/04/2023 Active busPIRone HCl 10 MG Oral Tablet (Buspar)Indicatio ns:ROBIN (generalized anxiety disorder) TAKE 1 TABLET BY MOUTH EVERY MORNING AND 1 TABLET BEFORE BEDTIME 180 Tablet 0 12/08/2022 03/04/20 23 Discontinued documented as of this encounter (statuses as of 03/04/2023) Active Problems Problem Noted Date Orthostatic hypotension [...] as of this encounter (statuses as of 03/04/2023) Resolved Problems Problem Noted Date Resolved Date Multiple sclerosis 07/14/2008 03/22/2013 documented as of this encounter (statuses as of 03/04/2023) Immunizations Name Administration Dates Next Due COVID-19 mRNA, LNP-s, No Pre serve, 2-Dose Series (Pfizer) 07/27/2021,10/25/2020,10/04/2020 Pneumococcal Conjugate Vacci ne, 20-valent ([id number]) 12/06/2021 Pneumococcal Polysaccharide PPV23 (Pneumovax) 09/02/2019 Seasonal [...] Telephone Encounter - Shruthi Welch DO - 03/04/2023 1:36 PM EDTSigned Prescriptions: Disp Refills busPIRone HCl 10 MG Oral Tablet (Buspar) 180 Ta*0 Sig: TAKE ONE TABLET BY MOUTH IN THE MORNING AND ONE BEFORE BEDTIME Authorizing Provider: SHRUTHI WELCH * Telephone Encounter - PEPPER Simms - 03/04/2023 1:33 PM EDTPending Prescriptions: Disp Refills busPIRone HCl 10 MG Oral Tablet [Pharmacy *180 Ta*0 Sig: TAKE ONE TABLET BY MOUTH IN THE MORNING AND ONE BEFORE BEDTIME * Telephone Encounter - PEPPER Simms - 03/04/2023 1:33 PM EDT Received message from [facility] regarding patient needing appointment. Placed call to patient to advise. Pt was agreeable to set up office visit. Patient scheduled for 04/29/23. Thank you, Shruthi Gamez CPhT Install Technician II [facility] ([facility]) 03/04/2023,1:33 PM * Telephone Encounter - Isma Mane [facility] - 03/04/2023 12:59 PM EDTPending Prescriptions: Disp Refills busPIRone HCl 10 MG Oral Tablet [Pharmacy *180 Ta*0 Sig: TAKE ONE TABLET BY MOUTH IN THE MORNING AND ONE BEFORE BEDTIME * Telephone Encounter - Isma Gilliam [facility] - 03/04/2023 12:58 PM EDT Please contact patient so that an appointment can be scheduled with her PRIMARY CARE provider before this refill can be authorized. After contacting patient, please forward request to Shruthi Welch DO. Last Visit: 12/06/2021 (in office), 10/09/2021 (telemedicine) Next Visit: Visit date not found [facility] is currently not authorized to approve refills for the pended medication(s) per refill protocol. Please approve if appropriate. Did you pend patient's preferred pharmacy and medication before forwarding?yes Pharmacy: [facility] [id number] Pending Prescriptions: Disp Refills busPIRone HCl 10 MG Oral Tablet (Buspar) *180 Ta*0 Sig: TAKE ONE TABLET BY MOUTH IN THE MORNING AND ONE BEFORE BEDTIME Last Visit: 12/06/2021 (in office), 10/09/2021 (telemedicine) Next Visit: Visit date not found If no future appointments scheduled, and last appointment is greater than a year ago, please schedule patient for a follow-up appointment Last date the medication was ordered: 12/08/22 Is this request for a controlled substance?No Urine Drug Screen: Results for orders placed [...] Telemedicine Rheumatology Belgica Rajput, DO [address] [facility] [place] [address] 04/29/2023 Office Visit Family Medicine Carla Jimenez, PAArlineC [address] [place] [address] 04/30/2023 Office Visit Hematology Oncology Solis Goetz MD [address] [place] [address] 09/24/2023 Office Visit Dermatology Sharmaine Yo PA-C [address] [place] [address] [place] [address] Health Maintenance Due Date Last Done Comments Alpha-1 Antitrypsin 1976 Zoster Vaccines (1 of 2) 1977 Cologuard 2003 Fecal Occult Blood Test 2003 Sigmoidoscopy 2003 *COPD SEVERITY VERIFIED BY PFT 07/11/2014 Lipid Panel 03/17/2016 03/17/2011 Depression Screening, Annual for Pts 12 and Over 06/03/2018 06/03/2017 COVID-19 Vaccine (4 - Pfizer [...] D LEVEL ONCE IN A LIFETIME-USE SMARTSET# [id number] Completed 03/20/2022, 07/10/2021, 10/20/2018, Additional history exists [...] this encounter Medical Devices Implanted Type Area Barometers Calibrator Device Identifier Shelf Expiration Date Model / Serial / Lot Power Port 8fr Sngl Lumen Plas - [id number] Implanted:Qty : 1 on 05/15/2021 by Parrish Bishop, DO at OR [facility] Right: Chest CR BARD : PERIPHERAL VASCULAR [id number] 06/04/2022 [id number] / / [id number] documented as of this encounter Visit Diagnoses [...] the patient have Health Care Power of Alteration Workroom Supervisor? No Code Status History Code Status Date Activated Date Inactivated Comments Limited Code 06/09/2021 5:53 PM 06/17/2021 9:32 PM This order reflects the patients wishes and were consensually agreed upon. Question Answer Comments Discussion of Advance Directives occurred with: Patient Does the patient have a Living Will? No Does the patient have Health Care Power of Alteration Workroom Supervisor? No Bag Valve Device? Yes Intubation? Yes [...] the patient have Health Care Power of Alteration Workroom Supervisor? No Full Code 05/03/2021 8:40 PM 05/11/2021 2:23 PM This order reflects the patients wishes and were consensually agreed upon. Question Answer Comments Discussion of Advance Directives occurred with: Patient Does the patient have a Living Will? No Does the patient have Health Care Power of Alteration Workroom Supervisor? No Care Teams Manager Fixed Income Relationship Specialty Start Date End Date Shruthi Welch, [address] [place] [address] PCP - General 03/22/10 documented as of this encounter
--- OUTSIDE RECORDS SUMMARY | 2023-07-11 06:08 | External Medical Summary | Summary of Care ---
Author Name Unknown Organization [facility] Address [address] [place] [address] Phone [phone] Care Team Providers Care Account Resolution Specialist Name Role Phone Maria Shipman DO Primary Care Provider Encounter Details Date Type Department Care Team Description 03/17/2023 Refill Hematology/Oncology Treatment, [place] [address] [place] [address] Estrella Goetz MD [address] [place] [address] Diffuse large B-cell lymphoma of intra-abdominal lymph [...] (Pfizer) 07/27/2021,10/25/2020,10/04/2020 Pneumococcal Conjugate Vacci ne, 20-valent ([id number]) 12/06/2021 Pneumococcal Polysaccharide PPV23 (Pneumovax) 09/02/2019 Seasonal [...] stating that medication should be available for fish bait picker today. * Telephone Encounter - Estrella Goetz MD - 03/17/2023 11:34 AM EDT E-prescribed oxycodone. * Telephone Encounter - Salma Dickerson RN - 03/17/2023 11:21 AM EDT Repending script. documented in this encounter Plan of Treatment Upcoming Encounters Date Type Specialty Care Team Description 03/18/2023 Telemedicine Rheumatology Belgica Rajput, DO [address] [place] [address] 04/29/2023 Office Visit Family Medicine Carla Jimenez PA-C [address] [place] [address] 04/30/2023 Office Visit Hematology Oncology Estrella Goetz MD [address] [place] [address] 09/24/2023 Office Visit Dermatology Sharmaine Yo PA-C [address] [place] [address] [place] [address] Health Maintenance Due Date Last Done Comments [...] D LEVEL ONCE IN A LIFETIME-USE SMARTSET# [id number] Completed 03/20/2022, 07/10/2021, 10/20/2018, Additional history exists [...] this encounter Medical Devices Implanted Type Area Financial Analyst Accountant Device Identifier Shelf Expiration Date Model / Serial / Lot Power Port 8fr Sngl Lumen Plas - [id number] Implanted:Qty : 1 on 05/15/2021 by Parrish Bishop, at OR [facility] Right: Chest CR BARD : PERIPHERAL VASCULAR [id number] 06/04/2022 [id number] / / [id number] documented as of this encounter Visit Diagnoses [...] the patient have Health Care Power of Business Trainer? No Code Status History Code Status Date Activated Date Inactivated Comments Limited Code 06/09/2021 5:53 PM 06/17/2021 9:32 PM This order reflects the patients wishes and were consensually agreed upon. Question Answer Comments Discussion of Advance Directives occurred with: Patient Does the patient have a Living Will? No Does the patient have Health Care Power of Business Trainer? No Bag Valve Device? Yes Intubation? Yes [...] the patient have Health Care Power of Business Trainer? No Full Code 05/03/2021 8:40 PM 05/11/2021 2:23 PM This order reflects the patients wishes and were consensually agreed upon. Question Answer Comments Discussion of Advance Directives occurred with: Patient Does the patient have a Living Will? No Does the patient have Health Care Power of Business Trainer? No Care Teams Account Resolution Specialist Relationship Specialty Start Date End Date Maria Shipman, [address] [place] [address] PCP - General 03/22/10 documented as of this encounter
--- OUTSIDE RECORDS SUMMARY | 2023-07-11 06:08 | External Medical Summary | Summary of Care ---
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 They did not receive script. Starting new encounter and re-pending. * Telephone Encounter - Estrella Goetz MD - 03/17/2023 11:04 AM EDT E-prescribed Estrella Goetz MD Hem/Onc * Addendum Note - Jose Elias Dickerson RN - 03/17/2023 10:36 AM EDTAddended by: JOSE ELIAS DICKERSON on: 03/17/2023 10:36 AM Modules accepted: Orders * Telephone Encounter - Jose Elias Dickerson RN - 03/17/2023 10:[address] Goetz: Script for patient did not get sent, called and spoke with pharmacy. They have no pendingprescriptions for patient. Resent script for signature. * Telephone Encounter - Luisa Barroso carpenter apprentice - 03/17/2023 10:23 AM EDT Patient calling on status of script. Looks like it was pended on 03/16/23. Spoke with Marie at pharmacy stating they do not have script yet. Please advise. Thank you, Luisa Barroso Hostel Parent 03/17/2023,10:23 AM * Telephone Encounter - Judy Frey LPN - 03/16/2023 11:19 AM EDTSigned Prescriptions: Disp Refills oxyCODONE HCl 5 MG Oral Tablet (Oxy IR) 60 Tab*0 Sig: Take 1 Tablet by mouth every 4 hours as needed for Pain, Moderate.Authorizing Provider: ESTRELLA GOETZ------- * Telephone Encounter - Estrella Goetz MD [...] pharmacy and medication before forwarding?yes Pharmacy: [facility] [id number] Pending Prescriptions: Disp Refills oxyCODONE HCl [...] Telemedicine Rheumatology Belgica Rajput, DO [address] [facility] [place] [address] 04/29/2023 Office Visit Family Medicine Carla Jimenez PA-C [address] [place] [address] 04/30/2023 Office Visit Hematology Oncology Estrella Goetz MD [address] [place] [address] 09/24/2023 Office Visit Dermatology Sharmaine Yo PA-C [address] [place] [address] [place] [address] Health Maintenance Due Date Last Done Comments [...] D LEVEL ONCE IN A LIFETIME-USE SMARTSET# [id number] Completed 03/20/2022, 07/10/2021, 10/20/2018, Additional history exists [...] this encounter Medical Devices Implanted Type Area Commercial Trailer Truck Driver Device Identifier Shelf Expiration Date Model / Serial / Lot Power Port 8fr Sngl Lumen Plas - [id number] Implanted:Qty : 1 on 05/15/2021 by Parrish Bishop, DO at OR [facility] Right: Chest CR BARD : PERIPHERAL VASCULAR [id number] 06/04/2022 [id number] / / [id number] documented as of this encounter Visit Diagnoses [...] the patient have Health Care Power of Health/Safety Job Titles? No Code Status History Code Status Date Activated Date Inactivated Comments Limited Code 06/09/2021 5:53 PM 06/17/2021 9:32 PM Thi s order reflects the patients wishes and were consensually agreed upon. Question Answer Comments Discussion of Advance Directives occurred with: Patient Does the patient have a Living Will? No Does the patient have Health Care Power of Health/Safety Job Titles? No Bag Valve Device? Yes Intubation? Yes [...] the patient have Health Care Power of Health/Safety Job Titles? No Full Code 05/03/2021 8:40 PM 05/11/2021 2:23 PM This order reflects the patients wishes and were consensually agreed upon. Question Answer Comments Discussion of Advance Directives occurred with: Patient Does the patient have a Living Will? No Does the patient have Health Care Power of Health/Safety Job Titles? No Care Teams Client Services Analyst Relationship Specialty Start Date End Date Maria Shipman, [address] [place] [address] PCP - General 03/22/10 documented as of this encounter
--- OUTSIDE RECORDS SUMMARY | 2023-07-11 06:08 | External Medical Summary | Summary of Care ---
Author Name Unknown Organization [facility] Address [address] [place] [address] Phone [phone] Care Team Providers Care Power Electronics Research Engineer Name Role Phone Maria Shipman DO Primary Care Provider [phone] Reason for Visit * Reason Onset Date Comments Medication Refill 03/16/2023 Encounter Details Date Type Department Care Team Description 03/16/2023 Refill Hematology/Oncology [facility] [place] [address] [place] [address] Estrella Goetz MD [address] [place] [address] Diffuse large B-cell lymphoma of intra-abdominal lymph [...] (Pfizer) 07/27/2021,10/25/2020,10/04/2020 Pneumococcal Conjugate Vacci ne, 20-valent ([id number]) 12/06/2021 Pneumococcal Polysaccharide PPV23 (Pneumovax) 09/02/2019 Seasonal [...] as of this encounter Miscellaneous Notes * Addendum Note - Jose Elias Dickerson [...] signature. * Telephone Encounter - Luisa Barroso cordwainer - 03/17/2023 10:23 AM EDT Patient calling on status of script. Looks like it was pended on 03/16/23. Spoke with Marie at pharmacy stating they do not have script yet. Please advise. Thank you, Luisa Barroso Food Mixer Repairer 03/17/2023,10:23 AM * Telephone Encounter - Judy [...] pharmacy and medication before forwarding?yes Pharmacy: [id number] [address]- [place] Pending Prescriptions: Disp Refills oxyCODONE HCl 5 [...] Telemedicine Rheumatology Belgica Rajput, DO [address] [place] [address] 04/29/2023 Office Visit Family Medicine Carla Jimenez PA-C [address] [place] [address] 04/30/2023 Office Visit Hematology Oncology Estrella Goetz MD [address] [place] [address] 09/24/2023 Office Visit Dermatology Sharmaine Yo PA-C [address] [place] [address] [place] [id number] Health Maintenance Due Date Last Done Comments [...] D LEVEL ONCE IN A LIFETIME-USE SMARTSET# [id number] Completed 03/20/2022, 07/10/2021, 10/20/2018, Additional history exists [...] this encounter Medical Devices Implanted Type Area Mica Miner Blasting Device Identifier Shelf Expiration Date Model / Serial / Lot Power Port 8fr Sngl Lumen Plas - [id number] Implanted:Qty : 1 on 05/15/2021 by Parrish Bishop, DO at OR [facility] Right: Chest CR BARD : PERIPHERAL VASCULAR [id number] 06/04/2022 [id number] / / [id number] documented as of this encounter Visit Diagnoses [...] the patient have Health Care Power of Front Desk Manager? No Code Status History Code Status Date Activated Date Inactivated Comments Limited Code 06/09/2021 5:53 PM 06/17/2021 9:32 PM This order reflects the patients wishes and were consensually agreed upon. Question Answer Comments Discussion of Advance Directives occurred with: Patient Does the patient have a Living Will? No Does the patient have Health Care Power of Front Desk Manager? No Bag Valve Device? Yes Intubation? [...] the patient have Health Care Power of Front Desk Manager? No Full Code 05/03/2021 8:40 PM 05/11/2021 2:23 PM This order reflects the patients wishes and were consensually agreed upon. Question Answer Comments Discussion of Advance Directives occurred with: Patient Does the patient have a Living Will? No Does the patient have Health Care Power of Front Desk Manager? No Care Teams Power Electronics Research Engineer Relationship Specialty Start Date End Date Maria Shipman, [address] [place] [address] PCP - General 03/22/10 documented as of this encounter
--- OUTSIDE RECORDS SUMMARY | 2023-07-11 06:09 | External Medical Summary | Summary of Care ---
Author Name Unknown Organization [facility] Address [address] [place] [address] Phone [phone] Care Team Providers Care Heating Systems Installer Name Role Phone Maria Shipman DO Primary Care Provider [phone] Reason for Visit * Reason Comments Rheum Follow Up follow up Encounter Details Date Type Department Care Team Description 03/19/2022 Office Visit [address]umatology [address] [address] Ashley Goss PA-C Senile osteoporosis* Allergies Active Allergy Reactions Severity Noted Date Comments Penicillins Anaphylaxis High 11/02/2002 As a child Sulfonylureas Anaphylaxis High 11/02/2002 As a child documented as of this encounter (statuses as of 02/25/2023) Medications Medication Sig Dispensed Refills Start Date [...] for Nausea. 30 Tablet 2 1 Active Prochlorperazine Maleate 10 MG Oral Tablet (Compazine)Indic ations:Diffuse large B-cell lymphoma of intra-abdominal lymph nodes (HCC) Take 1 Tablet by mouth every 6 hours as needed for Nausea. 30 Tablet 2 1 Active Additional Information Patient not taking.Reported on 12/06/2021 tiZANidine HCl 4 MG Oral Tablet (Zanaflex) [...] MG Oral Tablet (xaNAX) 0 2 Active ALPRAZolam 0.5 MG Oral Tablet (xaNAX) Take 0.5 mg by mouth 3 times a day. She is sometimes taking 1.0 mg at noon. 0 03/19/20 22 Discontinued(Med ication List Clean Up) valACYclovir HCl 1 GM Oral Tablet (Valtrex)Indicat ions:Diffuse large B-cell lymphoma of intra-abdominal lymph nodes (HCC),Herpes zoster ophthalmicus of left eye Take by mouth 1 Tablet in the morning. 90 Tablet 1 2 05/02/20 22 Discontinued busPIRone HCl 10 MG Oral Tablet (Buspar)Indicati ons:ROBIN (generalized anxiety disorder) Take by mouth 1 Tablet in the morning AND 1 Tablet before bedtime. 180 Tablet 3 2 12/09/19 23 Discontinued Anastrozole 1 MG Oral Tablet (Arimidex)Indica tions:Malignant neoplasm of upper-inner quadrant of left breast in female, estrogen receptor positive (HCC) Take by mouth 1 Tablet in the morning. 90 Tablet 3 2 08/05/19 23 Discontinued(Ref ill) oxyCODONE HCl 5 MG Oral Tablet (Oxy IR)Indications:D iffuse large B-cell lymphoma of intra-abdominal lymph nodes (HCC) Take by mouth 1 Tablet every 4 hours as needed for Pain, Moderate. 60 Tablet 0 2 04/02/20 22 Discontinued(Ref ill) risperiDONE 0.25 MG Oral Tablet (RisperDAL)Indic ations:Anxiety Take by mouth 1 Tablet before bedtime. 30 Tablet 2 2 06/09/20 22 Discontinued(Ref ill) documented as of this encounter (statuses as of 02/25/2023) Active Problems Problem Noted Date Orthostatic hypotension [...] as of this encounter (statuses as of 02/25/2023) Resolved Problems Problem Noted Date Resolved Date Multiple sclerosis 07/14/2008 03/22/2013 documented as of this encounter (statuses as of 02/25/2023) Immunizations Name Administration Dates Next Due COVID-19 mRNA, LNP-s, No Pre serve, 2-Dose Series (Pfizer) 07/27/2021,10/25/2020,10/04/2020 Pneumococcal Conjugate Vacci ne, 20-valent ([id number]) 12/06/2021 Pneumococcal Polysaccharide PPV23 (Pneumovax) 09/02/2019 Seasonal Influenza, PF, 6 mo ns & Above, IM , (Flulaval) 06/17/2021,09/02/2019,06/03/2017 Seasonal Influenza, Split, I IV3, With Preserve, [...] Sign Reading Time Taken Comments Blood Pressure 128/72 03/19/2022 10:45 AM EDT Pulse - - Temperature 36.5 C (97.7 F) 03/19/2022 10:45 AM E DT Respiratory Rate - - Oxygen Saturation - - Inhaled Oxygen Concentration - - Weight 74.4 kg (164 lb) 03/19/2022 10:45 AM EDT Height - - Body Mass Index 29.05 12/06/2021 11:24 AM EDT documented in this [...] this encounter Patient Instructions * Patient Instructions* Ashley Goss PA-C - 03/19/2022 10:53 AM EDT You will need labs before your infusion, but they can not be longer than 4 weeks from your infusionfor Reclast. documented in this encounter Progress Notes * Ashley Goss PA-C - 03/19/2022 10:48 AM EDT [facility] ([facility] follow up Supervised by: Dr. Miguel Mendoza Previous Visit Plan from 2020 reviewed. Reason for visit: Patient seen today for further follow-up/evaluation of osteoporosis. Patient is due for Reclast soon. She did not receive her dose last year as we were unable to reach her to schedule. DXA done 02/2021 reviewed. She notes she had breast CA last year, then found out she had lymphoma. Now she is back and ready for her treatment. Last set of labs reviewed: 12/2021 CMP, 07/2021 vitamin D Bone Health Summary: Risks: Falls since last [facility] visit: no Personal History of Fx since last [facility] Visit: no ROS: . Constitutional: normal . Head normal . Eyes: normal . Ears, nose, throat, mouth: normal . Cardiovascular: normal . Respiratory: normal . Gastrointestinal: normal . Musculoskeletal: normal . Neurologic: normal . Skin: normal . Psychiatric: normal . Endocrine: normal . Hematologic/lymphatic: normal . Allergic/immunologic: normal . Genitourinary: normal Medications: Current Outpatient Medications Medication Sig Dispense Refill MELOXICAM 7.5 MG PO TABS Take 7.5 mg by mouth daily. 30 Tab 5 TOPAMAX 100 MG PO TABS Take 100 mg by mouth daily. 60 Tab 5 MEDI-MECLIZINE 25 MG PO TABS Take 25 mg by mouth 3 times a day as needed. 30 Tab 1 VITAMIN D 1000 UNIT PO CAPS Take 5,000 Units by mouth daily. 30 Cap 11 Multivitamin Adult Oral Tablet Take 1 Tab by mouth daily. Ondansetron HCl 8 MG Oral Tablet (Zofran) Take 1 Tablet by mouth every 8 hours as needed for Nausea. 30 Tablet 2 tiZANidine HCl 4 MG Oral Tablet (Zanaflex) Take 4 mg by mouth every 8 hours as needed for Muscle spasms. Thiamine HCl 100 MG Oral Tablet (vitamin B-1) Take 100 mg by mouth daily. Acetaminophen 325 MG Oral Tablet (Tylenol) Take 2 Tablets by mouth every 4 hours as needed for Pain, Mild. 30 Tablet 0 Allopurinol 300 MG Oral Tablet (Zyloprim) Take 1 Tablet by mouth daily. 90 Tablet 1 Gabapentin 400 MG Oral Capsule (Neurontin) Take 1 Capsule by mouth 2 times a day. 60 Capsule 5 Escitalopram Oxalate 20 MG Oral Tablet (Lexapro) Take by mouth 1 Tablet in the morning. 30 Tablet 5 valACYclovir HCl 1 GM Oral Tablet (Valtrex) Take by mouth 1 Tablet in the morning. 90 Tablet 1 busPIRone HCl 10 MG Oral Tablet (Buspar) Take by mouth 1 Tablet in the morning AND 1 Tablet before bedtime. 180 Tablet 3 Potassium Chloride ER 10 MEQ Oral Tablet Extended Release TAKE 1 TABLET DAILY 90 Tablet 3 Anastrozole 1 MG Oral Tablet (Arimidex) Take by mouth 1 Tablet in the morning. 90 Tablet 3 oxyCODONE HCl 5 MG Oral Tablet (Oxy IR) Take by mouth 1 Tablet every 4 hours as needed for Pain, Moderate. 60 Tablet 0 risperiDONE 0.25 MG Oral Tablet (RisperDAL) Take by mouth 1 Tablet before bedtime. 30 Tablet 2 ALPRAZolam 1 MG Oral Tablet (xaNAX) Prochlorperazine Maleate 10 MG Oral Tablet (Compazine) Take 1 Tablet by mouth every 6 hours as needed for Nausea. (Patient not taking: Reported on 12/06/2021 ) 30 Tablet 2 No current facility-administered medications for this visit. Social History: Social History Tobacco Use Smoking status: Former Smoker Packs/day: 0.50 Years: 42.00 Pack years: 21.00 Types: Cigarettes Smokeless tobacco: Never Used Tobacco comment: began at age 10 Vaping Use Vaping Use: Never used Substance Use Topics Alcohol use: No Drug use: No PHYSICAL EXAM: General appearance: NAD Eyes: Normal Heme/Lymph: goiter: No Musculoskeletal: Kyphosis Yes Heart: normal Lungs: normal Neuro: weak in lower extremity, 4/5 Assessment: 61 year old female with osteoporosis who has no signs or symptoms.. She needs assessment for ongoing treatment and has stable bone mineral density on recent DXA. Plan: The following items are ordered or are in progress: 1. Education: Osteoporosis education was provided by the [facility] team (topics included disease process, DXA, calcium/vitamin D, osteoporosis medications - including administration instructions and risks/benefits, weight bearing exercise, fall prevention/safety). 2. Prevention: . Eye Examination recommended annually, as good vision may help to prevent falls . Exercise recommended: standing, walking, light lifting . Fall Prevention/Safety Education recommended and discussed . Continue calcium rich foods (goal of 3 servings daily) 3. Osteoporosis Medications : Continue 5mg Reclast IV once yearly 4. Bone Density Testing: due 2 year(s) from previous 5. Laboratory: 25-OH Vitamin D calcium creatinine 6. Followup: 1 year Ashley Goss PA-C [facility] Team The patient was discussed with me. I agree with the findings and plan as documented by Ashley Goss PA-C in this note. Miguel Mendoza MD Rheumatology Department documented in this encounter Nursing Notes * Isela Salaazr LPN - 03/19/2022 10:45 AM EDT Chief Complaint Patient presents with Rheum Follow Up follow up documented in this encounter Plan of Treatment Upcoming Encounters Date Type Specialty Care Team Description 03/18/2023 Telemedicine Rheumatology Belgica Rajput, DO [address] [place] [address] 04/30/2023 Office Visit Hematology Oncology Solis Goetz MD [address] [place] [address], [place] [address] 09/24/2023 Office Visit Dermatology Sharmaine Yo PA-C [address] [place] [address] [place] [address] Health Maintenance Due Date Last Done Comments [...] D LEVEL ONCE IN A LIFETIME-USE SMARTSET# [id number] Completed 03/20/2022, 07/10/2021, 10/20/2018, Additional history exists [...] this encounter Medical Devices Implanted Type Area Senior Materials Analyst Device Identifier Shelf Expiration Date Model / Serial / Lot Power Port 8fr Sngl Lumen Plas - [id number] Implanted:Qty : 1 on 05/15/2021 by Parrish Bishop, DO at OR [facility] Right: Chest CR BARD : PERIPHERAL VASCULAR [id number] 06/04/2022 [id number] / / [id number] documented as of this encounter Procedures Procedure Name Priority Date/Time Associated Diagnosis Comments DEXA SCAN/BONE MINERAL AXIAL Routine 02/19/2023 4:12 PM EDT Senile osteoporosis 25-HYDROXY VITAMIN D Routine 03/20/2022 10:36 AM EDT Senile osteoporosis documented in this encounter Results * DEXA SCAN/BONE MINERAL AXIAL (02/19/2023 4:12 PM EDT) Anatomical Region Laterality Modality Dexa, Vertebra, Spine, Hip, Pelvis Nuclear Medicine Impressions 02/20/2023 11:51 AM EDT S: Fracture risk is based on current National Osteoporosis Foundation (www.nof.org) Clinicians Guide and [place] Association of Clinical Endocrinology (AACE) Guidelines (www.aace.com) and the application of current WHO FRAX tool (https://www.smith.ac.uk/FRAX/) as well as the 2017 [place] [employer] Rheumatology Glucocorticoid Induced Osteoporosis (GIOP) Guidelines (rheumatology.org/Practice-Quality/Clinical-Support/Idthbwlu-Pxoydspa-Arsol lines) using Bone mineral density derived T-scores and clinical risk factors obtained from the patient questionnaire. 1. The fracture risk is HIGH (remains HIGH) 2. The quality of the examination is GOOD. L4 has been deleted because of the significant variation in bone density from the rest of the lumbar spine. 3. No previous study for comparison. DEXA machine was recently upgraded so a comparison study can not be made. SUGGESTIONS: Information concerning the evaluation and treatment of osteoporosis can be found at the National Osteoporosis Foundation website (www.nof.org) and [place] Association of Clinical Endocrinology (AACE-www.aace.com). Osteoporosis prevention and treatment begins by modifying risk factors (such as smoking cessation and avoiding alcohol excess) and by participating in weight-bearing activities and exercise. Issues related to fall prevention and home safety should be addressed. Current NOF guidelines suggest 1200 to 1500 mg of calcium from diet and or supplemental sources. It is generally felt best to get calcium from one s diet. Calcium carbonate and calcium citrate are common calcium supplement choices in most local pharmacies. If the patient is taking a proton pump inhibitor, then calcium citrate should be the preferred supplement, if that is necessary. NOF guidelines for vitamin D are 800 to 1000 units of vitamin D3 daily. However, this may best be guided by measurement of 25-OH vitamin-D level, aiming for a level between 30 to 50 units (ng/ml). Additional information can be found at the FRAX website (https://www.smith.ac.uk/FRAX/), and the [place] College of Rheumatology website (https://www.rheumatology.org/Practice-Quality/Clinical-Support/Clinical-Pr actice-Guidelines). 1. Given the length of use of IV Reclast and current bone mineral density, a drug holiday is reasonable with a repeat study in 2 years. MIGUEL MENDOZA M.D. [facility] Certified Clinical Meter Engineer Department of Rheumatology [facility] Narrative 02/20/2023 11:51 AM EDT Radiology, [facility] DXA Performed: 02/19/23 DXA Resulted: 02/20/2023 Elizabeth Hernandes Reason for testing: estrogen deficient woman at clinical risk , monitoring to assess efficacy of therapy Osteoporosis treatment (per questionnaire): A. Previous treatment: Fosamax/Alendronate 8791-2419 B. Current treatment: Reclast/Zoledronic Acid 9167-8509 Major risk factors: personal history of fracture after age 50, other fracture, current smoker Using a [employer] [facility] images of the lumbar spine, left hip were obtained using DXA.. The bone mineral density and T scores [standard, young, normal, female population] are as follows: RESULTS: Lumbar spine: 0.745 gms/cm2 T-score: -2.5 Left femoral neck: 0.556 gms/cm2 T-score: -2.6 FRAX not indicated. Ashley Goss PA-C RADIOLOGY ( [facility]) * 25-HYDROXY VITAMIN D (03/20/2022 10:36 AM EDT) 25-Hydroxy Vitamin D 27 >19 ng/mL 03/20/2022 8:15 PM EDT [facility] Blood Venous blood specimen / Unknown Venipuncture / Unknown 03/20/2022 10:36 AM EDT 03/20/2022 10:55 AM EDT Narrative [facility] - 03/20/2022 8:15 PM EDT Deficient: <20 ng/mL Insufficient: 20-29 ng/mL Recommended/Optimum:30-50 ng/mL Vitamin D intoxication is rare. If suspicious of Vitamin D toxicity, evaluation of serum Calcium and PTH is recommended. sAhley Goss PA-C LAB BLOOD O RDERABLES [facility] [address] [place] [address] documented in this encounter Visit Diagnoses Diagnosis Senile osteoporosis- Primary documented in this encounter Advance Directives Latest [...] the patient have Health Care Power of Foam Cutting Supervisor? No Code Status History Code Status Date Activated Date Inactivated Comments Limited Code 06/09/2021 5:53 PM 06/17/2021 9:32 PM This order reflects the patients wishes and were consensually agreed upon. Question Answer Comments Discussion of Advance Directives occurred with: Patient Does the patient have a Living Will? No Does the patient have Health Care Power of Foam Cutting Supervisor? No Bag Valve Device? Yes Intubation? [...] the patient have Health Care Power of Foam Cutting Supervisor? No Full Code 05/03/2021 8:40 PM 05/11/2021 2:23 PM This order reflects the patients wishes and were consensually agreed upon. Question Answer Comments Discussion of Advance Directives occurred with: Patient Does the patient have a Living Will? No Does the patient have Health Care Power of Foam Cutting Supervisor? No Care Teams Heating Systems Installer Relationship Specialty Start Date End Date Maria Shipman DO [address] [place] [address] PCP - General 03/22/10 documented as of this encounter
--- OUTSIDE RECORDS SUMMARY | 2023-07-11 06:09 | External Medical Summary | Summary of Care ---
Author Name Unknown Organization [facility] Address [address] [place] [address] Phone [phone] Care Team Providers Care Zoo Veterinarian Name Role Phone Shruthi Shipman DO Primary Care Provider + [phone] Reason for Visit * Reason Comments eRx-Medication Refill Encounter Details Date Type Department Care Team Description 02/26/[address] [address] Shruthi Shipman DO [address] [place] [address] Anxiety Allergies Active Allergy Reactions Severity Noted Date Comments Penicillins Anaphylaxis High 11/02/2002 As a child Sulfonylureas Anaphylaxis High 11/02/2002 As a child documented as of this encounter (statuses as of 02/27/2023) Medications Medication Sig Dispensed Refills Start Date [...] the morning. 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 60 Tablet 0 02/13/2023 Active risperiDONE 0.25 MG Oral Tablet (RisperDAL)Indica tions:Anxiety TAKE 1 TABLET BY MOUTH AT BEDTIME 30 Tablet 5 02/27/2023 Active risperiDONE 0.25 MG Oral Tablet (RisperDAL)Indica tions:Anxiety TAKE 1 TABLET BY MOUTH AT BEDTIME 30 Tablet 0 02/02/2023 02/28/20 23 Discontinued documented as of this encounter (statuses as of 02/27/2023) Active Problems Problem Noted Date Orthostatic hypotension [...] as of this encounter (statuses as of 02/27/2023) Resolved Problems Problem Noted Date Resolved Date Multiple sclerosis 07/14/2008 03/22/2013 documented as of this encounter (statuses as of 02/27/2023) Immunizations Name Administration Dates Next Due COVID-19 mRNA, LNP-s, No Pre serve, 2-Dose Series ([employer]) 07/27/2021,10/25/2020,10/04/2020 Pneumococcal Conjugate Vacci ne, 20-valent ([id number]) 12/06/2021 Pneumococcal Polysaccharide PPV23 (Pneumovax) 09/02/2019 Seasonal [...] Miscellaneous Notes * Telephone Encounter - Shruthi Shipman DO - 02/27/2023 9:16 AM EDTSigned Prescriptions: Disp Refills risperiDONE 0.25 MG Oral Tablet (RisperDAL)30 Tab*5 Sig: TAKE 1 TABLET BY MOUTH AT BEDTIME Authorizing Provider: SHRUTHI SHIPMAN * Telephone Encounter - Toña Pool [facility] - 02/27/2023 6:52 AM EDTPending Prescriptions: Disp Refills risperiDONE 0.25 MG Oral Tablet (RisperDAL)30 Tab*5 Sig: TAKE 1 TABLET BY MOUTH AT BEDTIME * Telephone Encounter - Toña Pool [facility] - 02/27/2023 6:52 AM EDT [facility] is currently not authorized to approve refills for the pended medication(s) per refill protocol. Please approve if appropriate. Did you pend patient's preferred pharmacy and medication before forwarding?yes Pharmacy: [facility] [id number] Pending Prescriptions: Disp Refills risperiDONE 0.25 MG Oral Tablet (RisperDAL)30 Tab*5 Sig: TAKE 1 TABLET BY MOUTH AT BEDTIME Last Visit: 12/06/2021 (in office), 10/09/2021 (telemedicine) Next Visit: Visit date not found If no future appointments scheduled, and last appointment is greater than a year ago, please schedule patient for a follow-up appointment Last date the medication was ordered: 02/02/23 Is this request for a controlled substance?No [...] 12:00 AM ALT 11 12/19/2011 01:52 PM Thank You, Toña Pool [facility] Pharmacist Telepharmacy [phone] 02/27/2023, 6:52 AM documented in this encounter Plan of Treatment Upcoming Encounters Date Type Specialty Care Team Description 03/18/2023 Telemedicine Rheumatology Belgica Rajput, DO [address] [facility] [place] [address] 04/30/2023 Office Visit Hematology Oncology Solis Goetz MD [address] [place] [address] 09/24/2023 Office Visit Dermatology Sharmaine Yo PA-C [address] [place] [address] [place] [address] Health Maintenance Due Date Last Done Comments [...] D LEVEL ONCE IN A LIFETIME-USE SMARTSET# [id number] Completed 03/20/2022, 07/10/2021, 10/20/2018, Additional history exists [...] this encounter Medical Devices Implanted Type Area Logging Engineer Device Identifier Shelf Expiration Date Model / Serial / Lot Power Port 8fr Sngl Lumen Plas - [id number] Implanted:Qty : 1 on 05/15/2021 by Parrish Bishop DO at OR [facility] Right: Chest CR BARD : PERIPHERAL VASCULAR [id number] 06/04/2022 [id number] / / [id number] documented as of this encounter Visit Diagnoses Diagnosis Anxiety Anxiety state, unspecified documented in this encounter Advance Directives Latest [...] the patient have Health Care Power of Agriculture Manager? No Code Status History Code Status Date Activated Date Inactivated Comments Limited Code 06/09/2021 5:53 PM 06/17/2021 9:32 PM This order reflects the patients wishes and were consensually agreed upon. Question Answer Comments Discussion of Advance Directives occurred with: Patient Does the patient have a Living Will? No Does the patient have Health Care Power of Agriculture Manager? No Bag Valve Device? Yes Intubation? [...] the patient have Health Care Power of Agriculture Manager? No Full Code 05/03/2021 8:40 PM 05/11/2021 2:23 PM This order reflects the patients wishes and were consensually agreed upon. Question Answer Comments Discussion of Advance Directives occurred with: Patient Does the patient have a Living Will? No Does the patient have Health Care Power of Agriculture Manager? No Care Teams Zoo Veterinarian Relationship Specialty Start Date End Date Shruthi Shipman, [address] [place] [address] PCP - General 03/22/10 documented as of this encounter
--- OUTSIDE RECORDS SUMMARY | 2023-07-11 06:09 | External Medical Summary | Summary of Care ---
Author Name Unknown Organization [facility] Address [address] [place] [address] Phone [phone] Care Team Providers Care Wing Commander Name Role Phone Shruthi Welch DO Primary Care Provider + [phone] Reason for Visit * Reason Comments eRx-Medication Refill Encounter Details Date Type Department Care Team Description 01/30/[address] [address] Srhuthi Welch DO [address] [place] [address] Anxiety Allergies Active Allergy Reactions Severity Noted Date Comments Penicillins Anaphylaxis High 11/02/2002 As a child Sulfonylureas Anaphylaxis High 11/02/2002 As a child documented as of this encounter (statuses as of 02/02/2023) Medications Medication Sig Dispensed Refills Start Date [...] needed for Pain, Moderate. 60 Tablet 0 01/14/2023 Active risperiDONE 0.25 MG Oral Tablet (RisperDAL)Indica tions:Anxiety TAKE 1 TABLET BY MOUTH AT BEDTIME 30 Tablet 0 02/02/2023 Active risperiDONE 0.25 MG Oral Tablet (RisperDAL)Indica tions:Anxiety TAKE 1 TABLET BY MOUTH EVERY NIGHT AT BEDTIME 30 Tablet 0 01/05/2023 02/03/20 23 Discontinued documented as of this encounter (statuses as of 02/02/2023) Active Problems Problem Noted Date Orthostatic hypotension [...] as of this encounter (statuses as of 02/02/2023) Resolved Problems Problem Noted Date Resolved Date Multiple sclerosis 07/14/2008 03/22/2013 documented as of this encounter (statuses as of 02/02/2023) Immunizations Name Administration Dates Next Due COVID-19 mRNA, LNP-s, No Pre serve, 2-Dose Series ([employer] logo) 07/27/2021,10/25/2020,10/04/2020 Pneumococcal Conjugate Vacci ne, 20-valent ([id number]) 12/06/2021 Pneumococcal Polysaccharide PPV23 (Pneumovax) 09/02/2019 Seasonal Influenza, Quadriva lent, No Preserve, 6 [employer] Above, IM 04/24/2022,06/17/2021,09/02/2019,06/03 Seasonal Influenza, Split, I IV3, With [...] Telephone Encounter - Shruthi Welch DO - 02/02/2023 12:26 PM EDTSigned Prescriptions: Disp Refills risperiDONE 0.25 MG Oral Tablet (RisperDAL)30 Tab*0 Sig: TAKE 1 TABLET BY MOUTH AT BEDTIME Authorizing Provider: SHRUTHI WELCH * Telephone Encounter - Dejah Busby LPN - 02/02/2023 8:12 AM EDTPending Prescriptions: Disp Refills risperiDONE 0.25 MG Oral Tablet [Pharmacy *30 Tab*0 Sig: TAKE 1 TABLET BY MOUTH AT BEDTIME * Telephone Encounter - Venu, [facility] In[facility] - 02/01/2023 11:51 AM EDT Pending Prescriptions: Disp Refills risperiDONE 0.25 MG Oral Tablet [Pharmacy *30 Tab*0 Sig: TAKE 1 TABLET BY MOUTH AT BEDTIME * Telephone Encounter - Phuong Cardoso - 01/31/2023 10:53 AM EDTPending Prescriptions: Disp Refills risperiDONE 0.25 MG Oral Tablet [Pharmacy *30 Tab*0 Sig: TAKE 1TABLET BY MOUTH AT BEDTIME documented in this encounter Plan of Treatment Upcoming Encounters Date Type Specialty Care Team Description 02/19/2023 Imaging Radiology 03/18/2023 Telemedicine [facility]umatology [facility] [address] [facility] [address] 04/30/2023 Office Visit Hematology Oncology Solis Goetz MD [address] [place] [address], [place] [id number] 09/24/2023 Office Visit Dermatology Sharmaine Yo PA-C [address] [place] [address] [place] [address] Health Maintenance Due Date [...] 01/12/2022 01/13/2012, 01/13/2012 Colorectal Cancer Screening 01/12/2022 DXA Scan 02/12/2023 02/12/2021, 11/03, 02/04/2016 Influenza Vaccine (FLU shot) (#1) 2023 04/24/2022, 06/17/2021, 09/02/2019, Additional history exists Mammogram 10/09/2023 10/08/2022, 10/2021, 09/12/2020, Additional history exists O2 ASSESSMENT COMPLETED IN PAST YEAR FOR COPD 12/13/2023 12/12/2022 DTaP,Tdap,and Td Vaccines (2 - Td or Tdap) 03/28/2024 03/28/2014 Diabetes Screening 10/08/2025 10/08/2022, 1 , 03/20/2022, Additional history exists Pneumococcal Vaccine: Pediatrics (0 to 5 Years) and At-Risk Patients (6 to 64 Years) Completed 12/06/2021, 09/02/2019 VITAMIN D LEVEL ONCE IN A LIFETIME-USE SMARTSET# [id number] Completed 03/20/2022, 07/10/2021, 10/20/2018, Additional history exists [...] this encounter Medical Devices Implanted Type Area Bell Spinner Sousaphones Device Identifier Shelf Expiration Date Model / Serial / Lot Power Port 8fr Sngl Lumen Plas - [id number] Implanted:Qty : 1 on 05/15/2021 by Parrish Bishop, DO at OR [facility] Right: Chest CR BARD : PERIPHERAL VASCULAR [id number] 06/04/2022 [id number] / / [id number] documented as of this encounter Visit Diagnoses [...] the patient have Health Care Power of Collar Stay Fuser Tender? No Code Status History Code Status Date Activated Date Inactivated Comments Limited Code 06/09/2021 5:53 PM 06/17/2021 9:32 PM This order reflects the patients wishes and were consensually agreed upon. Question Answer Comments Discussion of Advance Directives occurred with: Patient Does the patient have a Living Will? No Does the patient have Health Care Power of Collar Stay Fuser Tender? No Bag Valve Device? Yes Intubation? Yes [...] the patient have Health Care Power of Collar Stay Fuser Tender? No Full Code 05/03/2021 8:40 PM 05/11/2021 2:23 PM This order reflects the patients wishes and were consensually agreed upon. Question Answer Comments Discussion of Advance Directives occurred with: Patient Does the patient have a Living Will? No Does the patient have Health Care Power of Collar Stay Fuser Tender? No Care Teams Wing Commander Relationship Specialty Start Date End Date Shruthi Welch, [address] [place] [address] PCP - General 03/22/10 documented as of this encounter
--- OUTSIDE RECORDS SUMMARY | 2023-07-11 06:09 | External Medical Summary | Summary of Care ---
Author Name Unknown Organization [facility] Address [address] [place] [address] Phone [phone] Care Team Providers Care Dsp Engineer Name Role Phone Maria Shipman DO Primary Care Provider Reason for Visit * Reason Onset Date Comments Medication Refill 01/14/2023 Encounter Details Date Type Department Care Team Description 01/14/2023 Refill Hematology/Oncology [facility] [place] [address] [facility] [place] [address] Solis Goetz MD [address] [facility] [place] [address] Diffuse large B-cell lymphoma of intra-abdominal lymph nodes (HCC) Allergies Active Allergy Reactions Severity Noted Date Comments Penicillins Anaphylaxis High 11/02/2002 As a child Sulfonylureas Anaphylaxis High 11/02/2002 As a child documented as of this encounter (statuses as of 01/14/2023) Medications Medication Sig Dispensed Refills Start Date [...] Tablet (Buspar)Indication s:ROBIN (generalized anxiety disorder) TAKE 1 TABLET BY MOUTH EVERY MORNING AND 1 TABLET BEFORE BEDTIME 180 Tablet 0 12/08/2022 Active risperiDONE 0.25 MG Oral Tablet (RisperDAL)Indicat ions:Anxiety TAKE 1 TABLET BY MOUTH EVERY NIGHT AT BEDTIME 30 Tablet 0 01/05/2023 Active oxyCODONE HCl 5 MG Oral Tablet (Oxy IR)Indications:Dif fuse large B-cell lymphoma of intra-abdominal lymph nodes (HCC) Take 1 Tablet by mouth every 4 hours as needed for Pain, Moderate. 60 Tablet 0 01/14/2023 Active oxyCODONE HCl 10 MG Oral Tablet (Roxicodone)Indica tions:Diffuse large B-cell lymphoma of intra-abdominal lymph nodes (HCC) Take 0.5 Tablets by mouth every 4 hours as needed for Pain, Moderate. 30 Tablet 0 12/16/2022 3 Discontinue d(Medicatio n/Dose Changed) documented as of this encounter (statuses as of 01/14/2023) Active Problems Problem Noted Date Orthostatic hypotension [...] as of this encounter (statuses as of 01/14/2023) Resolved Problems Problem Noted Date Resolved Date Multiple sclerosis 07/14/2008 03/22/2013 documented as of this encounter (statuses as of 01/14/2023) Immunizations Name Administration Dates Next Due COVID-19 mRNA, LNP-s, No Pre serve, 2-Dose Series ([employer]) 07/27/2021,10/25/2020,10/04/2020 Pneumococcal Conjugate Vacci ne, 20-valent ([id number]) 12/06/2021 Pneumococcal Polysaccharide PPV23 (Pneumovax) 09/02/2019 Seasonal [...] encounter Miscellaneous Notes * Telephone Encounter - Judy Frey LPN - 01/14/2023 11:33 AM EDTPending Prescriptions: Disp Refills oxyCODONE HCl 5 MG Oral Tablet (Oxy IR) 60 Tab*0 Sig: Take 1 Tablet by mouth every 4 hours as needed for Pain, Moderate. * Telephone Encounter - Judy Frey LPN - 01/14/2023 11:11 AM EDT 10mg Oxycodone was prescribed instead of 5mg because pharmacy was out of stock of 5mg oxycodone. PDMP was reviewed and patient had script filled on 12/16/22 for 30 tablets of 10mg oxycodone insteadof 60 tablets of 5 mg oxycodone, no concerns. Called patient to verify. Called [facility] pharmacy to verify if oxycodone 5 mg was back in stock. It isin stock. Pended script as prescribed by Dr. Goetz for 60 tablets 5mg of oxycodone. * Telephone Encounter - Dejah Smith CPhT - 01/14/2023 9:38 AM EDT Did you pend patient's preferred pharmacy and medication before forwarding?yes Pharmacy: [facility] [id number] Pending Prescriptions: Disp Refills oxyCODONE HCl 10 MG Oral Tablet (Roxicodo*30 Tab*0 Sig: Take 0.5 Tablets by mouth every 4 hours as needed for Pain, Moderate. Last Visit: 10/23/2022 (in office), Visit date not found (telemedicine) Next Visit: 04/30/2023 If no future appointments scheduled, and last appointment is greater than a year ago, please schedule patient for a follow-up appointment Last date the medication was ordered: 12/16/22 Is this request for a controlled substance?Yes, What was the last refill date 12/16/22 w/ quantity 30 tablets and dosage 10mg and Urine Drug Screen Not completed Urine Drug Screen: Results for orders placed or performed during the hospital encounter of 06/09/21 TOXICOLOGY, URINESCREEN Result Value Amphetamine Negative Benzodiazepines Positive (A) [...] Encounters Date Type Specialty Care Team Description 01/22/2023 Imaging Radiology 03/18/2023 Office Visit Rheumatology Ashley Goss PA-C 04/30/2023 Office Visit Hematology Oncology Solis Goetz MD [address] [place], [place] [address] [address] 09/24/2023 Office Visit Dermatology Sharmaine Yo PA-C [address] [place] [address] [place] [id number] Health Maintenance Due Date Last Done Comments Alpha-1 Antitrypsin 1976 Zoster Vaccines (1 of 2) 1977 Cologuard 2003 Fecal Occult Blood Test 2003 Sigmoidoscopy 2003 *COPD SEVERITY VERIFIED BY PFT 07/11/2014 Lipid Panel 03/17/2016 03/17/2011 Depression Screening, Annual for Pts 12 and Over 06/03/2018 06/03/2017 COVID-19 Vaccine (4 - Booster for Pfizer series) 09/21/2021 07/27/2021, 10/25/2020, 10/04/2020 Colonoscopy 01/12/2022 [...] D LEVEL ONCE IN A LIFETIME-USE SMARTSET# [id number] Completed 03/20/2022, 07/10/2021, 10/20/2018, Additional history exists [...] this encounter Medical Devices Implanted Type Area Coil Spring Assembler Device Identifier Shelf Expiration Date Model / Serial / Lot Power Port 8fr Sngl Lumen Plas - [id number] Implanted:Qty : 1 on 05/15/2021 by Parrish Bishop, at OR [facility] Right: Chest CR BARD : PERIPHERAL VASCULAR [id number] 06/04/2022 [id number] / / [id number] documented as of this encounter Visit Diagnoses [...] the patient have Health Care Power of Putty Mixer And Applier? No Code Status History Code Status Date Activated Date Inactivated Comments Limited Code 06/09/2021 5:53 PM 06/17/2021 9:32 PM This order reflects the patients wishes and were consensually agreed upon. Question Answer Comments Discussion of Advance Directives occurred with: Patient Does the patient have a Living Will? No Does the patient have Health Care Power of Putty Mixer And Applier? No Bag Valve Device? Yes Intubation? Yes [...] the patient have Health Care Power of Putty Mixer And Applier? No Full Code 05/03/2021 8:40 PM 05/11/2021 2:23 PM This order reflects the patients wishes and were consensually agreed upon. Question Answer Comments Discussion of Advance Directives occurred with: Patient Does the patient have a Living Will? No Does the patient have Health Care Power of Putty Mixer And Applier? No Care Teams Dsp Engineer Relationship Specialty Start Date End Date Maria Shipman, [address] [place], [place] [id number] PCP - General 03/22/10 documented as of this encounter
--- OUTSIDE RECORDS SUMMARY | 2023-07-11 06:09 | External Medical Summary | Summary of Care ---
Author Name Unknown Organization [facility] Address [address] [place] [address] Phone [phone] Care Team Providers Care Ep Tech Name Role Phone Maria Shipman DO Primary Care Provider + [phone] Reason for Visit * Reason Onset Date Comments Medication Refill 02/13/2023 Encounter Details Date Type Department Care Team Description 02/13/2023 Refill Hematology/Oncology [facility] [place] [address] [place] [address] Rosy Riley MD [address] [place] [address] Diffuse large B-cell lymphoma of intra-abdominal lymph nodes (HCC) Allergies Active Allergy Reactions Severity Noted Date Comments Penicillins Anaphylaxis High 11/02/2002 As a child Sulfonylureas Anaphylaxis High 11/02/2002 As a child documented as of this encounter (statuses as of 02/13/2023) Medications Medication Sig Dispensed Refills Start Date [...] AT BEDTIME 30 Tablet 0 02/02/2023 Active oxyCODONE HCl 5 MG Oral Tablet (Oxy IR)Indications:Dif fuse large B-cell lymphoma of intra-abdominal lymph nodes (HCC) Take 1 Tablet by mouth every 4 hours as needed for Pain, Moderate. 60 Tablet 0 02/13/2023 Active oxyCODONE HCl 5 MG Oral Tablet (Oxy IR)Indications:Dif fuse large B-cell lymphoma of intra-abdominal lymph nodes (HCC) Take 1 Tablet by mouth every 4 hours as needed for Pain, Moderate. 60 Tablet 0 01/14/2023 3 Discontinue d(Refill) documented as of this encounter (statuses as of 02/13/2023) Active Problems Problem Noted Date Orthostatic hypotension [...] as of this encounter (statuses as of 02/13/2023) Resolved Problems Problem Noted Date Resolved Date Multiple sclerosis 07/14/2008 03/22/2013 documented as of this encounter (statuses as of 02/13/2023) Immunizations Name Administration Dates Next Due COVID-19 mRNA, LNP-s, No Pre serve, 2-Dose Series ([employer]) 07/27/2021,10/25/2020,10/04/2020 Pneumococcal Conjugate Vacci ne, 20-valent ([id number]) 12/06/2021 Pneumococcal Polysaccharide PPV23 (Pneumovax) 09/02/2019 Seasonal [...] Telephone Encounter - Salma Dickerson RN - 02/13/2023 1:47 PM EDTSigned Prescriptions: Disp Refills oxyCODONE HCl 5 MG Oral Tablet (Oxy IR) 60 Tab*0 Sig: Take 1 Tablet by mouth every 4 hours as needed for Pain, Moderate.Authorizing Provider: ESTRELLA GOETZ-------- * Telephone Encounter - Estrella Goetz MD - 02/13/2023 1:46 PM EDT E-prescribed oxycodone. Estrella Goetz MD Hem/Onc * Telephone Encounter - Judy Frey LPN - 02/13/2023 1:33 PM EDTPending Prescriptions: Disp Refills oxyCODONE HCl 5 MG Oral Tablet (Oxy IR) 60 Tab*0 Sig: Take 1 Tablet by mouth every 4 hours as needed for Pain, Moderate. * Telephone Encounter - Judy Frey LPN - 02/13/2023 1:32 PM EDT PDMP reviewed, no concerns. Last filled on 01/14/23 for 60 tablets. Pharmacy pended script * Telephone Encounter - Peyton Duque accounting consultant - 02/13/2023 11:44 AM EDT Pending Prescriptions: Disp Refills oxyCODONE HCl 5 [...] appointment Last date the medication was ordered: 01/14/2023 Pharmacy: [facility] [id number] Is this request for a controlled substance? and Urine Drug Screen Not completed YRS Urine Drug Screen: Results for orders placed [...] Imaging Radiology 03/18/2023 Telemedicine Rheumatology Belgica Rajput, DO [address] [facility] [address] 04/30/2023 Office Visit Hematology Oncology Estrella Goetz MD [address] [place] [address] 09/24/2023 Office Visit Dermatology Sharmaine Yo PA-C [address] [place] [address] [place] [address] Health Maintenance Due Date Last Done Comments [...] D LEVEL ONCE IN A LIFETIME-USE SMARTSET# [id number] Completed 03/20/2022, 07/10/2021, 10/20/2018, Additional history exists [...] this encounter Medical Devices Implanted Type Area Manager Marketing Communication Device Identifier Shelf Expiration Date Model / Serial / Lot Power Port 8fr Sngl Lumen Plas - [id number] Implanted:Qty : 1 on 05/15/2021 by Parrish Bishop DO at OR [facility] Right: Chest CR BARD : PERIPHERAL VASCULAR [id number] 06/04/2022 [id number] / / [id number] documented as of this encounter Visit Diagnoses [...] the patient have Health Care Power of Carburetor Mechanic? No Code Status History Code Status Date Activated Date Inactivated Comments Limited Code 06/09/2021 5:53 PM 06/17/2021 9:32 PM This order reflects the patients wishes and were consensually agreed upon. Question Answer Comments Discussion of Advance Directives occurred with: Patient Does the patient have a Living Will? No Does the patient have Health Care Power of Carburetor Mechanic? No Bag Valve Device? Yes Intubation? Yes [...] the patient have Health Care Power of Carburetor Mechanic? No Full Code 05/03/2021 8:40 PM 05/11/2021 2:23 PM This order reflects the patients wishes and were consensually agreed upon. Question Answer Comments Discussion of Advance Directives occurred with: Patient Does the patient have a Living Will? No Does the patient have Health Care Power of Carburetor Mechanic? No Care Teams Ep Tech Relationship Specialty Start Date End Date Maria Shipman DO [address] [facility] [place] [address] PCP - General 03/22/10 documented as of this encounter
[2023-07-11 07:48] LABS: Albumin Globulin Ratio 1.2 (0.9-2); Bilirubin,Total 0.5 mg/dl (0.2-1.0); Calcium 7.8 mg/dl (8.6-10.3); Creatinine Clr Calc Pharmacy 56.4 ml/min; Est GFR (Non-African American) 59.5 ml/min; Globulin 2.6 gm/dl (2.5-4.0); Magnesium 2.1 mg/dl (1.7-2.4); Potassium 3.5 mmol/L (3.5-5.1); Total Protein 5.6 gm/dl (6.0-8.3)
[2023-07-11 07:56] LABS: Hematocrit (blood only) 33.7 % (37.0-47.0); Hemoglobin 11.2 g/dl (12.0-16.0); Mean Corpuscular Hemoglobin 35.2 pg (25.0-34.0); Mean Corpuscular Hgb Conc 33.2 g/dL (32.0-36.0); Mean Platelet Volume 10.1 fL (9.4-12.4); Platelet Count 114 K/uL (130-400); RDW Standard Deviation 50.8 fL (36.4-46.3); Red Blood Count 3.18 M/uL (4.20-5.40); White Blood Count 13.06 K/ul (4.8-10.8)
[2023-07-11] MEDS ORDERED: allopurinoL 300 MG TAB PO SCH (09:00)
[2023-07-11] MEDS: ESCITALOPRAM OXALATE 20 MG TAB PO SCH ×2 (09:19→11:03)
[2023-07-11] MEDS: busPIRone 5 MG TAB PO SCH ×2 (09:19→20:10)
[2023-07-11] MEDS: ENOXAPARIN INJ 40 MG/0.4 ML SYR SQ SCH (09:19)
[2023-07-11] MEDS: GABAPENTIN 400 MG CAP PO SCH ×3 (09:19→20:10)
[2023-07-11] MEDS: MELOXICAM 7.5 MG TAB PO SCH ×2 (09:19→11:03)
[2023-07-11] MEDS: THIAMINE HCL 100 MG TAB PO SCH ×2 (09:19→11:03)
[2023-07-11] MEDS ORDERED: NICOTINE POLACRILEX 2 MG GUM MT PRN (10:33)
[2023-07-11] MEDS: MUPIROCIN 2% OINT 22 GM TUBE EXT SCH ×2 (11:04→20:10)
[2023-07-11] MEDS: NICOTINE 21 MG/24 HR TDSY TD SCH (12:30)
--- NOTE | 2023-07-11 12:55 | Hospitalist Progress Note ---
Date of Service July 11, 2023 Assessment & Plan (1) Sepsis: (2) Hypomagnesemia: (3) Hypoxia: (4) Hyponatremia: (5) Tobacco abuse: (6) History of breast cancer: (7) Acute metabolic encephalopathy: (8) Somnolence: Plan Ms. Hernandes is a 62 year old female that presents to the ED with generalized weakness and hypoxia. Sepsis secondary to E. coli bacteremia Acute hypoxic respiratory failure Patient presented to the ED with generalized weakness. Leukocytosis present, patient hypotensive on admission with elevated lactate. CXR cardiomegaly without CHF or pleural effusions Chest CTA: Cardiomegaly and mild emphysema. No airspace consolidation typical for pneumonia or pleural effusion is identified. Mild intralobular septal thickening suggests fluid overload/congestive change. Correlate clinically. Advanced coronary artery atherosclerosis Biofire negative MRSA nares positive Blood culture shows gram-negative bacilli. Suspect UTI as the source. Urine culture pending Started on ceftriaxone; continue for now. Repeat blood culture tomorrow AM. Will stop IV fluids; encourage oral hydration. JHON: Likely prerenal Serum creatinine 1.24; baseline 0.8-0.9 Creatinine improved to 1 Continue to monitor urine output. Hypomagnesemia: Serum magnesium 1.6; on admission. Repleted. Hyponatremia: Suspect secondary to dehydration. Sodium of 131 on admission Hyponatremia improved. Multiple Sclerosis: Used to follow with Neurology; Dr. Laura Takes Gabapentin for Neuropathy chronic left leg weakness Tobacco abuse: Chronic Current smoker Recommend smoking cessation Nicotine patch and gum ordered Depression and Anxiety: Chronic Takes alprazolam; hold for now to avoid respiratory depression Takes Lexapro and Buspar; continue History of breast cancer: Follows with Dr. Goetz stage 1A left invasive ductal carcinoma ER+, CA+, Her2 elizabeth negative diagnosed Aug 2017- she is s/p lumpectomy, RT (completed 08/21/2017), and currently continued onanastrazole (started 09/2017). 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 Shipman Code Status: Conditional code; okay with mechanical ventilation. No CPR or defibrillation. Okay for BiPAP and inotropic medications as necessary VTE Prophylaxis: Lovenox SQ Time spent evaluating patient, direct bedside care, chart review, placing orders, interpretation of diagnostic studies, discussion with patient as well as other required patient management activities is 50 minutes Please note the above document was generated using voice recognition software. It may contain grammatical, syntax or spelling errors. Any formal questions or concerns about the content, text or information contained within the body of this dictation should be directly addressed to the provider for clarification Admission and Anticipated Discharge Date Admission Date: July 10, 2023 Subjective Patient seen and examined at bedside. She is sitting up on the bed; not in any distress. She reports that she is feeling much better compared to yesterday. She denies fever, chills, chest pain, shortness of breath or abdominal pain. Review of Systems Review of Systems: All systems reviewed & are unremarkable except as noted in Subjective Physical Exam Physical Exam: Constitutional: Alert oriented x 3; not in any distress. Respiratory: normal respiratory effort, lungs clear to auscultation, no wheeze, rales, rhonchi. Normal insp/exp effort, no accessory muscle use Cardiovascular: RRR, no murmur, no edema Vessels: no JVD or carotid bruit Chest: normal inspection of chest Abdomen: normal bowel sounds, soft, nontender, no hepatosplenomegaly Musculoskeletal: no cyanosis or clubbing, extremities motor strength 5/5 Skin: no rashes, warm and dry normal turgor Neurologic: PERRL, EOMI, accommodation nl, no face palsy, no dysarthria CN's II- XI intact bilaterally and moves all extremities Psychiatric: A+Ox3, euthymic affect Results & Data Results & Data Vital Signs (Past 12 Hours) Vital Signs Temp Pulse Pulse Resp BP Pulse Ox O2 Del Method 07/11/23 12:00 36.5 C 75 18 151/98 H 97 Room Air 07/11/23 08:05 37.2 C 78 18 124/60 94 Room Air 07/11/23 07:15 70 07/11/23 04:30 99 Nasal Cannula 07/11/23 04:17 100 Nasal Cannula 07/11/23 03:33 36.4 C L 64 18 114/67 99 Nasal Cannula O2 Flow Rate 07/11/23 12:00 07/11/23 08:05 07/11/23 07:15 07/11/23 04:30 1 07/11/23 04:17 2 07/11/23 03:33 2
[2023-07-11] MEDS: cefTRIAXone SODIUM 2,000 MG in DEXTROSE 5 % MINI-B 50 ML IV SCH (20:09)
[2023-07-12] MEDS: ACETAMINOPHEN 325 MG TAB PO PRN (02:14)
[2023-07-12] MEDS: GABAPENTIN 400 MG CAP PO SCH ×2 (08:40→20:19)
[2023-07-12] MEDS: allopurinoL 300 MG TAB PO SCH ×2 (08:40→20:20)
[2023-07-12] MEDS: busPIRone 5 MG TAB PO SCH ×2 (08:40→20:19)
[2023-07-12] MEDS: THIAMINE HCL 100 MG TAB PO SCH (08:41)
[2023-07-12] MEDS: MELOXICAM 7.5 MG TAB PO SCH (08:41)
[2023-07-12] MEDS: ENOXAPARIN INJ 40 MG/0.4 ML SYR SQ SCH (08:41)
[2023-07-12] MEDS: NICOTINE 21 MG/24 HR TDSY TD SCH (08:41)
[2023-07-12] MEDS: ESCITALOPRAM OXALATE 20 MG TAB PO SCH (08:41)
[2023-07-12] MEDS: MUPIROCIN 2% OINT 22 GM TUBE EXT SCH ×2 (08:41→20:21)
[2023-07-12 09:13] LABS: Basophils # (auto) 0.05 K/uL (0.00-0.20); Basophils % (auto) 0.5 %; Eosinophils # (auto) 0.07 K/uL (0.00-0.50); Eosinophils % (auto) 0.7 %; Hematocrit (blood only) 31.8 % (37.0-47.0); Hemoglobin 10.8 g/dl (12.0-16.0); Lymphocytes # (auto) 0.32 K/uL (1.20-3.40); Lymphocytes % (auto) 3.1 %; Mean Corpuscular Volume 102.9 fL (80.0-100.0); Mean Platelet Volume 10.4 fL (9.4-12.4); Monocytes # (auto) 1.57 K/uL (0.11-0.59); Monocytes % (auto) 15.4 %; Neutrophils # (auto) 8.08 K/uL (1.40-6.50); Neutrophils % (auto) 79.3 %; Platelet Count 130 K/uL (130-400); RDW Coefficient of Variation 12.7 % (11.5-14.5); Red Blood Count 3.09 M/uL (4.20-5.40); White Blood Count 10.19 K/ul (4.8-10.8)
[2023-07-12 09:26] LABS: Albumin Globulin Ratio 1.2 (0.9-2); BUN Creatinine Ratio 18.4 (10-20); Bilirubin,Total 0.5 mg/dl (0.2-1.0); Calcium 8.2 mg/dl (8.6-10.3); Creatinine Clr Calc Pharmacy 64.8 ml/min; Est GFR (African American) 81.6 ml/min; Est GFR (Non-African American) 70.4 ml/min; Globulin 2.6 gm/dl (2.5-4.0); Potassium 3.4 mmol/L (3.5-5.1); Total Protein 5.6 gm/dl (6.0-8.3)
[2023-07-12] MEDS ORDERED: POTASSIUM CHLORIDE CRTAB 20 MEQ TABCR PO STA (13:02)
--- NOTE | 2023-07-12 13:02 | Hospitalist Progress Note ---
Date of Service July 12, 2023 Assessment & Plan (1) Sepsis: (2) Hypomagnesemia: (3) Hypoxia: (4) Hyponatremia: (5) Tobacco abuse: (6) History of breast cancer: (7) Acute metabolic encephalopathy: (8) Somnolence: Plan Ms. Hernandes is a 62 year old female that presents to the ED with generalized weakness and hypoxia. Sepsis secondary to E. coli bacteremia Acute hypoxic respiratory failure Patient presented to the ED with generalized weakness. Leukocytosis present, patient hypotensive on admission with elevated lactate. CXR cardiomegaly without CHF or pleural effusions Chest CTA: Cardiomegaly and mild emphysema. No airspace consolidation typical for pneumonia or pleural effusion is identified. Mild intralobular septal thickening suggests fluid overload/congestive change. Correlate clinically. Advanced coronary artery atherosclerosis Biofire negative MRSA nares positive Blood culture shows gram-negative bacilli. Urine culturemore than 3 types of organism present, all blood count. Continue on ceftriaxone; awaiting identification and sensitivity from blood culture. Repeat blood culture obtained. JHON: Likely prerenal Serum creatinine 1.24; baseline 0.8-0.9 Creatinine improved to baseline. Continue to monitor urine output. Hypomagnesemia: Serum magnesium 1.6; on admission. Repleted. Hyponatremia: Suspect secondary to dehydration. Sodium of 131 on admission Hyponatremia improved. Multiple Sclerosis: Used to follow with Neurology; Dr. Laura Takes Gabapentin for Neuropathy chronic left leg weakness Tobacco abuse: Chronic Current smoker Recommend smoking cessation Nicotine patch and gum ordered Depression and Anxiety: Chronic Takes alprazolam; currently on hold. Takes Lexapro and Buspar; continue History of breast cancer: Follows with Dr. Goetz stage 1A left invasive ductal carcinoma ER+, CA+, Her2 elizabeth negative diagnosed Aug 2017- she is s/p lumpectomy, RT (completed 08/21/2017), and currently continued onanastrazole (started 09/2017). 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 Shipman Code Status: Conditional code; okay with mechanical ventilation. No CPR or defibrillation. Okay for BiPAP and inotropic medications as necessary VTE Prophylaxis: Lovenox SQ Time spent evaluating patient, direct bedside care, chart review, placing orders, interpretation of diagnostic studies, discussion with patient as well as other required patient management activities is 50 minutes Please note the above document was generated using voice recognition software. It may contain grammatical, syntax or spelling errors. Any formal questions or concerns about the content, text or information contained within the body of this dictation should be directly addressed to the provider for clarification Admission and Anticipated Discharge Date Admission Date: July 10, 2023 Subjective Patient seen and examined at bedside. Comfortable; not in distress. Reports that her energy is much better today. Denies fever, chills, chest pain, shortness of breath, abdominal pain or urinary symptoms. No significant overnight events Review of Systems Review of Systems: All systems reviewed & are unremarkable except as noted in Subjective Physical Exam Physical Exam: Constitutional: Alert oriented x 3; not in any distress. Respiratory: normal respiratory effort, lungs clear to auscultation, no wheeze, rales, rhonchi. Normal insp/exp effort, no accessory muscle use Cardiovascular: RRR, no murmur, no edema Vessels: no JVD or carotid bruit Chest: normal inspection of chest Abdomen: normal bowel sounds, soft, nontender, no hepatosplenomegaly Musculoskeletal: no cyanosis or clubbing, extremities motor strength 5/5 Skin: no rashes, warm and dry normal turgor Neurologic: PERRL, EOMI, accommodation nl, no face palsy, no dysarthria CN's II- XI intact bilaterally and moves all extremities Psychiatric: A+Ox3, euthymic affect Results & Data Results & Data Vital Signs (Past 12 Hours) Vital Signs Temp Pulse Pulse Resp BP Pulse Ox O2 Del Method 07/12/23 11:33 37.3 C 76 18 141/80 H 97 Room Air 07/12/23 08:40 79 07/12/23 08:40 Room Air 07/12/23 07:36 37.1 C 91 H 17 161/81 H 96 Room Air 07/12/23 03:41 36.8 C 07/12/23 03:39 72 19 147/68 H 97 Room Air
[2023-07-12] MEDS: oxyCODONE HCL IR 5 MG TAB (IMMEDIATE RELEASE) PO PRN ×2 (15:05→21:23)
[2023-07-12] MEDS: risperiDONE 0.5 MG TABLET PO SCH (20:21)
[2023-07-13] MEDS: ACETAMINOPHEN 325 MG TAB PO PRN (03:04)
[2023-07-13 06:47] LABS: Basophils # (auto) 0.03 K/uL (0.00-0.20); Basophils % (auto) 0.4 %; Eosinophils # (auto) 0.09 K/uL (0.00-0.50); Eosinophils % (auto) 1.2 %; Hematocrit (blood only) 31.8 % (37.0-47.0); Hemoglobin 10.7 g/dl (12.0-16.0); Immature Granulocytes # (auto) 0.12 K/uL (0.01-0.20); Immature Granulocytes % (auto) 1.6 %; Lymphocytes # (auto) 0.42 K/uL (1.20-3.40); Lymphocytes % (auto) 5.6 %; Mean Corpuscular Hemoglobin 34.9 pg (25.0-34.0); Mean Corpuscular Hgb Conc 33.6 g/dL (32.0-36.0); Mean Corpuscular Volume 103.6 fL (80.0-100.0); Mean Platelet Volume 9.6 fL (9.4-12.4); Monocytes # (auto) 1.41 K/uL (0.11-0.59); Monocytes % (auto) 18.8 %; Neutrophils # (auto) 5.43 K/uL (1.40-6.50); Neutrophils % (auto) 72.4 %; Platelet Count 146 K/uL (130-400); RDW Coefficient of Variation 12.9 % (11.5-14.5); RDW Standard Deviation 48.8 fL (36.4-46.3); Red Blood Count 3.07 M/uL (4.20-5.40)
[2023-07-13 07:19] LABS: Albumin Globulin Ratio 1.2 (0.9-2); Albumin Level 2.9 gm/dl (3.4-5.0); BUN Creatinine Ratio 13.6 (10-20); Bilirubin,Total 0.4 mg/dl (0.2-1.0); Calcium 8.3 mg/dl (8.6-10.3); Creatinine Clr Calc Pharmacy 64.1 ml/min; Est GFR (African American) 80.5 ml/min; Est GFR (Non-African American) 69.4 ml/min; Globulin 2.5 gm/dl (2.5-4.0); Potassium 3.5 mmol/L (3.5-5.1); Total Protein 5.4 gm/dl (6.0-8.3)
[2023-07-13] MEDS: cefTRIAXone SODIUM 2,000 MG in DEXTROSE 5 % MINI-B 50 ML IV SCH (08:51)
[2023-07-13] MEDS: THIAMINE HCL 100 MG TAB PO SCH (08:57)
[2023-07-13] MEDS: busPIRone 5 MG TAB PO SCH ×2 (08:58→20:36)
[2023-07-13] MEDS: allopurinoL 300 MG TAB PO SCH ×2 (08:58→20:35)
[2023-07-13] MEDS: GABAPENTIN 400 MG CAP PO SCH ×2 (08:58→20:34)
[2023-07-13] MEDS: ENOXAPARIN INJ 40 MG/0.4 ML SYR SQ SCH (08:59)
[2023-07-13] MEDS: ESCITALOPRAM OXALATE 20 MG TAB PO SCH (08:59)
[2023-07-13] MEDS: NICOTINE 21 MG/24 HR TDSY TD SCH (09:00)
[2023-07-13] MEDS: MELOXICAM 7.5 MG TAB PO SCH (09:00)
[2023-07-13] MEDS: oxyCODONE HCL IR 5 MG TAB (IMMEDIATE RELEASE) PO PRN ×2 (09:00→17:27)
[2023-07-13] MEDS: MUPIROCIN 2% OINT 22 GM TUBE EXT SCH ×2 (09:00→20:33)
--- NOTE | 2023-07-13 12:32 | Hospitalist Progress Note ---
Date of Service July 13, 2023 Assessment & Plan (1) Sepsis: (2) Hypomagnesemia: (3) Hypoxia: (4) Hyponatremia: (5) Tobacco abuse: (6) History of breast cancer: (7) Acute metabolic encephalopathy: (8) Somnolence: Plan Ms. Hernandes is a 62 year old female that presents to the ED with generalized weakness and hypoxia. Sepsis secondary to E. coli bacteremia Acute hypoxic respiratory failure Patient presented to the ED with generalized weakness. Leukocytosis present, patient hypotensive on admission with elevated lactate. CXR cardiomegaly without CHF or pleural effusions Chest CTA: Cardiomegaly and mild emphysema. No airspace consolidation typical for pneumonia or pleural effusion is identified. Mild intralobular septal thickening suggests fluid overload/congestive change. Correlate clinically. Advanced coronary artery atherosclerosis Biofire negative MRSA nares positive Blood culture growing E. coli; pansensitive. Urine culturemore than 3 types of organism present, all low counts. Repeat blood cultureno growth in 24 hours Continue on ceftriaxone; plan to switch her over to fluoroquinolone at discharge; plan to treat for 10 to [address] abdomen and pelvis with IV contrast to rule out intra-abdominal source. JHON: Likely prerenal Serum creatinine 1.24; baseline 0.8-0.9 Creatinine improved to baseline. Continue to monitor urine output. Hypomagnesemia: Serum magnesium 1.6; on admission. Repleted. Hyponatremia: Suspect secondary to dehydration. Sodium of 131 on admission Hyponatremia improved. Multiple Sclerosis: Used to follow with Neurology; Dr. Laura Takes Gabapentin for Neuropathy chronic left leg weakness Tobacco abuse: Chronic Current smoker Recommend smoking cessation Nicotine patch and gum ordered Depression and Anxiety: Chronic Takes alprazolam; currently on hold. Takes Lexapro and Buspar; continue History of breast cancer: Follows with Dr. Goetz stage 1A left invasive ductal carcinoma ER+, VT+, Her2 elizabeth negative diagnosed Aug 2017- she is s/p lumpectomy, RT (completed 08/21/2017), and currently continued onanastrazole (started 09/2017). 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 Shipman Code Status: Conditional code; okay with mechanical ventilation. No CPR or defibrillation. Okay for BiPAP and inotropic medications as necessary VTE Prophylaxis: Lovenox SQ Time spent evaluating patient, direct bedside care, chart review, placing orders, interpretation of diagnostic studies, discussion with patient as well as other required patient management activities is 50 minutes Please note the above document was generated using voice recognition software. It may contain grammatical, syntax or spelling errors. Any formal questions or concerns about the content, text or information contained within the body of this dictation should be directly addressed to the provider for clarification Admission and Anticipated Discharge Date Admission Date: July 10, 2023 Subjective Patient seen and examined at bedside. Comfortable; not in distress. She reports that she is feeling slightly tired today. Febrile in a.m. Denies chills, chest pain, shortness of breath, abdominal pain or urinary symptoms. No significant overnight events Review of Systems Review of Systems: All systems reviewed & are unremarkable except as noted in Subjective Physical Exam Physical Exam: Constitutional: Alert oriented x 3; not in any distress. Respiratory: normal respiratory effort, lungs clear to auscultation, no wheeze, rales, rhonchi. Normal insp/exp effort, no accessory muscle use Cardiovascular: RRR, no murmur, no edema Vessels: no JVD or carotid bruit Chest: normal inspection of chest Abdomen: normal bowel sounds, soft, nontender, no hepatosplenomegaly Musculoskeletal: no cyanosis or clubbing, extremities motor strength 5/5 Skin: no rashes, warm and dry normal turgor Neurologic: PERRL, EOMI, accommodation nl, no face palsy, no dysarthria CN's II- XI intact bilaterally and moves all extremities Psychiatric: A+Ox3, euthymic affect Results & Data Results & Data Vital Signs (Past 12 Hours) Vital Signs Temp Pulse Resp BP Pulse Ox O2 Del Method 07/13/23 11:36 36.9 C 61 18 106/64 94 Room Air 07/13/23 09:02 Room Air 07/13/23 07:40 36.9 C 66 18 130/65 97 Room Air 07/13/23 03:01 38.3 C H 79 18 122/65 92 Room Air
[2023-07-13] MEDS ORDERED: OPTIRAY 320 500ml IV ONE (14:09)
--- NOTE | 2023-07-13 14:24 | CT Scan Report ---
CT SCAN OF THE ABDOMEN AND PELVIS WITH IV CONTRAST CLINICAL HISTORY: Bacteremia. COMPARISON STUDY: Abdominal CT dated 05/16/2021. TECHNIQUE: Following the IV administration of 90 cc of Optiray 320, CT scan of the abdomen and pelvi s is performed from the lung bases to the proximal femora. Images are reviewed in the axial, sagittal , and coronal planes. IV contrast was administered without complication. A dose lowering technique wa s utilized adhering to the principles of ALARA. CT DOSE: 1090.45 mGy.cm FINDINGS: Lung bases: The heart is mildly enlarged and without pericardial effusion. The coronary arteries are calcified. There is a tiny hiatal hernia. There are trace pleural effusions with dependent atelectasi s. Liver: The contrast-enhanced liver is normal in size, cirrhotic morphology, and heterogeneous in atte nuation. There is nodularity of the hepatic surface contour. There is no intrahepatic biliary ductal dilatation. The hepatic veins and portal veins are patent. Gallbladder: There are numerous gallstones. The gallbladder is partially distended, and there is nons pecific gallbladder wall thickening. Spleen: Normal in size and attenuation. Pancreas: Unremarkable. Adrenal glands: Unremarkable. Kidneys: The contrast enhanced kidneys are normal in size and without hydronephrosis. The kidneys enh ance symmetrically. There is a 5 mm nonobstructing calculus in the left lower pole. Scattered subcent imeter cortical hypodensities likely represent cysts but are too small for definitive characterizatio n. Abdominal vasculature: There is advanced atherosclerotic calcification and mild ectasia of the abdomi nal aorta. Bowel: There is mild colonic diverticulosis without CT evidence of acute diverticulitis. No bowel obs truction is seen. The appendix is well-visualized and normal. Peritoneum: There is trace perihepatic and pelvic ascites. No intraperitoneal free air is seen. There is a small fat-containing umbilical hernia. Lymphadenopathy: None. Pelvic viscera: The bladder wall is circumferentially thickened with mild surrounding infiltration. T he uterus surgically absent. No adnexal lesion is seen. There are bilateral fat-containing groin deisy ias. Skeletal structures: The skeletal structures are osteopenic. There is lungs are spondylosis, with pos tsurgical change of L4-S1 spinal fusion. No lytic or blastic lesions are seen. IMPRESSION: 1. The bladder wall is circumferentially thickened with mild surrounding infiltration. Correlate with clinical findings and urinalysis for evidence of cystitis. 2. The liver demonstrates morphologic change of cirrhosis. 3. Cholelithiasis with nonspecific gallbladder wall thickening. This may be related to adjacent hepat ocellular disease. If there is clinical/laboratory concern for cholecystitis a nuclear hepatobiliary scan should be obtained. 4. Trace abdominopelvic ascites. 5. Mild cardiomegaly and trace pleural effusions. 6. Left-sided nephrolithiasis. 7. Colonic diverticulosis without CT evidence of acute diverticulitis. 8. Advanced atherosclerotic change is seen throughout the abdominal aorta and involving the coronary arteries. 9. Additional findings as above. ACT 112: Negative or not required by law. Electronically signed by: Kishore Nolan M.D. 07/13/2023 2:22 PM
[2023-07-13] MEDS ORDERED: diphenhydrAMINE Capsule 25 MG CAP PO ONE (16:30)
[2023-07-13] MEDS: valACYclovir HCL 500 MG TABLET PO SCH (17:31)
[2023-07-13] MEDS: risperiDONE 0.5 MG TABLET PO SCH (20:34)
[2023-07-14] MEDS: oxyCODONE HCL IR 5 MG TAB (IMMEDIATE RELEASE) PO PRN (06:05)
[2023-07-14 07:06] LABS: Albumin Globulin Ratio 1.2 (0.9-2); Albumin Level 2.8 gm/dl (3.4-5.0); BUN Creatinine Ratio 11.5 (10-20); Bilirubin,Total 0.4 mg/dl (0.2-1.0); Calcium 8.4 mg/dl (8.6-10.3); Creatinine Clr Calc Pharmacy 72.3 ml/min; Est GFR (African American) 93.1 ml/min; Est GFR (Non-African American) 80.3 ml/min; Globulin 2.3 gm/dl (2.5-4.0); Potassium 3.6 mmol/L (3.5-5.1); Total Protein 5.1 gm/dl (6.0-8.3)
[2023-07-14 07:18] LABS: Basophils # (auto) 0.03 K/uL (0.00-0.20); Basophils % (auto) 0.4 %; Eosinophils # (auto) 0.12 K/uL (0.00-0.50); Eosinophils % (auto) 1.8 %; Hematocrit (blood only) 28.4 % (37.0-47.0); Hemoglobin 9.9 g/dl (12.0-16.0); Immature Granulocytes % (auto) 1.5 %; Lymphocytes # (auto) 0.44 K/uL (1.20-3.40); Lymphocytes % (auto) 6.5 %; Mean Corpuscular Hemoglobin 34.7 pg (25.0-34.0); Mean Corpuscular Hgb Conc 34.9 g/dL (32.0-36.0); Mean Corpuscular Volume 99.6 fL (80.0-100.0); Mean Platelet Volume 9.9 fL (9.4-12.4); Monocytes # (auto) 1.36 K/uL (0.11-0.59); Monocytes % (auto) 20.1 %; Neutrophils % (auto) 69.7 %; Platelet Count 169 K/uL (130-400); RDW Coefficient of Variation 12.7 % (11.5-14.5); RDW Standard Deviation 46.8 fL (36.4-46.3); Red Blood Count 2.85 M/uL (4.20-5.40); White Blood Count 6.75 K/ul (4.8-10.8)
[2023-07-14] MEDS: NICOTINE 21 MG/24 HR TDSY TD SCH (07:45)
[2023-07-14] MEDS: busPIRone 5 MG TAB PO SCH (07:45)
[2023-07-14] MEDS: GABAPENTIN 400 MG CAP PO SCH (07:45)
[2023-07-14] MEDS: allopurinoL 300 MG TAB PO SCH (07:46)
[2023-07-14] MEDS: THIAMINE HCL 100 MG TAB PO SCH (07:46)
[2023-07-14] MEDS: ENOXAPARIN INJ 40 MG/0.4 ML SYR SQ SCH (07:46)
[2023-07-14] MEDS: ESCITALOPRAM OXALATE 20 MG TAB PO SCH (07:46)
[2023-07-14] MEDS: MELOXICAM 7.5 MG TAB PO SCH (07:46)
[2023-07-14] MEDS: valACYclovir HCL 500 MG TABLET PO SCH (07:47)
[2023-07-14] MEDS: MUPIROCIN 2% OINT 22 GM TUBE EXT SCH (07:47)
[2023-07-14 07:56] LABS: Prothrombin Time 11.1 Seconds (9.0-12.0)
[2023-07-14] MEDS: cefTRIAXone SODIUM 2,000 MG in DEXTROSE 5 % MINI-B 50 ML IV SCH (08:43)
[2023-07-14] MEDS ORDERED: TOPIRAMATE 100 MG TAB PO SCH (09:00)
--- NOTE | 2023-07-14 12:14 | Discharge Summary ---
Date of Service July 14, 2023 Admission HPI Per Admitting Provider Ms. Hernaneds is a 62 year old female that presents to the ED with generalized weakness and hypoxia. At home, her SPO2 was in the 80s. For the last week and a half she was at home with her and her daughter was visiting for the holidays. She has had a non-productive cough and was taking Mucinex, no other medications. She was at her baseline on and was assi sting with making holiday dinner. Over the past 24 hours she was having more altered mental status and difficulty with finding words, but did know who her and daughter were. Patient and daughter report cloudy urine presentation. 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 She has completed Anastrozole for breast cancer treatment. Of note, patient does have a history of [place] Palsy and chronic left sided facial droop. This is her baseline. CXR revealed cardiomegaly without CHF and no pleural effusions. Chest CT without contrast reveals: Cardiomegaly and mild emphysema. No airspace consolidation typical for pneumonia or pleural effusion is identified. Mild intralobular septal thickening suggests fluid overload/congestive change. Correlate clinically. Advanced coronary artery atherosclerosis. ED lab work indicates: Leukocytosis 13.66, hyponatremic 130, mild JHON 1.24, Mg+ 1.6, and Troponin 74.2. Biofire negative. Most recent echo 05/04/2021 EF 55 to 59% without any wall motion abnormalities; no significant valvular disease is present. Denies BEEBE, dizziness, chest pain, pleurisy, abdominal pain, urinary changes, abdominal tenderness, recent falls or trauma. On examination, pt was sitting upright in her hospital bed and ill appearing. She was able to answer questions for me appropriately. She is weaker with her upper extremities, but equal lumber tailer strength on both sides. CN II-XII grossly intact. Pt meets sepsis criteria with leukocytosis, intermittent fevers, and hypoxia. Patient has sepsis of a respiratory source; despite negative chest x-ray. Chest CTA pending, Will trend Troponin but do not suspect ACS rather ischemic demand. Obtain UA, Sputum, blood cultures and adjust Ceftriaxone + Azithromycin based on culture results. Will check BNP, provide gentle fluid resuscitation. Pt will be admitted for further evaluation and management. Please see A/P for further details. Admission Exam Per Admitting Provider Neuro: AAOx4, PERRLA, no aphagia, memory changes, CNII-XII grossly intact HEENT: head normocephalic, moist mucus membranes CV: S1/S2, (-) M/G/R, (-) edema, cap refill < 3 seconds Resp: Lungs Coarse. On 2LNC GI: Abdomen S/NT/ND, Ax4 bowel sounds, (-) CVA tenderness Musculoskeletal: 4/5 B/L UE strength, 4/5 B/L LE strength. No gait disturbance at baseline Skin: (-) rashes , (-) erythema. Psych: euthymic mood Principal Diagnosis E. coli bacteremia Discharge Exam Constitutional: Alert oriented x 3; not in any distress. Respiratory: normal respiratory effort, lungs clear to auscultation, no wheeze, rales, rhonchi. Normal insp/exp effort, no accessory muscle use Cardiovascular: RRR, no murmur, no edema Vessels: no JVD or carotid bruit Chest: normal inspection of chest Abdomen: normal bowel sounds, soft, nontender, no hepatosplenomegaly Musculoskeletal: no cyanosis or clubbing, extremities motor strength 5/5 Skin: no rashes, warm and dry normal turgor Neurologic: PERRL, EOMI, accommodation nl, no face palsy, no dysarthria CN's II- XI intact bilaterally and moves all extremities Psychiatric: A+Ox3, euthymic affect Discharge Data Allergies Allergy/AdvReac Type Severity Reaction Status Date / Time Penicillins Allergy Severe Anaphylaxis Verified 07/10/23 14:58 A CHILD Sulfa (Sulfonamide Allergy Severe Anaphylaxis Verified 07/10/23 14:58 Antibiotics) A CHILD Consultations 07/10/23 16:01 ED Decision to Admit Stat Ordered Studies 07/10/23 16:04 CT chest diagnostic wo con Stat 07/13/23 12:29 CT abd pelvis IV con only Routine Hospital Course (1) Sepsis: (2) Hypomagnesemia: (3) Hypoxia: (4) Hyponatremia: (5) Tobacco abuse: (6) History of breast cancer: (7) Acute metabolic encephalopathy: (8) Somnolence: Plan Ms. Hernandes is a 62 year old female that presents to the ED with generalized weakness. Sepsis secondary to E. coli bacteremia Acute hypoxic respiratory failure Patient presented to the ED with generalized weakness. Patient hypotensive on admission with elevated lactate. CXR cardiomegaly without CHF or pleural effusions Chest CTA: Cardiomegaly and mild emphysema. No airspace consolidation typical for pneumonia or pleural effusion is identified. Mild intralobular septal thickening suggests fluid overload/congestive change. Correlate clinically. Advanced coronary artery atherosclerosis Biofire negative MRSA nares positive Blood culture growing E. coli; pansensitive. Urine culturemore than 3 types of organism present, all low counts. Repeat blood cultureno growth in [address] abdomen pelvis showed bladder wall thickening. Possible liver cirrhosis. She was treated with IV ceftriaxone during the hospitalization. At discharge, she was placed on levofloxacin 750 mg once a day for 11 more days. Patient asked to follow-up with PCP and obtain GI referral for workup of liver cirrhosis. JHON: Likely prerenal from sepsis Serum creatinine 1.24; baseline 0.8-0.9 Creatinine improved to baseline with hydration No other medication changes were done. Patient was discharged home Please note the above document was generated using voice recognition software. It may contain grammatical, syntax or spelling errors. Any formal questions or concerns about the content, text or information contained within the body of this dictation should be directly addressed to the provider for clarification Total Time Total Time Spent Total Time Spent (In Minutes): 45 Total Time Includes: Examination of the Patient, Discharge Planning, Medication Reconciliation, Communication With Other Providers and Other Discharge Plan Discharge Items Patient Disposition: Home - Self-Care Reason For Visit: SOB Discharge Diagnosis: E. coli bacteremia. Activity: Resume your previous activity Non-emergency contact: Primary Care Provider Call non-emergency contact if: you have any medication questions Follow-up/Referrals: Maria Shipman DO [Primary Care Provider] - (Date & Time 07/16/2023 11:20 AM Provider Caitlin Mart MD [facility] ) Diet: Regular Addtl Attending Provider Instructions: You were admitted to the hospital due to sepsis from UTI. You are treated with IV antibiotics during the hospitalization. You are prescribed levofloxacin 750 mg once a day to be taken for 11 more days to complete the antibiotic course. If you experience tendon pain/muscle pain while on the antibiotics; please contact your primary care doctor. The CT abdomen and pelvis during the hospitalization showed possible liver cirrhosis. Please follow-up with your primary care doctor and obtain GI referral. An appointment is set up with your primary care doctor for day after tomorrow. Pending Studies at Discharge: No Stand-Alone Forms: My [facility], Smoking Cessation Medications and DC Order Prescriptions: New levofloxacin 750 mg tablet 750 mg PO DAILY 11 Days Qty: 11 0RF Continued cyanocobalamin (vitamin B-12) 500 mcg tablet 500 mcg PO DAILY Qty: 30 0RF gabapentin 800 mg tablet 400 mg PO BID 90 Days Qty: 90 1RF alprazolam 1 mg tablet 1 mg PO .COMPLEX MDD 2 mg (2 tabs) daily 30 Days Qty: 60 0RF Rx Instructions: 1/2 tab po in the am, 1 tab po in the afternoon, and 1/2 tab po in the pm prn anxiety. Do not take more than 2 mg daily. multivitamin [Daily Multi-Vitamin] tablet 1 tab PO DAILY risperidone 0.25 mg tablet 0.25 mg PO HS buspirone 10 mg tablet 10 mg PO BID valacyclovir 1 gram tablet 1,000 mg PO DAILY allopurinol 300 mg tablet 300 mg PO DAILY oxycodone 5 mg tablet 5 mg PO Q4H PRN (Reason: Pain, Severe) thiamine HCl (vitamin B1) [Vitamin B-1] 100 mg Tablet 100 mg PO DAILY Qty: 30 0RF acetaminophen [Tylenol] 325 mg Tablet 650 mg PO Q4H PRN (Reason: PAIN/FEVER) cholecalciferol (vitamin D3) [Vitamin D3] 25 mcg (1,000 unit) Capsule 5,000 unit PO DAILY tizanidine 4 mg tablet 4 mg PO Q8H PRN (Reason: MUSCLE SPASMS) meloxicam 7.5 mg tablet 7.5 mg PO QAM meclizine 25 mg tablet 25 mg PO TID PRN (Reason: NEEDED MULTIPLE SCLEROSIS) topiramate 100 mg tablet 100 mg PO QAM escitalopram oxalate 20 mg tablet 20 mg PO QAM Discharge Orders: Discharge Order (Routine); Ordered 07/14/23 Ordered By: Pascual Dodge Admission Data Admit Date/Time: 07/10/23 17:10 Attending Provider: Pascual Dodge Admit Provider: Li Kim Primary Care Provider: Maria Shipman Other Providers: Li Kim Other Interventions: Discharge Summary Assessment (RN) Last Done: 07/14/23 11:52
== END 2023-07-14 13:05 | disposition home or self-care (01) | DRG 871 ==
LOC: ED 13:18 → SUATTDRO 17:10 → EDINP 17:10 → 2E 21:22